=== PATIENT | male | born 1945 | race Caucasian/White ===

== ENCOUNTER 2017-01-16 00:19 | Inpatient (IN) | payer MEDICARE, MEDICAID ==
[2017-01-16] MEDS ORDERED: Sodium Chloride 0.9% 1,000 ML IV ONE (00:29)
--- NOTE | 2017-01-16 00:31 | ED Physician Chart ---
Chief Complaint/HPI - Patient Information Date Seen:: 01/16/17 Time Seen:: 00:26 Chief Complaint:: generalized weakness History of Present Illness:: 71-year-old male, brought in from [facility] facility with acute, worsening , moderate to severe, generalized weakness 3 days. With associated poor oral intake. Denies pain, nausea, vomiting, headache, acute vision changes, dysuria. History limited due to patient's uncooperative behavior History provided by EMS Allergies:: Allergies Allergy/AdvReac Type Severity Reaction Status Date / Time No Known Allergies Allergy Verified 04/26/16 20:42 Historian:: Patient Review:: Nurse's Note Reviewed, EMS run form Reviewed, Transfer documents Reviewed Review of Systems - Review of Systems Other: Complete system review otherwise unremarkable except as noted in history of present illness. Past Medical History - Past Medical History Past Medical History: HTN, Other (history of psychoactive substance abuse, hearing loss bilateral, traumatic amputation of unspecified toe, chronic pain syndrome, unspecified psychosis, impulse disorder, osteoarthritis, low back pain , polyneuropathy, atherosclerotic heart disease, chronic viral hepatitis C, vitamin B12 deficiency anemia, factitious disorder, glaucoma, dysphagia, unspecified lack of coordination) Family History: None Social History: Non Smoker, No Alcohol, No Drug Use, Care Facility Surgical History: None Psychiatricy History: None Medication: Reviewed Family Medical History - Family Member Mother History Unknown: Yes Ethnicity: Unknown Living Status: Unknown Hx Family Cancer: No Hx Family Coronary Artery Disease: No Hx Family Congestive Heart Failure: No Hx Family Hypertension: No Hx Family Stroke: No Hx Family Diabetes: No Hx Family Seizures: No Hx Family Dementia: No Hx Family AIDS: No Hx Family HIV: No Hx Family COPD: No Hx Family Hepatitis: No Hx Family Psychiatric Problems: No Hx Family Tuberculosis: No Physical Exam - Physical Examination Other:: INITIAL VITAL SIGNS: Reviewed by me GENERAL: Alert and interactive. No acute distress. Uncooperative. HEAD: Head is normocephalic and atraumatic EYES: EOMI. No scleral icterus. No conjunctival injection ENT: Dry mucous membranes. NECK: Supple. No masses. Full range of motion RESPIRATORY: No tachypnea. Clear breath sounds bilaterally. No wheezing, rales, or rhonchi CV: Regular rate and rhythm. No murmurs, rubs, or gallops ABDOMEN: Soft, non-distended, non-tender. No guarding. No rebound. No masses. EXTREMITIES: No obvious deformity. No cyanosis. No edema. SKIN: Warm and dry. No obvious rashes. NEUROLOGIC: Alert and oriented. Face is symmetric. Speech is normal. Moves all extremities equally. Motor and sensory distally intact. Labs/Radiology/EKG Results - Lab Results Results: Lab Results 01/16/17 01/16/17 01/16/17 Range/Units 00:40 00:40 00:40 WBC 14.7 H D (4.8-10.8) Th/cmm RBC 2.12 L (3.80-5.80) Mil/cmm Hgb 9.0 L (12.6-17.4) gm/dL Hct 25.7 L (39.0-49.0) % MCV 121.2 H (80-99) fl MCH 42.3 H (27.0-31.0) pg MCHC Differential 34.9 (28.0-36.0) pg RDW 17.4 (11.5-20.0) % Plt Count 163 D (150-400) Th/cmm MPV 7.7 fl PT 14.0 H (9.5-11.5) SECONDS INR 1.33 (0.5-1.4) PTT (Actin FS) 30.6 (26.0-38.0) SECONDS Sodium 140 (136-145) mEq/L Potassium 3.9 (3.5-5.1) mEq/L Chloride 105 (98-107) mEq/L Carbon Dioxide 20.7 L (21.0-31.0) mEq/L Anion Gap 18.2 H (7.0-16.0) BUN 15 (7-25) mg/dL Creatinine 1.0 (0.7-1.3) mg/dL Est GFR ( Amer) TNP Est GFR (Non-Af Amer) TNP BUN/Creatinine Ratio 15.0 Glucose 110 H (70-105) mg/dL Whole Bld Lactic Acid (0.60-1.99) mmol/L Calcium 8.6 (8.6-10.3) mg/dL Total Bilirubin 0.9 (0.3-1.0) mg/dL AST 49 H (13-39) U/L ALT 11 (7-52) U/L Alkaline Phosphatase 102 (34-104) U/L Creatine Kinase 29 L (30-223) U/L Total Protein 7.1 (6.0-8.3) gm/dL Albumin 2.3 L (4.2-5.5) gm/dL Globulin 4.8 gm/dL Albumin/Globulin Ratio 0.5 L (1.0-1.8) 01/16/17 Range/Units 00:40 WBC (4.8-10.8) Th/cmm RBC (3.80-5.80) Mil/cmm Hgb (12.6-17.4) gm/dL Hct (39.0-49.0) % MCV (80-99) fl MCH (27.0-31.0) pg MCHC Differential (28.0-36.0) pg RDW (11.5-20.0) % Plt Count (150-400) Th/cmm MPV fl PT (9.5-11.5) SECONDS INR (0.5-1.4) PTT (Actin FS) (26.0-38.0) SECONDS Sodium (136-145) mEq/L Potassium (3.5-5.1) mEq/L Chloride (98-107) mEq/L Carbon Dioxide (21.0-31.0) mEq/L Anion Gap (7.0-16.0) BUN (7-25) mg/dL Creatinine (0.7-1.3) mg/dL Est GFR ( Amer) Est GFR (Non-Af Amer) BUN/Creatinine Ratio Glucose (70-105) mg/dL Whole Bld Lactic Acid 2.62 H* (0.60-1.99) mmol/L Calcium (8.6-10.3) mg/dL Total Bilirubin (0.3-1.0) mg/dL AST (13-39) U/L ALT (7-52) U/L Alkaline Phosphatase (34-104) U/L Creatine Kinase (30-223) U/L Total Protein (6.0-8.3) gm/dL Albumin (4.2-5.5) gm/dL Globulin gm/dL Albumin/Globulin Ratio (1.0-1.8) - EKG Interpretations Comments:: 12-lead EKG Interpretation by John Newsome MD: Normal Sinus Rhythm with ventricular rate of 79 beats per minute Normal axis Right bundle-branch block otherwise normal intervals No acute ST or T wave changes. No obvious STEMI ED Septic Shock - . Is Septic Shock (SBP<90, OR Lactate>4 mmol\L) present?: No Reassessment (Disposition) - Reassessment Reassessment:: Patient difficult to obtain a good history from as he is uncooperative. Apparently has been becoming more weak over the past 3 days. Has associated decreased oral intake. Unable to get a clear picture of the patient's issues in the emergency room setting. Discussed the case with the admitting physician. Patient admitted for further workup and treatment. Patient has leukocytosis and elevated lactic acid. No apparent source at this point however it is possible that he is septic. He is dehydrated. Consequently we did give IV fluids and Rocephin. Discussed case with the admitting physician. Patient admitted for further workup and treatment. Reassessment Condition:: Unchanged - Diagnosis Diagnosis:: Possible sepsis, unknown source Dehydration - Patient Disposition Discharge/Transfer:: Acute Care w/in this hosp Admitted to:: Med/Surg Admitting Medical Physician:: Miguel Mccarthy Time:: 01:18 Condition at Disposition:: Stable ED Discharge Plan - Patient Disposition Admit/Discharge/Transfer: Acute Care w/in this hosp
[2017-01-16 01:02] LABS: RED BLOOD COUNT 2.12 Mil/cmm (3.80-5.80)
[2017-01-16 01:10] LABS: HEMATOCRIT 25.7 % (39.0-49.0); MEAN CORPUSCULAR HEMOGLOBIN 42.3 pg (27.0-31.0); MEAN CORPUSCULAR HGB CONC 34.9 pg (28.0-36.0); MEAN PLATELET VOLUME 7.7 fl; RED CELL DISTRIBUTION WIDTH 17.4 % (11.5-20.0)
[2017-01-16 01:11] LABS: MEAN CELL VOLUME 121.2 fl (80-99); PLATELET COUNT 163 Th/cmm (150-400); WHITE BLOOD COUNT 14.7 Th/cmm (4.8-10.8)
[2017-01-16] MEDS ORDERED: cefTRIAXone 1 GM in Sodium Chloride 0.9% 50 ML IV ONE (01:12)
[2017-01-16 01:13] LABS: ALB/GLOB RATIO 0.5 (1.0-1.8); ALKALINE PHOSPHATASE 102 U/L (34-104); ANION GAP 18.2 (7.0-16.0); BILIRUBIN,TOTAL 0.9 mg/dL (0.3-1.0); BUN - UREA NITROGEN 15 mg/dL (7-25); CALCIUM SERUM 8.6 mg/dL (8.6-10.3); CARBON DIOXIDE 20.7 mEq/L (21.0-31.0); CHLORIDE 105 mEq/L (98-107); GLUCOSE 110 mg/dL (70-105); INR 1.33 (0.5-1.4); POTASSIUM SERUM 3.9 mEq/L (3.5-5.1); SGOT 49 U/L (13-39); SGPT/ALT 11 U/L (7-52); SODIUM SERUM 140 mEq/L (136-145)
[2017-01-16 01:27] LABS: ANISOCYTOSIS 2+; BAND NEUTROPHILE 5 % (0-10); EOSINOPHIL 13 % (0-5); NEUTROPHILS 66 % (40-80); PLATELET ESTIMATE ADEQUATE (NORMAL); POLYCHROMASIA 1+; TOTAL CELLS COUNTED 100
[2017-01-16 01:28] LABS: TEAR DROP CELLS 1+
[2017-01-16] MEDS ORDERED: Magnesium Hydroxide (MOM) 30 mL UDC PO PRN (01:33)
[2017-01-16 01:41] LABS: URINE BILIRUBIN SMALL (NEGATIVE); URINE COLOR ORANGE; URINE GLUCOSE (UA) NEGATIVE (NEGATIVE); URINE KETONE NEGATIVE (NEGATIVE)
[2017-01-16 01:42] LABS: URINE BACTERIA NONE SEEN /hpf (NONE SEEN); URINE BLOOD NEGATIVE (NEGATIVE); URINE EPITHELIAL CELLS OCCASIONAL /lpf (FEW); URINE PH 5.5; URINE PROTEIN 30 mg/dL (NEGATIVE); URINE RBC 0-2 /hpf (0-5); URINE WBC 0-2 /hpf (0-5)
[2017-01-16] MEDS: D5-0.45NS w/20 mEq KCL 1,000 ML IV SCH ×2 (04:23→20:20)
--- NOTE | 2017-01-16 06:54 | Admit Criteria Form ---
Admit Criteria Forms - Admit Criteria Diagnosis: SEPSIS and OTHER FEBRILE ILLNESS, W/O FOCAL INFECTION Clinical Indications for Admission to Inpatient Care ( Place 'X' for any and all applicable criteria): Admission is indicated for ANY ONE of the following (1)(2)(3)(4): [ ] I. Bacteremia [X ]II. Suspected or identified specific infection requiring hospitalization (eg, meningitis, endocarditis) [ ]III. Hemodynamic instability [ ]IV. Altered mental status [ ]V. Failure or unavailability of outpatient antimicrobial treatment [ ]. Hypoxemia [ ]VII. Seizures [ ]VIII. High-risk febrile neutropenia [ ]IX. Need for parenteral antibiotic in patient who is likely to abuse vascular access device (eg, injection drug user) [A](7) [ ]X. Temperature greater than 104.9 degrees F (40.5 degrees C) (oral) [X ]XI. Inpatient admission required rather than observation care because of ANY ONE of the following: [ ]1) Specific infection identified that is too severe for outpatient treatment or observation care trial [ ]2) Metabolic disorder (eg, hypoglycemia, hyperglycemia, metabolic acidosis) that is severe or persistent [ ]3) Temperature greater than 103.1 degrees F (39.5 degrees C) ( oral) that is not responsive to observation care treatment [ ]4) IV fluid to replace significant ongoing (eg, for over 24 hours) losses (> 3 L/m2 per day) [ ]5) Supplemental oxygen or respiratory treatments for over 24 hours that is performable only in acute inpatient setting [ ]6) Parenteral nutrition regimen need that must be implemented on inpatient basis [ ]7) Strict or protective (eg, laminar flow) isolation [X ]8) Other condition, treatment or monitoring requiring inpatient admission Extended stay beyond goal length of stay may be needed for(1)(3) [ ]a) Sepsis or septic shock(22) [ ]b) Positive blood cultures [ ]c) Insufficient oral intake [ ]d) High-risk febrile neutropenia(29)(30) [ ]e) Continued fever and clinical instability [ ]f) Clinically active comorbid illness (e.g,heart failure, renal failure , diabetes) The original [employer] content created by [employer] has been revised. The portions of the content which have been revised are identified through the use of italic text or in bold, and [facility] [employer] has neither reviewed nor approved the modified material. All other unmodified content is copyright [facility]. Please see references footnoted in the original [facility] edition 2016 Admit Criteria Met?: Yes
[2017-01-16] MEDS: Ferrous Sulfate 325 MG TAB PO SCH (08:40)
[2017-01-16] MEDS: Multivitamin w/ Minerals Tab PO SCH (08:40)
--- NOTE | 2017-01-16 14:33 | Consultation ---
Consult Note - Consult Note Service Date: 01/16/17 Consult Note: [id number]
--- NOTE | 2017-01-16 15:46 | Diagnostic Imaging Report ---
CHEST X-RAY: AP view INDICATION: Pneumonia COMPARISON: None FINDINGS: Right lower lung zone infiltrates and small right effusion is noted. There may be a hiatal hernia. Cardiomegaly is noted with atherosclerosis.. Postsurgical changes of right humerus are partially visualized. IMPRESSION: Right lower lung zone infiltrates and small right effusion. Possible hiatal hernia. CT would further clarify. Cardiomegaly and atherosclerotic vascular disease.
[2017-01-16 17:06] LABS: TISSUE KOH / SCABIES NEGATIVE FOR SCABIES
[2017-01-16] MEDS ORDERED: Non-Formulary Item 1 EA (Melatonin [Melatonin] 3 MG) PO SCH (21:00)
--- NOTE | 2017-01-16 21:34 | History & Physical ---
ADMIT DATE: 01/16/2017 CHIEF COMPLAINT: Altered level of consciousness, poor appetite, and generalized weakness. HISTORY OF PRESENT ILLNESS: The patient is a 71-year-old male with long history of degenerative joint disease, dementia, and psychosis, who was transferred to the Emergency Room with generalized weakness, poor appetite, evaluated by the ER physician. Initial workup is significant for possible urinary tract infection, dehydration, admitted to the medical floor, started on IV fluid, antibiotic. The patient denies any chest pain, any nausea or vomiting. Initial blood workup was also significant for anemia and leukocytosis. The patient was started on IV fluid, antibiotic. PAST MEDICAL HISTORY: Significant for dementia, psychosis, and degenerative joint disease. PAST SURGICAL HISTORY: No recent surgery. ALLERGIES: None. MEDICATIONS: Follow admission reconciliation. SOCIAL HISTORY: No smoking, alcohol, or drugs. FAMILY HISTORY: Noncontributory. REVIEW OF SYSTEMS: RENAL SYSTEM: No history of chronic renal disorder. CARDIOVASCULAR SYSTEM: No coronary artery disease. ENDOCRINE SYSTEM: No diabetes or thyroid problem. GASTROINTESTINAL SYSTEM: No upper or lower gastrointestinal bleed. NEUROLOGICAL SYSTEM: He has history of psychosis and dementia. MUSCULOSKELETAL SYSTEM: Degenerative joint disease. PHYSICAL EXAMINATION: GENERAL: He is awake, alert, and confused. VITAL SIGNS: Temperature is 97.5, heart rate 66, and blood pressure 170/72. HEENT: Normocephalic. Pupils are reactive to light and accommodation. Sclerae clear. NECK: Supple. Negative for lymphadenopathy, JVD, or bruit. CHEST: Bilaterally normal. No rhonchi or wheezing. HEART: S1, S2 normal. . ABDOMEN: Soft. Bowel sounds positive. EXTREMITIES: No edema. NEUROLOGIC: Awake and alert, not fully oriented. No focal motor or sensory deficits. LABORATORY DATA: White blood cells 14.7, hemoglobin 9, hematocrit 25.7, platelet 163,000. PT . INR 1.33. Sodium 140, potassium 3.9, BUN 15, and creatinine 1.0. Lactic acid 3.82. ASSESSMENT: 1. Possible urinary tract infection. 2. Dehydration. 3. Anemia. 4. Psychosis. 5. Dementia. PLAN: The patient was admitted to the hospital under Dr. Mccarthy's service, on IV fluid, IV antibiotic, and regular diet. The patient will resume his medication. Psych evaluation ordered. [facility]# [id number]
[2017-01-17] MEDS ORDERED: cefTRIAXone 1 GM in Sodium Chloride 0.9% 50 ML IV SCH (01:30)
--- NOTE | 2017-01-17 04:01 | Consultation ---
DATE OF CONSULTATION: 01/16/2017 IDENTIFYING INFORMATION: The patient is a 71-year-old male. REASON FOR CONSULT AND HISTORY OF PRESENT ILLNESS: As per the patient, he was a current patient of mine at [facility], he was admitted because of dehydration and possible sepsis. The patient himself was a poor historian, he is not sure why he is here, ____his gangrenous is now, however, he was able to recognize me. He denies any current intent to harm himself or anybody, with the history of schizoaffective disorder and depression with multiple prior hospitalizations to [facility] and other psychiatric units. PAST PSYCHIATRIC HISTORY: Multiple prior admission to [facility] and other psychiatric units. MEDICAL HISTORY: Deferred to the medical doctor. MEDICATIONS: The patient has been on Remeron 22.5 mg at bedtime. FAMILY AND SOCIAL HISTORY: The patient reports that he has 2 children, have grandchildren; however, he is not a great historian. He reported that he has been at [facility] for a while. He denies any legal problems. He denies any family psychiatric disorder. MENTAL STATUS EXAMINATION: The patient is appropriately dressed, not well groomed. He looked somewhat tired, exhausted, he wanted to show me his gangrenous hand, he believe though ____ not gangrenous, he was somewhat inappropriate; however, he knew this is December, believe it is 01/18/2017, then this is Sunday. He knew he was coming from [facility] and this is [place]. He denies any current intent to harm himself or anybody. Denies any hallucinations or paranoia. He seems to have average intelligence. His long and short-term memory is intact. He denies any auditory or visual hallucinations. His insight and judgment is limited. IMPRESSION: AXIS I: Major depression, recurrent with episodes of psychosis, to rule out schizoaffective disorder. MEDICAL DIAGNOSES: Deferred to the medical doctor. I would recommend to continue his medication. The patient ____ follow up with the patient at [facility]. So far, there is no criteria for him to go to [facility], but if something happens____ or if it changes, we can go there. Thank you very much for allowing me to participate in the care of this most interesting gentleman. [facility]# [id number]
--- NOTE | 2017-01-17 06:07 | Consultation ---
DATE OF CONSULTATION: 01/16/2017 REFERRING PHYSICIAN: Dr. Mccarthy. REASON FOR CONSULTATION: Sepsis and rash. HISTORY OF PRESENT ILLNESS: The patient is a 71-year-old male with past medical history of hypertension, history of psychoactive substance abuse, hearing impaired bilaterally, traumatic amputation of the toes, chronic pain syndrome, impulsive disorder, osteoarthritis, low back pain, polyneuropathy, atherosclerotic heart disease, chronic hepatitis C without encephalopathy, vitamin B12 deficiency, factitious disorder, glaucoma, and dysphagia. She was brought from nursing facility for generalized weakness for about 3 days. It was associated with the poor oriented. The patient denies any fever or chills. The patient has complained of rash all over the body with itchy rash all over the body including palms. On initial evaluation, the patient's temperature was 98 degrees Fahrenheit and WBC count 14,700 with neutrophil of 66%. The patient's lactic acid was 2.62, it went up to 3.82. ID consult was called for further antibiotic management. Meanwhile, the patient was started on Rocephin. ALLERGIES: NKDA. MEDICATIONS: As per medication reconciliation sheet. Antibiotic carreno, the patient is on Rocephin. PAST MEDICAL HISTORY: As mentioned above. It includes chronic hepatitis C without any encephalopathy at this time, hypertension, psychoactive substance abuse, and deafness bilaterally. Amputation of toes. Chronic pain syndrome, impulsive disorder, osteoarthritis, low back pain, polyneuropathy, atherosclerotic heart disease, vitamin B12 deficiency, anemia, factitious disorder, glaucoma, and dysphagia. FAMILY HISTORY: Noncontributory. SOCIAL HISTORY: The patient lives in a nursing facility. No history of smoking, alcohol, or drug use. PAST SURGICAL HISTORY: None. PSYCHIATRIC HISTORY: None. FAMILY HISTORY: Noncontributory. REVIEW OF SYSTEMS: GENERAL: The patient denies any fever or chills. HEENT: The patient denies any diplopia, photophobia, or sore throat. RESPIRATORY: Denies any cough or shortness of breath. CVS: The patient denies any chest pain or palpitation. GASTROINTESTINAL: The patient denies any nausea, vomiting, diarrhea, or constipation. GENITOURINARY: No dysuria. No hematuria. CENTRAL NERVOUS SYSTEM: No headache, no dizziness, and no focal weakness. The patient has generalized weakness. SKIN: The patient has rash all over the body including palms and soles, itchy. PHYSICAL EXAMINATION: VITAL SIGNS: Current vital sings how temperature is 97.8, pulse 98, respirations 18, and blood pressure 99/60. GENERAL: The patient is comfortable lying in the bed, not in acute distress, cachectic. HEENT: Head is normocephalic and atraumatic. Oral cavity moist, pink tongue. Eyes: Pallor is present, no icterus. PERRLA. EOMI. HEENT: Head is normocephalic and atraumatic. Bitemporal wasting. Oral cavity moist. [place]us tongue. Eyes: Pallor is present, no icterus. PERRLA. EOMI. NECK: Supple. No JVD and no carotid bruit. Trachea in midline. No use of accessory neck muscles. CHEST: Bilateral breath sounds. No crackles or wheezing. CARDIOVASCULAR: S1, S2 within normal limits. Regular rhythm. No murmur and no gallop. ABDOMEN: Soft, nontender, and nondistended. Bowel sounds present. EXTREMITIES: No cyanosis, no clubbing, or edema. NEUROLOGIC: Alert, awake, and oriented x 3. No focal neuro deficit. SKIN: The patient has dry papillary rash all over the body including hands and palms. The patient has dry skin and rash in between finger webs also. LABORATORY DATA: Current lab shows WBC count is 14,700, hemoglobin 9, hematocrit 25.7, platelets are 163,000, neutrophil is 66%, and lymphocytes 14%. INR is 1.33. Sodium is 140, potassium 3.9, chloride 105, bicarbonate is 21, BUN is 15, creatinine 1, and glucose is 110. Lactic acid 3.82. Total bilirubin 0.9, AST 49, ALT 11, alkaline phosphatase 102. Urinalysis shows negative nitrite and negative leukocyte esterase. WBCs 0-2 and no bacteria. IMPRESSION: 1. Leukocytosis and lactic acidosis, rule out sepsis. 2. Generalized rash, rule out scabies, and may have dry skin dermatitis or autoimmune. 3. Lactic acidosis. 4. Psychosis. 5. Cachexia, calorie-protein malnutrition. 6. Anemia of chronic disease. 7. Vitamin B12 deficiency. 8. Hypertension. RECOMMENDATIONS: We will continue Rocephin. Repeat CBC and BMP in the morning. Check lactic acid again. Blood cultures are drawn. Asked for chest x-ray. Check RPR, check vitamin B12 level, and check skin scraping for scabies. Apply Elimite lotion. Thank you Dr. Mccarthy for involving me in taking care of this patient. [facility]# [id number] [facility]
[2017-01-17 06:17] LABS: HEMOGLOBIN 8.3 gm/dL (12.6-17.4); MEAN CORPUSCULAR HGB CONC 35.2 pg (28.0-36.0); MEAN PLATELET VOLUME 7.2 fl; PLATELET COUNT 155 Th/cmm (150-400); RED BLOOD COUNT 1.94 Mil/cmm (3.80-5.80); RED CELL DISTRIBUTION WIDTH 16.7 % (11.5-20.0)
[2017-01-17 07:34] LABS: HEMATOCRIT 23.5 % (39.0-49.0); WHITE BLOOD COUNT 16.4 Th/cmm (4.8-10.8)
[2017-01-17 07:35] LABS: MEAN CELL VOLUME 121.2 fl (80-99); MEAN CORPUSCULAR HEMOGLOBIN 42.6 pg (27.0-31.0)
[2017-01-17] MEDS: Ferrous Sulfate 325 MG TAB PO SCH (08:49)
[2017-01-17] MEDS: Multivitamin w/ Minerals Tab PO SCH (08:49)
[2017-01-17 09:13] LABS: ANISOCYTOSIS 1+; BAND NEUTROPHILE 6 % (0-10); BASOPHIL 1 % (0-3); EOSINOPHIL 14 % (0-5); METAMYELOCYTE 1 % (0-0); NEUTROPHILS 67 % (40-80); PLATELET ESTIMATE ADEQUATE (NORMAL); PLATELET MORPHOLOGY NORMAL (NORMAL); TOTAL CELLS COUNTED 100
[2017-01-17] MEDS: D5-0.45NS w/20 mEq KCL 1,000 ML IV SCH (15:29)
[2017-01-17] MEDS ORDERED: Albuterol Nebulizer 2.5mg/3mL HHN PRN (22:52)
--- NOTE | 2017-01-17 23:58 | Infectious Disease Prog Note ---
Infectious Disease Subjective - Review of Systems Service Date: 01/17/17 Subjective: There is no new change. there is no fever. Infectious Disease Objective - Results Result Diagrams: 01/17/17 05:32 01/16/17 00:40 Recent Labs: Laboratory Last Values WBC 16.4 Th/cmm (4.8-10.8) H 01/17/17 05:32 RBC 1.94 Mil/cmm (3.80-5.80) L 01/17/17 05:32 Hgb 8.3 gm/dL (12.6-17.4) L 01/17/17 05:32 Hct 23.5 % (39.0-49.0) L* 01/17/17 05:32 MCV 121.2 fl (80-99) H 01/17/17 05:32 MCH 42.6 pg (27.0-31.0) H 01/17/17 05:32 MCHC Differential 35.2 pg (28.0-36.0) 01/17/17 05:32 RDW 16.7 % (11.5-20.0) 01/17/17 05:32 Plt Count 155 Th/cmm (150-400) 01/17/17 05:32 MPV 7.2 fl 01/17/17 05:32 Band Neutrophils % 6 % (0-10) 01/17/17 05:32 Neutrophils (Manual) 67 % (40-80) 01/17/17 05:32 Lymphocytes 6 % (20-50) L 01/17/17 05:32 Monocytes 5 % (2-10) 01/17/17 05:32 Eosinophils 14 % (0-5) H 01/17/17 05:32 Basophils 1 % (0-3) 01/17/17 05:32 Metamyelocytes 1 % (0-0) H 01/17/17 05:32 Platelet Estimate ADEQUATE (NORMAL) 01/17/17 05:32 Platelet Morphology NORMAL (NORMAL) 01/17/17 05:32 Polychromasia 1+ 01/16/17 00:40 Anisocytosis 1+ 01/17/17 05:32 Macrocytosis 3+ 01/17/17 05:32 Tear Drop Cells 1+ 01/16/17 00:40 RBC Morph Micro Appear ABNORMAL (NORMAL) 01/17/17 05:32 PT 14.0 SECONDS (9.5-11.5) H 01/16/17 00:40 INR 1.33 (0.5-1.4) 01/16/17 00:40 PTT (Actin FS) 30.6 SECONDS (26.0-38.0) 04 00:40 Sodium 140 mEq/L (136-145) 01/16/17 00:40 Potassium 3.9 mEq/L (3.5-5.1) 01/16/17 00:40 Chloride 105 mEq/L (98-107) 01/16/17 00:40 Carbon Dioxide 20.7 mEq/L (21.0-31.0) L 01/16/17 00:40 Anion Gap 18.2 (7.0-16.0) H 01/16/17 00:40 BUN 15 mg/dL (7-25) 01/16/17 00:40 Creatinine 1.0 mg/dL (0.7-1.3) 01/16/17 00:40 Est GFR ( Amer) TNP 01/16/17 00:40 Est GFR (Non-Af Amer) TNP 01/16/17 00:40 BUN/Creatinine Ratio 15.0 01/16/17 00:40 Glucose 110 mg/dL (70-105) H 01/16/17 00:40 Whole Bld Lactic Acid 3.46 mmol/L (0.60-1.99) H* 01/17/17 06:44 Calcium 8.6 mg/dL (8.6-10.3) 01/16/17 00:40 Total Bilirubin 0.9 mg/dL (0.3-1.0) 01/16/17 00:40 AST 49 U/L (13-39) H 01/16/17 00:40 ALT 11 U/L (7-52) 01/16/17 00:40 Alkaline Phosphatase 102 U/L (34-104) 01/16/17 00:40 Creatine Kinase 29 U/L (30-223) L 01/16/17 00:40 Total Protein 7.1 gm/dL (6.0-8.3) 01/16/17 00:40 Albumin 2.3 gm/dL (4.2-5.5) L 01/16/17 00:40 Globulin 4.8 gm/dL 01/16/17 00:40 Albumin/Globulin Ratio 0.5 (1.0-1.8) L 01/16/17 00:40 Urine Source CLEAN C 01/16/17 01:30 Urine Color ORANGE 01/16/17 01:30 Urine Clarity CLEAR (CLEAR) 01/16/17 01:30 Urine pH 5.5 01/16/17 01:30 Ur Specific [place] 1.015 (1.005-1.030) 01/16/17 01:30 Urine Protein 30 mg/dL (NEGATIVE) H 01/16/17 01:30 Urine Glucose (UA) NEGATIVE mg/dL (NEGATIVE) 01/16/17 01:30 Urine Ketones NEGATIVE mg/dL (NEGATIVE) 01/16/17 01:30 Urine Blood NEGATIVE (NEGATIVE) 01/16/17 01:30 Urine Nitrate NEGATIVE (NEGATIVE) 01/16/17 01:30 Urine Bilirubin SMALL (NEGATIVE) H 01/16/17 01:30 Urine Ictotest POSITIVE (NEGATIVE) H 01/16/17 01:30 Urine Urobilinogen 1.0 E.U./dL (0.2 - 1.0) 01/16/17 01:30 Ur Leukocyte Esterase NEGATIVE (NEGATIVE) 01/16/17 01:30 Urine RBC 0-2 /hpf (0-5) H 01/16/17 01:30 Urine WBC 0-2 /hpf (0-5) 01/16/17 01:30 Ur Epithelial Cells OCCASIONAL /lpf (FEW) 01/16/17 01:30 Urine Bacteria NONE SEEN /hpf (NONE SEEN) 01/16/17 01:30 Scabies Examination NEGATIVE FOR SCABIES 01/16/17 17:03 - Physical Exam Vitals and I&O: Vital Signs Temp 98 F 01/17/17 23:54 Pulse 85 01/17/17 20:00 Resp 18 01/17/17 23:54 BP 116/71 01/17/17 23:54 Pulse Ox 93 01/17/17 20:00 Intake & Output 01/17/17 01/17/17 01/18/17 06:59 18:59 06:59 Intake Total 560 1000 Balance 560 1000 Intake: Intake, IV Amount 1000 D5-0.45NS w/20 mEq KCL 1, 1000 000 ml @ 75 mls/hr IV . [id number] [facility] Rx#:[id number] Oral 560 Other: # Voids 3 # Bowel Movements 1 Stool Characteristics Soft Soft Soft Formed Formed Formed Brown Brown Brown Active Medications: Current Medications Acetaminophen (Tylenol) 650 mg PO Q4HR PRN PRN Reason: Mild pain & fever Stop: 03/17/17 01:32 Albuterol Sulfate (Albuterol 2.5mg/3ml Neb Ud) 2.5 mg HHN Q4H PRN PRN Reason: Shortness of Breath or Wheeze Stop: 03/18/17 22:53 Albuterol Sulfate (Albuterol 2.5mg/3ml Neb Ud) 2.5 mg HHN Q8HRT [facility] Stop: 03/19/17 06:59 Ascorbic Acid (Vitamin C) 500 mg PO DAILY [facility] Stop: 03/17/17 08:59 Last Admin: 01/17/17 08:49 Dose: 500 mg Docusate Sodium (Colace) 100 mg PO BID [facility] Stop: 03/17/17 08:59 Last Admin: 01/17/17 18:06 Dose: Not Given Ferrous Sulfate (Iron) 325 mg PO DAILY [facility] Stop: 03/17/17 08:59 Last Admin: 01/17/17 08:49 Dose: 325 mg Folic Acid (Folate) 1 mg PO DAILY [facility] Stop: 03/17/17 08:59 Last Admin: 01/17/17 08:49 Dose: 1 mg Gabapentin (Neurontin) 300 mg PO TID [facility] Stop: 03/18/17 13:59 Last Admin: 01/17/17 20:03 Dose: 300 mg Potassium Chloride/Dextrose/Sod Cl (D5-0.45ns W/20 Meq Kcl) 1,000 mls @ 75 mls/ hr IV .[id number] [facility] Stop: 03/17/17 01:32 Last Admin: 01/17/17 15:29 Dose: 75 mls/hr Ceftriaxone Sodium 1 gm/ (Sodium Chloride) 50 mls @ 100 mls/hr IV Q24HR [facility] Stop: 03/18/17 01:29 Last Admin: 01/17/17 01:49 Dose: 100 mls/hr Lorazepam (Ativan) 1 mg PO Q6HR PRN; Protocol PRN Reason: Agitation Stop: 03/18/17 02:51 Last Admin: 01/17/17 20:03 Dose: 1 mg Magnesium Hydroxide (Milk Of Magnesia) 30 ml PO HS PRN PRN Reason: Constipation Stop: 03/17/17 01:32 Metoprolol Tartrate (Lopressor) 25 mg PO DAILY [facility] Stop: 03/17/17 08:59 Last Admin: 01/17/17 08:49 Dose: 25 mg Mirtazapine (Remeron) 30 mg PO HS RICHELLE PRN Reason: Protocol Stop: 03/18/17 20:59 Last Admin: 01/17/17 20:03 Dose: 30 mg Miscellaneous (Melatonin [Melatonin]) 3 mg PO HS [facility] Stop: 03/17/17 20:59 Tramadol HCl (Ultram) 50 mg PO Q6HR PRN PRN Reason: Pain (Moderate) Stop: 03/17/17 10:19 Last Admin: 01/17/17 13:29 Dose: 50 mg General: no acute distress, well developed, well nourished HEENT: atraumatic, normocephalic, PERRLA, EOMI Neck: supple, no thyromegaly Cardiovascular: S1S2, regular Lungs: clear to auscultation bilaterally, clear to percussion Abdomen: soft, no tender, no distended Extremities: no cyanosis, no clubbing, no edema Neurological: awake, alert, oriented Skin: rash - Procedures Procedures: Procedures Procedure Code Date GROUP PSYCHOTHERAPY 89019 01/14/16 GROUP PSYCHOTHERAPY GZHZZZZ 01/14/16 Infectious Disease Assmt/Plan - Problem List Patient Problems: All Active Problems Agitation (Acute) R45.1 Combative behavior (Acute) R46.89 HTN (hypertension) (Acute) I10 Psychosis (Acute) F29 - Assessment Assessment: IMPRESSION: 1. Leukocytosis and lactic acidosis, rule out sepsis. 2. Generalized rash, rule out scabies, and may have dry skin dermatitis or autoimmune. 3. Lactic acidosis. 4. Pneumonia. 5. Cachexia, calorie-protein malnutrition. 6. Anemia of chronic disease. 7. Vitamin B12 deficiency. 8. Hypertension. 9. Psychosis RECOMMENDATIONS: change antibiotics to zosyn as there is worsening of the lactic acid and leukocytosis. Repeat CBC and BMP in the morning. Check lactic acid again.
--- NOTE | 2017-01-18 03:00 | Progress Notes ---
DATE: 01/17/2017 Case was discussed with staff of the patient, reviewed records. The patient continues to be anxious, gets easily agitated, irritable, not sleeping well. He is on 1:1. He continues to be unpredictable, impulsive. He usually tends to get agitated at times. I recommend to increase Remeron to 30 mg at bedtime, increase Neurontin 300 mg 3 times a day, so far no side effects. He is still rambling speech. Unable to participate in meaningful conversation. Thank you very much for allowing me to participate in the care of this most interesting gentleman. JOB# [id number]
[2017-01-18] MEDS: Albuterol Nebulizer 2.5mg/3mL HHN PRN (03:07)
[2017-01-18] MEDS: Albuterol Nebulizer 2.5mg/3mL HHN SCH ×3 (07:17→23:46)
[2017-01-18 07:18] LABS: MEAN CORPUSCULAR HEMOGLOBIN 41.9 pg (27.0-31.0); MEAN CORPUSCULAR HGB CONC 34.9 pg (28.0-36.0); MEAN PLATELET VOLUME 7.1 fl; PLATELET COUNT 168 Th/cmm (150-400)
[2017-01-18 07:22] LABS: ALB/GLOB RATIO 0.5 (1.0-1.8); ALKALINE PHOSPHATASE 99 U/L (34-104); ANION GAP 5.5 (7.0-16.0); BILIRUBIN,TOTAL 0.9 mg/dL (0.3-1.0); BUN - UREA NITROGEN 14 mg/dL (7-25); BUN/CREATININE RATIO 12.7; CALCIUM SERUM 8.4 mg/dL (8.6-10.3); CARBON DIOXIDE 22.5 mEq/L (21.0-31.0); CHLORIDE 108 mEq/L (98-107); CREATININE - SERUM 1.1 mg/dL (0.7-1.3); GLUCOSE 104 mg/dL (70-105); SGOT 47 U/L (13-39); SGPT/ALT 12 U/L (7-52); SODIUM SERUM 131 mEq/L (136-145)
[2017-01-18 07:55] LABS: HEMOGLOBIN 7.1 gm/dL (12.6-17.4); WHITE BLOOD COUNT 16.3 Th/cmm (4.8-10.8)
[2017-01-18 07:56] LABS: HEMATOCRIT 20.5 % (39.0-49.0); MEAN CELL VOLUME 120.3 fl (80-99)
[2017-01-18 08:40] LABS: ANISOCYTOSIS 1+; BAND NEUTROPHILE 8 % (0-10); EOSINOPHIL 9 % (0-5); NEUTROPHILS 66 % (40-80); PLATELET ESTIMATE ADEQUATE (NORMAL); PLATELET MORPHOLOGY NORMAL (NORMAL); TOTAL CELLS COUNTED 100
[2017-01-18] MEDS: Multivitamin w/ Minerals Tab PO SCH (09:32)
[2017-01-18] MEDS: Ferrous Sulfate 325 MG TAB PO SCH (09:32)
--- NOTE | 2017-01-18 15:08 | Infectious Disease Prog Note ---
Infectious Disease Subjective - Review of Systems Service Date: 01/18/17 Subjective: There is no new change. there is had fever yesterday. Infectious Disease Objective - Results Result Diagrams: 01/18/17 06:22 01/18/17 06:22 Recent Labs: Laboratory Last Values WBC 16.3 Th/cmm (4.8-10.8) H 01/18/17 06:22 RBC 1.70 Mil/cmm (3.80-5.80) L 01/18/17 06:22 Hgb 7.1 gm/dL (12.6-17.4) L* D 01/18/17 06:22 Hct 20.5 % (39.0-49.0) L* D 01/18/17 06:22 MCV 120.3 fl (80-99) H 01/18/17 06:22 MCH 41.9 pg (27.0-31.0) H 01/18/17 06:22 MCHC Differential 34.9 pg (28.0-36.0) 01/18/17 06:22 RDW 17.0 % (11.5-20.0) 01/18/17 06:22 Plt Count 168 Th/cmm (150-400) 01/18/17 06:22 MPV 7.1 fl 01/18/17 06:22 Band Neutrophils % 8 % (0-10) 01/18/17 06:22 Neutrophils (Manual) 66 % (40-80) 01/18/17 06:22 Lymphocytes 8 % (20-50) L 01/18/17 06:22 Monocytes 9 % (2-10) 01/18/17 06:22 Eosinophils 9 % (0-5) H 01/18/17 06:22 Basophils 1 % (0-3) 01/17/17 05:32 Metamyelocytes 1 % (0-0) H 01/17/17 05:32 Platelet Estimate ADEQUATE (NORMAL) 01/18/17 06:22 Platelet Morphology NORMAL (NORMAL) 01/18/17 06:22 Polychromasia 1+ 01/16/17 00:40 Anisocytosis 1+ 01/18/17 06:22 Macrocytosis 3+ 01/18/17 06:22 Tear Drop Cells 1+ 01/16/17 00:40 RBC Morph Micro Appear ABNORMAL (NORMAL) 01/18/17 06:22 PT 14.0 SECONDS (9.5-11.5) H 01/16/17 00:40 INR 1.33 (0.5-1.4) 01/16/17 00:40 PTT (Actin FS) 30.6 SECONDS (26.0-38.0) 01/16/17 00:40 Sodium 131 mEq/L (136-145) L 01/18/17 06:22 Potassium 5.0 mEq/L (3.5-5.1) 01/18/17 06:22 Chloride 108 mEq/L (98-107) H 01/18/17 06:22 Carbon Dioxide 22.5 mEq/L (21.0-31.0) 01/18/17 06:22 Anion Gap 5.5 (7.0-16.0) L 01/18/17 06:22 BUN 14 mg/dL (7-25) 01/18/17 06:22 Creatinine 1.1 mg/dL (0.7-1.3) 01/18/17 06:22 Est GFR ( Amer) TNP 01/18/17 06:22 Est GFR (Non-Af Amer) TNP 01/18/17 06:22 BUN/Creatinine Ratio 12.7 01/18/17 06:22 Glucose 104 mg/dL (70-105) 01/18/17 06:22 Whole Bld Lactic Acid 1.88 mmol/L (0.60-1.99) 01/18/17 06:22 Calcium 8.4 mg/dL (8.6-10.3) L 01/18/17 06:22 Total Bilirubin 0.9 mg/dL (0.3-1.0) 01/18/17 06:22 AST 47 U/L (13-39) H 01/18/17 06:22 ALT 12 U/L (7-52) 01/18/17 06:22 Alkaline Phosphatase 99 U/L (34-104) 01/18/17 06:22 Creatine Kinase 29 U/L (30-223) L 01/16/17 00:40 Total Protein 6.4 gm/dL (6.0-8.3) 01/18/17 06:22 Albumin 2.1 gm/dL (4.2-5.5) L 01/18/17 06:22 Globulin 4.3 gm/dL 01/18/17 06:22 Albumin/Globulin Ratio 0.5 (1.0-1.8) L 01/18/17 06:22 Urine Source CLEAN C 01/16/17 01:30 Urine Color ORANGE 01/16/17 01:30 Urine Clarity CLEAR (CLEAR) 01/16/17 01:30 Urine pH 5.5 01/16/17 01:30 Ur Specific [place] 1.015 (1.005-1.030) 01/16/17 01:30 Urine Protein 30 mg/dL (NEGATIVE) H 01/16/17 01:30 Urine Glucose (UA) NEGATIVE mg/dL (NEGATIVE) 01/16/17 01:30 Urine Ketones NEGATIVE mg/dL (NEGATIVE) 01/16/17 01:30 Urine Blood NEGATIVE (NEGATIVE) 01/16/17 01:30 Urine Nitrate NEGATIVE (NEGATIVE) 01/16/17 01:30 Urine Bilirubin SMALL (NEGATIVE) H 01/16/17 01:30 Urine Ictotest POSITIVE (NEGATIVE) H 01/16/17 01:30 Urine Urobilinogen 1.0 E.U./dL (0.2 - 1.0) 01/16/17 01:30 Ur Leukocyte Esterase NEGATIVE (NEGATIVE) 01/16/17 01:30 Urine RBC 0-2 /hpf (0-5) H 01/16/17 01:30 Urine WBC 0-2 /hpf (0-5) 01/16/17 01:30 Ur Epithelial Cells OCCASIONAL /lpf (FEW) 01/16/17 01:30 Urine Bacteria NONE SEEN /hpf (NONE SEEN) 01/16/17 01:30 RPR NONREACTIVE (NONREACTIVE) 01/16/17 14:30 Scabies Examination NEGATIVE FOR SCABIES 01/16/17 17:03 Blood Type O POSITIVE 01/18/17 09:00 Antibody Screen NEGATIVE 01/18/17 09:00 Crossmatch See Detail 01/18/17 09:00 - Physical Exam Vitals and I&O: Vital Signs Temp 97.3 F 01/18/17 13:20 Pulse 98 01/18/17 13:20 Resp 18 01/18/17 13:20 BP 143/79 01/18/17 13:20 Pulse Ox 100 01/18/17 13:20 Intake & Output 01/17/17 01/18/17 01/18/17 18:59 06:59 18:59 Intake Total 1000 700 Balance 1000 700 Intake: Intake, IV Amount 1000 100 D5-0.45NS w/20 mEq KCL 1, 1000 000 ml @ 75 mls/hr IV . [id number] [facility] Rx#:[id number] Piperacillin Sodium/ 100 Tazobact 4.5 gm In Sodium Chloride 0.9% 100 ml @ 100 mls/hr IV Q8HR [facility] Rx #:[id number] Oral 600 Other: # Voids 3 Stool Characteristics Soft Soft Soft Formed Formed Formed Brown Brown Brown Active Medications: Current Medications Acetaminophen (Tylenol) 650 mg PO Q4HR PRN PRN Reason: Mild pain & fever Stop: 03/17/17 01:32 Albuterol Sulfate (Albuterol 2.5mg/3ml Neb Ud) 2.5 mg HHN Q4H PRN PRN Reason: Shortness of Breath or Wheeze Stop: 03/18/17 22:53 Last Admin: 01/18/17 03:07 Dose: 2.5 mg Albuterol Sulfate (Albuterol 2.5mg/3ml Neb Ud) 2.5 mg HHN Q8HRT [facility] Stop: 03/19/17 06:59 Last Admin: 01/18/17 07:17 Dose: 2.5 mg Ascorbic Acid (Vitamin C) 500 mg PO DAILY [facility] Stop: 03/17/17 08:59 Last Admin: 01/18/17 09:32 Dose: 500 mg Diphenhydramine HCl (Benadryl) 25 mg PO Q6HR PRN PRN Reason: Itching Stop: 03/19/17 08:42 Docusate Sodium (Colace) 100 mg PO BID [facility] Stop: 03/17/17 08:59 Last Admin: 01/18/17 09:32 Dose: 100 mg Ferrous Sulfate (Iron) 325 mg PO DAILY [facility] Stop: 03/17/17 08:59 Last Admin: 01/18/17 09:32 Dose: 325 mg Folic Acid (Folate) 1 mg PO DAILY [facility] Stop: 03/17/17 08:59 Last Admin: 01/18/17 09:33 Dose: 1 mg Gabapentin (Neurontin) 300 mg PO TID [facility] Stop: 03/18/17 13:59 Last Admin: 01/18/17 14:31 Dose: 300 mg Potassium Chloride/Dextrose/Sod Cl (D5-0.45ns W/20 Meq Kcl) 1,000 mls @ 75 mls/ hr IV .[id number] [facility] Stop: 03/17/17 01:32 Last Admin: 01/17/17 15:29 Dose: 75 mls/hr Piperacillin Sod/Tazobactam (Sod 4.5 gm/ Sodium Chloride) 100 mls @ 100 mls/hr IV Q8HR [facility] Stop: 03/19/17 04:59 Last Admin: 01/18/17 12:32 Dose: 100 mls/hr Lorazepam (Ativan) 1 mg PO Q6HR PRN; Protocol PRN Reason: Agitation Stop: 03/18/17 02:51 Last Admin: 01/17/17 20:03 Dose: 1 mg Magnesium Hydroxide (Milk Of Magnesia) 30 ml PO HS PRN PRN Reason: Constipation Stop: 03/17/17 01:32 Metoprolol Tartrate (Lopressor) 25 mg PO DAILY [facility] Stop: 03/17/17 08:59 Last Admin: 01/18/17 09:32 Dose: 25 mg Mirtazapine (Remeron) 30 mg PO HS RICHELLE PRN Reason: Protocol Stop: 03/18/17 20:59 Last Admin: 01/17/17 20:03 Dose: 30 mg Tramadol HCl (Ultram) 50 mg PO Q6HR PRN PRN Reason: Pain (Moderate) Stop: 03/17/17 10:19 Last Admin: 01/17/17 13:29 Dose: 50 mg General: no acute distress, well developed, well nourished HEENT: atraumatic, normocephalic, PERRLA, EOMI, moist mucous membrane Neck: supple, no thyromegaly, no lymphadenopathy Cardiovascular: S1S2, regular Lungs: clear to auscultation bilaterally, clear to percussion Abdomen: soft, no tender, no distended Extremities: no cyanosis, no clubbing, no edema Neurological: awake, alert, oriented, CN 2-12 intact Skin: rash - Procedures Procedures: Procedures Procedure Code Date GROUP PSYCHOTHERAPY 54340 01/14/16 GROUP PSYCHOTHERAPY GZHZZZZ 01/14/16 Infectious Disease Assmt/Plan - Problem List Patient Problems: All Active Problems Agitation (Acute) R45.1 Combative behavior (Acute) R46.89 HTN (hypertension) (Acute) I10 Psychosis (Acute) F29 - Assessment Assessment: IMPRESSION: 1. Leukocytosis and lactic acidosis, sepsis. lactic acidosis improved. 2. Generalized rash, rule out scabies, and may have dry skin dermatitis or autoimmune. 3. Lactic acidosis. Improved. 4. Pneumonia. 5. Cachexia, calorie-protein malnutrition. 6. Anemia of chronic disease. 7. Vitamin B12 deficiency. 8. Hypertension. 9. Psychosis RECOMMENDATIONS: Continue zosyn. Repeat CBC and BMP in the morning.
[2017-01-18 16:18] LABS: IRON SATURATION 91 % (15-55); TIBC (LCI) 185 ug/dL (250-450); UIBC 17 ug/dL (111-343)
[2017-01-18 17:22] LABS: HEMOGLOBIN 8.1 gm/dL (12.6-17.4)
[2017-01-18 17:48] LABS: HEMATOCRIT 23.4 % (39.0-49.0)
[2017-01-18] MEDS: D5-0.45NS w/20 mEq KCL 1,000 ML IV SCH (21:29)
--- NOTE | 2017-01-19 02:15 | Progress Notes ---
DATE: 01/18/2017 Case was discussed with staff of the patient. The patient continues to have rambling speech. Continues to be unpredictable, impulsive, and continues to have poor insight. Unable to make safe plan for self-care. He is sleeping well and eating well. He is compliant with the medication with no side effects. I did increase his Neurontin dose yesterday as well as Remeron with no problems. No side effects with the medication, no sedation, and no nausea. We will continue to work with the patient in group therapy, and milieu therapy . Thank you very much for allowing me to participate in the care of this most interesting gentleman. JOB# [id number]
[2017-01-19 06:00] LABS: HEMOGLOBIN 9.5 gm/dL (12.6-17.4); MEAN CORPUSCULAR HGB CONC 34.3 pg (28.0-36.0); MEAN PLATELET VOLUME 6.9 fl; PLATELET COUNT 168 Th/cmm (150-400); RED BLOOD COUNT 2.56 Mil/cmm (3.80-5.80); RED CELL DISTRIBUTION WIDTH 27.8 % (11.5-20.0)
[2017-01-19 06:26] LABS: WHITE BLOOD COUNT 17.9 Th/cmm (4.8-10.8)
[2017-01-19 06:27] LABS: HEMATOCRIT 27.6 % (39.0-49.0)
[2017-01-19 06:31] LABS: ALB/GLOB RATIO 0.5 (1.0-1.8); ALKALINE PHOSPHATASE 114 U/L (34-104); ANION GAP 8.1 (7.0-16.0); BILIRUBIN,TOTAL 1.6 mg/dL (0.3-1.0); BUN - UREA NITROGEN 16 mg/dL (7-25); BUN/CREATININE RATIO 13.3; CALCIUM SERUM 8.5 mg/dL (8.6-10.3); CARBON DIOXIDE 20.5 mEq/L (21.0-31.0); CHLORIDE 109 mEq/L (98-107); CREATININE - SERUM 1.2 mg/dL (0.7-1.3); GLUCOSE 107 mg/dL (70-105); POTASSIUM SERUM 4.6 mEq/L (3.5-5.1); SGOT 56 U/L (13-39); SGPT/ALT 12 U/L (7-52); SODIUM SERUM 133 mEq/L (136-145)
[2017-01-19] MEDS: Albuterol Nebulizer 2.5mg/3mL HHN SCH ×2 (07:00→15:58)
[2017-01-19 07:49] LABS: MEAN CELL VOLUME 107.8 fl (80-99)
[2017-01-19 08:11] LABS: IRON SATURATION 76 % (15-55); TIBC (LCI) 165 ug/dL (250-450); UIBC 39 ug/dL (111-343)
[2017-01-19] MEDS: Ferrous Sulfate 325 MG TAB PO SCH (09:13)
[2017-01-19] MEDS: Multivitamin w/ Minerals Tab PO SCH (09:13)
[2017-01-19 09:28] LABS: BAND NEUTROPHILE 6 % (0-10); EOSINOPHIL 7 % (0-5); NEUTROPHILS 72 % (40-80); TOTAL CELLS COUNTED 100
[2017-01-19 09:29] LABS: ANISOCYTOSIS 2+; PLATELET ESTIMATE ADEQUATE (NORMAL); PLATELET MORPHOLOGY NORMAL (NORMAL)
--- NOTE | 2017-01-19 10:07 | Infectious Disease Prog Note ---
Infectious Disease Subjective - Review of Systems Service Date: 01/19/17 Subjective: There is no new change. there is had fever yesterday. Blood transfusion given yesterday. Infectious Disease Objective - Results Result Diagrams: 01/19/17 05:40 01/19/17 05:40 Recent Labs: Laboratory Last Values WBC 17.9 Th/cmm (4.8-10.8) H 01/19/17 05:40 RBC 2.56 Mil/cmm (3.80-5.80) L 01/19/17 05:40 Hgb 9.5 gm/dL (12.6-17.4) L 01/19/17 05:40 Hct 27.6 % (39.0-49.0) L D 01/19/17 05:40 MCV 107.8 fl (80-99) H 01/19/17 05:40 MCH 37.0 pg (27.0-31.0) H 01/19/17 05:40 MCHC Differential 34.3 pg (28.0-36.0) 01/19/17 05:40 RDW 27.8 % (11.5-20.0) H 01/19/17 05:40 Plt Count 168 Th/cmm (150-400) 01/19/17 05:40 MPV 6.9 fl 01/19/17 05:40 Band Neutrophils % 6 % (0-10) 01/19/17 05:40 Neutrophils (Manual) 72 % (40-80) 01/19/17 05:40 Lymphocytes 9 % (20-50) L 01/19/17 05:40 Monocytes 6 % (2-10) 01/19/17 05:40 Eosinophils 7 % (0-5) H 01/19/17 05:40 Basophils 1 % (0-3) 01/17/17 05:32 Metamyelocytes 1 % (0-0) H 01/17/17 05:32 Nucleated RBCs 1.0 % (0-0) H 01/19/17 05:40 Platelet Estimate ADEQUATE (NORMAL) 01/19/17 05:40 Platelet Morphology NORMAL (NORMAL) 01/19/17 05:40 Polychromasia 1+ 01/16/17 00:40 Anisocytosis 2+ 01/19/17 05:40 Macrocytosis 1+ 01/19/17 05:40 Tear Drop Cells 1+ 01/16/17 00:40 RBC Morph Micro Appear ABNORMAL (NORMAL) 01/19/17 05:40 PT 14.0 SECONDS (9.5-11.5) H 01/16/17 00:40 INR 1.33 (0.5-1.4) 01/16/17 00:40 PTT (Actin FS) 30.6 SECONDS (26.0-38.0) 01/16/17 00:40 Sodium 133 mEq/L (136-145) L 01/19/17 05:40 Potassium 4.6 mEq/L (3.5-5.1) 01/19/17 05:40 Chloride 109 mEq/L (98-107) H 01/19/17 05:40 Carbon Dioxide 20.5 mEq/L (21.0-31.0) L 01/19/17 05:40 Anion Gap 8.1 (7.0-16.0) 01/19/17 05:40 BUN 16 mg/dL (7-25) 01/19/17 05:40 Creatinine 1.2 mg/dL (0.7-1.3) 01/19/17 05:40 Est GFR ( Amer) TNP 01/19/17 05:40 Est GFR (Non-Af Amer) TNP 01/19/17 05:40 BUN/Creatinine Ratio 13.3 01/19/17 05:40 Glucose 107 mg/dL (70-105) H 01/19/17 05:40 Whole Bld Lactic Acid 1.88 mmol/L (0.60-1.99) 01/18/17 06:22 Calcium 8.5 mg/dL (8.6-10.3) L 01/19/17 05:40 Iron 126 ug/dL (38-169) 01/18/17 06:22 TIBC 165 ug/dL (250-450) L 01/18/17 06:22 Iron Saturation 76 % (15-55) H 01/18/17 06:22 Unsaturated IBC 39 ug/dL (111-343) L 01/18/17 06:22 Total Bilirubin 1.6 mg/dL (0.3-1.0) H 01/19/17 05:40 AST 56 U/L (13-39) H 01/19/17 05:40 ALT 12 U/L (7-52) 01/19/17 05:40 Alkaline Phosphatase 114 U/L (34-104) H 01/19/17 05:40 Creatine Kinase 29 U/L (30-223) L 01/16/17 00:40 Total Protein 6.9 gm/dL (6.0-8.3) 01/19/17 05:40 Albumin 2.3 gm/dL (4.2-5.5) L 01/19/17 05:40 Globulin 4.6 gm/dL 01/19/17 05:40 Albumin/Globulin Ratio 0.5 (1.0-1.8) L 01/19/17 05:40 Vitamin B12 >1999 pg/mL (211-946) H 01/17/17 04:44 Urine Source CLEAN C 01/16/17 01:30 Urine Color ORANGE 01/16/17 01:30 Urine Clarity CLEAR (CLEAR) 01/16/17 01:30 Urine pH 5.5 01/16/17 01:30 Ur Specific [place] 1.015 (1.005-1.030) 01/16/17 01:30 Urine Protein 30 mg/dL (NEGATIVE) H 01/16/17 01:30 Urine Glucose (UA) NEGATIVE mg/dL (NEGATIVE) 01/16/17 01:30 Urine Ketones NEGATIVE mg/dL (NEGATIVE) 01/16/17 01:30 Urine Blood NEGATIVE (NEGATIVE) 01/16/17 01:30 Urine Nitrate NEGATIVE (NEGATIVE) 01/16/17 01:30 Urine Bilirubin SMALL (NEGATIVE) H 01/16/17 01:30 Urine Ictotest POSITIVE (NEGATIVE) H 01/16/17 01:30 Urine Urobilinogen 1.0 E.U./dL (0.2 - 1.0) 01/16/17 01:30 Ur Leukocyte Esterase NEGATIVE (NEGATIVE) 01/16/17 01:30 Urine RBC 0-2 /hpf (0-5) H 01/16/17 01:30 Urine WBC 0-2 /hpf (0-5) 01/16/17 01:30 Ur Epithelial Cells OCCASIONAL /lpf (FEW) 01/16/17 01:30 Urine Bacteria NONE SEEN /hpf (NONE SEEN) 01/16/17 01:30 RPR NONREACTIVE (NONREACTIVE) 01/16/17 14:30 Scabies Examination NEGATIVE FOR SCABIES 01/16/17 17:03 Blood Type O POSITIVE 01/18/17 09:00 Antibody Screen NEGATIVE 01/18/17 09:00 Crossmatch See Detail 01/18/17 09:00 - Physical Exam Vitals and I&O: Vital Signs Temp 98.6 F 01/19/17 04:00 Pulse 82 01/19/17 09:12 Resp 20 01/19/17 08:01 BP 122/54 01/19/17 09:12 Pulse Ox 97 01/19/17 07:40 Intake & Output 01/18/17 01/19/17 01/19/17 18:59 06:59 18:59 Intake Total 300 Balance 300 Intake: Oral 300 Other: # Voids 2 # Bowel Movements 0 Stool Characteristics Soft Soft Soft Formed Formed Formed Brown Brown Brown Active Medications: Current Medications Acetaminophen (Tylenol) 650 mg PO Q4HR PRN PRN Reason: Mild pain & fever Stop: 03/17/17 01:32 Albuterol Sulfate (Albuterol 2.5mg/3ml Neb Ud) 2.5 mg HHN Q4H PRN PRN Reason: Shortness of Breath or Wheeze Stop: 03/18/17 22:53 Last Admin: 01/18/17 03:07 Dose: 2.5 mg Albuterol Sulfate (Albuterol 2.5mg/3ml Neb Ud) 2.5 mg HHN Q8HRT [facility] Stop: 03/19/17 06:59 Last Admin: 01/19/17 07:00 Dose: 2.5 mg Ascorbic Acid (Vitamin C) 500 mg PO DAILY [facility] Stop: 03/17/17 08:59 Last Admin: 01/19/17 09:13 Dose: 500 mg Diphenhydramine HCl (Benadryl) 25 mg PO Q6HR PRN PRN Reason: Itching Stop: 03/19/17 08:42 Last Admin: 01/19/17 00:11 Dose: 25 mg Docusate Sodium (Colace) 100 mg PO BID [facility] Stop: 03/17/17 08:59 Last Admin: 01/19/17 09:13 Dose: 100 mg Ferrous Sulfate (Iron) 325 mg PO DAILY [facility] Stop: 03/17/17 08:59 Last Admin: 01/19/17 09:13 Dose: 325 mg Folic Acid (Folate) 1 mg PO DAILY [facility] Stop: 03/17/17 08:59 Last Admin: 01/19/17 09:13 Dose: 1 mg Gabapentin (Neurontin) 300 mg PO TID [facility] Stop: 03/18/17 13:59 Last Admin: 01/19/17 09:13 Dose: 300 mg Potassium Chloride/Dextrose/Sod Cl (D5-0.45ns W/20 Meq Kcl) 1,000 mls @ 75 mls/ hr IV .[id number] [facility] Stop: 03/17/17 01:32 Last Admin: 01/18/17 21:29 Dose: 75 mls/hr Piperacillin Sod/Tazobactam (Sod 4.5 gm/ Sodium Chloride) 100 mls @ 100 mls/hr IV Q8HR [facility] Stop: 03/20/17 03:59 Last Admin: 01/19/17 03:41 Dose: 100 mls/hr Lorazepam (Ativan) 1 mg PO Q6HR PRN; Protocol PRN Reason: Agitation Stop: 03/18/17 02:51 Last Admin: 01/18/17 21:07 Dose: 1 mg Magnesium Hydroxide (Milk Of Magnesia) 30 ml PO HS PRN PRN Reason: Constipation Stop: 03/17/17 01:32 Metoprolol Tartrate (Lopressor) 25 mg PO DAILY [facility] Stop: 03/17/17 08:59 Last Admin: 01/19/17 09:12 Dose: 25 mg Mirtazapine (Remeron) 30 mg PO HS RICHELLE PRN Reason: Protocol Stop: 03/18/17 20:59 Last Admin: 01/18/17 21:07 Dose: 30 mg Tramadol HCl (Ultram) 50 mg PO Q6HR PRN PRN Reason: Pain (Moderate) Stop: 03/17/17 10:19 Last Admin: 01/18/17 21:24 Dose: 50 mg General: no acute distress, well developed, well nourished HEENT: atraumatic, normocephalic, PERRLA, EOMI Neck: supple, no thyromegaly, no lymphadenopathy Cardiovascular: S1S2, regular Lungs: clear to auscultation bilaterally, clear to percussion Abdomen: soft, no tender, no distended, no guarding Extremities: no cyanosis, no clubbing, no edema Neurological: awake, alert, oriented, CN 2-12 intact Skin: rash - Procedures Procedures: Procedures Procedure Code Date GROUP PSYCHOTHERAPY 26141 01/14/16 GROUP PSYCHOTHERAPY [id number] 01/14/16 Infectious Disease Assmt/Plan - Problem List Patient Problems: All Active Problems Agitation (Acute) R45.1 Combative behavior (Acute) R46.89 HTN (hypertension) (Acute) I10 Psychosis (Acute) F29 - Assessment Assessment: IMPRESSION: 1. Leukocytosis and lactic acidosis, sepsis. lactic acidosis improved. 2. Generalized rash, rule out scabies, and may have dry skin dermatitis or autoimmune. 3. Lactic acidosis. Improved. 4. Pneumonia. 5. Cachexia, calorie-protein malnutrition. 6. Anemia of chronic disease. 7. Vitamin B12 deficiency. 8. Hypertension. 9. Psychosis RECOMMENDATIONS: Continue zosyn. Repeat CBC and BMP in the morning.
[2017-01-19 19:44] LABS: ANION GAP 11.1 (7.0-16.0); BUN - UREA NITROGEN 15 mg/dL (7-25); BUN/CREATININE RATIO 13.6; CALCIUM SERUM 8.4 mg/dL (8.6-10.3); CARBON DIOXIDE 18.9 mEq/L (21.0-31.0); CHLORIDE 109 mEq/L (98-107); CREATININE - SERUM 1.1 mg/dL (0.7-1.3); GLUCOSE 146 mg/dL (70-105); SODIUM SERUM 134 mEq/L (136-145)
[2017-01-19] MEDS: Albuterol Nebulizer 2.5mg/3mL HHN PRN (22:07)
[2017-01-19] MEDS: D5-0.45NS 1,000 ML IV SCH (23:02)
[2017-01-20] MEDS: methylPREDNISolone SS 40 mg Vial IVP SCH ×5 (00:11→23:59)
--- NOTE | 2017-01-20 00:33 | Consultation ---
DATE OF CONSULTATION: 01/19/2017 REFERRING PHYSICIAN: Miguel Mccarthy M.D. REASON FOR CONSULTATION: Severe macrocytic anemia. HISTORY OF PRESENT ILLNESS: The patient is a 71-year-old male with history of psychosis. He was admitted with the weakness, poor appetite, and found to have leukocytosis and significant anemia, was transfused and followed by the psychiatrist, the ID specialist and I was asked to evaluate because of the significant anemia. PAST MEDICAL HISTORY: Dementia, psychosis. PAST SURGICAL HISTORY: None. MEDICATIONS: Tylenol, vitamin C, Colace, iron, folic acid, Remeron, Zosyn, tramadol. PHYSICAL EXAMINATION: GENERAL: The patient is awake, confused. VITAL SIGNS: Stable. LYMPH NODES: No peripheral lymphadenopathy. CHEST: Good air entry. ABDOMEN: Somewhat distended. EXTREMITIES: A 1+ edema bilaterally with superficial scratches on the knees. LABORATORY DATA: Hemoglobin is 7.1, MCV 120.3, platelets 168, white count 16.3. B12 level elevated, transferrin saturation 76%, iron binding capacity 165, creatinine 1.1. ASSESSMENT AND PLAN: Macrocytic anemia. Differential diagnoses includes myelodysplastic syndrome, liver disease, folate deficiency. I will obtain abdominal ultrasound, ____folic acid level, thyroid stimulating hormone and ferritin level and further management will be addressed accordingly. Thank you, Dr. Mccarthy, for the opportunity to participate in the care of this interesting case for you. JOB# [id number]
--- NOTE | 2017-01-20 01:24 | Progress Notes ---
DATE: 01/19/2017 Case was discussed with the staff of the patient, the patient is in isolation, continues to have poor insight, unable to make safe plan for self-care. I did increase his dosages of Remeron and Neurontin with no side effects, no sedation, no nausea. He is easier to redirect. No side effects with the medication, no sedation, no nausea and if the patient continues to have any problem ____ at this unit, he can go to [facility]. Thank you very much for allowing me to participate in the care of this most interesting gentleman. JOB# [id number]
[2017-01-20] MEDS ORDERED: Albuterol/Ipratropium Neb 3 ML AERS HHN PRN (02:21)
[2017-01-20] MEDS: Albuterol/Ipratropium Neb 3 ML AERS HHN SCH ×3 (06:41→18:53)
[2017-01-20 07:30] LABS: ALB/GLOB RATIO 0.5 (1.0-1.8); ALKALINE PHOSPHATASE 112 U/L (34-104); ANION GAP 12.4 (7.0-16.0); BILIRUBIN,TOTAL 1.1 mg/dL (0.3-1.0); BUN - UREA NITROGEN 15 mg/dL (7-25); BUN/CREATININE RATIO 13.6; CALCIUM SERUM 8.4 mg/dL (8.6-10.3); CARBON DIOXIDE 19.6 mEq/L (21.0-31.0); CHLORIDE 109 mEq/L (98-107); CREATININE - SERUM 1.1 mg/dL (0.7-1.3); GLUCOSE 157 mg/dL (70-105); SGOT 55 U/L (13-39); SGPT/ALT 11 U/L (7-52); SODIUM SERUM 136 mEq/L (136-145)
[2017-01-20 07:34] LABS: HEMATOCRIT 25.8 % (39.0-49.0); MEAN CORPUSCULAR HGB CONC 35.1 pg (28.0-36.0); MEAN PLATELET VOLUME 7.4 fl; PLATELET COUNT 149 Th/cmm (150-400); RED BLOOD COUNT 2.39 Mil/cmm (3.80-5.80); RED CELL DISTRIBUTION WIDTH 27.3 % (11.5-20.0)
[2017-01-20 07:42] LABS: WHITE BLOOD COUNT 11.5 Th/cmm (4.8-10.8)
[2017-01-20 08:40] LABS: ANISOCYTOSIS 1+; BAND NEUTROPHILE 4 % (0-10); NEUTROPHILS 90 % (40-80); PLATELET ESTIMATE ADEQUATE (NORMAL); TOTAL CELLS COUNTED 100
[2017-01-20 08:41] LABS: OVALOCYTES 1+
[2017-01-20 10:02] LABS: MEAN CELL VOLUME 107.9 fl (80-99); MEAN CORPUSCULAR HEMOGLOBIN 37.8 pg (27.0-31.0)
--- NOTE | 2017-01-20 14:20 | Infectious Disease Prog Note ---
Infectious Disease Subjective - Review of Systems Service Date: 01/20/17 Subjective: There is no new change. there is had fever yesterday. Infectious Disease Objective - Results Result Diagrams: 01/20/17 06:26 01/20/17 06:26 Recent Labs: Laboratory Last Values WBC 11.5 Th/cmm (4.8-10.8) H D 01/20/17 06:26 RBC 2.39 Mil/cmm (3.80-5.80) L 01/20/17 06:26 Hgb 9.0 gm/dL (12.6-17.4) L 01/20/17 06:26 Hct 25.8 % (39.0-49.0) L 01/20/17 06:26 MCV 107.9 fl (80-99) H 01/20/17 06:26 MCH 37.8 pg (27.0-31.0) H 01/20/17 06:26 MCHC Differential 35.1 pg (28.0-36.0) 01/20/17 06:26 RDW 27.3 % (11.5-20.0) H 01/20/17 06:26 Plt Count 149 Th/cmm (150-400) L 01/20/17 06:26 MPV 7.4 fl 01/20/17 06:26 Band Neutrophils % 4 % (0-10) 01/20/17 06:26 Neutrophils (Manual) 90 % (40-80) H 01/20/17 06:26 Lymphocytes 4 % (20-50) L 01/20/17 06:26 Monocytes 2 % (2-10) 01/20/17 06:26 Eosinophils 7 % (0-5) H 01/19/17 05:40 Basophils 1 % (0-3) 01/17/17 05:32 Metamyelocytes 1 % (0-0) H 01/17/17 05:32 Nucleated RBCs 1.0 % (0-0) H 01/19/17 05:40 Platelet Estimate ADEQUATE (NORMAL) 01/20/17 06:26 Platelet Morphology NORMAL (NORMAL) 01/19/17 05:40 Polychromasia 1+ 01/16/17 00:40 Anisocytosis 1+ 01/20/17 06:26 Macrocytosis 1+ 01/20/17 06:26 Tear Drop Cells 1+ 01/16/17 00:40 Ovalocytes 1+ 01/20/17 06:26 RBC Morph Micro Appear ABNORMAL (NORMAL) 01/19/17 05:40 PT 14.0 SECONDS (9.5-11.5) H 01/16/17 00:40 INR 1.33 (0.5-1.4) 01/16/17 00:40 PTT (Actin FS) 30.6 SECONDS (26.0-38.0) 01/16/17 00:40 D-Dimer 2980 ng/mL (100-400) H 01/20/17 06:26 Sodium 136 mEq/L (136-145) 01/20/17 06:26 Potassium 5.0 mEq/L (3.5-5.1) 01/20/17 06:26 Chloride 109 mEq/L (98-107) H 01/20/17 06:26 Carbon Dioxide 19.6 mEq/L (21.0-31.0) L 01/20/17 06:26 Anion Gap 12.4 (7.0-16.0) 01/20/17 06:26 BUN 15 mg/dL (7-25) 01/20/17 06:26 Creatinine 1.1 mg/dL (0.7-1.3) 01/20/17 06:26 Est GFR ( Amer) TNP 01/20/17 06:26 Est GFR (Non-Af Amer) TNP 01/20/17 06:26 BUN/Creatinine Ratio 13.6 01/20/17 06:26 Glucose 157 mg/dL (70-105) H 01/20/17 06:26 Whole Bld Lactic Acid 1.88 mmol/L (0.60-1.99) 01/18/17 06:22 Calcium 8.4 mg/dL (8.6-10.3) L 01/20/17 06:26 Iron 126 ug/dL (38-169) 01/18/17 06:22 TIBC 165 ug/dL (250-450) L 01/18/17 06:22 Iron Saturation 76 % (15-55) H 01/18/17 06:22 Unsaturated IBC 39 ug/dL (111-343) L 01/18/17 06:22 Total Bilirubin 1.1 mg/dL (0.3-1.0) H 01/20/17 06:26 AST 55 U/L (13-39) H 01/20/17 06:26 ALT 11 U/L (7-52) 01/20/17 06:26 Alkaline Phosphatase 112 U/L (34-104) H 01/20/17 06:26 Creatine Kinase 29 U/L (30-223) L 01/16/17 00:40 Total Protein 6.7 gm/dL (6.0-8.3) 01/20/17 06:26 Albumin 2.2 gm/dL (4.2-5.5) L 01/20/17 06:26 Globulin 4.5 gm/dL 01/20/17 06:26 Albumin/Globulin Ratio 0.5 (1.0-1.8) L 01/20/17 06:26 Vitamin B12 >1999 pg/mL (211-946) H 01/17/17 04:44 TSH 1.54 uIU/ml (0.34-5.60) 01/20/17 06:26 Urine Source CLEAN C 01/16/17 01:30 Urine Color ORANGE 01/16/17 01:30 Urine Clarity CLEAR (CLEAR) 01/16/17 01:30 Urine pH 5.5 01/16/17 01:30 Ur Specific [place] 1.015 (1.005-1.030) 01/16/17 01:30 Urine Protein 30 mg/dL (NEGATIVE) H 01/16/17 01:30 Urine Glucose (UA) NEGATIVE mg/dL (NEGATIVE) 01/16/17 01:30 Urine Ketones NEGATIVE mg/dL (NEGATIVE) 01/16/17 01:30 Urine Blood NEGATIVE (NEGATIVE) 01/16/17 01:30 Urine Nitrate NEGATIVE (NEGATIVE) 01/16/17 01:30 Urine Bilirubin SMALL (NEGATIVE) H 01/16/17 01:30 Urine Ictotest POSITIVE (NEGATIVE) H 01/16/17 01:30 Urine Urobilinogen 1.0 E.U./dL (0.2 - 1.0) 01/16/17 01:30 Ur Leukocyte Esterase NEGATIVE (NEGATIVE) 01/16/17 01:30 Urine RBC 0-2 /hpf (0-5) H 01/16/17 01:30 Urine WBC 0-2 /hpf (0-5) 01/16/17 01:30 Ur Epithelial Cells OCCASIONAL /lpf (FEW) 01/16/17 01:30 Urine Bacteria NONE SEEN /hpf (NONE SEEN) 01/16/17 01:30 RPR NONREACTIVE (NONREACTIVE) 01/16/17 14:30 Scabies Examination NEGATIVE FOR SCABIES 01/16/17 17:03 Blood Type O POSITIVE 01/18/17 09:00 Antibody Screen NEGATIVE 01/18/17 09:00 Crossmatch See Detail 01/18/17 09:00 - Physical Exam Vitals and I&O: Vital Signs Temp 97 F 01/20/17 04:00 Pulse 85 01/20/17 12:14 Resp 16 01/20/17 12:14 BP 138/85 01/20/17 04:00 Pulse Ox 100 01/20/17 12:14 Intake & Output 01/19/17 01/20/17 01/20/17 18:59 06:59 18:59 Intake Total 100 350 0 Balance 100 350 0 Intake: Intake, IV Amount 100 200 Piperacillin Sodium/ 100 200 Tazobact 4.5 gm In Sodium Chloride 0.9% 100 ml @ 100 mls/hr IV Q8HR [facility] Rx #:[id number] Oral 150 0 Other: # Voids 3 0 # Bowel Movements 0 Stool Characteristics Soft Formed Brown Active Medications: Current Medications Acetaminophen (Tylenol) 650 mg PO Q4HR PRN PRN Reason: Mild pain & fever Stop: 03/17/17 01:32 Albuterol/Ipratropium (Duoneb Neb) 3 ml HHN Q6HRT [facility] Stop: 03/21/17 02:17 Last Admin: 01/20/17 12:12 Dose: 3 ml Albuterol/Ipratropium (Duoneb Neb) 3 ml HHN Q4HRT PRN PRN Reason: Wheezing/SOB Stop: 03/21/17 02:59 Last Admin: 01/20/17 04:26 Dose: 3 ml Ascorbic Acid (Vitamin C) 500 mg PO DAILY [facility] Stop: 03/17/17 08:59 Last Admin: 01/19/17 09:13 Dose: 500 mg Diphenhydramine HCl (Benadryl) 25 mg PO Q6HR PRN PRN Reason: Itching Stop: 03/19/17 08:42 Last Admin: 01/20/17 04:19 Dose: 25 mg Docusate Sodium (Colace) 100 mg PO BID [facility] Stop: 03/17/17 08:59 Last Admin: 01/19/17 16:51 Dose: Not Given Ferrous Sulfate (Iron) 325 mg PO DAILY [facility] Stop: 03/17/17 08:59 Last Admin: 01/19/17 09:13 Dose: 325 mg Folic Acid (Folate) 1 mg PO DAILY [facility] Stop: 03/17/17 08:59 Last Admin: 01/19/17 09:13 Dose: 1 mg Gabapentin (Neurontin) 300 mg PO TID [facility] Stop: 03/18/17 13:59 Last Admin: 01/19/17 21:45 Dose: 300 mg Piperacillin Sod/Tazobactam (Sod 4.5 gm/ Sodium Chloride) 100 mls @ 100 mls/hr IV Q8HR [facility] Stop: 03/20/17 03:59 Last Admin: 01/20/17 12:24 Dose: 100 mls/hr Dextrose/Sodium Chloride (D5-0.45ns) 1,000 mls @ 75 mls/hr IV .[id number] [facility] Stop: 03/20/17 21:59 Last Admin: 01/19/17 23:02 Dose: 75 mls/hr Lorazepam (Ativan) 1 mg PO Q6HR PRN; Protocol PRN Reason: Agitation Stop: 03/18/17 02:51 Last Admin: 01/20/17 00:11 Dose: 1 mg Magnesium Hydroxide (Milk Of Magnesia) 30 ml PO HS PRN PRN Reason: Constipation Stop: 03/17/17 01:32 Methylprednisolone Sodium Succinate (Solu-Medrol) 40 mg IVP Q6HR [facility] Stop: 03/21/17 00:00 Last Admin: 01/20/17 12:25 Dose: 40 mg Metoprolol Tartrate (Lopressor) 25 mg PO DAILY [facility] Stop: 03/17/17 08:59 Last Admin: 01/19/17 09:12 Dose: 25 mg Mirtazapine (Remeron) 30 mg PO HS RICHELLE PRN Reason: Protocol Stop: 03/18/17 20:59 Last Admin: 01/19/17 21:45 Dose: 30 mg Tramadol HCl (Ultram) 50 mg PO Q6HR PRN PRN Reason: Pain (Moderate) Stop: 03/17/17 10:19 Last Admin: 01/20/17 02:04 Dose: 50 mg General: no acute distress, cachectic HEENT: atraumatic, normocephalic, PERRLA, EOMI, moist mucous membrane Neck: supple, no thyromegaly, no lymphadenopathy Cardiovascular: S1S2, regular Lungs: clear to auscultation bilaterally, clear to percussion Abdomen: soft, no tender, no distended Extremities: no cyanosis, no clubbing, no edema Neurological: awake, alert, oriented Skin: rash - Procedures Procedures: Procedures Procedure Code Date GROUP PSYCHOTHERAPY 33278 01/14/16 GROUP PSYCHOTHERAPY [id number] 01/14/16 Infectious Disease Assmt/Plan - Problem List Patient Problems: All Active Problems Agitation (Acute) R45.1 Combative behavior (Acute) R46.89 HTN (hypertension) (Acute) I10 Psychosis (Acute) F29 - Assessment Assessment: IMPRESSION: 1. Leukocytosis and lactic acidosis, sepsis. lactic acidosis improved. 2. Generalized rash, rule out scabies, and may have dry skin dermatitis or autoimmune. 3. Lactic acidosis. Improved. 4. Pneumonia. 5. Cachexia, calorie-protein malnutrition. 6. Anemia of chronic disease. 7. Vitamin B12 deficiency. 8. Hypertension. 9. Psychosis. MRSA colonization. RECOMMENDATIONS: Start clinda IV. Continue zosyn. Repeat CBC and BMP in the morning. Nutritional Asmnt/Malnutr-PDOC - Dietary Evaluation Malnutrition Findings (Please click <Entered> for more info): Nutritional Asmnt/Malnutrition Start: 01/20/17 11: 07 Text: Status: Complete Freq: Document 01/20/17 11:07 EMEKA (Rec: 01/20/17 11:15 EMEKA HARRIS- FNS1) Nutritional Asmnt/Malnutrition Patient General Information Nutritional Screening High Risk Screening Diagnosis Sepsis, unsp organism PNA, unsp organism, cachexia Pertinent Medical Hx/Surgical Hx DJD, Dementia, psychosis Subjective Information Pt sitting up in bed visually tracked RD in room however only mumbled at RD when greeted or asked quesitons, RD unable to obtain any information from Pt. Noted visually Pt with temporal and clavicle wasting. Current Diet Order/ Nutrition Support NPO Patient / S.O Can't verbalize diet edu Pertinent Medications vit, C, colace, Fe, folic acid , gabapentin, MOM ,solumedrolq Pertinent Labs 01/20/17: glucsoe 157, Na 136, K 5, Cl 109, CO2 19.6, BUN 15, Cr 1.1, Ca 8.4 Nutritional Hx/Data Height 1.78 m Height (Calculated Centimeters) 177.8 Current Weight (lbs) 72.575 kg Weight (Calculated Kilograms) 72.6 Weight (Calculated Grams) 26390.8 Recent Weight Change No Weight Status Approriate GI Symptoms GI Symptoms None Food Allergies No Cultural/Ethnic/Hinduism Belief Unknown Usual diet at home Unknown Skin Integrity/Comment: eloisa score 16 Current %PO Good (75-100%) Estimated Nutritional Goals Calories/Kcals/Kg (25-30kcals/kg) 75kg IBW-[place] Kcals Calculated 1875-2250kcals/day Protein g/kg/kg Protein Calculated 75g/day Fluid: ml 1875-2250ml/day (1ml/kcal) Nutritional Problem 1. Problem Problem Inadequate oral intake Etiology related to increased needs as evidenced by Signs/Symptoms: NPO status. Intervention/Recommendation Comments Recommend initiating general diet with diet texture according to [employer] recommendation when medically appropriate. If inappropriate to initiate oral diet initiate eneteral nutrition with NG or PEG placement. Expected Outcomes/Goals Expected Outcomes/Goals Pt to eat 75% or more of meals or 100% of needs met with enteral nutrition.
[2017-01-20] MEDS: Ferrous Sulfate 325 MG TAB PO SCH (15:00)
[2017-01-20] MEDS: Multivitamin w/ Minerals Tab PO SCH (15:02)
[2017-01-20] MEDS: Clindamycin 600mg/50mL 600 MG/50 ML BAG IV SCH (20:59)
[2017-01-20] MEDS: D5-0.45NS 1,000 ML IV SCH (21:45)
[2017-01-21] MEDS: Albuterol/Ipratropium Neb 3 ML AERS HHN SCH ×4 (00:34→19:20)
[2017-01-21] MEDS: Clindamycin 600mg/50mL 600 MG/50 ML BAG IV SCH ×3 (04:35→21:09)
--- NOTE | 2017-01-21 04:38 | Consultation ---
DATE OF CONSULTATION: 01/20/2017 REFERRING PHYSICIAN: Dr. Mccarthy. Thank you very much for this consultation. HISTORY OF PRESENT ILLNESS: The patient is a 71-year-old male who was admitted for possible pneumonia, anemia, weakness, poor oral intake, was found to have UTI, dehydration, started on IV fluids and antibiotics. The patient has history of dementia, psychosis, apparently was having some shortness of breath last night, has improved. He is unable to give any meaningful history. PAST MEDICAL HISTORY: As above. SOCIAL HISTORY: As above. REVIEW OF SYSTEMS: Unable to obtain because of the patient's condition. PHYSICAL EXAMINATION: GENERAL: The patient is awake and alert, not in acute distress. VITAL SIGNS: Temperature 97.0, pulse 86, respiration 18, blood pressure is 132/85, and saturation is 98%. HEENT: Atraumatic and normocephalic. Pupils react to light and accommodation. Ears, nose, and throat normal. NECK: Supple. No JVD. CHEST: There are decreased breath sounds in bases, no rhonchi, no wheezing. HEART: Regular rate and rhythm. ABDOMEN: Soft. EXTREMITIES: No edema. LABORATORY DATA: WBC is 11.5, hemoglobin is 9.7, hematocrit 25.8, and platelets 149,000. Sodium is 136, potassium 5.0, BUN 15, and creatinine 1.1. Chest x-ray on 01/16/2017 shows pulmonary infiltrate. IMPRESSION: 1. Respiratory failure. 2. Pneumonia. 3. Weakness. 4. Anemia. 5. Dementia. PLAN: 1. IV antibiotics. 2. Nebulizer. 3. Pulmonary toilet and followup chest x-ray. Thank you very much for this consultation. I will follow the patient with you. JOB# [id number] MTDD
[2017-01-21 06:21] LABS: HEMATOCRIT 24.2 % (39.0-49.0); HEMOGLOBIN 8.4 gm/dL (12.6-17.4); MEAN PLATELET VOLUME 7.1 fl; PLATELET COUNT 142 Th/cmm (150-400); RED BLOOD COUNT 2.22 Mil/cmm (3.80-5.80); RED CELL DISTRIBUTION WIDTH 27.2 % (11.5-20.0)
[2017-01-21] MEDS: methylPREDNISolone SS 40 mg Vial IVP SCH ×3 (06:27→18:20)
[2017-01-21 06:32] LABS: WHITE BLOOD COUNT 15.4 Th/cmm (4.8-10.8)
[2017-01-21 06:35] LABS: ANION GAP 9.2 (7.0-16.0); BUN - UREA NITROGEN 18 mg/dL (7-25); CALCIUM SERUM 8.7 mg/dL (8.6-10.3); CARBON DIOXIDE 21.7 mEq/L (21.0-31.0); CHLORIDE 108 mEq/L (98-107); GLUCOSE 135 mg/dL (70-105); POTASSIUM SERUM 4.9 mEq/L (3.5-5.1); SODIUM SERUM 134 mEq/L (136-145)
[2017-01-21 07:16] LABS: TOTAL CELLS COUNTED 100
[2017-01-21 07:17] LABS: BAND NEUTROPHILE 4 % (0-10); BASOPHIL 0 % (0-3); EOSINOPHIL 0 % (0-5); NEUTROPHILS 87 % (40-80); PLATELET ESTIMATE ADEQUATE (NORMAL); PLATELET MORPHOLOGY NORMAL (NORMAL)
[2017-01-21 07:23] LABS: MEAN CORPUSCULAR HEMOGLOBIN 37.6 pg (27.0-31.0); MEAN CORPUSCULAR HGB CONC 34.5 pg (28.0-36.0)
--- NOTE | 2017-01-21 09:24 | Diagnostic Imaging Report ---
CHEST X-RAY: AP view INDICATION: Shortness of breath COMPARISON: 01/16/2017 FINDINGS: Congestive changes are seen with right effusion and hazy right lung infiltrates. Cardiomegaly is noted. Gaseous distention of the stomach. IMPRESSION: Congestive changes with right effusion and right lung infiltrates, increased since prior exam. Cardiomegaly.
--- NOTE | 2017-01-21 09:39 | Diagnostic Imaging Report ---
Ultrasound abdomen HISTORY: Splenomegaly COMPARISON: None Technique: Sonography of the abdomen was performed in multiple planes. FINDINGS: The liver demonstrates a heterogeneous echotexture with multiple hypoechoic lesions the largest measuring 5 cm. There is a sonolucent lesion of the left lobe of liver measuring 2.3 cm most suggestive of a cyst. The liver measures 16.8 cm. Cirrhotic appearing liver is noted. No evidence of gallstones. The gallbladder wall measures 5 mm. The common bile duct measures measures 4 mm. Assessment of pancreas is limited due to bowel gas. The right kidney measures 9.5 cm. Left kidney measures 11.5 cm. No evidence of focal lesions or hydronephrosis. Moderate ascites is noted. The spleen measures 13.8 x 6.3 cm. Bilateral pleural effusions are noted. IMPRESSION: Mild splenomegaly with spleen measuring 13.8 x 6.3 cm. Numerous hypoechoic lesions of the liver suggestive of neoplastic process and possible metastatic disease. Please correlate with clinical findings. Moderate ascites. Mild gallbladder wall thickening nonspecific and may related to patient's ascites. Bilateral pleural effusions. Considered to further assessment with CT abdomen and pelvis, preferably, with IV contrast.
[2017-01-21] MEDS: Multivitamin w/ Minerals Tab PO SCH (10:03)
[2017-01-21] MEDS: Ferrous Sulfate 325 MG TAB PO SCH (10:03)
[2017-01-21] MEDS: D5-0.45NS 1,000 ML IV SCH (16:57)
[2017-01-22] MEDS: methylPREDNISolone SS 40 mg Vial IVP SCH ×4 (00:29→17:53)
[2017-01-22] MEDS: Albuterol/Ipratropium Neb 3 ML AERS HHN SCH ×4 (01:49→18:58)
[2017-01-22] MEDS: Clindamycin 600mg/50mL 600 MG/50 ML BAG IV SCH ×3 (05:13→22:11)
[2017-01-22 07:24] LABS: HEMATOCRIT 26.2 % (39.0-49.0); HEMOGLOBIN 9.3 gm/dL (12.6-17.4); MEAN CORPUSCULAR HEMOGLOBIN 38.1 pg (27.0-31.0); MEAN CORPUSCULAR HGB CONC 35.5 pg (28.0-36.0); MEAN PLATELET VOLUME 6.7 fl; PLATELET COUNT 162 Th/cmm (150-400); RED BLOOD COUNT 2.44 Mil/cmm (3.80-5.80); RED CELL DISTRIBUTION WIDTH 27.1 % (11.5-20.0)
[2017-01-22 07:58] LABS: ALB/GLOB RATIO 0.5 (1.0-1.8); ALKALINE PHOSPHATASE 95 U/L (34-104); ANION GAP 12.8 (7.0-16.0); BILIRUBIN,TOTAL 0.8 mg/dL (0.3-1.0); BUN - UREA NITROGEN 23 mg/dL (7-25); CALCIUM SERUM 9.1 mg/dL (8.6-10.3); CARBON DIOXIDE 22.7 mEq/L (21.0-31.0); CHLORIDE 107 mEq/L (98-107); GLUCOSE 141 mg/dL (70-105); POTASSIUM SERUM 4.5 mEq/L (3.5-5.1); SGOT 53 U/L (13-39); SGPT/ALT 14 U/L (7-52); SODIUM SERUM 138 mEq/L (136-145)
[2017-01-22 08:31] LABS: MEAN CELL VOLUME 107.4 fl (80-99); WHITE BLOOD COUNT 16.3 Th/cmm (4.8-10.8)
[2017-01-22 08:55] LABS: ANISOCYTOSIS 3+; BAND NEUTROPHILE 8 % (0-10); NEUTROPHILS 87 % (40-80); TOTAL CELLS COUNTED 100
[2017-01-22 08:56] LABS: PLATELET ESTIMATE ADEQUATE (NORMAL); PLATELET MORPHOLOGY NORMAL (NORMAL)
[2017-01-22] MEDS: Ferrous Sulfate 325 MG TAB PO SCH (10:30)
[2017-01-22] MEDS: Multivitamin w/ Minerals Tab PO SCH (10:30)
--- NOTE | 2017-01-22 11:06 | Diagnostic Imaging Report ---
Portable chest x-ray HISTORY: Shortness of breath Compared with prior exam of January 21, 2017, the heart remains enlarged. Density remains in the right left lower hemithoracic regions suggesting bilateral pleural effusions. Underlying pneumonia and/or atelectasis cannot be excluded. IMPRESSION: 1. Persistent cardiomegaly with findings suggesting bilateral pleural effusions. Underlying pneumonia cannot be excluded. Clinical correlation is needed.
--- NOTE | 2017-01-22 13:09 | Infectious Disease Prog Note ---
Infectious Disease Subjective - Review of Systems Service Date: 01/22/17 Subjective: There is no new change. there is no fever. Infectious Disease Objective - Results Result Diagrams: 01/22/17 06:50 01/22/17 06:50 Recent Labs: Laboratory Last Values WBC 16.3 Th/cmm (4.8-10.8) H 01/22/17 06:50 RBC 2.44 Mil/cmm (3.80-5.80) L 01/22/17 06:50 Hgb 9.3 gm/dL (12.6-17.4) L 01/22/17 06:50 Hct 26.2 % (39.0-49.0) L 01/22/17 06:50 MCV 107.4 fl (80-99) H 01/22/17 06:50 MCH 38.1 pg (27.0-31.0) H 01/22/17 06:50 MCHC Differential 35.5 pg (28.0-36.0) 01/22/17 06:50 RDW 27.1 % (11.5-20.0) H 01/22/17 06:50 Plt Count 162 Th/cmm (150-400) 01/22/17 06:50 MPV 6.7 fl 01/22/17 06:50 Band Neutrophils % 8 % (0-10) 01/22/17 06:50 Neutrophils (Manual) 87 % (40-80) H 01/22/17 06:50 Lymphocytes 3 % (20-50) L 01/22/17 06:50 Monocytes 2 % (2-10) 01/22/17 06:50 Eosinophils 0 % (0-5) 01/21/17 06:12 Basophils 0 % (0-3) 01/21/17 06:12 Metamyelocytes 1 % (0-0) H 01/17/17 05:32 Nucleated RBCs 1.0 % (0-0) H 01/19/17 05:40 Platelet Estimate ADEQUATE (NORMAL) 01/22/17 06:50 Platelet Morphology NORMAL (NORMAL) 01/22/17 06:50 Polychromasia 1+ 01/16/17 00:40 Anisocytosis 3+ 01/22/17 06:50 Macrocytosis 1+ 01/22/17 06:50 Tear Drop Cells 1+ 01/16/17 00:40 Ovalocytes 1+ 01/20/17 06:26 RBC Morph Micro Appear ABNORMAL (NORMAL) 01/22/17 06:50 PT 14.0 SECONDS (9.5-11.5) H 01/16/17 00:40 INR 1.33 (0.5-1.4) 01/16/17 00:40 PTT (Actin FS) 30.6 SECONDS (26.0-38.0) 01/16/17 00:40 D-Dimer 2980 ng/mL (100-400) H 01/20/17 06:26 Sodium 138 mEq/L (136-145) 01/22/17 06:50 Potassium 4.5 mEq/L (3.5-5.1) 01/22/17 06:50 Chloride 107 mEq/L (98-107) 01/22/17 06:50 Carbon Dioxide 22.7 mEq/L (21.0-31.0) 01/22/17 06:50 Anion Gap 12.8 (7.0-16.0) 01/22/17 06:50 BUN 23 mg/dL (7-25) 01/22/17 06:50 Creatinine 1.0 mg/dL (0.7-1.3) 01/22/17 06:50 Est GFR ( Amer) TNP 01/22/17 06:50 Est GFR (Non-Af Amer) TNP 01/22/17 06:50 BUN/Creatinine Ratio 23.0 01/22/17 06:50 Glucose 141 mg/dL (70-105) H 01/22/17 06:50 Whole Bld Lactic Acid 1.88 mmol/L (0.60-1.99) 01/18/17 06:22 Calcium 9.1 mg/dL (8.6-10.3) 01/22/17 06:50 Iron 126 ug/dL (38-169) 01/18/17 06:22 TIBC 165 ug/dL (250-450) L 01/18/17 06:22 Iron Saturation 76 % (15-55) H 01/18/17 06:22 Unsaturated IBC 39 ug/dL (111-343) L 01/18/17 06:22 Total Bilirubin 0.8 mg/dL (0.3-1.0) 01/22/17 06:50 AST 53 U/L (13-39) H 01/22/17 06:50 ALT 14 U/L (7-52) 01/22/17 06:50 Alkaline Phosphatase 95 U/L (34-104) 01/22/17 06:50 Creatine Kinase 29 U/L (30-223) L 01/16/17 00:40 Total Protein 6.8 gm/dL (6.0-8.3) 01/22/17 06:50 Albumin 2.3 gm/dL (4.2-5.5) L 01/22/17 06:50 Globulin 4.5 gm/dL 01/22/17 06:50 Albumin/Globulin Ratio 0.5 (1.0-1.8) L 01/22/17 06:50 Vitamin B12 >1999 pg/mL (211-946) H 01/17/17 04:44 TSH 1.54 uIU/ml (0.34-5.60) 01/20/17 06:26 Urine Source CLEAN C 01/16/17 01:30 Urine Color ORANGE 01/16/17 01:30 Urine Clarity CLEAR (CLEAR) 01/16/17 01:30 Urine pH 5.5 01/16/17 01:30 Ur Specific [place] 1.015 (1.005-1.030) 01/16/17 01:30 Urine Protein 30 mg/dL (NEGATIVE) H 01/16/17 01:30 Urine Glucose (UA) NEGATIVE mg/dL (NEGATIVE) 01/16/17 01:30 Urine Ketones NEGATIVE mg/dL (NEGATIVE) 01/16/17 01:30 Urine Blood NEGATIVE (NEGATIVE) 01/16/17 01:30 Urine Nitrate NEGATIVE (NEGATIVE) 01/16/17 01:30 Urine Bilirubin SMALL (NEGATIVE) H 01/16/17 01:30 Urine Ictotest POSITIVE (NEGATIVE) H 01/16/17 01:30 Urine Urobilinogen 1.0 E.U./dL (0.2 - 1.0) 01/16/17 01:30 Ur Leukocyte Esterase NEGATIVE (NEGATIVE) 01/16/17 01:30 Urine RBC 0-2 /hpf (0-5) H 01/16/17 01:30 Urine WBC 0-2 /hpf (0-5) 01/16/17 01:30 Ur Epithelial Cells OCCASIONAL /lpf (FEW) 01/16/17 01:30 Urine Bacteria NONE SEEN /hpf (NONE SEEN) 01/16/17 01:30 RPR NONREACTIVE (NONREACTIVE) 01/16/17 14:30 Scabies Examination NEGATIVE FOR SCABIES 01/16/17 17:03 Blood Type O POSITIVE 01/18/17 09:00 Antibody Screen NEGATIVE 01/18/17 09:00 Crossmatch See Detail 01/18/17 09:00 - Physical Exam Vitals and I&O: Vital Signs Temp 98 F 01/22/17 08:00 Pulse 84 01/22/17 12:13 Resp 16 01/22/17 12:13 BP 131/76 01/22/17 08:00 Pulse Ox 96 01/22/17 12:13 Intake & Output 01/21/17 01/22/17 01/22/17 18:59 06:59 18:59 Intake Total 193 200 100 Balance 193 200 100 Intake: Intake, IV Amount 193 200 100 Clindamycin 600mg/50mL 50 100 600 mg In 50 ml @ 100 mls /hr IV Q8HR [facility] Rx#: [id number] D5-0.45NS 1,000 ml @ 30 43 mls/hr IV .Q24H [facility] Rx#: [id number] Piperacillin Sodium/ 100 100 100 Tazobact 4.5 gm In Sodium Chloride 0.9% 100 ml @ 100 mls/hr IV Q8HR [facility] Rx #:[id number] Oral 0 Active Medications: Current Medications Acetaminophen (Tylenol) 650 mg PO Q4HR PRN PRN Reason: Mild pain & fever Stop: 03/17/17 01:32 Albuterol/Ipratropium (Duoneb Neb) 3 ml HHN Q6HRT [facility] Stop: 03/21/17 02:17 Last Admin: 01/22/17 12:11 Dose: 3 ml Albuterol/Ipratropium (Duoneb Neb) 3 ml HHN Q4HRT PRN PRN Reason: Wheezing/SOB Stop: 03/21/17 02:59 Last Admin: 01/20/17 04:26 Dose: 3 ml Ascorbic Acid (Vitamin C) 500 mg PO DAILY [facility] Stop: 03/17/17 08:59 Last Admin: 01/22/17 10:30 Dose: Not Given Diphenhydramine HCl (Benadryl) 25 mg PO Q6HR PRN PRN Reason: Itching Stop: 03/19/17 08:42 Last Admin: 01/20/17 04:19 Dose: 25 mg Docusate Sodium (Colace) 100 mg PO BID [facility] Stop: 03/17/17 08:59 Last Admin: 01/22/17 10:30 Dose: Not Given Ferrous Sulfate (Iron) 325 mg PO DAILY [facility] Stop: 03/17/17 08:59 Last Admin: 01/22/17 10:30 Dose: Not Given Folic Acid (Folate) 1 mg PO DAILY [facility] Stop: 03/17/17 08:59 Last Admin: 01/22/17 10:30 Dose: Not Given Gabapentin (Neurontin) 300 mg PO TID [facility] Stop: 03/18/17 13:59 Last Admin: 01/22/17 10:30 Dose: Not Given Piperacillin Sod/Tazobactam (Sod 4.5 gm/ Sodium Chloride) 100 mls @ 100 mls/hr IV Q8HR [facility] Stop: 03/20/17 03:59 Last Admin: 01/22/17 13:02 Dose: 100 mls/hr Clindamycin Phosphate (Cleocin Pb) 600 mg in 50 mls @ 100 mls/hr IV Q8HR [facility] Stop: 03/21/17 20:59 Last Admin: 01/22/17 13:00 Dose: 100 mls/hr Dextrose/Sodium Chloride (D5-0.45ns) 1,000 mls @ 30 mls/hr IV .Q24H [facility] Stop: 03/22/17 16:03 Last Infusion: 01/21/17 18:23 Dose: 30 mls/hr Lorazepam (Ativan) 1 mg PO Q6HR PRN; Protocol PRN Reason: Agitation Stop: 03/18/17 02:51 Last Admin: 01/21/17 03:56 Dose: 1 mg Magnesium Hydroxide (Milk Of Magnesia) 30 ml PO HS PRN PRN Reason: Constipation Stop: 03/17/17 01:32 Methylprednisolone Sodium Succinate (Solu-Medrol) 40 mg IVP Q6HR [facility] Stop: 03/21/17 00:00 Last Admin: 01/22/17 13:03 Dose: 40 mg Metoprolol Tartrate (Lopressor) 25 mg PO DAILY [facility] Stop: 03/17/17 08:59 Last Admin: 01/22/17 10:30 Dose: Not Given Mirtazapine (Remeron) 30 mg PO HS [facility] PRN Reason: Protocol Stop: 03/18/17 20:59 Last Admin: 01/21/17 21:09 Dose: 30 mg Tramadol HCl (Ultram) 50 mg PO Q6HR PRN PRN Reason: Pain (Moderate) Stop: 03/17/17 10:19 Last Admin: 01/21/17 21:15 Dose: 50 mg - Procedures Procedures: Procedures Procedure Code Date GROUP PSYCHOTHERAPY 41513 01/14/16 GROUP PSYCHOTHERAPY GZHZZZZ 01/14/16 Infectious Disease Assmt/Plan - Problem List Patient Problems: All Active Problems Agitation (Acute) R45.1 Combative behavior (Acute) R46.89 HTN (hypertension) (Acute) I10 Psychosis (Acute) F29 - Assessment Assessment: IMPRESSION: 1. Leukocytosis and lactic acidosis, sepsis. lactic acidosis improved. ? solumedrol induced. 2. Generalized rash, rule out scabies, and may have dry skin dermatitis or autoimmune. 3. Lactic acidosis. Improved. 4. Pneumonia. 5. Cachexia, calorie-protein malnutrition. 6. Anemia of chronic disease. 7. Vitamin B12 deficiency. 8. Hypertension. 9. Psychosis. MRSA colonization. RECOMMENDATIONS: Continue zosyn and clinda. Repeat CBC and BMP in the morning. May taper solumedrol. Nutritional Asmnt/Malnutr-PDOC - Dietary Evaluation Malnutrition Findings (Please click <Entered> for more info): Nutritional Asmnt/Malnutrition Start: 01/20/17 11: 07 Text: Status: Complete Freq: Document 01/20/17 11:07 EMEKA (Rec: 01/20/17 11:15 EMEKA HARRIS- FNS1) Nutritional Asmnt/Malnutrition Patient General Information Nutritional Screening High Risk Screening Diagnosis Sepsis, unsp organism PNA, unsp organism, cachexia Pertinent Medical Hx/Surgical Hx DJD, Dementia, psychosis Subjective Information Pt sitting up in bed visually tracked RD in room however only mumbled at RD when greeted or asked quesitons, RD unable to obtain any information from Pt. Noted visually Pt with temporal and clavicle wasting. Current Diet Order/ Nutrition Support NPO Patient / S.O Can't verbalize diet edu Pertinent Medications vit, C, colace, Fe, folic acid , gabapentin, MOM ,solumedrolq Pertinent Labs 01/20/17: glucsoe 157, Na 136, K 5, Cl 109, CO2 19.6, BUN 15, Cr 1.1, Ca 8.4 Nutritional Hx/Data Height 1.78 m Height (Calculated Centimeters) 177.8 Current Weight (lbs) 72.575 kg Weight (Calculated Kilograms) 72.6 Weight (Calculated Grams) 58596.8 Recent Weight Change No Weight Status Approriate GI Symptoms GI Symptoms None Food Allergies No Cultural/Ethnic/[place] Belief Unknown Usual diet at home Unknown Skin Integrity/Comment: eloisa score 16 Current %PO Good (75-100%) Estimated Nutritional Goals Calories/Kcals/Kg (25-30kcals/kg) 75kg IBW-[place]wi Kcals Calculated 1875-2250kcals/day Protein g/kg/kg Protein Calculated 75g/day Fluid: ml 1875-2250ml/day (1ml/kcal) Nutritional Problem 1. Problem Problem Inadequate oral intake Etiology related to increased needs as evidenced by Signs/Symptoms: NPO status. Intervention/Recommendation Comments Recommend initiating general diet with diet texture according to MECHANICAL METER TESTER recommendation when medically appropriate. If inappropriate to initiate oral diet initiate eneteral nutrition with NG or PEG placement. Expected Outcomes/Goals Expected Outcomes/Goals Pt to eat 75% or more of meals or 100% of needs met with enteral nutrition.
[2017-01-23] MEDS: methylPREDNISolone SS 40 mg Vial IVP SCH ×4 (00:41→18:30)
[2017-01-23] MEDS: Albuterol/Ipratropium Neb 3 ML AERS HHN SCH ×4 (01:02→19:13)
[2017-01-23] MEDS: D5-0.45NS 1,000 ML IV SCH ×2 (01:33→12:37)
[2017-01-23] MEDS: Clindamycin 600mg/50mL 600 MG/50 ML BAG IV SCH ×3 (04:21→21:30)
[2017-01-23 05:40] LABS: HEMATOCRIT 25.2 % (39.0-49.0); HEMOGLOBIN 8.6 gm/dL (12.6-17.4); MEAN CORPUSCULAR HEMOGLOBIN 37.4 pg (27.0-31.0); MEAN CORPUSCULAR HGB CONC 34.2 pg (28.0-36.0); MEAN PLATELET VOLUME 6.6 fl; PLATELET COUNT 135 Th/cmm (150-400); RED BLOOD COUNT 2.31 Mil/cmm (3.80-5.80); RED CELL DISTRIBUTION WIDTH 26.6 % (11.5-20.0)
[2017-01-23 05:54] LABS: ANION GAP 11.3 (7.0-16.0); BUN - UREA NITROGEN 25 mg/dL (7-25); CALCIUM SERUM 8.8 mg/dL (8.6-10.3); CARBON DIOXIDE 21.9 mEq/L (21.0-31.0); CHLORIDE 109 mEq/L (98-107); GLUCOSE 153 mg/dL (70-105); POTASSIUM SERUM 4.2 mEq/L (3.5-5.1); SODIUM SERUM 138 mEq/L (136-145)
[2017-01-23 05:56] LABS: MEAN CELL VOLUME 109.4 fl (80-99); WHITE BLOOD COUNT 13.9 Th/cmm (4.8-10.8)
[2017-01-23 07:59] LABS: ANISOCYTOSIS 3+; BAND NEUTROPHILE 6 % (0-10); METAMYELOCYTE 1 % (0-0); NEUTROPHILS 84 % (40-80); PLATELET ESTIMATE DECREASED PLATELETS (NORMAL); PLATELET MORPHOLOGY NORMAL (NORMAL); POIKILOCYTOSIS 1+; TOTAL CELLS COUNTED 100
[2017-01-23] MEDS: Multivitamin w/ Minerals Tab PO SCH (09:15)
[2017-01-23] MEDS: Ferrous Sulfate 325 MG TAB PO SCH (09:15)
--- NOTE | 2017-01-23 09:53 | Progress Notes ---
DATE: 01/22/2017 Case was discussed with staff of the patient, reviewed records. The patient continues to be rambling, continues to have poor insight, and unable to make safe plan for self-care. He is in general impulsive and unpredictable. He is compliant with the medication with no side effects, no sedation, no nausea. He denies any current intent to harm himself or anybody. He denies having any auditory or visual hallucination or paranoia. Tolerated the increase in his mirtazapine and gabapentin. No side effects with the medication. We will continue to work with the patient in group therapy, milieu therapy, and adjust the medication as needed. JOB# [id number]
--- NOTE | 2017-01-23 12:06 | Infectious Disease Prog Note ---
Infectious Disease Subjective - Review of Systems Service Date: 01/23/17 Subjective: There is no new change. there is no fever. Infectious Disease Objective - Results Result Diagrams: 01/23/17 05:10 01/23/17 05:10 Recent Labs: Laboratory Last Values WBC 13.9 Th/cmm (4.8-10.8) H 01/23/17 05:10 RBC 2.31 Mil/cmm (3.80-5.80) L 01/23/17 05:10 Hgb 8.6 gm/dL (12.6-17.4) L 01/23/17 05:10 Hct 25.2 % (39.0-49.0) L 01/23/17 05:10 MCV 109.4 fl (80-99) H 01/23/17 05:10 MCH 37.4 pg (27.0-31.0) H 01/23/17 05:10 MCHC Differential 34.2 pg (28.0-36.0) 01/23/17 05:10 RDW 26.6 % (11.5-20.0) H 01/23/17 05:10 Plt Count 135 Th/cmm (150-400) L 01/23/17 05:10 MPV 6.6 fl 01/23/17 05:10 Band Neutrophils % 6 % (0-10) 01/23/17 05:10 Neutrophils (Manual) 84 % (40-80) H 01/23/17 05:10 Lymphocytes 4 % (20-50) L 01/23/17 05:10 Monocytes 5 % (2-10) 01/23/17 05:10 Eosinophils 0 % (0-5) 01/21/17 06:12 Basophils 0 % (0-3) 01/21/17 06:12 Metamyelocytes 1 % (0-0) H 01/23/17 05:10 Nucleated RBCs 1.0 % (0-0) H 01/19/17 05:40 Platelet Estimate DECREASED PLATELETS (NORMAL) 01/23/17 05:10 Platelet Morphology NORMAL (NORMAL) 01/23/17 05:10 Polychromasia 1+ 01/16/17 00:40 Poikilocytosis 1+ 01/23/17 05:10 Anisocytosis 3+ 01/23/17 05:10 Macrocytosis 2+ 01/23/17 05:10 Tear Drop Cells 1+ 01/16/17 00:40 Ovalocytes 1+ 01/20/17 06:26 RBC Morph Micro Appear ABNORMAL (NORMAL) 01/23/17 05:10 PT 14.0 SECONDS (9.5-11.5) H 01/16/17 00:40 INR 1.33 (0.5-1.4) 01/16/17 00:40 PTT (Actin FS) 30.6 SECONDS (26.0-38.0) 01/16/17 00:40 D-Dimer 2980 ng/mL (100-400) H 01/20/17 06:26 Sodium 138 mEq/L (136-145) 01/23/17 05:10 Potassium 4.2 mEq/L (3.5-5.1) 01/23/17 05:10 Chloride 109 mEq/L (98-107) H 01/23/17 05:10 Carbon Dioxide 21.9 mEq/L (21.0-31.0) 01/23/17 05:10 Anion Gap 11.3 (7.0-16.0) 01/23/17 05:10 BUN 25 mg/dL (7-25) 01/23/17 05:10 Creatinine 1.0 mg/dL (0.7-1.3) 01/23/17 05:10 Est GFR ( Amer) TNP 01/23/17 05:10 Est GFR (Non-Af Amer) TNP 01/23/17 05:10 BUN/Creatinine Ratio 25.0 01/23/17 05:10 Glucose 153 mg/dL (70-105) H 01/23/17 05:10 Whole Bld Lactic Acid 1.88 mmol/L (0.60-1.99) 01/18/17 06:22 Calcium 8.8 mg/dL (8.6-10.3) 01/23/17 05:10 Iron 126 ug/dL (38-169) 01/18/17 06:22 TIBC 165 ug/dL (250-450) L 01/18/17 06:22 Iron Saturation 76 % (15-55) H 01/18/17 06:22 Unsaturated IBC 39 ug/dL (111-343) L 01/18/17 06:22 Ferritin 922 ng/mL (30-400) H 01/20/17 06:26 Total Bilirubin 0.8 mg/dL (0.3-1.0) 01/22/17 06:50 AST 53 U/L (13-39) H 01/22/17 06:50 ALT 14 U/L (7-52) 01/22/17 06:50 Alkaline Phosphatase 95 U/L (34-104) 01/22/17 06:50 Creatine Kinase 29 U/L (30-223) L 01/16/17 00:40 Total Protein 6.8 gm/dL (6.0-8.3) 01/22/17 06:50 Albumin 2.3 gm/dL (4.2-5.5) L 01/22/17 06:50 Globulin 4.5 gm/dL 01/22/17 06:50 Albumin/Globulin Ratio 0.5 (1.0-1.8) L 01/22/17 06:50 Vitamin B12 >1999 pg/mL (211-946) H 01/17/17 04:44 Folic Acid 19.1 ng/mL (>3.0) 01/20/17 06:26 TSH 1.54 uIU/ml (0.34-5.60) 01/20/17 06:26 Urine Source CLEAN C 01/16/17 01:30 Urine Color ORANGE 01/16/17 01:30 Urine Clarity CLEAR (CLEAR) 01/16/17 01:30 Urine pH 5.5 01/16/17 01:30 Ur Specific [place] 1.015 (1.005-1.030) 01/16/17 01:30 Urine Protein 30 mg/dL (NEGATIVE) H 01/16/17 01:30 Urine Glucose (UA) NEGATIVE mg/dL (NEGATIVE) 01/16/17 01:30 Urine Ketones NEGATIVE mg/dL (NEGATIVE) 01/16/17 01:30 Urine Blood NEGATIVE (NEGATIVE) 01/16/17 01:30 Urine Nitrate NEGATIVE (NEGATIVE) 01/16/17 01:30 Urine Bilirubin SMALL (NEGATIVE) H 01/16/17 01:30 Urine Ictotest POSITIVE (NEGATIVE) H 01/16/17 01:30 Urine Urobilinogen 1.0 E.U./dL (0.2 - 1.0) 01/16/17 01:30 Ur Leukocyte Esterase NEGATIVE (NEGATIVE) 01/16/17 01:30 Urine RBC 0-2 /hpf (0-5) H 01/16/17 01:30 Urine WBC 0-2 /hpf (0-5) 01/16/17 01:30 Ur Epithelial Cells OCCASIONAL /lpf (FEW) 01/16/17 01:30 Urine Bacteria NONE SEEN /hpf (NONE SEEN) 01/16/17 01:30 RPR NONREACTIVE (NONREACTIVE) 01/16/17 14:30 Scabies Examination NEGATIVE FOR SCABIES 01/16/17 17:03 Blood Type O POSITIVE 01/18/17 09:00 Antibody Screen NEGATIVE 01/18/17 09:00 Crossmatch See Detail 01/18/17 09:00 - Physical Exam Vitals and I&O: Vital Signs Temp 99 F 01/23/17 00:00 Pulse 93 01/23/17 09:16 Resp 18 01/23/17 08:00 BP 149/96 01/23/17 09:16 Pulse Ox 95 01/23/17 08:00 Intake & Output 01/22/17 01/23/17 01/23/17 18:59 06:59 18:59 Intake Total 250 1116.833 Balance 250 1116.833 Intake: Intake, IV Amount 250 1116.833 Clindamycin 600mg/50mL 50 100 600 mg In 50 ml @ 100 mls /hr IV Q8HR [facility] Rx#: [id number] D5-0.45NS 1,000 ml @ 30 858.5 mls/hr IV .Q24H [facility] Rx#: [id number] Piperacillin Sodium/ 200 158.333 Tazobact 4.5 gm In Sodium Chloride 0.9% 100 ml @ 100 mls/hr IV Q8HR [facility] Rx #:[id number] Oral 0 Active Medications: Current Medications Acetaminophen (Tylenol) 650 mg PO Q4HR PRN PRN Reason: Mild pain & fever Stop: 03/17/17 01:32 Albuterol/Ipratropium (Duoneb Neb) 3 ml HHN Q6HRT [facility] Stop: 03/21/17 02:17 Last Admin: 01/23/17 07:50 Dose: 3 ml Albuterol/Ipratropium (Duoneb Neb) 3 ml HHN Q4HRT PRN PRN Reason: Wheezing/SOB Stop: 03/21/17 02:59 Last Admin: 01/20/17 04:26 Dose: 3 ml Ascorbic Acid (Vitamin C) 500 mg PO DAILY [facility] Stop: 03/17/17 08:59 Last Admin: 01/23/17 09:15 Dose: 500 mg Diphenhydramine HCl (Benadryl) 25 mg PO Q6HR PRN PRN Reason: Itching Stop: 03/19/17 08:42 Last Admin: 01/20/17 04:19 Dose: 25 mg Docusate Sodium (Colace) 100 mg PO BID [facility] Stop: 03/17/17 08:59 Last Admin: 01/23/17 09:15 Dose: 100 mg Ferrous Sulfate (Iron) 325 mg PO DAILY [facility] Stop: 03/17/17 08:59 Last Admin: 01/23/17 09:15 Dose: 325 mg Folic Acid (Folate) 1 mg PO DAILY [facility] Stop: 03/17/17 08:59 Last Admin: 01/23/17 09:15 Dose: 1 mg Gabapentin (Neurontin) 300 mg PO TID [facility] Stop: 03/18/17 13:59 Last Admin: 01/23/17 09:15 Dose: 300 mg Piperacillin Sod/Tazobactam (Sod 4.5 gm/ Sodium Chloride) 100 mls @ 100 mls/hr IV Q8HR [facility] Stop: 03/20/17 03:59 Last Infusion: 01/23/17 06:00 Dose: Infused Clindamycin Phosphate (Cleocin Pb) 600 mg in 50 mls @ 100 mls/hr IV Q8HR [facility] Stop: 03/21/17 20:59 Last Infusion: 01/23/17 05:01 Dose: Infused Dextrose/Sodium Chloride (D5-0.45ns) 1,000 mls @ 30 mls/hr IV .Q24H [facility] Stop: 03/22/17 16:03 Last Admin: 01/23/17 01:33 Dose: 30 mls/hr Lorazepam (Ativan) 1 mg PO Q6HR PRN; Protocol PRN Reason: Agitation Stop: 03/18/17 02:51 Last Admin: 01/21/17 03:56 Dose: 1 mg Magnesium Hydroxide (Milk Of Magnesia) 30 ml PO HS PRN PRN Reason: Constipation Stop: 03/17/17 01:32 Methylprednisolone Sodium Succinate (Solu-Medrol) 40 mg IVP Q6HR [facility] Stop: 03/21/17 00:00 Last Admin: 01/23/17 06:16 Dose: 40 mg Metoprolol Tartrate (Lopressor) 25 mg PO DAILY [facility] Stop: 03/17/17 08:59 Last Admin: 01/23/17 09:16 Dose: 25 mg Mirtazapine (Remeron) 30 mg PO HS [facility] PRN Reason: Protocol Stop: 03/18/17 20:59 Last Admin: 01/22/17 20:41 Dose: 30 mg Tramadol HCl (Ultram) 50 mg PO Q6HR PRN PRN Reason: Pain (Moderate) Stop: 03/17/17 10:19 Last Admin: 01/23/17 06:22 Dose: 50 mg General: no acute distress, well developed, well nourished HEENT: atraumatic, normocephalic, PERRLA Neck: supple, no thyromegaly Cardiovascular: S1S2, regular Lungs: clear to auscultation bilaterally, clear to percussion Abdomen: soft, no tender, no distended Extremities: no cyanosis, no clubbing, no edema Neurological: awake, alert, oriented Skin: intact, rash - Procedures Procedures: Procedures Procedure Code Date GROUP PSYCHOTHERAPY 82738 01/14/16 GROUP PSYCHOTHERAPY GZHZZZZ 01/14/16 Infectious Disease Assmt/Plan - Problem List Patient Problems: All Active Problems Agitation (Acute) R45.1 Combative behavior (Acute) R46.89 HTN (hypertension) (Acute) I10 Psychosis (Acute) F29 - Assessment Assessment: IMPRESSION: 1. Leukocytosis and lactic acidosis, sepsis. lactic acidosis improved. ? solumedrol induced. Improving. 2. Generalized rash, rule out scabies, and may have dry skin dermatitis or autoimmune. 3. Lactic acidosis. Improved. 4. Pneumonia. 5. Cachexia, calorie-protein malnutrition. 6. Anemia of chronic disease. 7. Vitamin B12 deficiency. 8. Hypertension. 9. Psychosis. MRSA colonization. RECOMMENDATIONS: Continue zosyn and clinda for few days.. Repeat CBC and BMP in the morning. May taper solumedrol. Nutritional Asmnt/Malnutr-PDOC - Dietary Evaluation Malnutrition Findings (Please click <Entered> for more info): Nutritional Asmnt/Malnutrition Start: 01/20/17 11: 07 Text: Status: Complete Freq: Document 01/20/17 11:07 EMEKA (Rec: 01/20/17 11:15 EMEKA HARRIS- FNS1) Nutritional Asmnt/Malnutrition Patient General Information Nutritional Screening High Risk Screening Diagnosis Sepsis, unsp organism PNA, unsp organism, cachexia Pertinent Medical Hx/Surgical Hx DJD, Dementia, psychosis Subjective Information Pt sitting up in bed visually tracked RD in room however only mumbled at RD when greeted or asked quesitons, RD unable to obtain any information from Pt. Noted visually Pt with temporal and clavicle wasting. Current Diet Order/ Nutrition Support NPO Patient / S.O Can't verbalize diet edu Pertinent Medications vit, C, colace, Fe, folic acid , gabapentin, MOM ,solumedrolq Pertinent Labs 01/20/17: glucsoe 157, Na 136, K 5, Cl 109, CO2 19.6, BUN 15, Cr 1.1, Ca 8.4 Nutritional Hx/Data Height 1.78 m Height (Calculated Centimeters) 177.8 Current Weight (lbs) 72.575 kg Weight (Calculated Kilograms) 72.6 Weight (Calculated Grams) 91356.8 Recent Weight Change No Weight Status Approriate GI Symptoms GI Symptoms None Food Allergies No Cultural/Ethnic/Episcopal Belief Unknown Usual diet at home Unknown Skin Integrity/Comment: eloisa score 16 Current %PO Good (75-100%) Estimated Nutritional Goals Calories/Kcals/Kg (25-30kcals/kg) 75kg IBW-Hanwi Kcals Calculated 1875-2250kcals/day Protein g/kg/kg Protein Calculated 75g/day Fluid: ml 1875-2250ml/day (1ml/kcal) Nutritional Problem 1. Problem Problem Inadequate oral intake Etiology related to increased needs as evidenced by Signs/Symptoms: NPO status. Intervention/Recommendation Comments Recommend initiating general diet with diet texture according to INFORMATION ASSURANCE ANALYST recommendation when medically appropriate. If inappropriate to initiate oral diet initiate eneteral nutrition with NG or PEG placement. Expected Outcomes/Goals Expected Outcomes/Goals Pt to eat 75% or more of meals or 100% of needs met with enteral nutrition.
[2017-01-24] MEDS: Albuterol/Ipratropium Neb 3 ML AERS HHN SCH ×4 (00:51→19:04)
[2017-01-24] MEDS: methylPREDNISolone SS 40 mg Vial IVP SCH ×4 (00:53→20:26)
[2017-01-24] MEDS: Clindamycin 600mg/50mL 600 MG/50 ML BAG IV SCH ×3 (05:35→20:24)
[2017-01-24 07:17] LABS: MEAN CORPUSCULAR HEMOGLOBIN 37.4 pg (27.0-31.0); MEAN PLATELET VOLUME 6.7 fl; RED BLOOD COUNT 2.85 Mil/cmm (3.80-5.80); RED CELL DISTRIBUTION WIDTH 26.4 % (11.5-20.0)
[2017-01-24 07:28] LABS: ANION GAP 9.5 (7.0-16.0); BUN - UREA NITROGEN 22 mg/dL (7-25); BUN/CREATININE RATIO 24.4; CALCIUM SERUM 9.4 mg/dL (8.6-10.3); CARBON DIOXIDE 23.5 mEq/L (21.0-31.0); CHLORIDE 108 mEq/L (98-107); CREATININE - SERUM 0.9 mg/dL (0.7-1.3); GLUCOSE 131 mg/dL (70-105); SODIUM SERUM 137 mEq/L (136-145)
[2017-01-24 07:46] LABS: HEMATOCRIT 31.4 % (39.0-49.0); HEMOGLOBIN 10.7 gm/dL (12.6-17.4); PLATELET COUNT 168 Th/cmm (150-400); WHITE BLOOD COUNT 21.6 Th/cmm (4.8-10.8)
--- NOTE | 2017-01-24 08:01 | Progress Notes ---
DATE: 01/23/2017 Case was discussed with staff of the patient, reviewed records. The patient continues to be confused, continues to be unable to make safe plan for self-care. He was rambling. He is unable to make decisions. , he is supposed to have a procedure. He is compliant with the medication with no side effects, no sedation, no nausea. The patient is unable to make decisions on his own because of his chronic mental illness. Thank you very much for allowing me to participate in the care of this most interesting gentleman. JOB# [id number]
[2017-01-24 08:33] LABS: ANISOCYTOSIS 2+; BAND NEUTROPHILE 5 % (0-10); NEUTROPHILS 86 % (40-80); PLATELET ESTIMATE ADEQUATE (NORMAL); PLATELET MORPHOLOGY NORMAL (NORMAL); TOTAL CELLS COUNTED 100
[2017-01-24] MEDS: Multivitamin w/ Minerals Tab PO SCH (08:54)
[2017-01-24] MEDS: Ferrous Sulfate 325 MG TAB PO SCH (08:55)
[2017-01-24 11:49] LABS: MEAN CELL VOLUME 110.1 fl (80-99)
[2017-01-24 12:38] LABS: HEMATOCRIT 32.2 % (39.0-49.0); HEMOGLOBIN 11.2 gm/dL (12.6-17.4); MEAN CORPUSCULAR HEMOGLOBIN 38.3 pg (27.0-31.0); MEAN CORPUSCULAR HGB CONC 34.8 pg (28.0-36.0); MEAN PLATELET VOLUME 6.5 fl; PLATELET COUNT 184 Th/cmm (150-400); RED BLOOD COUNT 2.93 Mil/cmm (3.80-5.80); RED CELL DISTRIBUTION WIDTH 25.9 % (11.5-20.0)
[2017-01-24 12:40] LABS: WHITE BLOOD COUNT 24.4 Th/cmm (4.8-10.8)
[2017-01-24 13:14] LABS: BAND NEUTROPHILE 2 % (0-10); NEUTROPHILS 82 % (40-80); TOTAL CELLS COUNTED 100
[2017-01-24 13:15] LABS: ANISOCYTOSIS 2+; PLATELET ESTIMATE ADEQUATE (NORMAL); PLATELET MORPHOLOGY NORMAL (NORMAL)
[2017-01-24] MEDS: D5-0.45NS 1,000 ML IV SCH (22:49)
[2017-01-25] MEDS: Albuterol/Ipratropium Neb 3 ML AERS HHN SCH ×4 (00:51→19:00)
--- NOTE | 2017-01-25 02:24 | Progress Notes ---
DATE: 01/24/2017 Case was discussed with staff of the patient. The patient continues to be confused and rambling, unable to make safe plan for self-care. He is impulsive, unpredictable, needing redirection; however, in general, he is not acting out. He is compliant with the medication with no side effects, no sedation, no nausea. Unable to make safe plan for self-care and gravely disabled and we will continue to work with the patient in group therapy, milieu therapy, adjust the medication as needed. JOB# [id number]
[2017-01-25 08:05] LABS: HEMATOCRIT 30.4 % (39.0-49.0); HEMOGLOBIN 10.5 gm/dL (12.6-17.4); MEAN CORPUSCULAR HEMOGLOBIN 37.6 pg (27.0-31.0); MEAN CORPUSCULAR HGB CONC 34.5 pg (28.0-36.0); MEAN PLATELET VOLUME 7.1 fl; RED BLOOD COUNT 2.79 Mil/cmm (3.80-5.80); RED CELL DISTRIBUTION WIDTH 24.7 % (11.5-20.0)
[2017-01-25 08:21] LABS: PLATELET COUNT 144 Th/cmm (150-400); WHITE BLOOD COUNT 19.9 Th/cmm (4.8-10.8)
[2017-01-25 08:22] LABS: MEAN CELL VOLUME 109.1 fl (80-99)
--- NOTE | 2017-01-25 09:01 | Diagnostic Imaging Report ---
Portable chest x-ray HISTORY: Shortness of breath Compared with prior exam of January 22, 2017, persistent infiltrate noted in the right lower lobe lung with evidence for small right pleural effusion. Pneumonia cannot be excluded. Density also seen in the left lower hemithorax with obscuration of the left hemidiaphragm. Question pleural effusion. Underlying infiltrate and/or atelectasis cannot be excluded. IMPRESSION: 1. Somewhat more conspicuous infiltrate in the right lower lobe along with evidence of a small right pleural effusion. Pneumonia cannot be excluded. 2. Persistent density within the left lower hemithorax that may be associated with a pleural effusion. Underlying infiltrate and/or atelectasis cannot be excluded.
[2017-01-25 09:14] LABS: ANISOCYTOSIS 2+; BAND NEUTROPHILE 7 % (0-10); NEUTROPHILS 82 % (40-80); TOTAL CELLS COUNTED 100
[2017-01-25 09:15] LABS: PLATELET ESTIMATE ADEQUATE (NORMAL); PLATELET MORPHOLOGY GIANT PLATELETS SEEN (NORMAL)
[2017-01-25] MEDS: methylPREDNISolone SS 40 mg Vial IVP SCH ×2 (09:15→20:27)
[2017-01-25] MEDS: Multivitamin w/ Minerals Tab PO SCH (09:16)
[2017-01-25] MEDS: Ferrous Sulfate 325 MG TAB PO SCH (09:16)
--- NOTE | 2017-01-25 11:21 | Infectious Disease Prog Note ---
Infectious Disease Subjective - Review of Systems Service Date: 01/25/17 Subjective: There is no new change. there is no fever. Infectious Disease Objective - Results Result Diagrams: 01/25/17 05:45 01/24/17 06:15 Recent Labs: Laboratory Last Values WBC 19.9 Th/cmm (4.8-10.8) H 01/25/17 05:45 RBC 2.79 Mil/cmm (3.80-5.80) L 01/25/17 05:45 Hgb 10.5 gm/dL (12.6-17.4) L 01/25/17 05:45 Hct 30.4 % (39.0-49.0) L 01/25/17 05:45 MCV 109.1 fl (80-99) H 01/25/17 05:45 MCH 37.6 pg (27.0-31.0) H 01/25/17 05:45 MCHC Differential 34.5 pg (28.0-36.0) 01/25/17 05:45 RDW 24.7 % (11.5-20.0) H 01/25/17 05:45 Plt Count 144 Th/cmm (150-400) L D 01/25/17 05:45 MPV 7.1 fl 01/25/17 05:45 Band Neutrophils % 7 % (0-10) 01/25/17 05:45 Neutrophils (Manual) 82 % (40-80) H 01/25/17 05:45 Lymphocytes 3 % (20-50) L 01/25/17 05:45 Monocytes 8 % (2-10) 01/25/17 05:45 Eosinophils 0 % (0-5) 01/21/17 06:12 Basophils 0 % (0-3) 01/21/17 06:12 Metamyelocytes 1 % (0-0) H 01/23/17 05:10 Nucleated RBCs 1.0 % (0-0) H 01/19/17 05:40 Platelet Estimate ADEQUATE (NORMAL) 01/25/17 05:45 Platelet Morphology GIANT PLATELETS SEEN (NORMAL) 01/25/17 05:45 Polychromasia 1+ 01/16/17 00:40 Poikilocytosis 1+ 01/23/17 05:10 Anisocytosis 2+ 01/25/17 05:45 Macrocytosis 2+ 01/25/17 05:45 Tear Drop Cells 1+ 01/16/17 00:40 Ovalocytes 1+ 01/20/17 06:26 RBC Morph Micro Appear ABNORMAL (NORMAL) 01/25/17 05:45 PT 14.0 SECONDS (9.5-11.5) H 01/16/17 00:40 INR 1.33 (0.5-1.4) 01/16/17 00:40 PTT (Actin FS) 30.6 SECONDS (26.0-38.0) 01/16/17 00:40 D-Dimer 2980 ng/mL (100-400) H 01/20/17 06:26 Sodium 137 mEq/L (136-145) 01/24/17 06:15 Potassium 4.0 mEq/L (3.5-5.1) 01/24/17 06:15 Chloride 108 mEq/L (98-107) H 01/24/17 06:15 Carbon Dioxide 23.5 mEq/L (21.0-31.0) 01/24/17 06:15 Anion Gap 9.5 (7.0-16.0) 01/24/17 06:15 BUN 22 mg/dL (7-25) 01/24/17 06:15 Creatinine 0.9 mg/dL (0.7-1.3) 01/24/17 06:15 Est GFR ( Amer) TNP 01/24/17 06:15 Est GFR (Non-Af Amer) TNP 01/24/17 06:15 BUN/Creatinine Ratio 24.4 01/24/17 06:15 Glucose 131 mg/dL (70-105) H 01/24/17 06:15 Whole Bld Lactic Acid 1.88 mmol/L (0.60-1.99) 01/18/17 06:22 Calcium 9.4 mg/dL (8.6-10.3) 01/24/17 06:15 Iron 126 ug/dL (38-169) 01/18/17 06:22 TIBC 165 ug/dL (250-450) L 01/18/17 06:22 Iron Saturation 76 % (15-55) H 01/18/17 06:22 Unsaturated IBC 39 ug/dL (111-343) L 01/18/17 06:22 Ferritin 922 ng/mL (30-400) H 01/20/17 06:26 Total Bilirubin 0.8 mg/dL (0.3-1.0) 01/22/17 06:50 AST 53 U/L (13-39) H 01/22/17 06:50 ALT 14 U/L (7-52) 01/22/17 06:50 Alkaline Phosphatase 95 U/L (34-104) 01/22/17 06:50 Creatine Kinase 29 U/L (30-223) L 01/16/17 00:40 Total Protein 6.8 gm/dL (6.0-8.3) 01/22/17 06:50 Albumin 2.3 gm/dL (4.2-5.5) L 01/22/17 06:50 Globulin 4.5 gm/dL 01/22/17 06:50 Albumin/Globulin Ratio 0.5 (1.0-1.8) L 01/22/17 06:50 Tumor Marker AFP 1062.0 ng/mL (0.0-8.3) H 01/23/17 05:10 Vitamin B12 >1999 pg/mL (211-946) H 01/17/17 04:44 Folic Acid 19.1 ng/mL (>3.0) 01/20/17 06:26 TSH 1.54 uIU/ml (0.34-5.60) 01/20/17 06:26 Urine Source CLEAN C 01/16/17 01:30 Urine Color ORANGE 01/16/17 01:30 Urine Clarity CLEAR (CLEAR) 01/16/17 01:30 Urine pH 5.5 01/16/17 01:30 Ur Specific [place]et 1.015 (1.005-1.030) 01/16/17 01:30 Urine Protein 30 mg/dL (NEGATIVE) H 01/16/17 01:30 Urine Glucose (UA) NEGATIVE mg/dL (NEGATIVE) 01/16/17 01:30 Urine Ketones NEGATIVE mg/dL (NEGATIVE) 01/16/17 01:30 Urine Blood NEGATIVE (NEGATIVE) 01/16/17 01:30 Urine Nitrate NEGATIVE (NEGATIVE) 01/16/17 01:30 Urine Bilirubin SMALL (NEGATIVE) H 01/16/17 01:30 Urine Ictotest POSITIVE (NEGATIVE) H 01/16/17 01:30 Urine Urobilinogen 1.0 E.U./dL (0.2 - 1.0) 01/16/17 01:30 Ur Leukocyte Esterase NEGATIVE (NEGATIVE) 01/16/17 01:30 Urine RBC 0-2 /hpf (0-5) H 01/16/17 01:30 Urine WBC 0-2 /hpf (0-5) 01/16/17 01:30 Ur Epithelial Cells OCCASIONAL /lpf (FEW) 01/16/17 01:30 Urine Bacteria NONE SEEN /hpf (NONE SEEN) 01/16/17 01:30 RPR NONREACTIVE (NONREACTIVE) 01/16/17 14:30 Scabies Examination NEGATIVE FOR SCABIES 01/16/17 17:03 Blood Type O POSITIVE 01/18/17 09:00 Antibody Screen NEGATIVE 01/18/17 09:00 Crossmatch See Detail 01/18/17 09:00 - Physical Exam Vitals and I&O: Vital Signs Temp 97.7 F 01/25/17 08:00 Pulse 75 01/25/17 09:15 Resp 20 01/25/17 08:00 BP 121/84 01/25/17 09:15 Pulse Ox 96 01/25/17 08:00 Intake & Output 01/24/17 01/25/17 01/25/17 18:59 06:59 18:59 Intake Total 100 1250 Balance 100 1250 Intake: Intake, IV Amount 100 1250 Clindamycin 600mg/50mL 50 600 mg In 50 ml @ 100 mls /hr IV Q8HR [facility]IC[facility] Rx#: [id number] D5-0.45NS 1,000 ml @ 30 1000 mls/hr IV .Q24H RICHELLE Rx#: [id number] Piperacillin Sodium/ 100 200 Tazobact 4.5 gm In Sodium Chloride 0.9% 100 ml @ 100 mls/hr IV Q8HR RICHELLE Rx #:[id number] Active Medications: Current Medications Acetaminophen (Tylenol) 650 mg PO Q4HR PRN PRN Reason: Mild pain & fever Stop: 03/17/17 01:32 Albuterol/Ipratropium (Duoneb Neb) 3 ml HHN Q6HRT RICHELLE Stop: 03/21/17 02:17 Last Admin: 01/25/17 07:02 Dose: Not Given Albuterol/Ipratropium (Duoneb Neb) 3 ml HHN Q4HRT PRN PRN Reason: Wheezing/SOB Stop: 03/21/17 02:59 Last Admin: 01/20/17 04:26 Dose: 3 ml Ascorbic Acid (Vitamin C) 500 mg PO DAILY [facility] Stop: 03/17/17 08:59 Last Admin: 01/25/17 09:15 Dose: 500 mg Diphenhydramine HCl (Benadryl) 25 mg PO Q6HR PRN PRN Reason: Itching Stop: 03/19/17 08:42 Last Admin: 01/20/17 04:19 Dose: 25 mg Docusate Sodium (Colace) 100 mg PO BID [facility] [place] Stop: 03/17/17 08:59 Last Admin: 01/25/17 09:20 Dose: Not Given Ferrous Sulfate (Iron) 325 mg PO DAILY [facility] [place] Stop: 03/17/17 08:59 Last Admin: 01/25/17 09:16 Dose: 325 mg Folic Acid (Folate) 1 mg PO DAILY [facility] [place] Stop: 03/17/17 08:59 Last Admin: 01/25/17 09:15 Dose: 1 mg Gabapentin (Neurontin) 300 mg PO TID [facility] [place] Stop: 03/18/17 13:59 Last Admin: 01/25/17 09:15 Dose: 300 mg Piperacillin Sod/Tazobactam (Sod 4.5 gm/ Sodium Chloride) 100 mls @ 100 mls/hr IV Q8HR [facility] [place] Stop: 03/20/17 03:59 Last Admin: 01/25/17 05:07 Dose: 100 mls/hr Dextrose/Sodium Chloride (D5-0.45ns) 1,000 mls @ 30 mls/hr IV .Q24H [facility] [place] Stop: 03/22/17 16:03 Last Admin: 01/24/17 22:49 Dose: 30 mls/hr Lorazepam (Ativan) 1 mg PO Q6HR PRN; Protocol PRN Reason: Agitation Stop: 03/18/17 02:51 Last Admin: 01/21/17 03:56 Dose: 1 mg Magnesium Hydroxide (Milk Of Magnesia) 30 ml PO HS PRN PRN Reason: Constipation Stop: 03/17/17 01:32 Methylprednisolone Sodium Succinate (Solu-Medrol) 40 mg IVP Q12HR [facility] [place] Stop: 03/25/17 20:59 Last Admin: 01/25/17 09:15 Dose: 40 mg Metoprolol Tartrate (Lopressor) 25 mg PO DAILY [facility] Stop: 03/17/17 08:59 Last Admin: 01/25/17 09:15 Dose: 25 mg Mirtazapine (Remeron) 30 mg PO HS RICHELLE PRN Reason: Protocol Stop: 03/18/17 20:59 Last Admin: 01/24/17 21:24 Dose: 30 mg Tramadol HCl (Ultram) 100 mg PO Q6HR PRN PRN Reason: Moderate-Severe Pain Stop: 03/24/17 15:37 Last Admin: 01/25/17 09:16 Dose: 100 mg General: no acute distress, cachectic HEENT: atraumatic, normocephalic, PERRLA, EOMI Neck: supple, no thyromegaly, no lymphadenopathy Cardiovascular: S1S2, regular Lungs: clear to auscultation bilaterally, clear to percussion Abdomen: soft, no tender, no distended Extremities: no cyanosis, no clubbing, no edema Neurological: awake, alert, other (COnfused.) Skin: intact - Procedures Procedures: Procedures Procedure Code Date GROUP PSYCHOTHERAPY 77716 01/14/16 GROUP PSYCHOTHERAPY [id number] 01/14/16 Infectious Disease Assmt/Plan - Problem List Patient Problems: All Active Problems Agitation (Acute) R45.1 Combative behavior (Acute) R46.89 HTN (hypertension) (Acute) I10 Psychosis (Acute) F29 - Assessment Assessment: IMPRESSION: 1. Leukocytosis and lactic acidosis, sepsis. lactic acidosis improved. ? solumedrol induced. Improving. 2. Generalized rash, rule out scabies, and may have dry skin dermatitis or autoimmune. 3. Lactic acidosis. Improved. 4. Pneumonia. 5. Cachexia, calorie-protein malnutrition. 6. Anemia of chronic disease. 7. Vitamin B12 deficiency. 8. Hypertension. 9. Psychosis. 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 11. metastatic lesions. RECOMMENDATIONS: Continue zosyn. start vanco. Repeat CBC and BMP in the morning. May taper solumedrol. CT scan of a/p and chest. Nutritional Asmnt/Malnutr-PDOC - Dietary Evaluation Malnutrition Findings (Please click <Entered> for more info): Nutritional Asmnt/Malnutrition Start: 01/20/17 11: 07 Text: Status: Complete Freq: Document 01/20/17 11:07 EMEKA (Rec: 01/20/17 11:15 EMEKA HARRIS- FNS1) Nutritional Asmnt/Malnutrition Patient General Information Nutritional Screening High Risk Screening Diagnosis Sepsis, unsp organism PNA, unsp organism, cachexia Pertinent Medical Hx/Surgical Hx DJD, Dementia, psychosis Subjective Information Pt sitting up in bed visually tracked RD in room however only mumbled at RD when greeted or asked quesitons, RD unable to obtain any information from Pt. Noted visually Pt with temporal and clavicle wasting. Current Diet Order/ Nutrition Support NPO Patient / S.O Can't verbalize diet edu Pertinent Medications vit, C, colace, Fe, folic acid , gabapentin, MOM ,solumedrolq Pertinent Labs 01/20/17: glucsoe 157, Na 136, K 5, Cl 109, CO2 19.6, BUN 15, Cr 1.1, Ca 8.4 Nutritional Hx/Data Height 1.78 m Height (Calculated Centimeters) 177.8 Current Weight (lbs) 72.575 kg Weight (Calculated Kilograms) 72.6 Weight (Calculated Grams) 50385.8 Recent Weight Change No Weight Status Approriate GI Symptoms GI Symptoms None Food Allergies No Cultural/Ethnic/Mandaeism Belief Unknown Usual diet at home Unknown Skin Integrity/Comment: eloisa score 16 Current %PO Good (75-100%) Estimated Nutritional Goals Calories/Kcals/Kg (25-30kcals/kg) 75kg IBW-Hanwi Kcals Calculated 1875-2250kcals/day Protein g/kg/kg Protein Calculated 75g/day Fluid: ml 1875-2250ml/day (1ml/kcal) Nutritional Problem 1. Problem Problem Inadequate oral intake Etiology related to increased needs as evidenced by Signs/Symptoms: NPO status. Intervention/Recommendation Comments Recommend initiating general diet with diet texture according to THREAD [employer]ER recommendation when medically appropriate. If inappropriate to initiate oral diet initiate eneteral nutrition with NG or PEG placement. Expected Outcomes/Goals Expected Outcomes/Goals Pt to eat 75% or more of meals or 100% of needs met with enteral nutrition.
--- NOTE | 2017-01-26 03:43 | Progress Notes ---
DATE: 01/25/2017 Case was discussed with staff of the patient. The patient apparently has ascites. He needs to do some CT scan of the abdomen and pelvis; however, they needed a conservator to agree towards; however, they plan to do it as an outpatient. The patient is compliant in general, he continues to have poor insight, unable to make safe plan for self-care, so apparently the conservator did not want to sign for the procedure and it was decided this is not an emergency, could be done as an outpatient basis and so far, the patient will be followed as an outpatient. Thank you very much for allowing me to participate in the care of this most interesting gentleman. JOB# [id number]
--- NOTE | 2017-01-26 05:08 | Discharge Summary ---
DATE OF DISCHARGE: 01/25/2017 FINAL DIAGNOSES: 1. Pneumonia. 2. Dehydration. 3. Chronic anemia. 4. Psychosis. 5. Dementia. 6. Possible metastatic disease to the liver. 7. Severe malnutrition. REVIEW OF HISTORY: The patient is a 71-year-old male with long history of dementia, psychosis, hypertension, is a [facility], transferred to the Emergency Room at [facility] with altered level of consciousness, poor appetite, cough, congestion, evaluated by the ER physician. Initial workup significant for pneumonia, dehydration, anemia, malnutrition. Started on antibiotic. White blood cell 14.7, hemoglobin 9, hematocrit 25.7. Sodium 140, potassium 3.9. COURSE OF HOSPITALIZATION: During this hospitalization, the patient was seen by Dr. Juarez, motivational speaker; Dr. De La Cruz, centrifugal operator; and Dr. Bronson Mcconnell, Infectious Disease specialist. The patient started on antibiotic on 01/19/2017. The patient is still confused. Temperature 98.2, heart rate 89. Chest, mildly diminished breathing sounds. Heart, S1 and S2 normal ____. The patient was started on Solu-Medrol. Dr. De La Cruz consulted ____ right lower lobe pneumonia. Dr. Juarez evaluated the patient. There is a metastatic lesion in the liver and cancer marker is elevated. They suggested to have a CT scan with contrast of the abdomen. The case was discussed with ____ his level of consciousness by the psychiatrist. Case was discussed with Dr. Newsome, psychiatrist on the case and she does not want to do it as inpatient and she will do it as outpatient. On 01/25/2017, the patient is still not eating well. Otherwise, no chest pain, no shortness of breath. The patient is cleared by Dr. Juarez and Dr. Mcconnell to be discharged back to facility and do the CAT scan as outpatient. DISPOSITION: The patient was transferred back to [facility] to continue on his medication, diet, and antibiotic for 10 days. We will order a CT scan as outpatient after Dr. Newsome signs the paper. JOB# [id number]
== END 2017-01-25 22:00 | DRG 871 ==
LOC: ER 00:19 → MSI 01:18
PROVIDERS: ADMIT Family Medicine; ATTEND Family Medicine
PROC: 30233N1 Transfusion of Nonautologous Red Blood Cells into Peripheral Vein, Percutaneous Approach (ICD-10-PCS; principal; 2017-01-18)
DX: A41.9 Sepsis, unspecified organism (principal); J18.9 Pneumonia, unspecified organism; J96.90 Respiratory failure, unspecified, unspecified whether with hypoxia or hypercapnia; E43 Unspecified severe protein-calorie malnutrition; C78.7 Secondary malignant neoplasm of liver and intrahepatic bile duct; F33.3 Major depressive disorder, recurrent, severe with psychotic symptoms; D51.9 Vitamin B12 deficiency anemia, unspecified; R64 Cachexia; N39.0 Urinary tract infection, site not specified; F03.90 Unspecified dementia, unspecified severity, without behavioral disturbance, psychotic disturbance, mood disturbance, and anxiety; G62.9 Polyneuropathy, unspecified; R13.10 Dysphagia, unspecified; E86.0 Dehydration; F29 Unspecified psychosis not due to a substance or known physiological condition; M19.90 Unspecified osteoarthritis, unspecified site; I10 Essential (primary) hypertension; I25.10 Atherosclerotic heart disease of native coronary artery without angina pectoris; B18.2 Chronic viral hepatitis C; H40.9 Unspecified glaucoma; G89.4 Chronic pain syndrome; D63.8 Anemia in other chronic diseases classified elsewhere; R21 Rash and other nonspecific skin eruption; D53.9 Nutritional anemia, unspecified; Z22.322 Carrier or suspected carrier of Methicillin resistant Staphylococcus aureus; Z68.23 Body mass index [BMI] 23.0-23.9, adult; Z89.429 Acquired absence of other toe(s), unspecified side
CPT/HCPCS: 36415-UA; 71010-TC; 76700-TC; 80048-TC; 80053-TC; 81001-TC; 82105-90; 82550-TC; 82607-90; 82728-90; 82746-90; 83540-90; 83550-90; 83605; 84443-TC; 85007-TC; 85014-TC; 85018-TC; 85027-TC; 85379-TC; 85610-TC; 85730-TC; 86592-TC; 86850-TC; 86900-TC; 86901-TC; 86922-TC; 87220-90; 90784; 93005; 94640; 94760; J0696; J1200; J1940; J2060; J2543; J2920; J3370; J7030; J7613; P9016; Z7610

== ENCOUNTER 2017-01-30 10:06 | Inpatient (IN) | payer MEDICARE, MEDICAID ==
[2017-01-30 10:32] LABS: HEMOGLOBIN 8.7 gm/dL (12.6-17.4); MEAN CORPUSCULAR HEMOGLOBIN 37.7 pg (27.0-31.0); MEAN CORPUSCULAR HGB CONC 34.5 pg (28.0-36.0); MEAN PLATELET VOLUME 6.9 fl; PLATELET COUNT 117 Th/cmm (150-400); RED CELL DISTRIBUTION WIDTH 25.6 % (11.5-20.0)
[2017-01-30 10:38] LABS: HEMATOCRIT 25.2 % (39.0-49.0); MEAN CELL VOLUME 109.4 fl (80-99); WHITE BLOOD COUNT 26.5 Th/cmm (4.8-10.8)
[2017-01-30] MEDS ORDERED: cefTRIAXone 1 GM in Sodium Chloride 0.9% 50 ML IV ONE (10:43)
[2017-01-30] MEDS ORDERED: Sodium Chloride 0.9% 1,000 ML IV ONE (10:44)
[2017-01-30 10:46] LABS: ANION GAP 9.6 (7.0-16.0); BUN - UREA NITROGEN 40 mg/dL (7-25); BUN/CREATININE RATIO 23.5; CALCIUM SERUM 9.3 mg/dL (8.6-10.3); CARBON DIOXIDE 23.8 mEq/L (21.0-31.0); CHLORIDE 104 mEq/L (98-107); CHOLESTEROL 94 mg/dL (<200); CREATININE - SERUM 1.7 mg/dL (0.7-1.3); GLUCOSE 102 mg/dL (70-105); POTASSIUM SERUM 4.4 mEq/L (3.5-5.1); SODIUM SERUM 133 mEq/L (136-145); TRIGLYCERIDES 79 mg/dL (<150)
[2017-01-30] MEDS ORDERED: Piperacillin Sodium/Tazobact 3.375 gm Vial IV ONE (10:53)
--- NOTE | 2017-01-30 10:58 | ED Physician Chart ---
Chief Complaint/HPI - Patient Information Date Seen:: 01/30/17 Time Seen:: 11:08 Chief Complaint:: decreased oral intake History of Present Illness:: 71-year-old male, history of recent pneumonia, brought in by EMS from nursing facility with report of acute, moderate to severe, decreased oral intake for the past 2 days. Has associated elevated white blood cell count. History limited due to patient's underlying dementia History provided by EMS and EMS run sheet Allergies:: Allergies Allergy/AdvReac Type Severity Reaction Status Date / Time No Known Allergies Allergy Verified 01/30/17 10:24 Vitals:: Vital Signs - 8 hr 01/30/17 10:06 Temp 97.8 F HR 60 RR 16 BP 98/56 O2 Sat % 95 Historian:: EMS Review:: Nurse's Note Reviewed, EMS run form Reviewed, Transfer documents Reviewed Review of Systems - Review of Systems Other: Complete system review otherwise unremarkable except as noted in history of present illness. Past Medical History - Past Medical History Past Medical History: HTN, Dementia, Other (C arthritis, polyneuropathy, hypertension, hep C, anemia, glaucoma, depression) Family History: None Social History: Smoker, No Alcohol, No Drug Use, Care Facility Surgical History: None Psychiatricy History: Depression, Dementia Medication: Reviewed Family Medical History - Family Member Mother History Unknown: Yes Ethnicity: Living Status: Unknown Hx Family Cancer: No Hx Family Coronary Artery Disease: No Hx Family Congestive Heart Failure: No Hx Family Hypertension: No Hx Family Stroke: No Hx Family Diabetes: No Hx Family Seizures: No Hx Family Dementia: No Hx Family AIDS: No Hx Family HIV: No Hx Family COPD: No Hx Family Hepatitis: No Hx Family Psychiatric Problems: No Hx Family Tuberculosis: No Physical Exam - Physical Examination Other:: INITIAL VITAL SIGNS: Reviewed by me GENERAL: Alert and interactive. No acute distress. Pleasantly demented. HEAD: Head is normocephalic and atraumatic EYES: EOMI. PERRL. No scleral icterus. No conjunctival injection ENT: Moist mucous membranes. NECK: Supple. No masses. Full range of motion RESPIRATORY: No tachypnea. Right lower lobe rhonchi. CV: Regular rate and rhythm. No murmurs, rubs, or gallops ABDOMEN: Soft, non-distended, non-tender. No guarding. No rebound. No masses. EXTREMITIES: No deformity. No cyanosis. No edema. SKIN: Warm and dry. No obvious rashes. NEUROLOGIC: Alert and oriented. Face is symmetric. Speech is normal. Moves all extremities equally. Motor and sensory distally intact. Labs/Radiology/EKG Results - Lab Results Results: Laboratory Tests 01/30/17 01/30/17 10:20 10:20 WBC 26.5 H* D RBC 2.30 L Hgb 8.7 L Hct 25.2 L D MCV 109.4 H MCH 37.7 H MCHC Differential 34.5 RDW 25.6 H Plt Count 117 L MPV 6.9 Sodium 133 L Potassium 4.4 Chloride 104 Carbon Dioxide 23.8 Anion Gap 9.6 BUN 40 H Creatinine 1.7 H Est GFR ( Amer) TNP Est GFR (Non-Af Amer) TNP BUN/Creatinine Ratio 23.5 Glucose 102 Calcium 9.3 Triglycerides 79 Cholesterol 94 LDL Cholesterol Direct 46 L HDL Cholesterol 19 L - Radiology Results Results: Single AP VIEW Portable Chest X-ray was interpreted independently and contemporaneously by John Newsome MD: No cardiomegaly Normal mediastinum Right lower lobe infiltrates No pneumothorax No soft tissue or bony abnormalities - EKG Interpretations Comments:: 12-lead EKG Interpretation by John Newsome MD: Normal Sinus Rhythm with ventricular rate of 61 beats per minute Normal axis Normal intervals No acute ST or T wave changes. No obvious STEMI Assessment - Assessment General Assessment: Critical Care Time: 35 minutes Treatments/Evaluations: Close monitoring and treatment of unstable vital signs, cardiorespiratory, and neurologic status, while maintaining tight balance of fluid, respiratory, and cardiac interventions. This time includes discussing the case with the patient and the patient's family. This time does not include all procedures stated elsewhere in this record. This time also includes reviewing old records, labs and radiological studies. This time includes examining and re-examining the patient. Additionally, this time also includes arranging care with admitting and consulting physicians. Excludes all billable procedures: Yes This condition life threatening/high prob of deterioration: Yes ED Septic Shock - . Is Septic Shock (SBP<90, OR Lactate>4 mmol\L) present?: No - <6hrs of presentation: Vital Signs: Vital Signs - 8 hr 01/30/17 10:06 Temp 97.8 F HR 60 RR 16 BP 98/56 O2 Sat % 95 Reassessment (Disposition) - Reassessment Reassessment:: SMOKING CESSATION COUNSELING: I spent greater than 3 minutes at the bedside with the patient discussing the benefits of smoking cessation, including decreased risk of heart disease, lung cancer, and emphysema. We also discussed strategies for smoking cessation, including pharmaceutical options. The patient was also encouraged to follow up with the primary care physician for outpatient follow-up. This is a 71-year-old male, has what appears to be underlying dementia. He is cooperative, alert however very poor historian. Patient has right lower lobe rales. White blood cell count elevated at greater than 25,000. Lactic acid is 2.6 and patient is septic with right lower lobe pneumonia. Unknown if this is aspiration pneumonia. At this time we will give IV Zosyn. Patient also dehydrated with acute kidney injury as well. Likely due to dehydration. Reviewed old labs which show essentially normal creatinine. He was also given 1 L of IV fluids. Patient is also a smoker which complicates matters. Discussed case with the admitting physician. Patient admitted for sepsis with right lower lobe pneumonia. Reassessment Condition:: Unchanged - Diagnosis Diagnosis:: Sepsis, right lower lobe pneumonia Dehydration Acute kidney injury Tobacco abuse - Patient Disposition Discharge/Transfer:: Acute Care w/in this hosp Admitted to:: Telemetry Admitting Medical Physician:: Miguel Mccarthy Time:: 11:24 Condition at Disposition:: Improved
[2017-01-30 10:59] LABS: ANISOCYTOSIS 2+; BAND NEUTROPHILE 8 % (0-10); NEUTROPHILS 80 % (40-80); PLATELET ESTIMATE DECREASED PLATELETS (NORMAL); PLATELET MORPHOLOGY NORMAL (NORMAL); TOTAL CELLS COUNTED 100
--- NOTE | 2017-01-30 11:04 | Diagnostic Imaging Report ---
Portable chest x-ray HISTORY: Cough Compared with prior exam of January 25, 2017, the heart remains enlarged. Persistent density noted in the right left lower hemithoracic regions that may be associated with the bilateral pleural effusions and infiltrates. Changes related to congestive heart failure cannot be excluded. Pneumonia cannot be ruled out. Clinical correlation is needed. IMPRESSION: 1. Cardiomegaly with bilateral lower lobe infiltrates and possible small effusions. The changes may be related to congestive heart failure. Pneumonia cannot be ruled out. Clinical correlation is needed.
[2017-01-30 11:29] LABS: URINE COLOR AMBER; URINE GLUCOSE (UA) NEGATIVE (NEGATIVE)
[2017-01-30 11:30] LABS: URINE BILIRUBIN SMALL (NEGATIVE); URINE BLOOD NEGATIVE (NEGATIVE); URINE KETONE 15 mg/dL (NEGATIVE); URINE PROTEIN 30 mg/dL (NEGATIVE); URINE UROBILINOGEN 0.2 E.U./dL (0.2 - 1.0)
[2017-01-30] MEDS ORDERED: Dexamethasone Sodium Phos 10 mg/mL PF Vial ONE (11:30)
[2017-01-30 11:38] LABS: URINE BACTERIA MODERATE /hpf (NONE SEEN); URINE EPITHELIAL CELLS OCCASIONAL /lpf (FEW); URINE RBC 0-2 /hpf (0-5)
--- NOTE | 2017-01-30 12:09 | Admit Criteria Form ---
Admit Criteria Forms - Admit Criteria Diagnosis: SEPSIS and OTHER FEBRILE ILLNESS, W/O FOCAL INFECTION Clinical Indications for Admission to Inpatient Care ( Place 'X' for any and all applicable criteria): Admission is indicated for ANY ONE of the following (1)(2)(3)(4): [ ] I. Bacteremia [ X]II. Suspected or identified specific infection requiring hospitalization (eg, meningitis, endocarditis) [ ]III. Hemodynamic instability [ ]IV. Altered mental status [ ]V. Failure or unavailability of outpatient antimicrobial treatment [ ]. Hypoxemia [ ]VII. Seizures [ ]VIII. High-risk febrile neutropenia [ ]IX. Need for parenteral antibiotic in patient who is likely to abuse vascular access device (eg, injection drug user) [A](7) [ ]X. Temperature greater than 104.9 degrees F (40.5 degrees C) (oral) [X ]XI. Inpatient admission required rather than observation care because of ANY ONE of the following: [ ]1) Specific infection identified that is too severe for outpatient treatment or observation care trial [ ]2) Metabolic disorder (eg, hypoglycemia, hyperglycemia, metabolic acidosis) that is severe or persistent [ ]3) Temperature greater than 103.1 degrees F (39.5 degrees C) ( oral) that is not responsive to observation care treatment [ ]4) IV fluid to replace significant ongoing (eg, for over 24 hours) losses (> 3 L/m2 per day) [ ]5) Supplemental oxygen or respiratory treatments for over 24 hours that is performable only in acute inpatient setting [ ]6) Parenteral nutrition regimen need that must be implemented on inpatient basis [ ]7) Strict or protective (eg, laminar flow) isolation [ X]8) Other condition, treatment or monitoring requiring inpatient admission Extended stay beyond goal length of stay may be needed for(1)(3) [ ]a) Sepsis or septic shock(22) [ ]b) Positive blood cultures [ ]c) Insufficient oral intake [ ]d) High-risk febrile neutropenia(29)(30) [ ]e) Continued fever and clinical instability [ ]f) Clinically active comorbid illness (e.g,heart failure, renal failure , diabetes) The original [employer] content created by [employer] has been revised. The portions of the content which have been revised are identified through the use of italic text or in bold, and [employer] has neither reviewed nor approved the modified material. All other unmodified content is copyright [facility]. Please see references footnoted in the original [facility] edition 2016 Admit Criteria Met?: Yes
[2017-01-30] MEDS ORDERED: D5-0.45NS w/20 mEq KCL 1,000 ML IV SCH ×2 (12:49→13:00)
[2017-01-30] MEDS ORDERED: Levofloxacin 750mg/150mL 750 MG/150 ML BAG IV SCH ×3 (12:49→17:00)
[2017-01-30] MEDS ORDERED: Albuterol/Ipratropium Neb 3 ML AERS HHN SCH (13:00)
[2017-01-30] MEDS: D5-0.45NS w/20 mEq KCL 1,000 ML IV SCH (17:10)
[2017-01-30 18:40] VITALS: BP 114/62
--- NOTE | 2017-01-30 23:35 | History & Physical ---
ADMIT DATE: 01/30/2017 CHIEF COMPLAINT: Cough and shortness of breath. HISTORY OF PRESENT ILLNESS: The patient is a 71-year-old male with long history of dementia, psychosis, admitted to [facility] 2 weeks ago with cough and shortness of breath. During hospitalization, the patient was diagnosed with pneumonia, possible metastatic cancer to the liver. We tried to get a CAT scan of the liver, but the conservator ____. So, the patient was started on antibiotics, sent back to [facility]. Yesterday, the patient pulled IV line and they could not put it back. So, they transferred back the patient to the hospital for more advanced treatment. Initial workup significant for leukocytosis and pneumonia. The patient admitted to the hospital for more workup. The patient denies any chest pain or any vomiting. No fever and no chills. He still has cough. PAST MEDICAL HISTORY: Significant for dementia and psychosis. PAST SURGICAL HISTORY: No recent surgery. ALLERGIES: None. MEDICATIONS: Follow admission reconciliation. SOCIAL HISTORY: No smoking, alcohol, or drug use. FAMILY HISTORY: Noncontributory. REVIEW OF SYSTEMS: RENAL SYSTEM: No history of chronic renal disorder. CARDIOVASCULAR SYSTEM: No coronary artery disease. ENDOCRINE SYSTEM: No diabetes or thyroid problem. GASTROINTESTINAL: Upper and lower gastrointestinal bleed, possible metastatic cancer to the liver. HEMATOLOGIC SYSTEM: He has history of anemia. RESPIRATORY SYSTEM: He has history of pneumonia. PHYSICAL EXAMINATION: GENERAL: He is awake, alert, not oriented. VITAL SIGNS: Temperature 98.1, heart rate 72, blood pressure 114/62. HEENT: Normocephalic. Pupils are reactive to light and accommodation. Sclerae clear. NECK: Supple. Negative for lymphadenopathy, JVD or bruit. CHEST: Clear bilateral. Mild diminished. HEART: S1 and S2 normal. ABDOMEN: Soft. Bowel sounds positive. EXTREMITIES: No edema. NEUROLOGIC: He is awake, alert, and not fully oriented. LABORATORY DATA: White blood cells 26,500, hemoglobin 8.7, hematocrit 25.2, and platelets 117,000. Sodium 130, potassium 4.4, BUN 14, and creatinine ____. ASSESSMENT: 1. Pneumonia. 2. Sepsis. 3. Anemia. 4. Hyponatremia. 5. Thrombocytopenia. 6. Dementia. 7. Possible metastatic cancer to the liver. PLAN: The patient in the hospital under Dr. Mccarthy's service, started on IV fluid, IV antibiotic, breathing treatment, Dr. Bronson Mcconnell, Infectious Disease consult on the case. The patient is a Full Code. The patient will resume his home medications. CBC and CMP for tomorrow. JOB# [id number]
[2017-01-31] MEDS: Albuterol/Ipratropium Neb 3 ML AERS HHN SCH ×4 (00:33→23:18)
[2017-01-31 05:15] LABS: MEAN CORPUSCULAR HEMOGLOBIN 38.1 pg (27.0-31.0); MEAN CORPUSCULAR HGB CONC 34.7 pg (28.0-36.0); MEAN PLATELET VOLUME 7.1 fl; PLATELET COUNT 96 Th/cmm (150-400); RED BLOOD COUNT 2.09 Mil/cmm (3.80-5.80); RED CELL DISTRIBUTION WIDTH 25.3 % (11.5-20.0)
[2017-01-31 05:27] LABS: HEMATOCRIT 22.9 % (39.0-49.0); MEAN CELL VOLUME 109.7 fl (80-99)
[2017-01-31 05:46] LABS: ALB/GLOB RATIO 0.6 (1.0-1.8); ALKALINE PHOSPHATASE 135 U/L (34-104); ANION GAP 7.9 (7.0-16.0); BILIRUBIN,TOTAL 0.8 mg/dL (0.3-1.0); BUN - UREA NITROGEN 41 mg/dL (7-25); BUN/CREATININE RATIO 21.6; CALCIUM SERUM 8.8 mg/dL (8.6-10.3); CARBON DIOXIDE 21.9 mEq/L (21.0-31.0); CHLORIDE 106 mEq/L (98-107); CREATININE - SERUM 1.9 mg/dL (0.7-1.3); GLUCOSE 145 mg/dL (70-105); POTASSIUM SERUM 4.8 mEq/L (3.5-5.1); SGOT 67 U/L (13-39); SGPT/ALT 17 U/L (7-52); SODIUM SERUM 131 mEq/L (136-145)
[2017-01-31 10:13] LABS: BAND NEUTROPHILE 11 % (0-10); NEUTROPHILS 75 % (40-80); TOTAL CELLS COUNTED 100
[2017-01-31 10:14] LABS: ANISOCYTOSIS 2+; PLATELET ESTIMATE ADEQUATE (NORMAL); PLATELET MORPHOLOGY NORMAL (NORMAL); POIKILOCYTOSIS 1+; POLYCHROMASIA 1+
[2017-01-31] MEDS: D5-0.45NS w/20 mEq KCL 1,000 ML IV SCH (11:51)
--- NOTE | 2017-01-31 12:51 | Infectious Disease Prog Note ---
Infectious Disease Subjective - Review of Systems Service Date: 01/31/17 Infectious Disease Objective - Results Result Diagrams: 01/31/17 05:05 01/31/17 05:05 Recent Labs: Laboratory Last Values WBC 24.0 Th/cmm (4.8-10.8) H* 01/31/17 05:05 RBC 2.09 Mil/cmm (3.80-5.80) L 01/31/17 05:05 Hgb 8.0 gm/dL (12.6-17.4) L 01/31/17 05:05 Hct 22.9 % (39.0-49.0) L* 01/31/17 05:05 MCV 109.7 fl (80-99) H 01/31/17 05:05 MCH 38.1 pg (27.0-31.0) H 01/31/17 05:05 MCHC Differential 34.7 pg (28.0-36.0) 01/31/17 05:05 RDW 25.3 % (11.5-20.0) H 01/31/17 05:05 Plt Count 96 Th/cmm (150-400) L 01/31/17 05:05 MPV 7.1 fl 01/31/17 05:05 Band Neutrophils % 11 % (0-10) H 01/31/17 05:05 Neutrophils (Manual) 75 % (40-80) 01/31/17 05:05 Lymphocytes 9 % (20-50) L 01/31/17 05:05 Monocytes 5 % (2-10) 01/31/17 05:05 Platelet Estimate ADEQUATE (NORMAL) 01/31/17 05:05 Platelet Morphology NORMAL (NORMAL) 01/31/17 05:05 Polychromasia 1+ 01/31/17 05:05 Poikilocytosis 1+ 01/31/17 05:05 Anisocytosis 2+ 01/31/17 05:05 Macrocytosis 2+ 01/31/17 05:05 RBC Morph Micro Appear ABNORMAL (NORMAL) 01/31/17 05:05 Sodium 131 mEq/L (136-145) L 01/31/17 05:05 Potassium 4.8 mEq/L (3.5-5.1) 01/31/17 05:05 Chloride 106 mEq/L (98-107) 01/31/17 05:05 Carbon Dioxide 21.9 mEq/L (21.0-31.0) 01/31/17 05:05 Anion Gap 7.9 (7.0-16.0) 01/31/17 05:05 BUN 41 mg/dL (7-25) H 01/31/17 05:05 Creatinine 1.9 mg/dL (0.7-1.3) H 01/31/17 05:05 Est GFR ( Amer) TNP 01/31/17 05:05 Est GFR (Non-Af Amer) TNP 01/31/17 05:05 BUN/Creatinine Ratio 21.6 01/31/17 05:05 Glucose 145 mg/dL (70-105) H 01/31/17 05:05 POC Glucose 162 MG/DL (70 - 105) H 01/31/17 05:16 Whole Bld Lactic Acid 2.02 mmol/L (0.60-1.99) H* 01/30/17 12:20 Calcium 8.8 mg/dL (8.6-10.3) 01/31/17 05:05 Total Bilirubin 0.8 mg/dL (0.3-1.0) 01/31/17 05:05 AST 67 U/L (13-39) H 01/31/17 05:05 ALT 17 U/L (7-52) 01/31/17 05:05 Alkaline Phosphatase 135 U/L (34-104) H 01/31/17 05:05 Total Protein 5.4 gm/dL (6.0-8.3) L 01/31/17 05:05 Albumin 2.0 gm/dL (4.2-5.5) L 01/31/17 05:05 Globulin 3.4 gm/dL 01/31/17 05:05 Albumin/Globulin Ratio 0.6 (1.0-1.8) L 01/31/17 05:05 Triglycerides 79 mg/dL (<150) 01/30/17 10:20 Cholesterol 94 mg/dL (<200) 01/30/17 10:20 LDL Cholesterol Direct 46 mg/dL (75-193) L 01/30/17 10:20 HDL Cholesterol 19 mg/dL (23-92) L 01/30/17 10:20 TSH 2.90 uIU/ml (0.34-5.60) 01/30/17 10:20 Urine Source CLEAN C 01/30/17 11:05 Urine Color LOS 01/30/17 11:05 Urine Clarity CLEAR (CLEAR) 01/30/17 11:05 Urine pH 5.0 01/30/17 11:05 Ur Specific [place] 1.020 (1.005-1.030) 01/30/17 11:05 Urine Protein 30 mg/dL (NEGATIVE) H 01/30/17 11:05 Urine Glucose (UA) NEGATIVE mg/dL (NEGATIVE) 01/30/17 11:05 Urine Ketones 15 mg/dL (NEGATIVE) H 01/30/17 11:05 Urine Blood NEGATIVE (NEGATIVE) 01/30/17 11:05 Urine Nitrate POSITIVE (NEGATIVE) H 01/30/17 11:05 Urine Bilirubin SMALL (NEGATIVE) H 01/30/17 11:05 Urine Urobilinogen 0.2 E.U./dL (0.2 - 1.0) 01/30/17 11:05 Ur Leukocyte Esterase NEGATIVE (NEGATIVE) 01/30/17 11:05 Urine RBC 0-2 /hpf (0-5) H 01/30/17 11:05 Urine WBC 2-5 /hpf (0-5) H 01/30/17 11:05 Ur Epithelial Cells OCCASIONAL /lpf (FEW) 01/30/17 11:05 Urine Bacteria MODERATE /hpf (NONE SEEN) 01/30/17 11:05 Urine Mucus FEW /lpf (FEW) 01/30/17 11:05 - Physical Exam Vitals and I&O: Vital Signs Temp 98.2 F 01/31/17 04:00 Pulse 94 01/31/17 10:00 Resp 18 01/31/17 10:00 BP 104/62 01/31/17 06:53 Pulse Ox 95 01/31/17 10:00 Intake & Output 01/30/17 01/31/17 01/31/17 18:59 06:59 18:59 Intake Total 200 1200 Balance 200 1200 Intake: Intake, IV Amount 1000 D5-0.45NS w/20 mEq KCL 1, 1000 000 ml @ 75 mls/hr IV . [id number] [facility] Rx#:[id number] Oral 200 200 Other: # Voids 2 3 # Bowel Movements 2 Stool Characteristics Soft Soft Soft Formed Formed Formed Active Medications: Current Medications Acetaminophen (Tylenol) 650 mg PO Q4H PRN PRN Reason: Fever > 100 Stop: 03/31/17 16:47 Last Admin: 01/31/17 09:04 Dose: 650 mg Albuterol/Ipratropium (Duoneb Neb) 3 ml HHN Q8HRT [facility] Stop: 03/31/17 14:59 Last Admin: 01/31/17 07:41 Dose: 3 ml Levofloxacin (Levaquin Pb) 750 mg in 150 mls @ 100 mls/hr IV Q24HR [facility] Stop: 03/31/17 16:59 Last Admin: 01/30/17 17:09 Dose: 100 mls/hr Vancomycin HCl 1 gm/ Sodium (Chloride) 250 mls @ 165 mls/hr IV Q12H [facility] Stop: 03/31/17 16:59 Last Admin: 01/30/17 21:24 Dose: 165 mls/hr Potassium Chloride/Dextrose/Sod Cl (D5-0.45ns W/20 Meq Kcl) 1,000 mls @ 75 mls/ hr IV .[id number] [facility] Stop: 03/31/17 16:46 Last Admin: 01/31/17 11:51 Dose: 75 mls/hr Metronidazole (Flagyl) 500 mg PO Q8HR [facility] Stop: 02/06/17 20:59 Last Admin: 01/31/17 06:09 Dose: Not Given Miscellaneous (Vancomycin Iv Per Pharmacy) 1 ea [facility] PRN PRN PRN Reason: PROTOCOL Stop: 03/31/17 16:29 Temazepam (Restoril) 15 mg PO HS PRN; Protocol PRN Reason: Insomnia Stop: 03/31/17 20:55 Last Admin: 01/30/17 21:43 Dose: 15 mg Tramadol HCl (Ultram) 50 mg PO Q6HR PRN PRN Reason: Pain (Moderate) Stop: 03/31/17 22:01 - Procedures Procedures: Procedures Procedure Code Date GROUP PSYCHOTHERAPY 23861 01/14/16 GROUP PSYCHOTHERAPY GZHZZZZ 01/14/16 TRANSFUSE NONAUT RED BLOOD CELLS IN PERIPH VEIN, PERC 95479D9 01/16/17 Infectious Disease Assmt/Plan - Problem List Patient Problems: All Active Problems Agitation (Acute) R45.1 Combative behavior (Acute) R46.89 HTN (hypertension) (Acute) I10 Psychosis (Acute) F29
--- NOTE | 2017-01-31 13:08 | Consultation ---
Consult Note - Consult Note Service Date: 01/31/17 Referring Physician: Miguel Mccarthy Consult Note: PHYSICIAN Consultation Note: Date of Admission: 01/30/17 Purpose of Consultation: Chief Complaint: Patient DESIREE MCNULTY was admitted to [facility] with PNEUMONIA. History of Present Illness: Patient was brought back from SNF, within 2 days of discharge, for poor oral intake and found to have worsening of the WBC Count. So far there is no fever, and he is not a good historian. He was suspected to have liver mets, which were under investigation. Otherwise, there is no fever. On initial evaluation, his temperature was 97.8 degree F and WBC Count was 26,500. Patient was started on vanco, flagyl and Levaquin. ID consult was called for further antibiotic management. Past Medical History: HTN, impulsive disorder, hepC, factitious disorder, osteoarthritis, pneumonia, atherosclerotic heart disease, Vitamin B12 deficiency. Diagnoses SEPSIS, UNSPECIFIED ORGANISM (01/30/17) ANEMIA, UNSPECIFIED (01/30/17) THROMBOCYTOPENIA, UNSPECIFIED (01/30/17) DEHYDRATION (01/30/17) HYPO-OSMOLALITY AND HYPONATREMIA (01/30/17) UNSPECIFIED DEMENTIA WITHOUT BEHAVIORAL DISTURBANCE (01/30/17) NICOTINE DEPENDENCE, CIGARETTES, UNCOMPLICATED (01/30/17) PNEUMONIA, UNSPECIFIED ORGANISM (01/30/17) ACUTE KIDNEY FAILURE, UNSPECIFIED (01/30/17) SHORTNESS OF BREATH (01/30/17) Allergies Allergy/AdvReac Type Severity Reaction Status Date / Time No Known Allergies Allergy Verified 01/30/17 10:24 Vital Signs Temp 98.2 F 01/31/17 04:00 Pulse 94 01/31/17 10:00 Resp 18 01/31/17 10:00 BP 104/62 01/31/17 06:53 Pulse Ox 95 01/31/17 10:00 Intake & Output 01/30/17 01/31/17 01/31/17 18:59 06:59 18:59 Intake Total 200 1200 Balance 200 1200 Intake: Intake, IV Amount 1000 D5-0.45NS w/20 mEq KCL 1, 1000 000 ml @ 75 mls/hr IV . [id number] [facility] Rx#:[id number] Oral 200 200 Other: # Voids 2 3 # Bowel Movements 2 Stool Characteristics Soft Soft Soft Formed Formed Formed Laboratory Results - last 24 hr 05/10/17 05/10/17 05/10/17 05:05 05:05 05:16 WBC 24.0 H* RBC 2.09 L Hgb 8.0 L Hct 22.9 L* MCV 109.7 H MCH 38.1 H MCHC Differential 34.7 RDW 25.3 H Plt Count 96 L MPV 7.1 Band Neutrophils % 11 H Neutrophils (Manual) 75 Lymphocytes 9 L Monocytes 5 Platelet Estimate ADEQUATE Platelet Morphology NORMAL Polychromasia 1+ Poikilocytosis 1+ Anisocytosis 2+ Macrocytosis 2+ RBC Morph Micro Appear ABNORMAL Sodium 131 L Potassium 4.8 Chloride 106 Carbon Dioxide 21.9 Anion Gap 7.9 BUN 41 H Creatinine 1.9 H Est GFR ( Amer) TNP Est GFR (Non-Af Amer) TNP BUN/Creatinine Ratio 21.6 Glucose 145 H POC Glucose 162 H Calcium 8.8 Total Bilirubin 0.8 AST 67 H ALT 17 Alkaline Phosphatase 135 H Total Protein 5.4 L Albumin 2.0 L Globulin 3.4 Albumin/Globulin Ratio 0.6 L Home Medication Medication Instructions Recorded Type RX: Ascorbic Acid [Vitamin C] 500 mg PO DAILY #0 tab 08/07/16 Rx RX: Docusate Sodium [Colace] 100 mg PO BID #0 cap 08/07/16 Rx RX: Ferrous Sulfate [Iron] 325 mg PO DAILY #0 tab 08/07/16 Rx RX: Folic Acid [Folate*] 1 mg PO DAILY #0 tab 08/07/16 Rx RX: Gabapentin [Neurontin*] 300 mg PO BID #0 cap 08/07/16 Rx RX: Mirtazapine [Remeron] 22.5 mg PO HS #0 tab 08/07/16 Rx RX: Multivitamin w/ Minerals 1 tab PO DAILY #0 tab 08/07/16 Rx [Theragran M] Metoprolol Tartrate [Lopressor] 25 mg PO DAILY 01/16/17 History RX: Magnesium Hydroxide [Milk of 30 ml PO DAILY PRN 01/16/17 History Magnesia] RX: Melatonin 3 mg PO HS 01/16/17 History Amino Acids/Protein Hydrolys 30 ml PO BID 01/30/17 History [Pro-Stat Sugar Free Awc 887 ml] Ivermectin [Stromectol] 12 mg PO QSAT 01/30/17 History Levofloxacin [Levaquin] 500 mg PO DAILY 01/30/17 History Vancomycin HCl [Vancomycin] 1 gm IV Q12H 01/30/17 History metroNIDAZOLE [Flagyl] 500 mg PO TID 01/30/17 History Current Medications Generic Name Dose Route Start Last Admin Trade Name Freq PRN Reason Stop Dose Admin Acetaminophen 650 mg 01/30/17 16:48 01/31/17 09:04 Tylenol PO 03/31/17 16:47 650 mg Q4H PRN Administration Fever > 100 Albuterol/Ipratropium 3 ml 01/30/17 15:00 01/31/17 07:41 Duoneb Neb HHN 03/31/17 14:59 3 ml Q8HRT [facility] Administration Levofloxacin 750 mg in 150 mls @ 100 mls/hr 01/30/17 17:00 01/30/17 17:09 Levaquin Pb IV 03/31/17 16:59 100 mls/hr Q24HR [facility] Administration Vancomycin HCl 1 gm/ Sodium 250 mls @ 165 mls/hr 01/30/17 17:00 01/30/17 21: 24 Chloride IV 03/31/17 16:59 165 mls/hr Q12H [facility] Administration Potassium Chloride/Dextrose/Sod Cl 1,000 mls @ 75 mls/hr 01/30/17 16:47 01/31 11:51 D5-0.45ns W/20 Meq Kcl IV 03/31/17 16:46 75 mls/hr .[id number] [facility] Administration Metronidazole 500 mg 01/30/17 21:00 01/31/17 06:09 Flagyl PO 02/06/17 20:59 Not Given Q8HR [facility] Miscellaneous 1 ea 01/30/17 16:30 Vancomycin Iv Per Pharmacy 03/31/17 16:29 PRN PRN PROTOCOL Temazepam 15 mg 01/30/17 20:56 01/30/17 21:43 Restoril PO 03/31/17 20:55 15 mg HS PRN Administration Insomnia Protocol Tramadol HCl 50 mg 01/31/17 06:42 Ultram PO 03/31/17 22:01 Q6HR PRN Pain (Moderate) Review of Systems: A 12 point ROS was reviewed with the pertinent positive and negatives noted in the HPI. Family history: Unknown. Social History Smoking Status Smoker, status unknown Drug Use No Alcohol Use No Physical Exam: General: Comfortable, cachectic. HEENT:Head is normocephalic, atraumatic on inspection. Eyes: EOMI Bilaterally, PERRLA Bilaterally. Oral cavity moist: pink tongue, no thrush. NECK: Supple, no JVD, no Carotid bruit. Cardio: +S1/S2 Auscultated, RRR, no murmurs/rubs/gallops noted Respiratory: vesicular breath sounds. decreased bilaterally. Abdominal: Soft, distended, Nontender to palpation x 4 quadrants. BS normoactive. Extremities: No Edema noted in the lower extremities Neurological: Alert and Oriented. dysarthria. Assessment/Plan: 1. Leukocytosis, multifactorial. ? malignanacy, sepsis, pneumonia. 2. pneumonia. 3. metastatic lesions of liver, not confirmed yet. 4. Dementia, 5. Psychosis Recommendations: Change levaquin to zosyn. Continue vanco IV. Signed, Bronson Mcconnell M.D. [id number]
[2017-01-31 14:20] LABS: HEP B CORE IGM Negative (Negative); HEP C ANTIBODY >11.0 s/co ratio (0.0-0.9)
[2017-01-31] MEDS ORDERED: Magnesium Hydroxide (MOM) 30 mL UDC PO PRN (19:19)
[2017-02-01] MEDS: D5-0.45NS w/20 mEq KCL 1,000 ML IV SCH (04:51)
[2017-02-01] MEDS: Albuterol/Ipratropium Neb 3 ML AERS HHN SCH ×3 (08:06→23:00)
--- NOTE | 2017-02-01 08:17 | Infectious Disease Prog Note ---
Infectious Disease Subjective - Review of Systems Service Date: 02/01/17 Subjective: No new change. Infectious Disease Objective - Results Result Diagrams: 01/31/17 05:05 01/31/17 05:05 Recent Labs: Laboratory Last Values WBC 24.0 Th/cmm (4.8-10.8) H* 01/31/17 05:05 RBC 2.09 Mil/cmm (3.80-5.80) L 01/31/17 05:05 Hgb 8.0 gm/dL (12.6-17.4) L 01/31/17 05:05 Hct 22.9 % (39.0-49.0) L* 01/31/17 05:05 MCV 109.7 fl (80-99) H 01/31/17 05:05 MCH 38.1 pg (27.0-31.0) H 01/31/17 05:05 MCHC Differential 34.7 pg (28.0-36.0) 01/31/17 05:05 RDW 25.3 % (11.5-20.0) H 01/31/17 05:05 Plt Count 96 Th/cmm (150-400) L 01/31/17 05:05 MPV 7.1 fl 01/31/17 05:05 Band Neutrophils % 11 % (0-10) H 01/31/17 05:05 Neutrophils (Manual) 75 % (40-80) 01/31/17 05:05 Lymphocytes 9 % (20-50) L 01/31/17 05:05 Monocytes 5 % (2-10) 01/31/17 05:05 Platelet Estimate ADEQUATE (NORMAL) 01/31/17 05:05 Platelet Morphology NORMAL (NORMAL) 01/31/17 05:05 Polychromasia 1+ 01/31/17 05:05 Poikilocytosis 1+ 01/31/17 05:05 Anisocytosis 2+ 01/31/17 05:05 Macrocytosis 2+ 01/31/17 05:05 RBC Morph Micro Appear ABNORMAL (NORMAL) 01/31/17 05:05 Sodium 131 mEq/L (136-145) L 01/31/17 05:05 Potassium 4.8 mEq/L (3.5-5.1) 01/31/17 05:05 Chloride 106 mEq/L (98-107) 01/31/17 05:05 Carbon Dioxide 21.9 mEq/L (21.0-31.0) 01/31/17 05:05 Anion Gap 7.9 (7.0-16.0) 01/31/17 05:05 BUN 41 mg/dL (7-25) H 01/31/17 05:05 Creatinine 1.9 mg/dL (0.7-1.3) H 01/31/17 05:05 Est GFR ( Amer) TNP 01/31/17 05:05 Est GFR (Non-Af Amer) TNP 01/31/17 05:05 BUN/Creatinine Ratio 21.6 01/31/17 05:05 Glucose 145 mg/dL (70-105) H 01/31/17 05:05 POC Glucose 162 MG/DL (70 - 105) H 01/31/17 05:16 Whole Bld Lactic Acid 2.02 mmol/L (0.60-1.99) H* 01/30/17 12:20 Calcium 8.8 mg/dL (8.6-10.3) 01/31/17 05:05 Total Bilirubin 0.8 mg/dL (0.3-1.0) 01/31/17 05:05 AST 67 U/L (13-39) H 01/31/17 05:05 ALT 17 U/L (7-52) 01/31/17 05:05 Alkaline Phosphatase 135 U/L (34-104) H 01/31/17 05:05 Total Protein 5.4 gm/dL (6.0-8.3) L 01/31/17 05:05 Albumin 2.0 gm/dL (4.2-5.5) L 01/31/17 05:05 Globulin 3.4 gm/dL 01/31/17 05:05 Albumin/Globulin Ratio 0.6 (1.0-1.8) L 01/31/17 05:05 Triglycerides 79 mg/dL (<150) 01/30/17 10:20 Cholesterol 94 mg/dL (<200) 01/30/17 10:20 LDL Cholesterol Direct 46 mg/dL (75-193) L 01/30/17 10:20 HDL Cholesterol 19 mg/dL (23-92) L 01/30/17 10:20 TSH 2.90 uIU/ml (0.34-5.60) 01/30/17 10:20 Urine Source CLEAN C 01/30/17 11:05 Urine Color LOS 01/30/17 11:05 Urine Clarity CLEAR (CLEAR) 01/30/17 11:05 Urine pH 5.0 01/30/17 11:05 Ur Specific [place] 1.020 (1.005-1.030) 01/30/17 11:05 Urine Protein 30 mg/dL (NEGATIVE) H 01/30/17 11:05 Urine Glucose (UA) NEGATIVE mg/dL (NEGATIVE) 01/30/17 11:05 Urine Ketones 15 mg/dL (NEGATIVE) H 01/30/17 11:05 Urine Blood NEGATIVE (NEGATIVE) 01/30/17 11:05 Urine Nitrate POSITIVE (NEGATIVE) H 01/30/17 11:05 Urine Bilirubin SMALL (NEGATIVE) H 01/30/17 11:05 Urine Urobilinogen 0.2 E.U./dL (0.2 - 1.0) 01/30/17 11:05 Ur Leukocyte Esterase NEGATIVE (NEGATIVE) 01/30/17 11:05 Urine RBC 0-2 /hpf (0-5) H 01/30/17 11:05 Urine WBC 2-5 /hpf (0-5) H 01/30/17 11:05 Ur Epithelial Cells OCCASIONAL /lpf (FEW) 01/30/17 11:05 Urine Bacteria MODERATE /hpf (NONE SEEN) 01/30/17 11:05 Urine Mucus FEW /lpf (FEW) 01/30/17 11:05 Vancomycin Trough 19.0 ug/mL (10-20) 01/31/17 16:03 Hepatitis A IgM Ab Negative (Negative) 01/30/17 10:20 Hep Bs Antigen Negative (Negative) 01/30/17 10:20 Hep B Core IgM Ab Negative (Negative) 01/30/17 10:20 Hepatitis C Antibody >11.0 s/co ratio (0.0-0.9) H 01/30/17 10:20 - Physical Exam Vitals and I&O: Vital Signs Temp 98.2 F 02/01/17 06:00 Pulse 92 02/01/17 08:07 Resp 18 02/01/17 08:07 BP 122/71 02/01/17 06:00 Pulse Ox 95 02/01/17 08:07 Intake & Output 01/31/17 02/01/17 02/01/17 18:59 06:59 18:59 Intake Total 1850 1460 Balance 1850 1460 Intake: Intake, IV Amount 350 1100 D5-0.45NS w/20 mEq KCL 1, 1000 000 ml @ 75 mls/hr IV . [id number] [facility] Rx#:[id number] Piperacillin Sodium/ 100 100 Tazobact 4.5 gm In Sodium Chloride 0.9% 100 ml @ 100 mls/hr IV Q8HR [facility] Rx #:[id number] Vancomycin HCl 1 gm In 250 Sodium Chloride 0.9% 250 ml @ 165 mls/hr IV Q12H [facility] Rx#:[id number] Oral 1500 360 Other: # Voids 3 3 # Bowel Movements 0 1 Stool Characteristics Soft Soft Formed Active Medications: Current Medications Acetaminophen (Tylenol) 650 mg PO Q4H PRN PRN Reason: Fever > 100 Stop: 03/31/17 16:47 Last Admin: 01/31/17 09:04 Dose: 650 mg Albuterol/Ipratropium (Duoneb Neb) 3 ml HHN Q8HRT [facility] Stop: 03/31/17 14:59 Last Admin: 02/01/17 08:06 Dose: Not Given Ascorbic Acid (Vitamin C) 500 mg PO DAILY [facility] Stop: 04/01/17 19:29 Last Admin: 01/31/17 21:49 Dose: Not Given Docusate Sodium (Colace) 100 mg PO BID [facility] Stop: 04/01/17 19:29 Last Admin: 01/31/17 21:49 Dose: Not Given Ferrous Sulfate (Iron) 325 mg PO DAILY [facility] Stop: 04/02/17 08:59 Folic Acid (Folate) 1 mg PO DAILY [facility] Stop: 04/01/17 19:29 Last Admin: 01/31/17 21:49 Dose: Not Given Gabapentin (Neurontin) 300 mg PO BID [facility] Stop: 04/02/17 08:59 Vancomycin HCl 1 gm/ Sodium (Chloride) 250 mls @ 165 mls/hr IV Q12H [facility] Stop: 03/31/17 16:59 Last Admin: 02/01/17 06:16 Dose: 165 mls/hr Potassium Chloride/Dextrose/Sod Cl (D5-0.45ns W/20 Meq Kcl) 1,000 mls @ 75 mls/ hr IV .[id number] [facility] Stop: 03/31/17 16:46 Last Admin: 02/01/17 04:51 Dose: 75 mls/hr Piperacillin Sod/Tazobactam (Sod 4.5 gm/ Sodium Chloride) 100 mls @ 100 mls/hr IV Q8HR [facility] Stop: 04/01/17 13:59 Last Admin: 02/01/17 04:52 Dose: 100 mls/hr Ivermectin (Stromectol) 12 mg PO QSAT [facility] Stop: 04/01/17 19:29 Last Admin: 01/31/17 21:49 Dose: Not Given Magnesium Hydroxide (Milk Of Magnesia) 30 ml PO DAILY PRN PRN Reason: Constipation Stop: 04/01/17 19:18 Mirtazapine (Remeron) 22.5 mg PO HS [facility] PRN Reason: Protocol Stop: 04/01/17 20:59 Last Admin: 02/01/17 05:05 Dose: Not Given Miscellaneous (Vancomycin Iv Per Pharmacy) 1 ea [facility] PRN PRN PRN Reason: PROTOCOL Stop: 03/31/17 16:29 Temazepam (Restoril) 15 mg PO HS PRN; Protocol PRN Reason: Insomnia Stop: 03/31/17 20:55 Last Admin: 01/30/17 21:43 Dose: 15 mg Tramadol HCl (Ultram) 50 mg PO Q6HR PRN PRN Reason: Pain (Moderate) Stop: 03/31/17 22:01 Last Admin: 02/01/17 07:05 Dose: 50 mg General: no acute distress, well developed, well nourished HEENT: atraumatic, normocephalic, PERRLA, EOMI Neck: supple, thyromegaly, lymphadenopathy Cardiovascular: S1S2, regular Lungs: clear to auscultation bilaterally, clear to percussion Abdomen: soft, distended, no tender Extremities: no cyanosis, no clubbing, no edema Neurological: awake, alert, oriented Skin: intact - Procedures Procedures: Procedures Procedure Code Date GROUP PSYCHOTHERAPY 53953 01/14/16 GROUP PSYCHOTHERAPY [id number] 01/14/16 TRANSFUSE NONAUT RED BLOOD CELLS IN PERIPH VEIN, PERC 34352U1 01/16/17 Infectious Disease Assmt/Plan - Problem List Patient Problems: All Active Problems Agitation (Acute) R45.1 Combative behavior (Acute) R46.89 HTN (hypertension) (Acute) I10 Psychosis (Acute) F29 - Assessment Assessment: Impression: 1. Leukocytosis, multifactorial. ? malignanacy, sepsis, pneumonia. 2. pneumonia. 3. metastatic lesions of liver, not confirmed yet. 4. Dementia, 5. Psychosis Recommendations: Contionue zosyn. Continue vanco IV.
[2017-02-01] MEDS: Ferrous Sulfate 325 MG TAB PO SCH (08:41)
--- NOTE | 2017-02-02 00:23 | Consultation ---
DATE OF CONSULTATION: 02/01/2017 INPATIENT GASTROINTESTINAL CONSULTATION REFERRING PHYSICIAN: Dr. Mccarthy. REASON FOR CONSULTATION: Liver lesion. HISTORY OF PRESENT ILLNESS: This is a 71-year-old male from a skilled facility, was brought to the hospital for further management of pneumonia. We were asked to see this patient because there is a suspicion of liver lesions and they wanted us to work this up. The patient is somewhat of a poor historian. Denies having any abdominal pain. Denies nausea or vomiting. Denies GI bleeding. PAST MEDICAL HISTORY: Hypertension, impulsive disorder, hepatitis C, osteoarthritis, pneumonia, coronary artery disease, vitamin B12 deficiency. PAST SURGICAL HISTORY: None to abdomen. FAMILY HISTORY: Noncontributory. SOCIAL HISTORY: Resident of a [place] [facility] facility. No tobacco, alcohol, or IV drug usage. ALLERGIES: None. CURRENT MEDICATIONS: Tylenol, Colace, iron, folate, Neurontin, , milk of magnesia, Remeron, Zosyn, Restoril, vancomycin, Ultram. REVIEW OF SYSTEMS: Unobtainable. PHYSICAL EXAMINATION: VITAL SIGNS: Temperature 98.2, breathing 18, pulse of 92, blood pressure is 122/71, satting . GENERAL: In no apparent distress. EYES: Anicteric, normal conjunctivae. HEENT: Normocephalic, atraumatic. Moist mucous membranes. NECK: Soft, supple. CHEST: Clear. No effort. CARDIOVASCULAR: Regular rate and rhythm. ABDOMEN: Soft, nondistended, nontender. SKIN: Warm and dry. EXTREMITIES: Revealed no cyanosis. LABORATORY DATA: Show white count 24, hemoglobin 8, platelets of 96. Total bilirubin 0.8, AST 67, ALT 17, alkaline phosphatase 135, hepatitis C antibody is positive. IMPRESSION: A 71-year-old male with history of liver lesions. No imaging studies have been done, we could do imaging studies to start the process. The patient does have hepatitis C. His LFTs are elevated, likely from hepatitis C. His platelet count is a little low, which may be an indication of underlying cirrhosis. PLAN: 1. Perform liver imaging which could constitute CT scan and ultrasound. 2. Check an alpha fetoprotein. 3. The patient should be considered for outpatient hepatitis C treatment. He should follow up with his primary care provider to make arrangements to see Hepatology as an outpatient. 4. Continue supportive care. Thank you for allowing me to participate. Please call me if you have any questions. JOB# [id number]
[2017-02-02] MEDS: D5-0.45NS w/20 mEq KCL 1,000 ML IV SCH (04:36)
[2017-02-02 06:54] LABS: HEMATOCRIT 24.3 % (39.0-49.0); HEMOGLOBIN 8.6 gm/dL (12.6-17.4); MEAN CORPUSCULAR HEMOGLOBIN 39.1 pg (27.0-31.0); MEAN CORPUSCULAR HGB CONC 35.5 pg (28.0-36.0); MEAN PLATELET VOLUME 7.1 fl; PLATELET COUNT 109 Th/cmm (150-400); RED BLOOD COUNT 2.21 Mil/cmm (3.80-5.80); RED CELL DISTRIBUTION WIDTH 25.3 % (11.5-20.0)
[2017-02-02 07:06] LABS: ANION GAP 13.4 (7.0-16.0); BUN - UREA NITROGEN 39 mg/dL (7-25); BUN/CREATININE RATIO 17.7; CARBON DIOXIDE 21.1 mEq/L (21.0-31.0); CHLORIDE 104 mEq/L (98-107); CREATININE - SERUM 2.2 mg/dL (0.7-1.3); GLUCOSE 96 mg/dL (70-105); POTASSIUM SERUM 5.5 mEq/L (3.5-5.1); SODIUM SERUM 133 mEq/L (136-145)
[2017-02-02 07:09] LABS: MEAN CELL VOLUME 110.2 fl (80-99); WHITE BLOOD COUNT 26.5 Th/cmm (4.8-10.8)
[2017-02-02] MEDS: Albuterol/Ipratropium Neb 3 ML AERS HHN SCH ×3 (07:31→22:56)
[2017-02-02] MEDS: Ferrous Sulfate 325 MG TAB PO SCH (08:42)
--- NOTE | 2017-02-02 09:40 | Consultation ---
DATE OF CONSULTATION: 02/02/2017 AGE: 71. SEX: Male. PHYSICIAN: Dr. Mccarthy. CONTINUOUS PROCESS ROTARY DRUM TANNER: Dr. Dennis. REASON FOR THE CONSULT: Confusion and agitation and adjusting psychotropic medications. HISTORY OF PRESENT ILLNESS: The patient has history of psychiatric problems. Chart reviewed and the patient interviewed and discussed the patient's condition with the staff and reviewed records and labs. The patient is rambling and he is unable to provide any accurate information about his condition. The patient also still have anxiety and have mood swings. He also is restless and he is not able to give me exact information and was mumbling. The patient also is having difficulty following my instructions during the interview. PAST PSYCHIATRIC HISTORY: Unknown. PAST MEDICAL HISTORY: As per Dr. Mccarthy. SOCIAL HISTORY: The patient said that he lives alone, but according to the chart, the patient lives in [facility]. No known alcohol or drug use. MEDICATIONS: The patient is taking ____. MENTAL STATUS EXAM: The patient appears slightly older than his stated age. Rambling. Irritable mood, disorganized thoughts. Thought processes are with flight of ideas. The patient did not answer questions regarding hallucinations or delusions or regarding suicide or homicide. The patient is alert, but seems to be disoriented to time, place, person, and situation. Unable to assess his memory at this time because the patient is rambling and unable to give any accurate information. ASSESSMENT: PRIMARY DIAGNOSIS: Depressive disorder, with psychosis. TREATMENT PLAN: We will continue Remeron same dose. We will add trazodone. We will monitor behavior and reevaluate. Thanks to Dr. Mccarthy and we will follow up with you. JOB# [id number]
[2017-02-02 09:46] LABS: BAND NEUTROPHILE 10 % (0-10); EOSINOPHIL 2 % (0-5); NEUTROPHILS 74 % (40-80); TOTAL CELLS COUNTED 100
[2017-02-02 09:47] LABS: ANISOCYTOSIS 2+; PLATELET ESTIMATE DECREASED PLATELETS (NORMAL); PLATELET MORPHOLOGY NORMAL (NORMAL)
--- NOTE | 2017-02-02 11:20 | Diagnostic Imaging Report ---
Abdominal ultrasound HISTORY: Cirrhosis, pain Exam is limited due to patient size, body habitus, and lack of patient cooperation. The exam of the liver demonstrates a heterogeneous parenchymal appearance. 2 hypoechoic lesions are noted in the left lobe of the liver. The largest measures approximately 3.0 cm. 2 hypoechoic lesions noted in the right lobe of the liver with the largest measuring approximately 4.0 cm. These are sonographically indeterminate. A CT scan with intravenous contrast recommended for further assessment. Exam the gallbladder demonstrates mild wall thickening. This may be related to hypoproteinemia and ascites no definite calculi are seen. The common bile duct could not be clearly visualized. The pancreas cannot be seen due to bowel gas. The right kidney appears normal. Incomplete visualization of the lower pole of the left kidney. There appears to be an approximate 3.4 x 2.2 x 3.0 cm hypoechoic density along the cortex with a small echogenic central focus. Etiology uncertain. Again, a CT scan is recommended for further assessment and evaluation. Spleen is slightly generous in size. No other definite retroperitoneal or intra-abdominal abnormalities. IMPRESSION: 1. Small amount of ascites 2. Hepatic masses associated with an irregular hepatic contour and overall heterogeneous parenchyma. A CT scan with intravenous contrast would provide for further assessment and characterization. 3. Left renal lesion. Exact etiology uncertain. Again, a CT scan would provide for further assessment.
--- NOTE | 2017-02-02 14:20 | Infectious Disease Prog Note ---
Infectious Disease Subjective - Review of Systems Service Date: 02/02/17 Subjective: No new change. Infectious Disease Objective - Results Result Diagrams: 02/02/17 06:36 02/02/17 06:36 Recent Labs: Laboratory Last Values WBC 26.5 Th/cmm (4.8-10.8) H* 02/02/17 06:36 RBC 2.21 Mil/cmm (3.80-5.80) L 02/02/17 06:36 Hgb 8.6 gm/dL (12.6-17.4) L 02/02/17 06:36 Hct 24.3 % (39.0-49.0) L 02/02/17 06:36 MCV 110.2 fl (80-99) H 02/02/17 06:36 MCH 39.1 pg (27.0-31.0) H 02/02/17 06:36 MCHC Differential 35.5 pg (28.0-36.0) 02/02/17 06:36 RDW 25.3 % (11.5-20.0) H 02/02/17 06:36 Plt Count 109 Th/cmm (150-400) L 02/02/17 06:36 MPV 7.1 fl 02/02/17 06:36 Band Neutrophils % 10 % (0-10) 02/02/17 06:36 Neutrophils (Manual) 74 % (40-80) 02/02/17 06:36 Lymphocytes 7 % (20-50) L 02/02/17 06:36 Monocytes 7 % (2-10) 02/02/17 06:36 Eosinophils 2 % (0-5) 02/02/17 06:36 Platelet Estimate DECREASED PLATELETS (NORMAL) 02/02/17 06:36 Platelet Morphology NORMAL (NORMAL) 02/02/17 06:36 Polychromasia 1+ 01/31/17 05:05 Poikilocytosis 1+ 01/31/17 05:05 Anisocytosis 2+ 02/02/17 06:36 Macrocytosis 2+ 02/02/17 06:36 RBC Morph Micro Appear ABNORMAL (NORMAL) 02/02/17 06:36 Sodium 133 mEq/L (136-145) L 02/02/17 06:36 Potassium 5.5 mEq/L (3.5-5.1) H 02/02/17 06:36 Chloride 104 mEq/L (98-107) 02/02/17 06:36 Carbon Dioxide 21.1 mEq/L (21.0-31.0) 02/02/17 06:36 Anion Gap 13.4 (7.0-16.0) 02/02/17 06:36 BUN 39 mg/dL (7-25) H 02/02/17 06:36 Creatinine 2.2 mg/dL (0.7-1.3) H 02/02/17 06:36 Est GFR ( Amer) TNP 02/02/17 06:36 Est GFR (Non-Af Amer) TNP 02/02/17 06:36 BUN/Creatinine Ratio 17.7 02/02/17 06:36 Glucose 96 mg/dL (70-105) 02/02/17 06:36 POC Glucose 162 MG/DL (70 - 105) H 01/31/17 05:16 Whole Bld Lactic Acid 2.02 mmol/L (0.60-1.99) H* 01/30/17 12:20 Calcium 9.0 mg/dL (8.6-10.3) 02/02/17 06:36 Total Bilirubin 0.8 mg/dL (0.3-1.0) 01/31/17 05:05 AST 67 U/L (13-39) H 01/31/17 05:05 ALT 17 U/L (7-52) 01/31/17 05:05 Alkaline Phosphatase 135 U/L (34-104) H 01/31/17 05:05 Total Protein 5.4 gm/dL (6.0-8.3) L 01/31/17 05:05 Albumin 2.0 gm/dL (4.2-5.5) L 01/31/17 05:05 Globulin 3.4 gm/dL 01/31/17 05:05 Albumin/Globulin Ratio 0.6 (1.0-1.8) L 01/31/17 05:05 Triglycerides 79 mg/dL (<150) 01/30/17 10:20 Cholesterol 94 mg/dL (<200) 01/30/17 10:20 LDL Cholesterol Direct 46 mg/dL (75-193) L 01/30/17 10:20 HDL Cholesterol 19 mg/dL (23-92) L 01/30/17 10:20 TSH 2.90 uIU/ml (0.34-5.60) 01/30/17 10:20 Urine Source CLEAN C 01/30/17 11:05 Urine Color LOS 01/30/17 11:05 Urine Clarity CLEAR (CLEAR) 01/30/17 11:05 Urine pH 5.0 01/30/17 11:05 Ur Specific [place] 1.020 (1.005-1.030) 01/30/17 11:05 Urine Protein 30 mg/dL (NEGATIVE) H 01/30/17 11:05 Urine Glucose (UA) NEGATIVE mg/dL (NEGATIVE) 01/30/17 11:05 Urine Ketones 15 mg/dL (NEGATIVE) H 01/30/17 11:05 Urine Blood NEGATIVE (NEGATIVE) 01/30/17 11:05 Urine Nitrate POSITIVE (NEGATIVE) H 01/30/17 11:05 Urine Bilirubin SMALL (NEGATIVE) H 01/30/17 11:05 Urine Urobilinogen 0.2 E.U./dL (0.2 - 1.0) 01/30/17 11:05 Ur Leukocyte Esterase NEGATIVE (NEGATIVE) 01/30/17 11:05 Urine RBC 0-2 /hpf (0-5) H 01/30/17 11:05 Urine WBC 2-5 /hpf (0-5) H 01/30/17 11:05 Ur Epithelial Cells OCCASIONAL /lpf (FEW) 01/30/17 11:05 Urine Bacteria MODERATE /hpf (NONE SEEN) 01/30/17 11:05 Urine Mucus FEW /lpf (FEW) 01/30/17 11:05 Vancomycin Trough 19.0 ug/mL (10-20) 01/31/17 16:03 RPR NONREACTIVE (NONREACTIVE) 01/30/17 10:20 Hepatitis A IgM Ab Negative (Negative) 01/30/17 10:20 Hep Bs Antigen Negative (Negative) 01/30/17 10:20 Hep B Core IgM Ab Negative (Negative) 01/30/17 10:20 Hepatitis C Antibody >11.0 s/co ratio (0.0-0.9) H 01/30/17 10:20 - Physical Exam Vitals and I&O: Vital Signs Temp 97.6 F 02/02/17 08:00 Pulse 97 02/02/17 08:00 Resp 19 02/02/17 08:00 BP 105/65 05/12/17 08:00 Pulse Ox 96 02/02/17 08:00 Intake & Output 02/01/17 02/02/17 02/02/17 18:59 06:59 18:59 Intake Total 1550 680 Balance 1550 680 Intake: Intake, IV Amount 1350 200 D5-0.45NS w/20 mEq KCL 1, 1000 000 ml @ 75 mls/hr IV . [id number] [facility] Rx#:[id number] Piperacillin Sodium/ 100 200 Tazobact 4.5 gm In Sodium Chloride 0.9% 100 ml @ 100 mls/hr IV Q8HR [facility] Rx #:[id number] Vancomycin HCl 1 gm In 250 Sodium Chloride 0.9% 250 ml @ 165 mls/hr IV Q12H [facility] Rx#:[id number] Oral 200 480 Other: # Voids 3 3 Stool Characteristics Soft Active Medications: Current Medications Acetaminophen (Tylenol) 650 mg PO Q4H PRN PRN Reason: Fever > 100 Stop: 03/31/17 16:47 Last Admin: 01/31/17 09:04 Dose: 650 mg Albuterol/Ipratropium (Duoneb Neb) 3 ml HHN Q8HRT [facility] Stop: 03/31/17 14:59 Last Admin: 02/02/17 07:31 Dose: Not Given Ascorbic Acid (Vitamin C) 500 mg PO DAILY [facility] Stop: 04/01/17 19:29 Last Admin: 02/02/17 08:42 Dose: 500 mg Docusate Sodium (Colace) 100 mg PO BID [facility] Stop: 04/01/17 19:29 Last Admin: 02/02/17 08:42 Dose: Not Given Ferrous Sulfate (Iron) 325 mg PO DAILY [facility] Stop: 04/02/17 08:59 Last Admin: 02/02/17 08:42 Dose: 325 mg Folic Acid (Folate) 1 mg PO DAILY [facility] Stop: 04/01/17 19:29 Last Admin: 02/02/17 08:42 Dose: 1 mg Gabapentin (Neurontin) 300 mg PO BID [facility] Stop: 04/02/17 08:59 Last Admin: 02/02/17 08:42 Dose: 300 mg Vancomycin HCl 1 gm/ Sodium (Chloride) 250 mls @ 165 mls/hr IV Q12H [facility] Stop: 03/31/17 16:59 Last Admin: 02/02/17 05:46 Dose: 165 mls/hr Potassium Chloride/Dextrose/Sod Cl (D5-0.45ns W/20 Meq Kcl) 1,000 mls @ 75 mls/ hr IV .[id number] [facility] Stop: 03/31/17 16:46 Last Admin: 02/02/17 04:36 Dose: 75 mls/hr Piperacillin Sod/Tazobactam (Sod 4.5 gm/ Sodium Chloride) 100 mls @ 100 mls/hr IV Q8HR [facility] Stop: 04/01/17 13:59 Last Admin: 02/02/17 12:13 Dose: 100 mls/hr Ivermectin (Stromectol) 12 mg PO QSAT [facility] Stop: 04/01/17 19:29 Last Admin: 01/31/17 21:49 Dose: Not Given Magnesium Hydroxide (Milk Of Magnesia) 30 ml PO DAILY PRN PRN Reason: Constipation Stop: 04/01/17 19:18 Mirtazapine (Remeron) 22.5 mg PO [facility] PRN Reason: Protocol Stop: 04/01/17 20:59 Last Admin: 02/01/17 20:46 Dose: 22.5 mg Miscellaneous (Vancomycin Iv Per Pharmacy) 1 ea [facility] PRN PRN PRN Reason: PROTOCOL Stop: 03/31/17 16:29 Temazepam (Restoril) 15 mg PO HS PRN; Protocol PRN Reason: Insomnia Stop: 03/31/17 20:55 Last Admin: 01/30/17 21:43 Dose: 15 mg Tramadol HCl (Ultram) 50 mg PO Q6HR PRN PRN Reason: Pain (Moderate) Stop: 03/31/17 22:01 Last Admin: 02/02/17 12:25 Dose: 50 mg Trazodone HCl (Desyrel) 50 mg PO HS [facility] PRN Reason: Protocol Stop: 04/03/17 20:59 General: no acute distress, cachectic HEENT: atraumatic, normocephalic, PERRLA, EOMI, moist mucous membrane Neck: supple, no thyromegaly, no lymphadenopathy Cardiovascular: S1S2, regular Lungs: clear to auscultation bilaterally, clear to percussion Abdomen: soft, distended, no tender Extremities: no cyanosis, no clubbing, no edema Neurological: awake, alert, oriented Skin: intact - Procedures Procedures: Procedures Procedure Code Date GROUP PSYCHOTHERAPY 76261 01/14/16 GROUP PSYCHOTHERAPY GZHZZZZ 01/14/16 TRANSFUSE NONAUT RED BLOOD CELLS IN PERIPH VEIN, [facility] [id number] 01/16/17 Infectious Disease Assmt/Plan - Problem List Patient Problems: All Active Problems Agitation (Acute) R45.1 Combative behavior (Acute) R46.89 HTN (hypertension) (Acute) I10 Psychosis (Acute) F29 - Assessment Assessment: Impression: 1. Leukocytosis, multifactorial. ? malignanacy, sepsis, pneumonia. 2. pneumonia. 3. metastatic lesions of liver, not confirmed yet. 4. Dementia, 5. Psychosis Recommendations: Continue zosyn. Continue vanco IV. Nutritional Asmnt/Malnutr-PDOC - Dietary Evaluation Malnutrition Findings (Please click <Entered> for more info): Nutritional Asmnt/Malnutrition Start: 02/02/17 13: 54 Text: Status: Active Freq: Document 02/02/17 13:54 GSUN (Rec: 02/02/17 14:04 [email or web address] [email or web address]) Nutritional Asmnt/Malnutrition Patient General Information Diagnosis Pneumonia, sepsis, acute kidney failure Pertinent Medical Hx/Surgical Hx Dementia, possible metastatic cancer to the liver Subjective Information 71 year old male. Pt was just admitted to [facility]
[2017-02-02] MEDS: Sodium Chloride 0.45% 1,000 ML IV SCH (16:25)
[2017-02-02] MEDS ORDERED: Albumin 25% 25gm/100mL 25 GM/100 ML BTL IV ONE (21:24)
[2017-02-03] MEDS: Albuterol/Ipratropium Neb 3 ML AERS HHN SCH ×2 (06:58→15:11)
[2017-02-03] MEDS: Ferrous Sulfate 325 MG TAB PO SCH (09:02)
[2017-02-03 09:18] LABS: ALB/GLOB RATIO 0.8 (1.0-1.8); ALKALINE PHOSPHATASE 119 U/L (34-104); ANION GAP 8.3 (7.0-16.0); BILIRUBIN,TOTAL 1.5 mg/dL (0.3-1.0); BUN - UREA NITROGEN 40 mg/dL (7-25); BUN/CREATININE RATIO 18.2; CARBON DIOXIDE 19.4 mEq/L (21.0-31.0); CHLORIDE 107 mEq/L (98-107); CREATININE - SERUM 2.2 mg/dL (0.7-1.3); GLUCOSE 158 mg/dL (70-105); POTASSIUM SERUM 4.7 mEq/L (3.5-5.1); SGOT 43 U/L (13-39); SGPT/ALT 13 U/L (7-52); SODIUM SERUM 130 mEq/L (136-145)
[2017-02-03 09:19] LABS: MEAN PLATELET VOLUME 7.5 fl
[2017-02-03 09:29] LABS: PLATELET COUNT 79 Th/cmm (150-400)
[2017-02-03 09:52] LABS: MEAN CELL VOLUME 111.9 fl (80-99)
[2017-02-03 09:53] LABS: MEAN CORPUSCULAR HEMOGLOBIN 38.5 pg (27.0-31.0); RED BLOOD COUNT 1.96 Mil/cmm (3.80-5.80); RED CELL DISTRIBUTION WIDTH 25.9 % (11.5-20.0)
[2017-02-03 09:54] LABS: MEAN CORPUSCULAR HGB CONC 34.4 pg (28.0-36.0)
[2017-02-03 09:55] LABS: HEMOGLOBIN 7.6 gm/dL (12.6-17.4); WHITE BLOOD COUNT 21.3 Th/cmm (4.8-10.8)
[2017-02-03 10:20] LABS: MEAN CORPUSCULAR HGB CONC 33.9 pg (28.0-36.0); MEAN PLATELET VOLUME 7.1 fl; PLATELET COUNT 89 Th/cmm (150-400)
--- NOTE | 2017-02-03 10:20 | Diagnostic Imaging Report ---
CT scan abdomen and pelvis without intravenous contrast HISTORY: Mass. Total DLP equals 638 CTDI equals 12.1 Axial sections were obtained from the xiphoid process down to the pubic symphysis. Limited sections through the lower chest demonstrate bilateral pleural effusions (right greater than left). In addition, there is an approximate 7 mm nodular density noted in the visualized region of the right lower lobe of the lung. The exam of the abdomen demonstrates a moderate amount of diffuse ascites. The liver exhibits an irregular contour. Multiple hypodense lesions seen within the right and left lobes. Metastatic disease cannot be excluded. The spleen is normal in size. Extensive abnormal density is noted within the. Aortic and mesenteric regions consistent with extensive lymphadenopathy. No focal renal lesions are seen. No hydronephrosis. As noted above, the pelvis demonstrates moderate to large amount of ascites. Atherosclerotic calcification noted through the abdominal aorta. Generalized haziness seen throughout the subcutaneous tissues of the abdomen and pelvis consistent with anasarca. IMPRESSION: 1. Ascites 2. Probable hepatic metastases 3. Findings consistent with extensive periaortic and mesenteric lymphadenopathy. 4. Bilateral pleural effusions 5. Anasarca
[2017-02-03 10:23] LABS: HEMATOCRIT 23.3 % (39.0-49.0); HEMOGLOBIN 7.9 gm/dL (12.6-17.4); WHITE BLOOD COUNT 22.1 Th/cmm (4.8-10.8)
[2017-02-03 10:24] LABS: MEAN CELL VOLUME 111.3 fl (80-99); MEAN CORPUSCULAR HEMOGLOBIN 37.8 pg (27.0-31.0); RED CELL DISTRIBUTION WIDTH 25.7 % (11.5-20.0)
[2017-02-03 10:25] LABS: INR 1.27 (0.5-1.4); PROTHROMBIN TIME (TEST) 13.4 SECONDS (9.5-11.5)
[2017-02-03 10:36] LABS: BAND NEUTROPHILE 6 % (0-10); NEUTROPHILS 83 % (40-80); TOTAL CELLS COUNTED 100
[2017-02-03 10:37] LABS: ANISOCYTOSIS 2+; PLATELET ESTIMATE DECREASED PLATELETS (NORMAL); PLATELET MORPHOLOGY NORMAL (NORMAL)
[2017-02-03 10:39] LABS: POLYCHROMASIA 1+
[2017-02-03 10:42] LABS: ANISOCYTOSIS 2+; BAND NEUTROPHILE 6 % (0-10); NEUTROPHILS 83 % (40-80); PLATELET ESTIMATE DECREASED PLATELETS (NORMAL); PLATELET MORPHOLOGY NORMAL (NORMAL); POLYCHROMASIA 1+
[2017-02-03] MEDS ORDERED: Amino Acids 3% / Electrolytes 1,000 ML IV SCH (16:00)
[2017-02-04] MEDS: Albuterol/Ipratropium Neb 3 ML AERS HHN SCH ×3 (06:44→23:00)
[2017-02-04 06:49] LABS: HEMOGLOBIN 8.7 gm/dL (12.6-17.4); MEAN CORPUSCULAR HEMOGLOBIN 38.1 pg (27.0-31.0); MEAN CORPUSCULAR HGB CONC 33.1 pg (28.0-36.0); MEAN PLATELET VOLUME 7.3 fl; PLATELET COUNT 102 Th/cmm (150-400); RED BLOOD COUNT 2.28 Mil/cmm (3.80-5.80); RED CELL DISTRIBUTION WIDTH 27.4 % (11.5-20.0)
[2017-02-04 06:55] LABS: HEMATOCRIT 26.2 % (39.0-49.0); MEAN CELL VOLUME 115.1 fl (80-99); WHITE BLOOD COUNT 28.4 Th/cmm (4.8-10.8)
[2017-02-04 07:11] LABS: ALB/GLOB RATIO 0.6 (1.0-1.8); ALKALINE PHOSPHATASE 132 U/L (34-104); ANION GAP 23.6 (7.0-16.0); BILIRUBIN,TOTAL 1.4 mg/dL (0.3-1.0); BUN - UREA NITROGEN 41 mg/dL (7-25); BUN/CREATININE RATIO 18.6; CALCIUM SERUM 9.5 mg/dL (8.6-10.3); CHLORIDE 104 mEq/L (98-107); CREATININE - SERUM 2.2 mg/dL (0.7-1.3); GLUCOSE 107 mg/dL (70-105); MAGNESIUM 2.3 mg/dL (1.9-2.7); PHOSPHOROUS 3.5 mg/dL (2.5-5.0); SGOT 56 U/L (13-39); SGPT/ALT 9 U/L (7-52); SODIUM SERUM 138 mEq/L (136-145)
[2017-02-04 07:14] LABS: POTASSIUM SERUM 5.6 mEq/L (3.5-5.1)
[2017-02-04 07:45] LABS: BAND NEUTROPHILE 5 % (0-10); NEUTROPHILS 80 % (40-80); PLATELET ESTIMATE SLIGHT DECREASED (NORMAL); TOTAL CELLS COUNTED 100
[2017-02-04 07:46] LABS: ANISOCYTOSIS 1+; OVALOCYTES 1+; POLYCHROMASIA 1+
--- NOTE | 2017-02-04 10:11 | Infectious Disease Prog Note ---
Infectious Disease Subjective - Review of Systems Service Date: 02/04/17 Subjective: No new change. Infectious Disease Objective - Results Result Diagrams: 02/04/17 06:37 02/04/17 06:37 Recent Labs: Laboratory Last Values WBC 28.4 Th/cmm (4.8-10.8) H* D 02/04/17 06:37 RBC 2.28 Mil/cmm (3.80-5.80) L 02/04/17 06:37 Hgb 8.7 gm/dL (12.6-17.4) L 02/04/17 06:37 Hct 26.2 % (39.0-49.0) L D 02/04/17 06:37 MCV 115.1 fl (80-99) H 02/04/17 06:37 MCH 38.1 pg (27.0-31.0) H 02/04/17 06:37 MCHC Differential 33.1 pg (28.0-36.0) 02/04/17 06:37 RDW 27.4 % (11.5-20.0) H 02/04/17 06:37 Plt Count 102 Th/cmm (150-400) L 02/04/17 06:37 MPV 7.3 fl 02/04/17 06:37 Band Neutrophils % 5 % (0-10) 02/04/17 06:37 Neutrophils (Manual) 80 % (40-80) 02/04/17 06:37 Lymphocytes 7 % (20-50) L 02/04/17 06:37 Monocytes 7 % (2-10) 02/04/17 06:37 Eosinophils 2 % (0-5) 02/02/17 06:36 Platelet Estimate SLIGHT DECREASED (NORMAL) 02/04/17 06:37 Platelet Morphology NORMAL (NORMAL) 02/03/17 10:06 Polychromasia 1+ 02/04/17 06:37 Poikilocytosis 1+ 01/31/17 05:05 Anisocytosis 1+ 02/04/17 06:37 Macrocytosis 2+ 02/04/17 06:37 Ovalocytes 1+ 02/04/17 06:37 RBC Morph Micro Appear ABNORMAL (NORMAL) 02/03/17 10:06 PT 13.4 SECONDS (9.5-11.5) H 02/03/17 10:06 INR 1.27 (0.5-1.4) 02/03/17 10:06 PTT (Actin FS) 36.8 SECONDS (26.0-38.0) 02/03/17 10:06 Sodium 138 mEq/L (136-145) 02/04/17 06:37 Potassium 5.6 mEq/L (3.5-5.1) H 02/04/17 06:37 Chloride 104 mEq/L (98-107) 02/04/17 06:37 Carbon Dioxide 16.0 mEq/L (21.0-31.0) L 02/04/17 06:37 Anion Gap 23.6 (7.0-16.0) H 02/04/17 06:37 BUN 41 mg/dL (7-25) H 02/04/17 06:37 Creatinine 2.2 mg/dL (0.7-1.3) H 02/04/17 06:37 Est GFR ( Amer) TNP 02/04/17 06:37 Est GFR (Non-Af Amer) TNP 02/04/17 06:37 BUN/Creatinine Ratio 18.6 02/04/17 06:37 Glucose 107 mg/dL (70-105) H 02/04/17 06:37 POC Glucose 162 MG/DL (70 - 105) H 01/31/17 05:16 Whole Bld Lactic Acid 2.02 mmol/L (0.60-1.99) H* 01/30/17 12:20 Calcium 9.5 mg/dL (8.6-10.3) 02/04/17 06:37 Phosphorus 3.5 mg/dL (2.5-5.0) 02/04/17 06:37 Magnesium 2.3 mg/dL (1.9-2.7) 02/04/17 06:37 Total Bilirubin 1.4 mg/dL (0.3-1.0) H 02/04/17 06:37 AST 56 U/L (13-39) H 02/04/17 06:37 ALT 9 U/L (7-52) 02/04/17 06:37 Alkaline Phosphatase 132 U/L (34-104) H 02/04/17 06:37 Total Protein 5.8 gm/dL (6.0-8.3) L 02/04/17 06:37 Albumin 2.1 gm/dL (4.2-5.5) L 02/04/17 06:37 Globulin 3.7 gm/dL 02/04/17 06:37 Albumin/Globulin Ratio 0.6 (1.0-1.8) L 02/04/17 06:37 Triglycerides 79 mg/dL (<150) 01/30/17 10:20 Cholesterol 94 mg/dL (<200) 01/30/17 10:20 LDL Cholesterol Direct 46 mg/dL (75-193) L 01/30/17 10:20 HDL Cholesterol 19 mg/dL (23-92) L 01/30/17 10:20 TSH 2.90 uIU/ml (0.34-5.60) 01/30/17 10:20 Urine Source CLEAN C 01/30/17 11:05 Urine Color LOS 01/30/17 11:05 Urine Clarity CLEAR (CLEAR) 01/30/17 11:05 Urine pH 5.0 01/30/17 11:05 Ur Specific [place] 1.020 (1.005-1.030) 01/30/17 11:05 Urine Protein 30 mg/dL (NEGATIVE) H 01/30/17 11:05 Urine Glucose (UA) NEGATIVE mg/dL (NEGATIVE) 01/30/17 11:05 Urine Ketones 15 mg/dL (NEGATIVE) H 01/30/17 11:05 Urine Blood NEGATIVE (NEGATIVE) 01/30/17 11:05 Urine Nitrate POSITIVE (NEGATIVE) H 01/30/17 11:05 Urine Bilirubin SMALL (NEGATIVE) H 01/30/17 11:05 Urine Urobilinogen 0.2 E.U./dL (0.2 - 1.0) 01/30/17 11:05 Ur Leukocyte Esterase NEGATIVE (NEGATIVE) 01/30/17 11:05 Urine RBC 0-2 /hpf (0-5) H 01/30/17 11:05 Urine WBC 2-5 /hpf (0-5) H 01/30/17 11:05 Ur Epithelial Cells OCCASIONAL /lpf (FEW) 01/30/17 11:05 Urine Bacteria MODERATE /hpf (NONE SEEN) 01/30/17 11:05 Urine Mucus FEW /lpf (FEW) 01/30/17 11:05 Vancomycin Trough 39.3 ug/mL (10-20) H 02/02/17 16:35 Random Vancomycin 23.8 ug/mL (5.0-40.0) 02/04/17 06:37 RPR NONREACTIVE (NONREACTIVE) 01/30/17 10:20 Hepatitis A IgM Ab Negative (Negative) 01/30/17 10:20 Hep Bs Antigen Negative (Negative) 01/30/17 10:20 Hep B Core IgM Ab Negative (Negative) 01/30/17 10:20 Hepatitis C Antibody >11.0 s/co ratio (0.0-0.9) H 01/30/17 10:20 - Physical Exam Vitals and I&O: Vital Signs Temp 99.5 F 02/04/17 03:53 Pulse 108 02/04/17 07:28 Resp 14 02/04/17 07:28 BP 110/65 02/04/17 03:53 Pulse Ox 92 02/04/17 07:28 Intake & Output 02/03/17 02/04/17 02/04/17 18:59 06:59 18:59 Intake Total 269.167 800 Balance 269.167 800 Intake: Intake, IV Amount 269.167 100 Amino Acids 3% / 69.167 Electrolytes 1,000 ml @ 50 mls/hr IV .Q20H [facility] Rx #:[id number] Piperacillin Sodium/ 200 100 Tazobact 4.5 gm In Sodium Chloride 0.9% 100 ml @ 100 mls/hr IV Q8HR [facility] Rx #:[id number] TPN/PPN 700 Other: # Voids 2 # Bowel Movements 2 Active Medications: Current Medications Acetaminophen (Tylenol) 650 mg PO Q4H PRN PRN Reason: Fever > 100 Stop: 03/31/17 16:47 Last Admin: 02/03/17 14:54 Dose: 650 mg Albuterol/Ipratropium (Duoneb Neb) 3 ml HHN Q8HRT [facility] Stop: 03/31/17 14:59 Last Admin: 02/04/17 06:44 Dose: Not Given Ascorbic Acid (Vitamin C) 500 mg PO DAILY [facility] Stop: 04/01/17 19:29 Last Admin: 02/03/17 09:02 Dose: 500 mg Docusate Sodium (Colace) 100 mg PO BID [facility] Stop: 04/01/17 19:29 Last Admin: 02/03/17 16:40 Dose: 100 mg Ferrous Sulfate (Iron) 325 mg PO DAILY [facility] Stop: 04/02/17 08:59 Last Admin: 02/03/17 09:02 Dose: 325 mg Folic Acid (Folate) 1 mg PO DAILY [facility] Stop: 04/01/17 19:29 Last Admin: 02/03/17 09:02 Dose: 1 mg Gabapentin (Neurontin) 300 mg PO BID [facility] Stop: 04/02/17 08:59 Last Admin: 02/03/17 16:40 Dose: 300 mg Piperacillin Sod/Tazobactam (Sod 4.5 gm/ Sodium Chloride) 100 mls @ 100 mls/hr IV Q8HR [facility] Stop: 04/01/17 13:59 Last Admin: 02/04/17 05:18 Dose: 100 mls/hr Sodium Chloride (Nacl 0.45%) 1,000 mls @ 50 mls/hr IV .Q20H [facility] Stop: 04/03/17 15:14 Last Admin: 02/02/17 16:25 Dose: 50 mls/hr Amino Acids/Electrolytes (Procalamine) 1,000 mls @ 50 mls/hr IV .Q20H [facility] Stop: 02/04/17 15:59 Last Infusion: 02/03/17 17:51 Dose: 50 mls/hr Amino Acids/Electrolytes (Procalamine) 1,000 mls @ 50 mls/hr IV .Q20H [facility] Stop: 02/05/17 15:59 Ivermectin (Stromectol) 12 mg PO QSAT [facility] Stop: 04/01/17 19:29 Last Admin: 01/31/17 21:49 Dose: Not Given Magnesium Hydroxide (Milk Of Magnesia) 30 ml PO DAILY PRN PRN Reason: Constipation Stop: 04/01/17 19:18 Mirtazapine (Remeron) 22.5 mg PO HS [facility] PRN Reason: Protocol Stop: 04/01/17 20:59 Last Admin: 02/03/17 23:59 Dose: Not Given Miscellaneous (Vancomycin Iv Per Pharmacy) 1 ea PRN PRN PRN Reason: PROTOCOL Stop: 03/31/17 16:29 Miscellaneous (Tpn Per Pharmacy) 1 ea PRN PRN PRN Reason: PROTOCOL Stop: 04/03/17 21:19 Miscellaneous (Ppn Per Pharmacy) 1 ea PRN PRN PRN Reason: PROTOCOL Stop: 04/04/17 15:42 Temazepam (Restoril) 15 mg PO HS PRN; Protocol PRN Reason: Insomnia Stop: 03/31/17 20:55 Last Admin: 01/30/17 21:43 Dose: 15 mg Tramadol HCl (Ultram) 50 mg PO Q6HR PRN PRN Reason: Pain (Moderate) Stop: 03/31/17 22:01 Last Admin: 02/03/17 00:29 Dose: 50 mg Trazodone HCl (Desyrel) 50 mg PO HS [facility] PRN Reason: Protocol Stop: 04/03/17 20:59 Last Admin: 02/04/17 00:00 Dose: Not Given General: no acute distress, well developed, well nourished HEENT: atraumatic, normocephalic, PERRLA, EOMI Neck: supple, no thyromegaly Cardiovascular: S1S2, regular Lungs: clear to auscultation bilaterally, clear to percussion Abdomen: soft, distended, no tender Extremities: no cyanosis, no clubbing, no edema Neurological: awake, alert, oriented - Procedures Procedures: Procedures Procedure Code Date GROUP PSYCHOTHERAPY 49134 01/14/16 GROUP PSYCHOTHERAPY GZHZZZZ 01/14/16 TRANSFUSE NONAUT RED BLOOD CELLS IN PERIPH VEIN, [facility] [id number] 01/16/17 Infectious Disease Assmt/Plan - Problem List Patient Problems: All Active Problems Agitation (Acute) R45.1 Combative behavior (Acute) R46.89 HTN (hypertension) (Acute) I10 Psychosis (Acute) F29 - Assessment Assessment: Impression: 1. Leukocytosis, multifactorial. ? malignanacy, sepsis, pneumonia. 2. pneumonia. 3. metastatic lesions of liver, not confirmed yet. 4. Dementia, 5. Psychosis Recommendations: Continue zosyn. Continue vanco IV. Nutritional Asmnt/Malnutr-PDOC - Dietary Evaluation Malnutrition Findings (Please click <Entered> for more info): Nutritional Asmnt/Malnutrition Start: 02/02/17 13: 54 Text: Status: Complete Freq: Document 02/02/17 13:54 GSUN (Rec: 02/02/17 14:04 [email or web address] [email or web address]) Nutritional Asmnt/Malnutrition Patient General Information Nutritional Screening Moderate Risk Screening Diagnosis Pneumonia, sepsis, acute kidney failure Pertinent Medical Hx/Surgical Hx Dementia, possible metastatic cancer to the liver Subjective Information 71 year old male. Pt was just admitted to [facility] on 01/16/17, bedscale 177.9lb on 01/23/17, bedscale 204lb today, likely inaccurate, edema noted. Pt appears overall thin, severe muscle/fat wasting to chest and clavicles. Pt is edentulous on ground diet, no difficulties. Pt was only able to answer simple questions, able to list to RD what he had for breakfast. RD encouraged PO intake due to hypermetabolic state, pt understood. SAW FILER at bedside stated pt tolerates Boost Plus . Avg PO itnake 75% of meals, meeting 75% of estimated kcal needs. Current Diet Order/ Nutrition Support [facility] soft ground, Bosot Plus TID Pertinent Medications Vitamin C, Colace, Iron, Folate, MOM, Remeron, Vancomycin, D5-0.45ns Pertinent Labs 02/02: Potassium 5.5H, BUN 39H, creatinine 2.2H (declining), glucose 96 Nutritional Hx/Data Height 1.7 m Height (Calculated Centimeters) 170.2 Current Weight (lbs) 79.832 kg Weight (Calculated Kilograms) 79.8 Weight (Calculated Grams) 47274.3 Basalt Body Weight 148lb GI Symptoms Skin Integrity/Comment: Kong 14. Bilateral leg and feet 4+ edema, some bruises. Estimated Nutritional Goals Calories/Kcals/Kg IBW 148lb/67.3kg Kcals Calculated 2356kcal (35kcal/kg) Protein g/kg: IBW Protein Calculated 67-101g (1-1.5g/kg, renal insuffieicny vs sepsis/ pneumonia/depletion) Nutritional Problem 2. Problem Problem Impaired nutrient utilization realted to Etiology acute renal failure Signs/Symptoms: progress note, elevated/ declining renal labs: BUN39H Herb Grower 2.2H potassium 5.5H 1. Problem Problem Increased kcal and prot needs related to Etiology hypermetabolic state aeb Signs/Symptoms: sepsis, pneumonia, severe muscle/fat depletion to clavicles and chest, possible metastatic cancer to the liver Malnutrition Alert Body Fat Depletion (Severe) Mod to Severe Depletion Muscle Mass (Severe) Mod to Severe Depletion Fluid Accumulation (Non-Severe) Moderate Mild Fluid Retention Intervention/Recommendation Comments 1. Recommend ground renal diet , dx. acute renal failure, elevated labs: BUN 39H Herb Grower 2. 2H Potassium 5.5H. 2. Recommend oral supplement change from Bosot Plus TID to Suplena TID, dx. acute renal failure, elevated labs: BUN 39H Herb Grower 2.2H Potassium 5.5H. Expected Outcomes/Goals Expected Outcomes/Goals 1. PO intake to meet 100% of estimated nutritional needs.
[2017-02-04] MEDS: Ferrous Sulfate 325 MG TAB PO SCH (10:31)
[2017-02-04] MEDS: Amino Acids 3% / Electrolytes 1,000 ML IV SCH (16:15)
[2017-02-04] MEDS: Sodium Chloride 0.45% 1,000 ML IV SCH (16:34)
[2017-02-05] MEDS: Albuterol/Ipratropium Neb 3 ML AERS HHN SCH ×2 (06:42→14:58)
[2017-02-05] MEDS: Ferrous Sulfate 325 MG TAB PO SCH (10:14)
--- NOTE | 2017-02-05 11:27 | Infectious Disease Prog Note ---
Infectious Disease Subjective - Review of Systems Service Date: 02/05/17 Subjective: No new change. stool consistency is improving. Infectious Disease Objective - Results Result Diagrams: 02/04/17 06:37 02/04/17 06:37 Recent Labs: Laboratory Last Values WBC 28.4 Th/cmm (4.8-10.8) H* D 02/04/17 06:37 RBC 2.28 Mil/cmm (3.80-5.80) L 02/04/17 06:37 Hgb 8.7 gm/dL (12.6-17.4) L 02/04/17 06:37 Hct 26.2 % (39.0-49.0) L D 02/04/17 06:37 MCV 115.1 fl (80-99) H 02/04/17 06:37 MCH 38.1 pg (27.0-31.0) H 02/04/17 06:37 MCHC Differential 33.1 pg (28.0-36.0) 02/04/17 06:37 RDW 27.4 % (11.5-20.0) H 02/04/17 06:37 Plt Count 102 Th/cmm (150-400) L 02/04/17 06:37 MPV 7.3 fl 02/04/17 06:37 Band Neutrophils % 5 % (0-10) 02/04/17 06:37 Neutrophils (Manual) 80 % (40-80) 02/04/17 06:37 Lymphocytes 7 % (20-50) L 02/04/17 06:37 Monocytes 7 % (2-10) 02/04/17 06:37 Eosinophils 2 % (0-5) 02/02/17 06:36 Platelet Estimate SLIGHT DECREASED (NORMAL) 02/04/17 06:37 Platelet Morphology NORMAL (NORMAL) 02/03/17 10:06 Polychromasia 1+ 02/04/17 06:37 Poikilocytosis 1+ 01/31/17 05:05 Anisocytosis 1+ 02/04/17 06:37 Macrocytosis 2+ 02/04/17 06:37 Ovalocytes 1+ 02/04/17 06:37 RBC Morph Micro Appear ABNORMAL (NORMAL) 02/03/17 10:06 PT 13.4 SECONDS (9.5-11.5) H 02/03/17 10:06 INR 1.27 (0.5-1.4) 02/03/17 10:06 PTT (Actin FS) 36.8 SECONDS (26.0-38.0) 02/03/17 10:06 Sodium 138 mEq/L (136-145) 02/04/17 06:37 Potassium 5.6 mEq/L (3.5-5.1) H 02/04/17 06:37 Chloride 104 mEq/L (98-107) 02/04/17 06:37 Carbon Dioxide 16.0 mEq/L (21.0-31.0) L 02/04/17 06:37 Anion Gap 23.6 (7.0-16.0) H 02/04/17 06:37 BUN 41 mg/dL (7-25) H 02/04/17 06:37 Creatinine 2.2 mg/dL (0.7-1.3) H 02/04/17 06:37 Est GFR ( Amer) TNP 02/04/17 06:37 Est GFR (Non-Af Amer) TNP 02/04/17 06:37 BUN/Creatinine Ratio 18.6 02/04/17 06:37 Glucose 107 mg/dL (70-105) H 02/04/17 06:37 POC Glucose 162 MG/DL (70 - 105) H 01/31/17 05:16 Whole Bld Lactic Acid 2.02 mmol/L (0.60-1.99) H* 01/30/17 12:20 Calcium 9.5 mg/dL (8.6-10.3) 02/04/17 06:37 Phosphorus 3.5 mg/dL (2.5-5.0) 02/04/17 06:37 Magnesium 2.3 mg/dL (1.9-2.7) 02/04/17 06:37 Total Bilirubin 1.4 mg/dL (0.3-1.0) H 02/04/17 06:37 AST 56 U/L (13-39) H 02/04/17 06:37 ALT 9 U/L (7-52) 02/04/17 06:37 Alkaline Phosphatase 132 U/L (34-104) H 02/04/17 06:37 Total Protein 5.8 gm/dL (6.0-8.3) L 02/04/17 06:37 Albumin 2.1 gm/dL (4.2-5.5) L 02/04/17 06:37 Globulin 3.7 gm/dL 02/04/17 06:37 Albumin/Globulin Ratio 0.6 (1.0-1.8) L 02/04/17 06:37 Triglycerides 79 mg/dL (<150) 01/30/17 10:20 Cholesterol 94 mg/dL (<200) 01/30/17 10:20 LDL Cholesterol Direct 46 mg/dL (75-193) L 01/30/17 10:20 HDL Cholesterol 19 mg/dL (23-92) L 01/30/17 10:20 TSH 2.90 uIU/ml (0.34-5.60) 01/30/17 10:20 Urine Source CLEAN C 01/30/17 11:05 Urine Color LOS 01/30/17 11:05 Urine Clarity CLEAR (CLEAR) 01/30/17 11:05 Urine pH 5.0 01/30/17 11:05 Ur Specific [place] 1.020 (1.005-1.030) 01/30/17 11:05 Urine Protein 30 mg/dL (NEGATIVE) H 01/30/17 11:05 Urine Glucose (UA) NEGATIVE mg/dL (NEGATIVE) 01/30/17 11:05 Urine Ketones 15 mg/dL (NEGATIVE) H 01/30/17 11:05 Urine Blood NEGATIVE (NEGATIVE) 01/30/17 11:05 Urine Nitrate POSITIVE (NEGATIVE) H 01/30/17 11:05 Urine Bilirubin SMALL (NEGATIVE) H 01/30/17 11:05 Urine Urobilinogen 0.2 E.U./dL (0.2 - 1.0) 01/30/17 11:05 Ur Leukocyte Esterase NEGATIVE (NEGATIVE) 01/30/17 11:05 Urine RBC 0-2 /hpf (0-5) H 01/30/17 11:05 Urine WBC 2-5 /hpf (0-5) H 01/30/17 11:05 Ur Epithelial Cells OCCASIONAL /lpf (FEW) 01/30/17 11:05 Urine Bacteria MODERATE /hpf (NONE SEEN) 01/30/17 11:05 Urine Mucus FEW /lpf (FEW) 01/30/17 11:05 Vancomycin Trough 39.3 ug/mL (10-20) H 02/02/17 16:35 Random Vancomycin 23.8 ug/mL (5.0-40.0) 02/04/17 06:37 RPR NONREACTIVE (NONREACTIVE) 01/30/17 10:20 Hepatitis A IgM Ab Negative (Negative) 01/30/17 10:20 Hep Bs Antigen Negative (Negative) 01/30/17 10:20 Hep B Core IgM Ab Negative (Negative) 01/30/17 10:20 Hepatitis C Antibody >11.0 s/co ratio (0.0-0.9) H 01/30/17 10:20 - Physical Exam Vitals and I&O: Vital Signs Temp 97.8 F 02/05/17 10:00 Pulse 91 02/05/17 10:00 Resp 20 02/05/17 10:00 BP 102/61 02/05/17 10:00 Pulse Ox 95 02/05/17 10:00 Intake & Output 02/04/17 02/05/17 02/05/17 18:59 06:59 18:59 Intake Total 100 700 Balance 100 700 Intake: Intake, IV Amount 100 100 Piperacillin Sodium/ 100 100 Tazobact 4.5 gm In Sodium Chloride 0.9% 100 ml @ 100 mls/hr IV Q8HR [facility] Rx #:[id number] TPN/PPN 600 Other: # Voids 3 # Bowel Movements 2 Active Medications: Current Medications Acetaminophen (Tylenol) 650 mg PO Q4H PRN PRN Reason: Fever > 100 Stop: 03/31/17 16:47 Last Admin: 02/03/17 14:54 Dose: 650 mg Albuterol/Ipratropium (Duoneb Neb) 3 ml HHN Q8HRT [facility] Stop: 03/31/17 14:59 Last Admin: 02/05/17 06:42 Dose: Not Given Ascorbic Acid (Vitamin C) 500 mg PO DAILY [facility] Stop: 04/01/17 19:29 Last Admin: 02/05/17 10:14 Dose: Not Given Docusate Sodium (Colace) 100 mg PO BID [facility] Stop: 04/01/17 19:29 Last Admin: 02/05/17 10:14 Dose: Not Given Ferrous Sulfate (Iron) 325 mg PO DAILY [facility] Stop: 04/02/17 08:59 Last Admin: 02/05/17 10:14 Dose: Not Given Folic Acid (Folate) 1 mg PO DAILY [facility] Stop: 04/01/17 19:29 Last Admin: 02/05/17 10:14 Dose: Not Given Gabapentin (Neurontin) 300 mg PO BID [facility] Stop: 04/02/17 08:59 Last Admin: 02/05/17 10:14 Dose: Not Given Piperacillin Sod/Tazobactam (Sod 4.5 gm/ Sodium Chloride) 100 mls @ 100 mls/hr IV Q8HR [facility] Stop: 04/01/17 13:59 Last Admin: 02/05/17 05:39 Dose: 100 mls/hr Sodium Chloride (Nacl 0.45%) 1,000 mls @ 50 mls/hr IV .Q20H [facility] Stop: 04/03/17 15:14 Last Admin: 02/04/17 16:34 Dose: 50 mls/hr Amino Acids/Electrolytes (Procalamine) 1,000 mls @ 50 mls/hr IV .Q20H [facility] Stop: 02/05/17 15:59 Last Admin: 02/04/17 16:15 Dose: 50 mls/hr Ivermectin (Stromectol) 12 mg PO QSAT [facility] Stop: 04/01/17 19:29 Last Admin: 01/31/17 21:49 Dose: Not Given Magnesium Hydroxide (Milk Of Magnesia) 30 ml PO DAILY PRN PRN Reason: Constipation Stop: 04/01/17 19:18 Mirtazapine (Remeron) 22.5 mg PO HS [facility]LE PRN Reason: Protocol Stop: 04/01/17 20:59 Last Admin: 02/04/17 21:23 Dose: Not Given Miscellaneous (Vancomycin Iv Per Pharmacy) 1 ea MC PRN PRN PRN Reason: PROTOCOL Stop: 03/31/17 16:29 Miscellaneous (Tpn Per Pharmacy) 1 ea MC PRN PRN PRN Reason: PROTOCOL Stop: 04/03/17 21:19 Miscellaneous (Ppn Per Pharmacy) 1 ea MC PRN PRN PRN Reason: PROTOCOL Stop: 04/04/17 15:42 Temazepam (Restoril) 15 mg PO HS PRN; Protocol PRN Reason: Insomnia Stop: 03/31/17 20:55 Last Admin: 01/30/17 21:43 Dose: 15 mg Tramadol HCl (Ultram) 50 mg PO Q6HR PRN PRN Reason: Pain (Moderate) Stop: 03/31/17 22:01 Last Admin: 02/03/17 00:29 Dose: 50 mg Trazodone HCl (Desyrel) 50 mg PO HS RICHELLE PRN Reason: Protocol Stop: 04/03/17 20:59 Last Admin: 02/04/17 21:23 Dose: Not Given General: no acute distress, well developed, well nourished HEENT: atraumatic, normocephalic, PERRLA, EOMI Neck: supple, no thyromegaly Cardiovascular: S1S2, regular Lungs: clear to auscultation bilaterally, clear to percussion Abdomen: soft, no tender, no distended Extremities: no cyanosis, no clubbing, no edema Neurological: awake, alert, oriented, CN 2-12 intact Skin: intact - Procedures Procedures: Procedures Procedure Code Date GROUP PSYCHOTHERAPY 85007 01/14/16 GROUP PSYCHOTHERAPY GZHZZZZ 01/14/16 TRANSFUSE NONAUT RED BLOOD CELLS IN PERIPH VEIN, PERC 61492J5 01/16/17 Infectious Disease Assmt/Plan - Problem List Patient Problems: All Active Problems Agitation (Acute) R45.1 Combative behavior (Acute) R46.89 HTN (hypertension) (Acute) I10 Psychosis (Acute) F29 - Assessment Assessment: Impression: 1. Leukocytosis, multifactorial. ? malignanacy, sepsis, pneumonia. 2. pneumonia. 3. metastatic lesions of liver, not confirmed yet. 4. Dementia, 5. Psychosis Recommendations: Continue zosyn. Continue vanco IV. Nutritional Asmnt/Malnutr-PDOC - Dietary Evaluation Malnutrition Findings (Please click <Entered> for more info): Nutritional Asmnt/Malnutrition Start: 02/02/17 13: 54 Text: Status: Complete Freq: Document 02/02/17 13:54 GSUN (Rec: 02/02/17 14:04 GSUN [email or web address]) Nutritional Asmnt/Malnutrition Patient General Information Nutritional Screening Moderate Risk Screening Diagnosis Pneumonia, sepsis, acute kidney failure Pertinent Medical Hx/Surgical Hx Dementia, possible metastatic cancer to the liver Subjective Information 71 year old male. Pt was just admitted to [facility] on 01/16/17, bedscale 177.9lb on 01/23/17, bedscale 204lb today, likely inaccurate, edema noted. Pt appears overall thin, severe muscle/fat wasting to chest and clavicles. Pt is edentulous on ground diet, no difficulties. Pt was only able to answer simple questions, able to list to RD what he had for breakfast. RD encouraged PO intake due to hypermetabolic state, pt understood. [employer]AC[employer] at bedside stated pt tolerates Boost Plus . Avg PO itnake 75% of meals, meeting 75% of estimated kcal needs. Current Diet Order/ Nutrition Support [facility] soft ground, Bosot Plus TID Pertinent Medications Vitamin C, Colace, Iron, Folate, MOM, Remeron, Vancomycin, D5-0.45ns Pertinent Labs 02/02: Potassium 5.5H, BUN 39H, creatinine 2.2H (declining), glucose 96 Nutritional Hx/Data Height 1.7 m Height (Calculated Centimeters) 170.2 Current Weight (lbs) 79.832 kg Weight (Calculated Kilograms) 79.8 Weight (Calculated Grams) 17501.3 [place] Body Weight 148lb GI Symptoms Skin Integrity/Comment: [place] 14. Bilateral leg and feet 4+ edema, some bruises. Estimated Nutritional Goals Calories/Kcals/Kg IBW 148lb/67.3kg Kcals Calculated 2356kcal (35kcal/kg) Protein g/kg: IBW Protein Calculated 67-101g (1-1.5g/kg, renal insuffieicny vs sepsis/ pneumonia/depletion) Nutritional Problem 2. Problem Problem Impaired nutrient utilization realted to Etiology acute renal failure Signs/Symptoms: progress note, elevated/ declining renal labs: [id number] Highway Construction Inspector 2.2H potassium 5.5H 1. Problem Problem Increased kcal and prot needs related to Etiology hypermetabolic state aeb Signs/Symptoms: sepsis, pneumonia, severe muscle/fat depletion to clavicles and chest, possible metastatic cancer to the liver Malnutrition Alert Body Fat Depletion (Severe) Mod to Severe Depletion Muscle Mass (Severe) Mod to Severe Depletion Fluid Accumulation (Non-Severe) Moderate Mild Fluid Retention Intervention/Recommendation Comments 1. Recommend ground renal diet , dx. acute renal failure, elevated labs: BUN 39H [address] Construction Inspector 2. 2H Potassium 5.5H. 2. Recommend oral supplement change from Bosot Plus TID to Suplena TID, dx. acute renal failure, elevated labs: BUN 39H [address] Construction Inspector 2.2H Potassium 5.5H. Expected Outcomes/Goals Expected Outcomes/Goals 1. PO intake to meet 100% of estimated nutritional needs.
--- NOTE | 2017-02-05 11:39 | Infectious Disease Prog Note ---
Infectious Disease Subjective - Review of Systems Service Date: 02/05/17 Subjective: No new change. Infectious Disease Objective - Results Result Diagrams: 02/04/17 06:37 02/04/17 06:37 Recent Labs: Laboratory Last Values WBC 28.4 Th/cmm (4.8-10.8) H* D 02/04/17 06:37 RBC 2.28 Mil/cmm (3.80-5.80) L 02/04/17 06:37 Hgb 8.7 gm/dL (12.6-17.4) L 02/04/17 06:37 Hct 26.2 % (39.0-49.0) L D 02/04/17 06:37 MCV 115.1 fl (80-99) H 02/04/17 06:37 MCH 38.1 pg (27.0-31.0) H 02/04/17 06:37 MCHC Differential 33.1 pg (28.0-36.0) 02/04/17 06:37 RDW 27.4 % (11.5-20.0) H 02/04/17 06:37 Plt Count 102 Th/cmm (150-400) L 02/04/17 06:37 MPV 7.3 fl 02/04/17 06:37 Band Neutrophils % 5 % (0-10) 02/04/17 06:37 Neutrophils (Manual) 80 % (40-80) 02/04/17 06:37 Lymphocytes 7 % (20-50) L 02/04/17 06:37 Monocytes 7 % (2-10) 02/04/17 06:37 Eosinophils 2 % (0-5) 02/02/17 06:36 Platelet Estimate SLIGHT DECREASED (NORMAL) 02/04/17 06:37 Platelet Morphology NORMAL (NORMAL) 02/03/17 10:06 Polychromasia 1+ 02/04/17 06:37 Poikilocytosis 1+ 01/31/17 05:05 Anisocytosis 1+ 02/04/17 06:37 Macrocytosis 2+ 02/04/17 06:37 Ovalocytes 1+ 02/04/17 06:37 RBC Morph Micro Appear ABNORMAL (NORMAL) 02/03/17 10:06 PT 13.4 SECONDS (9.5-11.5) H 02/03/17 10:06 INR 1.27 (0.5-1.4) 02/03/17 10:06 PTT (Actin FS) 36.8 SECONDS (26.0-38.0) 02/03/17 10:06 Sodium 138 mEq/L (136-145) 02/04/17 06:37 Potassium 5.6 mEq/L (3.5-5.1) H 02/04/17 06:37 Chloride 104 mEq/L (98-107) 02/04/17 06:37 Carbon Dioxide 16.0 mEq/L (21.0-31.0) L 02/04/17 06:37 Anion Gap 23.6 (7.0-16.0) H 02/04/17 06:37 BUN 41 mg/dL (7-25) H 02/04/17 06:37 Creatinine 2.2 mg/dL (0.7-1.3) H 02/04/17 06:37 Est GFR ( Amer) TNP 02/04/17 06:37 Est GFR (Non-Af Amer) TNP 02/04/17 06:37 BUN/Creatinine Ratio 18.6 02/04/17 06:37 Glucose 107 mg/dL (70-105) H 02/04/17 06:37 POC Glucose 162 MG/DL (70 - 105) H 01/31/17 05:16 Whole Bld Lactic Acid 2.02 mmol/L (0.60-1.99) H* 01/30/17 12:20 Calcium 9.5 mg/dL (8.6-10.3) 02/04/17 06:37 Phosphorus 3.5 mg/dL (2.5-5.0) 02/04/17 06:37 Magnesium 2.3 mg/dL (1.9-2.7) 02/04/17 06:37 Total Bilirubin 1.4 mg/dL (0.3-1.0) H 02/04/17 06:37 AST 56 U/L (13-39) H 02/04/17 06:37 ALT 9 U/L (7-52) 02/04/17 06:37 Alkaline Phosphatase 132 U/L (34-104) H 02/04/17 06:37 Total Protein 5.8 gm/dL (6.0-8.3) L 02/04/17 06:37 Albumin 2.1 gm/dL (4.2-5.5) L 02/04/17 06:37 Globulin 3.7 gm/dL 02/04/17 06:37 Albumin/Globulin Ratio 0.6 (1.0-1.8) L 02/04/17 06:37 Triglycerides 79 mg/dL (<150) 01/30/17 10:20 Cholesterol 94 mg/dL (<200) 01/30/17 10:20 LDL Cholesterol Direct 46 mg/dL (75-193) L 01/30/17 10:20 HDL Cholesterol 19 mg/dL (23-92) L 01/30/17 10:20 TSH 2.90 uIU/ml (0.34-5.60) 01/30/17 10:20 Urine Source CLEAN C 01/30/17 11:05 Urine Color LOS 01/30/17 11:05 Urine Clarity CLEAR (CLEAR) 01/30/17 11:05 Urine pH 5.0 01/30/17 11:05 Ur Specific [place] 1.020 (1.005-1.030) 01/30/17 11:05 Urine Protein 30 mg/dL (NEGATIVE) H 01/30/17 11:05 Urine Glucose (UA) NEGATIVE mg/dL (NEGATIVE) 01/30/17 11:05 Urine Ketones 15 mg/dL (NEGATIVE) H 01/30/17 11:05 Urine Blood NEGATIVE (NEGATIVE) 01/30/17 11:05 Urine Nitrate POSITIVE (NEGATIVE) H 01/30/17 11:05 Urine Bilirubin SMALL (NEGATIVE) H 01/30/17 11:05 Urine Urobilinogen 0.2 E.U./dL (0.2 - 1.0) 01/30/17 11:05 Ur Leukocyte Esterase NEGATIVE (NEGATIVE) 01/30/17 11:05 Urine RBC 0-2 /hpf (0-5) H 01/30/17 11:05 Urine WBC 2-5 /hpf (0-5) H 01/30/17 11:05 Ur Epithelial Cells OCCASIONAL /lpf (FEW) 01/30/17 11:05 Urine Bacteria MODERATE /hpf (NONE SEEN) 01/30/17 11:05 Urine Mucus FEW /lpf (FEW) 01/30/17 11:05 Vancomycin Trough 39.3 ug/mL (10-20) H 02/02/17 16:35 Random Vancomycin 23.8 ug/mL (5.0-40.0) 02/04/17 06:37 RPR NONREACTIVE (NONREACTIVE) 01/30/17 10:20 Hepatitis A IgM Ab Negative (Negative) 01/30/17 10:20 Hep Bs Antigen Negative (Negative) 01/30/17 10:20 Hep B Core IgM Ab Negative (Negative) 01/30/17 10:20 Hepatitis C Antibody >11.0 s/co ratio (0.0-0.9) H 01/30/17 10:20 - Physical Exam Vitals and I&O: Vital Signs Temp 97.8 F 02/05/17 10:00 Pulse 91 02/05/17 10:00 Resp 20 02/05/17 10:00 BP 102/61 02/05/17 10:00 Pulse Ox 95 02/05/17 10:00 Intake & Output 02/04/17 02/05/17 02/05/17 18:59 06:59 18:59 Intake Total 100 700 Balance 100 700 Intake: Intake, IV Amount 100 100 Piperacillin Sodium/ 100 100 Tazobact 4.5 gm In Sodium Chloride 0.9% 100 ml @ 100 mls/hr IV Q8HR [facility] Rx #:[id number] TPN/PPN 600 Other: # Voids 3 # Bowel Movements 2 Active Medications: Current Medications Acetaminophen (Tylenol) 650 mg PO Q4H PRN PRN Reason: Fever > 100 Stop: 03/31/17 16:47 Last Admin: 02/03/17 14:54 Dose: 650 mg Albuterol/Ipratropium (Duoneb Neb) 3 ml HHN Q8HRT [facility] Stop: 03/31/17 14:59 Last Admin: 02/05/17 06:42 Dose: Not Given Ascorbic Acid (Vitamin C) 500 mg PO DAILY [facility] Stop: 04/01/17 19:29 Last Admin: 02/05/17 10:14 Dose: Not Given Docusate Sodium (Colace) 100 mg PO BID [facility] Stop: 04/01/17 19:29 Last Admin: 02/05/17 10:14 Dose: Not Given Ferrous Sulfate (Iron) 325 mg PO DAILY [facility] Stop: 04/02/17 08:59 Last Admin: 02/05/17 10:14 Dose: Not Given Folic Acid (Folate) 1 mg PO DAILY [facility] Stop: 04/01/17 19:29 Last Admin: 02/05/17 10:14 Dose: Not Given Gabapentin (Neurontin) 300 mg PO BID [facility] Stop: 04/02/17 08:59 Last Admin: 02/05/17 10:14 Dose: Not Given Piperacillin Sod/Tazobactam (Sod 4.5 gm/ Sodium Chloride) 100 mls @ 100 mls/hr IV Q8HR [facility] Stop: 04/01/17 13:59 Last Admin: 02/05/17 05:39 Dose: 100 mls/hr Sodium Chloride (Nacl 0.45%) 1,000 mls @ 50 mls/hr IV .Q20H [facility] Stop: 04/03/17 15:14 Last Admin: 02/04/17 16:34 Dose: 50 mls/hr Amino Acids/Electrolytes (Procalamine) 1,000 mls @ 50 mls/hr IV .Q20H [facility] Stop: 02/05/17 15:59 Last Admin: 02/04/17 16:15 Dose: 50 mls/hr Ivermectin (Stromectol) 12 mg PO QSAT [facility] Stop: 04/01/17 19:29 Last Admin: 01/31/17 21:49 Dose: Not Given Magnesium Hydroxide (Milk Of Magnesia) 30 ml PO DAILY PRN PRN Reason: Constipation Stop: 04/01/17 19:18 Mirtazapine (Remeron) 22.5 mg PO HS RICHELLE PRN Reason: Protocol Stop: 04/01/17 20:59 Last Admin: 02/04/17 21:23 Dose: Not Given Miscellaneous (Vancomycin Iv Per Pharmacy) 1 ea MC PRN PRN PRN Reason: PROTOCOL Stop: 03/31/17 16:29 Miscellaneous (Tpn Per Pharmacy) 1 ea MC PRN PRN PRN Reason: PROTOCOL Stop: 04/03/17 21:19 Miscellaneous (Ppn Per Pharmacy) 1 ea MC PRN PRN PRN Reason: PROTOCOL Stop: 04/04/17 15:42 Temazepam (Restoril) 15 mg PO HS PRN; Protocol PRN Reason: Insomnia Stop: 03/31/17 20:55 Last Admin: 01/30/17 21:43 Dose: 15 mg Tramadol HCl (Ultram) 50 mg PO Q6HR PRN PRN Reason: Pain (Moderate) Stop: 03/31/17 22:01 Last Admin: 02/03/17 00:29 Dose: 50 mg Trazodone HCl (Desyrel) 50 mg PO HS RICHELLE PRN Reason: Protocol Stop: 04/03/17 20:59 Last Admin: 02/04/17 21:23 Dose: Not Given General: no acute distress, well developed, well nourished HEENT: atraumatic, normocephalic, PERRLA Neck: supple, no thyromegaly, no lymphadenopathy Cardiovascular: S1S2, regular Lungs: clear to auscultation bilaterally, clear to percussion Abdomen: soft, tender, distended Extremities: no cyanosis, no clubbing, no edema Neurological: awake, alert, oriented Skin: intact - Procedures Procedures: Procedures Procedure Code Date GROUP PSYCHOTHERAPY 58145 01/14/16 GROUP PSYCHOTHERAPY GZHZZZZ 01/14/16 TRANSFUSE NONAUT RED BLOOD CELLS IN PERIPH VEIN, PERC 34463Y9 01/16/17 Infectious Disease Assmt/Plan - Problem List Patient Problems: All Active Problems Agitation (Acute) R45.1 Combative behavior (Acute) R46.89 HTN (hypertension) (Acute) I10 Psychosis (Acute) F29 - Assessment Assessment: Impression: 1. Leukocytosis, multifactorial. ? malignanacy, sepsis, pneumonia. 2. pneumonia. 3. metastatic lesions of liver, not confirmed yet. 4. Dementia, 5. Psychosis Recommendations: Continue zosyn. Continue vanco IV. Nutritional Asmnt/Malnutr-PDOC - Dietary Evaluation Malnutrition Findings (Please click <Entered> for more info): Nutritional Asmnt/Malnutrition Start: 02/02/17 13: 54 Text: Status: Complete Freq: Document 02/02/17 13:54 GSUN (Rec: 02/02/17 14:04 GSUN [email or web address]) Nutritional Asmnt/Malnutrition Patient General Information Nutritional Screening Moderate Risk Screening Diagnosis Pneumonia, sepsis, acute kidney failure Pertinent Medical Hx/Surgical Hx Dementia, possible metastatic cancer to the liver Subjective Information 71 year old male. Pt was just admitted to [facility] on 01/16/17, bedscale 177.9lb on 01/23/17, bedscale 204lb today, likely inaccurate, edema noted. Pt appears overall thin, severe muscle/fat wasting to chest and clavicles. Pt is edentulous on ground diet, no difficulties. Pt was only able to answer simple questions, able to list to RD what he had for breakfast. RD encouraged PO intake due to hypermetabolic state, pt understood. [employer] OPERATOR at bedside stated pt tolerates Boost Plus . Avg PO itnake 75% of meals, meeting 75% of estimated kcal needs. Current Diet Order/ Nutrition Support [facility] soft ground, Bosot Plus TID Pertinent Medications Vitamin C, Colace, Iron, Folate, MOM, Remeron, Vancomycin, D5-0.45ns Pertinent Labs 02/02: Potassium 5.5H, BUN 39H, creatinine 2.2H (declining), glucose 96 Nutritional Hx/Data Height 1.7 m Height (Calculated Centimeters) 170.2 Current Weight (lbs) 79.832 kg Weight (Calculated Kilograms) 79.8 Weight (Calculated Grams) 40720.3 [place] Body Weight 148lb GI Symptoms Skin Integrity/Comment: [place] 14. Bilateral leg and feet 4+ edema, some bruises. Estimated Nutritional Goals Calories/Kcals/Kg IBW 148lb/67.3kg Kcals Calculated 2356kcal (35kcal/kg) Protein g/kg: IBW Protein Calculated 67-101g (1-1.5g/kg, renal insuffieicny vs sepsis/ pneumonia/depletion) Nutritional Problem 2. 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 Problem Problem Increased kcal and prot needs related to Etiology hypermetabolic state aeb Signs/Symptoms: sepsis, pneumonia, severe muscle/fat depletion to clavicles and chest, possible metastatic cancer to the liver Malnutrition Alert Body Fat Depletion (Severe) Mod to Severe Depletion Muscle Mass (Severe) Mod to Severe Depletion Fluid Accumulation (Non-Severe) Moderate Mild Fluid Retention Intervention/Recommendation Comments 1. Recommend ground renal diet , dx. acute renal failure, elevated labs: BUN 39H Clothes Presser 2. 2H Potassium 5.5H. 2. Recommend oral supplement change from Bosot Plus TID to Suplena TID, dx. acute renal failure, elevated labs: BUN 39H Clothes Presser 2.2H Potassium 5.5H. Expected Outcomes/Goals Expected Outcomes/Goals 1. PO intake to meet 100% of estimated nutritional needs.
[2017-02-05] MEDS: Amino Acids 3% / Electrolytes 1,000 ML IV SCH (14:54)
[2017-02-06 06:06] LABS: HEMATOCRIT 24.3 % (39.0-49.0); HEMOGLOBIN 8.5 gm/dL (12.6-17.4); MEAN CORPUSCULAR HEMOGLOBIN 38.7 pg (27.0-31.0); MEAN CORPUSCULAR HGB CONC 34.9 pg (28.0-36.0); PLATELET COUNT 110 Th/cmm (150-400); RED BLOOD COUNT 2.19 Mil/cmm (3.80-5.80); RED CELL DISTRIBUTION WIDTH 25.6 % (11.5-20.0)
[2017-02-06 06:16] LABS: MEAN CELL VOLUME 111.1 fl (80-99); WHITE BLOOD COUNT 28.1 Th/cmm (4.8-10.8)
[2017-02-06 06:21] LABS: BUN - UREA NITROGEN 53 mg/dL (7-25); BUN/CREATININE RATIO 25.2; CALCIUM SERUM 9.6 mg/dL (8.6-10.3); CARBON DIOXIDE 20.2 mEq/L (21.0-31.0); CHLORIDE 108 mEq/L (98-107); CREATININE - SERUM 2.1 mg/dL (0.7-1.3); GLUCOSE 113 mg/dL (70-105); MAGNESIUM 2.1 mg/dL (1.9-2.7); PHOSPHOROUS 3.8 mg/dL (2.5-5.0); POTASSIUM SERUM 4.2 mEq/L (3.5-5.1); SODIUM SERUM 137 mEq/L (136-145)
[2017-02-06 06:48] LABS: ANISOCYTOSIS 2+; BAND NEUTROPHILE 12 % (0-10); METAMYELOCYTE 2 % (0-0); NEUTROPHILS 76 % (40-80); PLATELET ESTIMATE DECREASED PLATELETS (NORMAL); POIKILOCYTOSIS 1+; TOTAL CELLS COUNTED 100
[2017-02-06 06:49] LABS: PLATELET MORPHOLOGY NORMAL (NORMAL)
--- NOTE | 2017-02-06 07:10 | Progress Notes ---
DATE: 02/05/2017 Case was discussed with staff of the patient, reviewed records. This is a well known case to me as I have seen him at [place]. He has multiple prior admissions to this facility. The patient was seen by Dr. Dennis for initial consult. The patient was admitted with pneumonia. Dr. Dennis trazodone. The patient so far has been internally preoccupied, but no suicidal ideation, no homicidal ideation, no paranoia, no side effects. The patient also has multiple medical issues that need to be addressed, and we will continue to work with the patient in group therapy, milieu therapy, and adjust the medication as needed. JOB# [id number]
[2017-02-06] MEDS: Albuterol/Ipratropium Neb 3 ML AERS HHN SCH ×5 (07:47→23:18)
[2017-02-06] MEDS: Ferrous Sulfate 325 MG TAB PO SCH (08:35)
[2017-02-06 11:14] LABS: CARCINOEMBRYONIC ANTIGEN 13.4 ng/mL (0.0-4.7)
[2017-02-06] MEDS: Amino Acids 3% / Electrolytes 1,000 ML IV SCH (11:28)
--- NOTE | 2017-02-06 13:05 | Infectious Disease Prog Note ---
Infectious Disease Subjective - Review of Systems Service Date: 02/06/17 Subjective: No new change. Infectious Disease Objective - Results Result Diagrams: 02/06/17 05:48 02/06/17 05:48 Recent Labs: Laboratory Last Values WBC 28.1 Th/cmm (4.8-10.8) H* 02/06/17 05:48 RBC 2.19 Mil/cmm (3.80-5.80) L 02/06/17 05:48 Hgb 8.5 gm/dL (12.6-17.4) L 02/06/17 05:48 Hct 24.3 % (39.0-49.0) L 02/06/17 05:48 MCV 111.1 fl (80-99) H 02/06/17 05:48 MCH 38.7 pg (27.0-31.0) H 02/06/17 05:48 MCHC Differential 34.9 pg (28.0-36.0) 02/06/17 05:48 RDW 25.6 % (11.5-20.0) H 02/06/17 05:48 Plt Count 110 Th/cmm (150-400) L 02/06/17 05:48 MPV 7.0 fl 02/06/17 05:48 Band Neutrophils % 12 % (0-10) H 02/06/17 05:48 Neutrophils (Manual) 76 % (40-80) 02/06/17 05:48 Lymphocytes 5 % (20-50) L 02/06/17 05:48 Monocytes 5 % (2-10) 02/06/17 05:48 Eosinophils 2 % (0-5) 02/02/17 06:36 Metamyelocytes 2 % (0-0) H 02/06/17 05:48 Platelet Estimate DECREASED PLATELETS (NORMAL) 02/06/17 05:48 Platelet Morphology NORMAL (NORMAL) 02/06/17 05:48 Polychromasia 1+ 02/04/17 06:37 Poikilocytosis 1+ 02/06/17 05:48 Anisocytosis 2+ 02/06/17 05:48 Macrocytosis 3+ 02/06/17 05:48 Ovalocytes 1+ 02/04/17 06:37 RBC Morph Micro Appear ABNORMAL (NORMAL) 02/06/17 05:48 PT 13.4 SECONDS (9.5-11.5) H 02/03/17 10:06 INR 1.27 (0.5-1.4) 02/03/17 10:06 PTT (Actin FS) 36.8 SECONDS (26.0-38.0) 02/03/17 10:06 Sodium 137 mEq/L (136-145) 02/06/17 05:48 Potassium 4.2 mEq/L (3.5-5.1) 02/06/17 05:48 Chloride 108 mEq/L (98-107) H 02/06/17 05:48 Carbon Dioxide 20.2 mEq/L (21.0-31.0) L 02/06/17 05:48 Anion Gap 13.0 (7.0-16.0) 02/06/17 05:48 BUN 53 mg/dL (7-25) H 02/06/17 05:48 Creatinine 2.1 mg/dL (0.7-1.3) H 02/06/17 05:48 Est GFR ( Amer) TNP 02/06/17 05:48 Est GFR (Non-Af Amer) TNP 02/06/17 05:48 BUN/Creatinine Ratio 25.2 02/06/17 05:48 Glucose 113 mg/dL (70-105) H 02/06/17 05:48 POC Glucose 162 MG/DL (70 - 105) H 01/31/17 05:16 Whole Bld Lactic Acid 2.02 mmol/L (0.60-1.99) H* 01/30/17 12:20 Calcium 9.6 mg/dL (8.6-10.3) 02/06/17 05:48 Phosphorus 3.8 mg/dL (2.5-5.0) 02/06/17 05:48 Magnesium 2.1 mg/dL (1.9-2.7) 02/06/17 05:48 Total Bilirubin 1.4 mg/dL (0.3-1.0) H 02/04/17 06:37 AST 56 U/L (13-39) H 02/04/17 06:37 ALT 9 U/L (7-52) 02/04/17 06:37 Alkaline Phosphatase 132 U/L (34-104) H 02/04/17 06:37 Total Protein 5.8 gm/dL (6.0-8.3) L 02/04/17 06:37 Albumin 2.1 gm/dL (4.2-5.5) L 02/04/17 06:37 Globulin 3.7 gm/dL 02/04/17 06:37 Albumin/Globulin Ratio 0.6 (1.0-1.8) L 02/04/17 06:37 Triglycerides 154 mg/dL (<150) H 02/06/17 05:48 Cholesterol 82 mg/dL (<200) 02/06/17 05:48 LDL Cholesterol Direct 46 mg/dL (75-193) L 01/30/17 10:20 HDL Cholesterol 19 mg/dL (23-92) L 01/30/17 10:20 Tumor Marker AFP 832.4 ng/mL (0.0-8.3) H 02/05/17 06:37 Carcinoembryonic Ag 13.4 ng/mL (0.0-4.7) H 02/04/17 06:37 CA 19-9 Antigen 2818 U/mL (0-35) H 02/04/17 06:37 TSH 2.90 uIU/ml (0.34-5.60) 01/30/17 10:20 Urine Source CLEAN C 01/30/17 11:05 Urine Color LOS 01/30/17 11:05 Urine Clarity CLEAR (CLEAR) 01/30/17 11:05 Urine pH 5.0 01/30/17 11:05 Ur Specific [place] 1.020 (1.005-1.030) 01/30/17 11:05 Urine Protein 30 mg/dL (NEGATIVE) H 01/30/17 11:05 Urine Glucose (UA) NEGATIVE mg/dL (NEGATIVE) 01/30/17 11:05 Urine Ketones 15 mg/dL (NEGATIVE) H 01/30/17 11:05 Urine Blood NEGATIVE (NEGATIVE) 01/30/17 11:05 Urine Nitrate POSITIVE (NEGATIVE) H 01/30/17 11:05 Urine Bilirubin SMALL (NEGATIVE) H 01/30/17 11:05 Urine Urobilinogen 0.2 E.U./dL (0.2 - 1.0) 01/30/17 11:05 Ur Leukocyte Esterase NEGATIVE (NEGATIVE) 01/30/17 11:05 Urine RBC 0-2 /hpf (0-5) H 01/30/17 11:05 Urine WBC 2-5 /hpf (0-5) H 01/30/17 11:05 Ur Epithelial Cells OCCASIONAL /lpf (FEW) 01/30/17 11:05 Urine Bacteria MODERATE /hpf (NONE SEEN) 01/30/17 11:05 Urine Mucus FEW /lpf (FEW) 01/30/17 11:05 Vancomycin Trough 39.3 ug/mL (10-20) H 02/02/17 16:35 Random Vancomycin 22.2 ug/mL (5.0-40.0) 02/06/17 05:48 RPR NONREACTIVE (NONREACTIVE) 01/30/17 10:20 Hepatitis A IgM Ab Negative (Negative) 01/30/17 10:20 Hep Bs Antigen Negative (Negative) 01/30/17 10:20 Hep B Core IgM Ab Negative (Negative) 01/30/17 10:20 Hepatitis C Antibody >11.0 s/co ratio (0.0-0.9) H 01/30/17 10:20 - Physical Exam Vitals and I&O: Vital Signs Temp 97.9 F 02/06/17 09:17 Pulse 96 02/06/17 10:58 Resp 18 02/06/17 10:58 BP 126/75 02/06/17 09:17 Pulse Ox 94 02/06/17 10:58 Intake & Output 02/05/17 02/06/17 02/06/17 18:59 06:59 18:59 Intake Total 4063 521 4462 Balance 6242 100 1359 Intake: Intake, IV Amount 9765 199 8166 Amino Acids 3% / 1000 1000 Electrolytes 1,000 ml @ 50 mls/hr IV .Q20H [facility] Rx #:[id number] Piperacillin Sodium/ 100 100 100 Tazobact 4.5 gm In Sodium Chloride 0.9% 100 ml @ 100 mls/hr IV Q8HR [facility] Rx #:[id number] Active Medications: Current Medications Acetaminophen (Tylenol) 650 mg PO Q4H PRN PRN Reason: Fever > 100 Stop: 03/31/17 16:47 Last Admin: 02/03/17 14:54 Dose: 650 mg Albuterol/Ipratropium (Duoneb Neb) 3 ml HHN Q8HRT [facility] Stop: 03/31/17 14:59 Last Admin: 02/06/17 07:47 Dose: Not Given Ascorbic Acid (Vitamin C) 500 mg PO DAILY [facility] Stop: 04/01/17 19:29 Last Admin: 02/06/17 08:35 Dose: Not Given Docusate Sodium (Colace) 100 mg PO BID RICHELLE Stop: 04/01/17 19:29 Last Admin: 02/06/17 08:35 Dose: Not Given Ferrous Sulfate (Iron) 325 mg PO DAILY RICHELLE Stop: 04/02/17 08:59 Last Admin: 02/06/17 08:35 Dose: Not Given Folic Acid (Folate) 1 mg PO DAILY RICHELLE Stop: 04/01/17 19:29 Last Admin: 02/06/17 08:35 Dose: Not Given Gabapentin (Neurontin) 300 mg PO BID RICHELLE Stop: 04/02/17 08:59 Last Admin: 02/06/17 08:35 Dose: Not Given Piperacillin Sod/Tazobactam (Sod 4.5 gm/ Sodium Chloride) 100 mls @ 100 mls/hr IV Q8HR [facility] Stop: 04/01/17 13:59 Last Admin: 02/06/17 13:00 Dose: 100 mls/hr Sodium Chloride (Nacl 0.45%) 1,000 mls @ 50 mls/hr IV .Q20H [facility] Stop: 04/03/17 15:14 Last Admin: 02/04/17 16:34 Dose: 50 mls/hr Amino Acids/Electrolytes (Procalamine) 1,000 mls @ 50 mls/hr IV .Q20H [facility] Stop: 02/06/17 16:59 Last Admin: 02/06/17 11:28 Dose: 50 mls/hr Vancomycin HCl 1.25 gm/ Sodium (Chloride) 250 mls @ 165 mls/hr IV ONCE ONE Stop: 02/06/17 16:30 Multivitamins/Minerals 10 ml/Amino Acids/Electrolytes/Dextrose/ Fat Emulsion Intravenous/ Sterile Water 1,200 mls @ 50 mls/hr IV .Q24H [facility] Stop: 04/07/17 16:59 Ivermectin (Stromectol) 12 mg PO QSAT [facility] Stop: 04/01/17 19:29 Last Admin: 01/31/17 21:49 Dose: Not Given Magnesium Hydroxide (Milk Of Magnesia) 30 ml PO DAILY PRN PRN Reason: Constipation Stop: 04/01/17 19:18 Mirtazapine (Remeron) 22.5 mg PO HS RICHELLE PRN Reason: Protocol Stop: 04/01/17 20:59 Last Admin: 02/05/17 21:37 Dose: Not Given Miscellaneous (Vancomycin Iv Per Pharmacy) 1 ea MC PRN PRN PRN Reason: PROTOCOL Stop: 03/31/17 16:29 Miscellaneous (Ppn Per Pharmacy) 1 ea MC PRN PRN PRN Reason: PROTOCOL Stop: 04/04/17 15:42 Temazepam (Restoril) 15 mg PO HS PRN; Protocol PRN Reason: Insomnia Stop: 03/31/17 20:55 Last Admin: 01/30/17 21:43 Dose: 15 mg Tramadol HCl (Ultram) 50 mg PO Q6HR PRN PRN Reason: Pain (Moderate) Stop: 03/31/17 22:01 Last Admin: 02/03/17 00:29 Dose: 50 mg Trazodone HCl (Desyrel) 50 mg PO HS RICHELLE PRN Reason: Protocol Stop: 04/03/17 20:59 Last Admin: 02/05/17 21:37 Dose: Not Given General: no acute distress, well developed, well nourished HEENT: atraumatic, normocephalic, PERRLA, EOMI, moist mucous membrane Neck: supple Cardiovascular: S1S2, regular Lungs: clear to auscultation bilaterally, clear to percussion Abdomen: soft, tender, distended Extremities: no cyanosis, no clubbing, no edema Neurological: awake, alert, oriented Skin: intact - Procedures Procedures: Procedures Procedure Code Date GROUP PSYCHOTHERAPY 55303 01/14/16 GROUP PSYCHOTHERAPY [id number] 01/14/16 TRANSFUSE NONAUT RED BLOOD CELLS IN PERIPH VEIN, [facility] [id number] 01/16/17 Infectious Disease Assmt/Plan - Problem List Patient Problems: All Active Problems Agitation (Acute) R45.1 Combative behavior (Acute) R46.89 HTN (hypertension) (Acute) I10 Psychosis (Acute) F29 - Assessment Assessment: Impression: 1. Leukocytosis, multifactorial. ? malignanacy, sepsis, pneumonia. stable at 28, 000 2. pneumonia. 3. metastatic lesions of liver, not confirmed yet. 4. Dementia, 5. Psychosis Recommendations: Continue zosyn. Continue vanco IV. Nutritional Asmnt/Malnutr-PDOC - Dietary Evaluation Malnutrition Findings (Please click <Entered> for more info): Nutritional Asmnt/Malnutrition Start: 02/02/17 13: 54 Text: Status: Complete Freq: Document 02/02/17 13:54 GSUN (Rec: 02/02/17 14:04 [email or web address] [email or web address]) Nutritional Asmnt/Malnutrition Patient General Information Nutritional Screening Moderate Risk Screening Diagnosis Pneumonia, sepsis, acute kidney failure Pertinent Medical Hx/Surgical Hx Dementia, possible metastatic cancer to the liver Subjective Information 71 year old male. Pt was just admitted to [facility] on 01/16/17, bedscale 177.9lb on 01/23/17, bedscale 204lb today, likely inaccurate, edema noted. Pt appears overall thin, severe muscle/fat wasting to chest and clavicles. Pt is edentulous on ground diet, no difficulties. Pt was only able to answer simple questions, able to list to RD what he had for breakfast. RD encouraged PO intake due to hypermetabolic state, pt understood. RN EMERGENCY at bedside stated pt tolerates Boost Plus . Avg PO itnake 75% of meals, meeting 75% of estimated kcal needs. Current Diet Order/ Nutrition Support [facility] soft ground, Bosot Plus TID Pertinent Medications Vitamin C, Colace, Iron, Folate, MOM, Remeron, Vancomycin, D5-0.45ns Pertinent Labs 02/02: Potassium 5.5H, BUN 39H, creatinine 2.2H (declining), glucose 96 Nutritional Hx/Data Height 1.7 m Height (Calculated Centimeters) 170.2 Current Weight (lbs) 79.832 kg Weight (Calculated Kilograms) 79.8 Weight (Calculated Grams) 75220.3 [place] Body Weight 148lb GI Symptoms Skin Integrity/Comment: [place] 14. Bilateral leg and feet 4+ edema, some bruises. Estimated Nutritional Goals Calories/Kcals/Kg IBW 148lb/67.3kg Kcals Calculated 2356kcal (35kcal/kg) Protein g/kg: IBW Protein Calculated 67-101g (1-1.5g/kg, renal insuffieicny vs sepsis/ pneumonia/depletion) Nutritional Problem 2. Problem Problem Impaired nutrient utilization realted to Etiology acute renal failure Signs/Symptoms: MD progress note, elevated/ declining renal labs: BUN39H [employer] 2.2H potassium 5.5H 1. Problem Problem Increased kcal and prot needs related to Etiology hypermetabolic state aeb Signs/Symptoms: sepsis, pneumonia, severe muscle/fat depletion to clavicles and chest, possible metastatic cancer to the liver Malnutrition Alert Body Fat Depletion (Severe) Mod to Severe Depletion Muscle Mass (Severe) Mod to Severe Depletion Fluid Accumulation (Non-Severe) Moderate Mild Fluid Retention Intervention/Recommendation Comments 1. Recommend ground renal diet , dx. acute renal failure, elevated labs: BUN 39H [employer] 2. 2H Potassium 5.5H. 2. Recommend oral supplement change from Bosot Plus TID to Suplena TID, dx. acute renal failure, elevated labs: BUN 39H [employer] 2.2H Potassium 5.5H. Expected Outcomes/Goals Expected Outcomes/Goals 1. PO intake to meet 100% of estimated nutritional needs.
[2017-02-06] MEDS ORDERED: AMINO ACIDS IV SCH (17:00)
[2017-02-06] MEDS ORDERED: [UNRECOGNIZED DRUG - OTHER] IV SCH (17:00)
[2017-02-06] MEDS ORDERED: MULTIVITAMIN IV SCH (17:00)
[2017-02-06] MEDS ORDERED: DEXTROSE IV SCH (17:00)
--- NOTE | 2017-02-07 06:15 | Progress Notes ---
DATE: 02/06/2017 Case was discussed with staff of the patient, reviewed records. The patient continues to be physically ill. He is supposed to have a paracentesis to remove the ascites from his abdomen and liver biopsy and a PICC line, however, he will need a consent of his conservator. The patient himself is unable to understand the process and cannot sign for himself. I did sign the declaration that he cannot be signed for himself, does not understand the process, and the importance of doing this, and that the medical doctor was signed the rest of the paper, and I would recommend to continue his medication. Thank you very much for allowing me to participate in the care of this interesting gentleman. JOB# [id number]
[2017-02-07 06:49] LABS: HEMATOCRIT 24.7 % (39.0-49.0); HEMOGLOBIN 8.4 gm/dL (12.6-17.4); MEAN CORPUSCULAR HEMOGLOBIN 38.2 pg (27.0-31.0); MEAN PLATELET VOLUME 7.2 fl; PLATELET COUNT 120 Th/cmm (150-400)
[2017-02-07 06:57] LABS: BUN - UREA NITROGEN 62 mg/dL (7-25); BUN/CREATININE RATIO 28.2; CALCIUM SERUM 9.9 mg/dL (8.6-10.3); CARBON DIOXIDE 18.7 mEq/L (21.0-31.0); CHLORIDE 107 mEq/L (98-107); CREATININE - SERUM 2.2 mg/dL (0.7-1.3); GLUCOSE 166 mg/dL (70-105); MAGNESIUM 2.1 mg/dL (1.9-2.7); POTASSIUM SERUM 3.7 mEq/L (3.5-5.1); SODIUM SERUM 134 mEq/L (136-145)
[2017-02-07 07:08] LABS: MEAN CELL VOLUME 112.2 fl (80-99); WHITE BLOOD COUNT 30.4 Th/cmm (4.8-10.8)
[2017-02-07] MEDS: Albuterol/Ipratropium Neb 3 ML AERS HHN SCH ×3 (07:11→22:02)
[2017-02-07 07:52] LABS: BAND NEUTROPHILE 6 % (0-10); NEUTROPHILS 78 % (40-80); TOTAL CELLS COUNTED 100
[2017-02-07 07:53] LABS: ANISOCYTOSIS 3+; PLATELET ESTIMATE DECREASED PLATELETS (NORMAL); PLATELET MORPHOLOGY NORMAL (NORMAL); POLYCHROMASIA 1+
[2017-02-07] MEDS ORDERED: Midazolam 1mg/ml 2 ml vial IV ONE ×2 (11:12→11:21)
[2017-02-07] MEDS: Ferrous Sulfate 325 MG TAB PO SCH (12:43)
[2017-02-07 13:27] LABS: ABG SOURCE Arterial; ALLEN TEST YES; BE(B) -5.2 mEq/L (-3.0-3.0); FIO2 100; HCO3 20.9 mEq/L (20.0-26.0); MECH RATE 12; MECH VT 500; pH 7.34 (7.35-7.45)
[2017-02-07] MEDS ORDERED: Sodium Chloride 0.9% 500 ML IV ONE (13:39)
--- NOTE | 2017-02-07 16:24 | Diagnostic Imaging Report ---
Portable chest x-ray HISTORY: Increased shortness of breath Compared to prior exam of January 30, 2017, an endotracheal tube has been inserted. The tip is approximately 3.0 cm above the wolf. A nasogastric tube has also been inserted and extends into the region of the stomach. Persistent infiltrate noted in the right perihilar and right lower lobe regions. Findings may be associated with pneumonia. IMPRESSION: 1. Endotracheal and nasogastric tube placements as noted above 2. Persistent infiltrate within the right lower lobe. Pneumonia cannot be excluded.
[2017-02-07] MEDS ORDERED: Albuterol/Ipratropium Neb 3 ML AERS HHN PRN (19:26)
[2017-02-07] MEDS: Chlorhexidine Gluconate 0.12% 15mL Mouthwash MM SCH (20:56)
[2017-02-07] MEDS: TPN 10%-70% CUSTOM IV SCH (21:55)
--- NOTE | 2017-02-08 05:07 | Progress Notes ---
DATE: 02/07/2017 Case was discussed with staff of the patient. The patient continues to have been refusing treatment, continues to be unpredictable, impulsive, very poor insight. He does have a conservator. I did sign all his papers that I am supposed to signs that necessary for his treatment as he cannot really make a decision , he will need to undergo paracentesis, liver biopsy, and PICC line, and so far he has no side effects with the medication, no sedation, no nausea. Thank you very much for allowing me to participate in the care of this most interesting gentleman. JOB# [id number]
[2017-02-08 06:02] LABS: HEMATOCRIT 24.5 % (39.0-49.0); HEMOGLOBIN 8.6 gm/dL (12.6-17.4); MEAN CORPUSCULAR HEMOGLOBIN 39.5 pg (27.0-31.0); MEAN CORPUSCULAR HGB CONC 35.2 pg (28.0-36.0); MEAN PLATELET VOLUME 7.3 fl; PLATELET COUNT 126 Th/cmm (150-400); RED BLOOD COUNT 2.18 Mil/cmm (3.80-5.80); RED CELL DISTRIBUTION WIDTH 26.8 % (11.5-20.0)
[2017-02-08 06:44] LABS: ANION GAP 15.7 (7.0-16.0); BUN - UREA NITROGEN 71 mg/dL (7-25); BUN/CREATININE RATIO 26.3; CALCIUM SERUM 9.7 mg/dL (8.6-10.3); CARBON DIOXIDE 16.9 mEq/L (21.0-31.0); CHLORIDE 106 mEq/L (98-107); CREATININE - SERUM 2.7 mg/dL (0.7-1.3); GLUCOSE 139 mg/dL (70-105); MAGNESIUM 2.2 mg/dL (1.9-2.7); POTASSIUM SERUM 3.6 mEq/L (3.5-5.1); SODIUM SERUM 135 mEq/L (136-145)
[2017-02-08 06:46] LABS: MEAN CELL VOLUME 112.1 fl (80-99)
[2017-02-08] MEDS: Budesonide 0.5 Mg/2 mL Ud HHN SCH ×2 (06:53→19:05)
[2017-02-08] MEDS: Albuterol/Ipratropium Neb 3 ML AERS HHN SCH ×3 (06:53→23:06)
[2017-02-08 07:21] LABS: ALB/GLOB RATIO 0.6 (1.0-1.8); ALKALINE PHOSPHATASE 103 U/L (34-104); ANION GAP 16.5 (7.0-16.0); BILIRUBIN,DIRECT 0.64 mg/dL (0.0-0.2); BUN - UREA NITROGEN 71 mg/dL (7-25); BUN/CREATININE RATIO 26.3; CALCIUM SERUM 9.5 mg/dL (8.6-10.3); CHLORIDE 104 mEq/L (98-107); CREATININE - SERUM 2.7 mg/dL (0.7-1.3); GLUCOSE 146 mg/dL (70-105); POTASSIUM SERUM 3.5 mEq/L (3.5-5.1); SGOT 59 U/L (13-39); SGPT/ALT 14 U/L (7-52); SODIUM SERUM 136 mEq/L (136-145)
[2017-02-08 07:35] LABS: INR 1.41 (0.5-1.4)
[2017-02-08] MEDS ORDERED: SODIUM CHLORIDE 0.9% IV ONE (07:53)
[2017-02-08] MEDS ORDERED: OCTREOTIDE ACETATE IV ONE (07:53)
[2017-02-08] MEDS ORDERED: Pantoprazole 80 MG in Sodium Chloride 0.9% 100 ML IV ONE (07:53)
[2017-02-08] MEDS: Pantoprazole 80 MG in Sodium Chloride 0.9% 100 ML IV SCH (08:00)
[2017-02-08 08:11] LABS: TSH 1.77 uIU/ml (0.34-5.60)
[2017-02-08] MEDS: Ferrous Sulfate 325 MG TAB PO SCH (08:35)
--- NOTE | 2017-02-08 08:36 | Consultation ---
DATE OF CONSULTATION: 02/07/2017 REASON FOR CONSULTATION: Help the patient with shortness of breath and respiratory failure. CONSULT NOTE: This is a 71-year-old gentleman who basically has a history of some form of liver disease and apparently he basically got SCISSORS SHARPENER today and subsequently necessitated to intubate the patient and subsequently, I was asked to see this patient for further care and necessary treatment. The patient is awake and meaningful detailed history from the patient is not available to me at this particular time and patient has been here for almost a week. Initially, the patient was admitted with history of coughing, shortness of breath, etc. The patient was admitted, was seen and was treated with IV antibiotic, inhalation treatment, etc. The patient subsequently had SCISSORS SHARPENER and subsequently I was asked to see this patient as the patient was intubated. The patient basically has a history of psychosis, dementia, some liver disease and also recurrent leukocytosis and also dementia. Other history is very minimal to nil available to me at this particular time. Other history of anemia, history of previous pneumonia and other history is very sketchy at this particular time. PHYSICAL EXAMINATION: GENERAL: This is an elderly looking gentleman. VITAL SIGNS: Currently on ventilator assist control on 30% of FIO2, temperature is 98, respiration rate is 18, blood pressure 104/60 and saturation 99%. HEENT: Examination of the head is essentially unremarkable. Pupils appear to be equal and reacting to light. Conjunctivae are slightly pallor. Oral cavity shows edentulous, otherwise unremarkable. NECK: No nodes in the neck could be palpated. CHEST: Finding shows severely cachectic chest wall. On auscultation, diminished air entry. No other adventitious breath sounds. ABDOMEN: Quite distended with possibly ascites. EXTREMITIES: Shows some edematous changes. LABORATORY DATA: The patient's ABG on a ventilator initially done today 100% with pO2 of 319. Electrolytes, sodium is 134, creatinine is 2.2, which has not significantly changed in last few days. Chest x-ray shows endotracheal in good position. There is mild haziness in the right side with some lung volume loss in the left side. ET is in good position. IMPRESSION: 1.The patient has acute respiratory failure, SCISSORS SHARPENER, exact etiology is not clearcut, possibility of sepsis, a consideration. 2.Aspiration, even though he is n.p.o. 3.Severe advanced hepatic disease of ____ nature with significant cachexia with transient hypotension. PLANS AND SUGGESTIONS: We will go and get a smith culture. We will give inhaled steroid as well inhaled bronchodilator. We will repeat a CT of the chest for better evaluation and also check other laboratory studies, etc. and see how it is and go from there. JOB# [id number]
[2017-02-08] MEDS: Chlorhexidine Gluconate 0.12% 15mL Mouthwash MM SCH ×2 (08:39→23:45)
[2017-02-08 08:45] LABS: ANISOCYTOSIS 2+; BAND NEUTROPHILE 18 % (0-10); EOSINOPHIL 1 % (0-5); NEUTROPHILS 69 % (40-80); PLATELET ESTIMATE DECREASED PLATELETS (NORMAL); PLATELET MORPHOLOGY GIANT PLATELETS SEEN (NORMAL); POLYCHROMASIA 2+; TOTAL CELLS COUNTED 100
[2017-02-08] MEDS: cefTRIAXone 1 GM in Sodium Chloride 0.9% 50 ML IV SCH (09:00)
[2017-02-08 10:20] LABS: pH 7.37 (7.35-7.45)
[2017-02-08 10:21] LABS: ABG SOURCE Arterial; ALLEN TEST YES; BE(B) -4.4 mEq/L (-3.0-3.0); FIO2 30; HCO3 21.4 mEq/L (20.0-26.0); MECH RATE 12; MECH VT 500
--- NOTE | 2017-02-08 10:35 | Diagnostic Imaging Report ---
CHEST X-RAY: AP view INDICATION: Respiratory failure COMPARISON: Chest x-ray 02/07/2017 FINDINGS: ET tube is seen with tip 2.5 cm above the Janice. Findings of CHF are seen with bilateral effusions right greater than left and multifocal infiltrates. Heart size is borderline prominent. NG tube is visualized to the stomach. The distal tip is not well-seen. IMPRESSION: CHF with bilateral effusions right larger than left. Extensive multifocal infiltrates are also noted. Clinical correlation is recommended.
--- NOTE | 2017-02-08 12:36 | Infectious Disease Prog Note ---
Infectious Disease Subjective - Review of Systems Service Date: 02/08/17 Subjective: Yesterday, he was intubated orally, on the ventilator. No fever. Infectious Disease Objective - Results Result Diagrams: 02/08/17 04:51 02/08/17 06:50 Recent Labs: Laboratory Last Values WBC 39.0 Th/cmm (4.8-10.8) H* D 02/08/17 04:51 RBC 2.18 Mil/cmm (3.80-5.80) L 02/08/17 04:51 Hgb 8.6 gm/dL (12.6-17.4) L 02/08/17 04:51 Hct 24.5 % (39.0-49.0) L 02/08/17 04:51 MCV 112.1 fl (80-99) H 02/08/17 04:51 MCH 39.5 pg (27.0-31.0) H 02/08/17 04:51 MCHC Differential 35.2 pg (28.0-36.0) 02/08/17 04:51 RDW 26.8 % (11.5-20.0) H 02/08/17 04:51 Plt Count 126 Th/cmm (150-400) L 02/08/17 04:51 MPV 7.3 fl 02/08/17 04:51 Band Neutrophils % 18 % (0-10) H 02/08/17 04:51 Neutrophils (Manual) 69 % (40-80) 02/08/17 04:51 Lymphocytes 6 % (20-50) L 02/08/17 04:51 Monocytes 6 % (2-10) 02/08/17 04:51 Eosinophils 1 % (0-5) 02/08/17 04:51 Metamyelocytes 2 % (0-0) H 02/06/17 05:48 Platelet Estimate DECREASED PLATELETS (NORMAL) 02/08/17 04:51 Platelet Morphology GIANT PLATELETS SEEN (NORMAL) 02/08/17 04:51 Polychromasia 2+ 02/08/17 04:51 Poikilocytosis 1+ 02/06/17 05:48 Anisocytosis 2+ 02/08/17 04:51 Macrocytosis 2+ 02/08/17 04:51 Ovalocytes 1+ 02/04/17 06:37 RBC Morph Micro Appear ABNORMAL (NORMAL) 02/08/17 04:51 PT 15.0 SECONDS (9.5-11.5) H 02/08/17 06:50 INR 1.41 (0.5-1.4) H 02/08/17 06:50 PTT (Actin FS) 36.8 SECONDS (26.0-38.0) 02/03/17 10:06 Specimen Source Arterial 02/08/17 10:00 Sample Site Right Radial 02/08/17 10:00 pH 7.37 (7.35-7.45) 02/08/17 10:00 pCO2 35.0 mmHg (35.0-45.0) 02/08/17 10:00 pO2 73.0 mmHg (80.0-100.0) L 02/08/17 10:00 HCO3 21.4 mEq/L (20.0-26.0) 02/08/17 10:00 Base Excess -4.4 mEq/L (-3.0-3.0) L 02/08/17 10:00 O2 Saturation 94.0 % (92.0-100.0) 02/08/17 10:00 Dwayne Test YES 02/08/17 10:00 Vent Rate 12 02/08/17 10:00 Inspired O2 30 02/08/17 10:00 Tidal Volume 500 02/08/17 10:00 PEEP NA 02/08/17 10:00 Pressure (ins/psv/peep) NA 02/08/17 10:00 Critical Value E.DIAMOND 02/08/17 10:00 Sodium 136 mEq/L (136-145) 02/08/17 06:50 Potassium 3.5 mEq/L (3.5-5.1) 02/08/17 06:50 Chloride 104 mEq/L (98-107) 02/08/17 06:50 Carbon Dioxide 19.0 mEq/L (21.0-31.0) L 02/08/17 06:50 Anion Gap 16.5 (7.0-16.0) H 02/08/17 06:50 BUN 71 mg/dL (7-25) H 02/08/17 06:50 Creatinine 2.7 mg/dL (0.7-1.3) H 02/08/17 06:50 Est GFR ( Amer) TNP 02/08/17 06:50 Est GFR (Non-Af Amer) TNP 02/08/17 06:50 BUN/Creatinine Ratio 26.3 02/08/17 06:50 Glucose 146 mg/dL (70-105) H 02/08/17 06:50 POC Glucose 162 MG/DL (70 - 105) H 01/31/17 05:16 Whole Bld Lactic Acid 2.02 mmol/L (0.60-1.99) H* 01/30/17 12:20 Calcium 9.5 mg/dL (8.6-10.3) 02/08/17 06:50 Phosphorus 4.6 mg/dL (2.5-5.0) 02/08/17 04:51 Magnesium 2.2 mg/dL (1.9-2.7) 02/08/17 04:51 Total Bilirubin 1.0 mg/dL (0.3-1.0) 02/08/17 06:50 Direct Bilirubin 0.64 mg/dL (0.0-0.2) H 02/08/17 06:50 AST 59 U/L (13-39) H 02/08/17 06:50 ALT 14 U/L (7-52) 02/08/17 06:50 Alkaline Phosphatase 103 U/L (34-104) 02/08/17 06:50 Ammonia 50 umol/L (16-53) 02/08/17 06:50 Total Protein 5.4 gm/dL (6.0-8.3) L 02/08/17 06:50 Albumin 2.0 gm/dL (4.2-5.5) L 02/08/17 06:50 Globulin 3.4 gm/dL 02/08/17 06:50 Albumin/Globulin Ratio 0.6 (1.0-1.8) L 02/08/17 06:50 Prealbumin 5 mg/dL (9-32) L 02/06/17 05:48 Triglycerides 154 mg/dL (<150) H 02/06/17 05:48 Cholesterol 82 mg/dL (<200) 02/06/17 05:48 LDL Cholesterol Direct 46 mg/dL (75-193) L 01/30/17 10:20 HDL Cholesterol 19 mg/dL (23-92) L 01/30/17 10:20 Tumor Marker AFP 832.4 ng/mL (0.0-8.3) H 02/05/17 06:37 Carcinoembryonic Ag 13.4 ng/mL (0.0-4.7) H 02/04/17 06:37 CA 19-9 Antigen 2818 U/mL (0-35) H 02/04/17 06:37 TSH 1.77 uIU/ml (0.34-5.60) 02/08/17 06:50 Urine Source CLEAN C 01/30/17 11:05 Urine Color LOS 01/30/17 11:05 Urine Clarity CLEAR (CLEAR) 01/30/17 11:05 Urine pH 5.0 01/30/17 11:05 Ur Specific Mccarley 1.020 (1.005-1.030) 01/30/17 11:05 Urine Protein 30 mg/dL (NEGATIVE) H 01/30/17 11:05 Urine Glucose (UA) NEGATIVE mg/dL (NEGATIVE) 01/30/17 11:05 Urine Ketones 15 mg/dL (NEGATIVE) H 01/30/17 11:05 Urine Blood NEGATIVE (NEGATIVE) 01/30/17 11:05 Urine Nitrate POSITIVE (NEGATIVE) H 01/30/17 11:05 Urine Bilirubin SMALL (NEGATIVE) H 01/30/17 11:05 Urine Urobilinogen 0.2 E.U./dL (0.2 - 1.0) 01/30/17 11:05 Ur Leukocyte Esterase NEGATIVE (NEGATIVE) 01/30/17 11:05 Urine RBC 0-2 /hpf (0-5) H 01/30/17 11:05 Urine WBC 2-5 /hpf (0-5) H 01/30/17 11:05 Ur Epithelial Cells OCCASIONAL /lpf (FEW) 01/30/17 11:05 Urine Bacteria MODERATE /hpf (NONE SEEN) 01/30/17 11:05 Urine Mucus FEW /lpf (FEW) 01/30/17 11:05 Vancomycin Trough 39.3 ug/mL (10-20) H 02/02/17 16:35 Random Vancomycin 24.6 ug/mL (5.0-40.0) 02/08/17 04:51 RPR NONREACTIVE (NONREACTIVE) 01/30/17 10:20 Hepatitis A IgM Ab Negative (Negative) 01/30/17 10:20 Hep Bs Antigen Negative (Negative) 01/30/17 10:20 Hep B Core IgM Ab Negative (Negative) 01/30/17 10:20 Hepatitis C Antibody >11.0 s/co ratio (0.0-0.9) H 01/30/17 10:20 - Physical Exam Vitals and I&O: Vital Signs Temp 98.3 F 02/08/17 06:00 Pulse 101 02/08/17 10:45 Resp 20 02/08/17 06:00 BP 87/50 02/08/17 06:30 Pulse Ox 94 02/08/17 10:45 Intake & Output 02/07/17 02/08/17 02/08/17 18:59 06:59 18:59 Intake Total 500 840.03 Output Total 320 400 Balance 180 440.03 Intake: Intake, IV Amount 200 240.03 Norepinephrine 4 mg In 240.03 Dextrose 5% 250 ml @ Per Protocol IV TITR PRN Rx#: [id number] Piperacillin Sodium/ 200 Tazobact 4.5 gm In Sodium Chloride 0.9% 100 ml @ 100 mls/hr IV Q8HR [facility] Rx #:[id number] Oral 0 0 TPN/PPN 300 600 Output: Gastric Drainage 200 100 Urine 120 300 Other: # Bowel Movements 0 0 Active Medications: Current Medications Acetaminophen (Tylenol) 650 mg PO Q4H PRN PRN Reason: Fever > 100 Stop: 03/31/17 16:47 Last Admin: 02/03/17 14:54 Dose: 650 mg Albuterol/Ipratropium (Duoneb Neb) 3 ml HHN Q8HRT [facility] Stop: 03/31/17 14:59 Last Admin: 02/08/17 06:53 Dose: 3 ml Albuterol/Ipratropium (Duoneb Neb) 3 ml HHN Q4H PRN PRN Reason: Wheezing Stop: 04/08/17 19:25 Ascorbic Acid (Vitamin C) 500 mg PO DAILY [facility] Stop: 04/01/17 19:29 Last Admin: 02/08/17 08:33 Dose: Not Given Budesonide (Pulmicort) 0.5 mg HHN BIDRT [facility] Stop: 04/09/17 06:59 Last Admin: 02/08/17 06:53 Dose: 0.5 mg Chlorhexidine Gluconate (Peridex) 15 ml MM 0800,2000 [facility] Stop: 04/08/17 19:59 Last Admin: 02/08/17 08:39 Dose: 15 ml Docusate Sodium (Colace) 100 mg PO BID [facility] Stop: 04/01/17 19:29 Last Admin: 02/08/17 08:37 Dose: Not Given Ferrous Sulfate (Iron) 325 mg PO DAILY [facility] Stop: 04/02/17 08:59 Last Admin: 02/08/17 08:35 Dose: Not Given Folic Acid (Folate) 1 mg PO DAILY [facility] Stop: 04/01/17 19:29 Last Admin: 02/08/17 08:36 Dose: Not Given Gabapentin (Neurontin) 300 mg PO BID [facility] Stop: 04/02/17 08:59 Last Admin: 02/08/17 08:34 Dose: Not Given Sodium Chloride (Nacl 0.45%) 1,000 mls @ 50 mls/hr IV .Q20H [facility] Stop: 04/03/17 15:14 Last Admin: 02/04/17 16:34 Dose: 50 mls/hr Norepinephrine Bitartrate 4 mg (/ Dextrose) 254 mls @ 0 mls/hr IV TITR PRN; Protocol; Per Protocol PRN Reason: BP MAINTENANCE (PER PROTOCOL) Stop: 04/08/17 13:29 Last Admin: 02/08/17 02:50 Dose: 5 mcg/min, 19.05 mls/hr Multivitamins/Minerals 10 ml/Dextrose/ Amino Acids/Electrolytes/ Fat Emulsion Intravenous/ Sterile Water 1,200 mls @ 50 mls/hr IV .Q24H [facility] Stop: 04/08/17 15:59 Last Admin: 02/07/17 21:55 Dose: 50 mls/hr Ceftriaxone Sodium 1 gm/ (Sodium Chloride) 50 mls @ 100 mls/hr IV Q24HR [facility] Stop: 04/09/17 07:59 Pantoprazole Sodium 80 mg/ (Sodium Chloride) 100 mls @ 10 mls/hr IV Q10H [facility] Stop: 04/09/17 07:59 Octreotide Acetate 1,250 mcg/ (Sodium Chloride) 252.5 mls @ 10 mls/hr IV .Q24H [facility] Stop: 04/09/17 07:59 Magnesium Hydroxide (Milk Of Magnesia) 30 ml PO DAILY PRN PRN Reason: Constipation Stop: 04/01/17 19:18 Mirtazapine (Remeron) 22.5 mg PO HS RICHELLE PRN Reason: Protocol Stop: 04/01/17 20:59 Last Admin: 02/08/17 00:12 Dose: Not Given Miscellaneous (Vancomycin Iv Per Pharmacy) 1 ea MC PRN PRN PRN Reason: PROTOCOL Stop: 03/31/17 16:29 Miscellaneous (Ppn Per Pharmacy) 1 ea MC PRN PRN PRN Reason: PROTOCOL Stop: 04/04/17 15:42 Temazepam (Restoril) 15 mg PO HS PRN; Protocol PRN Reason: Insomnia Stop: 03/31/17 20:55 Last Admin: 01/30/17 21:43 Dose: 15 mg Tramadol HCl (Ultram) 50 mg PO Q6HR PRN PRN Reason: Pain (Moderate) Stop: 03/31/17 22:01 Last Admin: 02/07/17 07:04 Dose: 50 mg Trazodone HCl (Desyrel) 50 mg PO HS RICHELLE PRN Reason: Protocol Stop: 04/03/17 20:59 Last Admin: 02/08/17 00:12 Dose: Not Given General: no acute distress, cachectic HEENT: atraumatic, normocephalic, PERRLA, EOMI, moist mucous membrane Neck: supple Cardiovascular: S1S2, regular Lungs: clear to auscultation bilaterally, clear to percussion Abdomen: soft, distended, no tender Extremities: edema, no cyanosis, no clubbing Neurological: awake, alert - Procedures Procedures: Procedures Procedure Code Date GROUP PSYCHOTHERAPY 66496 01/14/16 GROUP PSYCHOTHERAPY [id number] 01/14/16 INSERT EMERGENCY AIRWAY 14707 01/30/17 INSERTION OF ENDOTRACHEAL AIRWAY INTO TRACHEA, VIA OPENING [id number] 01/30/17 RESPIRATORY VENTILATION, LESS THAN 24 CONSECUTIVE HOURS [id number] 01/30/17 TRANSFUSE NONAUT RED BLOOD CELLS IN PERIPH VEIN, PERC [id number] 01/16/17 VENT MGMT INPAT IN DAY 61599 01/30/17 Infectious Disease Assmt/Plan - Problem List Patient Problems: All Active Problems Agitation (Acute) R45.1 Combative behavior (Acute) R46.89 HTN (hypertension) (Acute) I10 Psychosis (Acute) F29 - Assessment Assessment: Impression: 1. Leukocytosis, multifactorial. ? malignanacy, sepsis, pneumonia. stable at 28, 000 2. pneumonia. 3. metastatic lesions of liver, not confirmed yet. 4. Dementia, 5. Psychosis 6. VDRF. 9. Suspect SBP. Recommendations: Change zosyn to meropenem. Blood cultures. Start flagyl empirically suspecting CDAC. Continue vanco IV. Nutritional Asmnt/Malnutr-PDOC - Dietary Evaluation Malnutrition Findings (Please click <Entered> for more info): Nutritional Asmnt/Malnutrition Start: 02/02/17 13: 54 Text: Status: Complete Freq: Document 02/02/17 13:54 GSUN (Rec: 02/02/17 14:04 [email or web address] [email or web address]) Nutritional Asmnt/Malnutrition Patient General Information Nutritional Screening Moderate Risk Screening Diagnosis Pneumonia, sepsis, acute kidney failure Pertinent Medical Hx/Surgical Hx Dementia, possible metastatic cancer to the liver Subjective Information 71 year old male. Pt was just admitted to [facility] on 01/16/17, bedscale 177.9lb on 01/23/17, bedscale 204lb today, likely inaccurate, edema noted. Pt appears overall thin, severe muscle/fat wasting to chest and clavicles. Pt is edentulous on ground diet, no difficulties. Pt was only able to answer simple questions, able to list to RD what he had for breakfast. RD encouraged PO intake due to hypermetabolic state, pt understood. CONSTRUCTION SALES REPRESENTATIVE at bedside stated pt tolerates Boost Plus . Avg PO itnake 75% of meals, meeting 75% of estimated kcal needs. Current Diet Order/ Nutrition Support [facility] soft ground, Bosot Plus TID Pertinent Medications Vitamin C, Colace, Iron, Folate, MOM, Remeron, Vancomycin, D5-0.45ns Pertinent Labs 02/02: Potassium 5.5H, BUN 39H, creatinine 2.2H (declining), glucose 96 Nutritional Hx/Data Height 1.7 m Height (Calculated Centimeters) 170.2 Current Weight (lbs) 79.832 kg Weight (Calculated Kilograms) 79.8 Weight (Calculated Grams) 85343.3 [place] Body Weight 148lb GI Symptoms Skin Integrity/Comment: Kong 14. Bilateral leg and feet 4+ edema, some bruises. Estimated Nutritional Goals Calories/Kcals/Kg IBW 148lb/67.3kg Kcals Calculated 2356kcal (35kcal/kg) Protein g/kg: IBW Protein Calculated 67-101g (1-1.5g/kg, renal insuffieicny vs sepsis/ pneumonia/depletion) Nutritional Problem 2. Problem Problem Impaired nutrient utilization realted to Etiology acute renal failure Signs/Symptoms: progress note, elevated/ declining renal labs: [id number] Hardware Engineer 2.2H potassium 5.5H 1. Problem Problem Increased kcal and prot needs related to Etiology hypermetabolic state aeb Signs/Symptoms: sepsis, pneumonia, severe muscle/fat depletion to clavicles and chest, possible metastatic cancer to the liver Malnutrition Alert Body Fat Depletion (Severe) Mod to Severe Depletion Muscle Mass (Severe) Mod to Severe Depletion Fluid Accumulation (Non-Severe) Moderate Mild Fluid Retention Intervention/Recommendation Comments 1. Recommend ground renal diet , dx. acute renal failure, elevated labs: BUN 39H Hardware Engineer 2. 2H Potassium 5.5H. 2. Recommend oral supplement change from Bosot Plus TID to Suplena TID, dx. acute renal failure, elevated labs: BUN 39H Hardware Engineer 2.2H Potassium 5.5H. Expected Outcomes/Goals Expected Outcomes/Goals 1. PO intake to meet 100% of estimated nutritional needs.
[2017-02-08] MEDS: Meropenem 500 MG in Sodium Chloride 0.9% 100 ML IV SCH ×2 (13:00→20:47)
[2017-02-08] MEDS ORDERED: Albumin 25% 12.5gm/50mL 12.5 GM/50 ML BTL IV PRN ×3 (18:44→23:16)
[2017-02-08] MEDS ORDERED: DOPamine 400 MG/250 ML BAG IV PRN (18:46)
--- NOTE | 2017-02-08 19:00 | History & Physical ---
ADMIT DATE: 02/08/2017 REFERRING PHYSICIAN: Miguel Mccarthy M.D. REASON FOR CONSULTATION: Liver cancer. HISTORY OF PRESENT ILLNESS: The patient is a 71-year-old male who resides in a facility with history of psychosis. He was recently hospitalized and discharged and then rehospitalized again because of failure to thrive. The patient was intubated yesterday because of respiratory failure and he was seen by the psychiatrist and the bilingual teacher. He had rapid response yesterday and required intubation. PAST MEDICAL HISTORY: Dementia, psychosis, cirrhosis. PAST SURGICAL HISTORY: None. MEDICATIONS: Reviewed. PHYSICAL EXAMINATION: GENERAL: The patient is awake, does not follow commands, on a ventilator. Afebrile. He looks cachectic and chronically ill, nasogastric tube. ABDOMEN: Distended with ascites. EXTREMITIES: No edema. No bleeding. LABORATORY DATA: Creatinine 2.7. INR 1.4. White count 39, hemoglobin 8.6, platelets 126. IMAGING STUDY: He had CT scan without contrast showing multiple hyperdense liver lesions and mesenteric and retroperitoneal lymphadenopathy and ascites. ASSESSMENT: 1. Respiratory failure, on ventilator. 2. Cirrhosis. 3. Liver masses and mesenteric lymphadenopathy, likely malignant. The patient has elevated alpha fetoprotein and CEA, acute kidney injury and liver biopsy to establish pathology and ____ management accordingly discussed with the ____ at bedside. The patient's overall prognosis is very poor and comfort care is also valid option. Thank you for the opportunity to participate in the care of this interesting case. JOB# [id number]
[2017-02-08] MEDS: Furosemide 100 MG in Sodium Chloride 0.9% 90 ML IV SCH (21:26)
[2017-02-08] MEDS: metroNIDAZOLE 500mg/NS 100mL 500 MG/100 ML BAG IV SCH (21:27)
[2017-02-08] MEDS ORDERED: DOPamine 400 MG/250 ML BAG IV ONE (22:45)
[2017-02-08] MEDS ORDERED: Albumin 25% 12.5gm/50mL 12.5 GM/50 ML BTL IV ONE (22:46)
[2017-02-08] MEDS: DOPamine 400 MG/250 ML BAG IV PRN (23:34)
[2017-02-09] MEDS: TPN 10%-70% CUSTOM IV SCH (01:31)
[2017-02-09] MEDS: Meropenem 500 MG in Sodium Chloride 0.9% 100 ML IV SCH ×3 (04:31→21:26)
[2017-02-09 05:04] LABS: INR 1.4 (0.5-1.4); PROTHROMBIN TIME (TEST) 14.8 SECONDS (9.5-11.5)
[2017-02-09 05:21] LABS: HEMOGLOBIN 8.5 gm/dL (12.6-17.4); MEAN CORPUSCULAR HEMOGLOBIN 39.6 pg (27.0-31.0); MEAN CORPUSCULAR HGB CONC 35.5 pg (28.0-36.0); MEAN PLATELET VOLUME 7.7 fl; RED BLOOD COUNT 2.15 Mil/cmm (3.80-5.80); RED CELL DISTRIBUTION WIDTH 25.6 % (11.5-20.0)
[2017-02-09 05:40] LABS: MEAN CELL VOLUME 111.6 fl (80-99); PLATELET COUNT 171 Th/cmm (150-400); WHITE BLOOD COUNT 49.8 Th/cmm (4.8-10.8)
[2017-02-09] MEDS: metroNIDAZOLE 500mg/NS 100mL 500 MG/100 ML BAG IV SCH ×3 (05:41→21:27)
[2017-02-09 05:58] LABS: ALB/GLOB RATIO 0.6 (1.0-1.8); ALKALINE PHOSPHATASE 113 U/L (34-104); ANION GAP 16.1 (7.0-16.0); BILIRUBIN,TOTAL 1.2 mg/dL (0.3-1.0); BUN - UREA NITROGEN 78 mg/dL (7-25); BUN/CREATININE RATIO 23.6; CALCIUM SERUM 9.7 mg/dL (8.6-10.3); CARBON DIOXIDE 18.3 mEq/L (21.0-31.0); CHLORIDE 102 mEq/L (98-107); CREATININE - SERUM 3.3 mg/dL (0.7-1.3); GLUCOSE 167 mg/dL (70-105); POTASSIUM SERUM 3.4 mEq/L (3.5-5.1); SGOT 65 U/L (13-39); SGPT/ALT 17 U/L (7-52); SODIUM SERUM 133 mEq/L (136-145)
[2017-02-09 06:44] LABS: MAGNESIUM 2.1 mg/dL (1.9-2.7); PHOSPHOROUS 5.3 mg/dL (2.5-5.0)
[2017-02-09 06:55] LABS: ANISOCYTOSIS 2+; BAND NEUTROPHILE 10 % (0-10); EOSINOPHIL 2 % (0-5); NEUTROPHILS 77 % (40-80); PLATELET ESTIMATE ADEQUATE (NORMAL); PLATELET MORPHOLOGY NORMAL (NORMAL); POLYCHROMASIA 2+; TOTAL CELLS COUNTED 100
[2017-02-09] MEDS: Budesonide 0.5 Mg/2 mL Ud HHN SCH ×2 (06:57→19:00)
[2017-02-09] MEDS: Albuterol/Ipratropium Neb 3 ML AERS HHN SCH ×3 (06:57→22:44)
[2017-02-09 09:05] LABS: HCO3 20.1 mEq/L (20.0-26.0); pH 7.32 (7.35-7.45)
[2017-02-09 09:06] LABS: ABG SOURCE Arterial; ALLEN TEST YES; FIO2 40; MECH RATE 12; MECH VT 500
[2017-02-09] MEDS: DOPamine 400 MG/250 ML BAG IV PRN (10:02)
--- NOTE | 2017-02-09 10:10 | Diagnostic Imaging Report ---
CHEST X-RAY: AP view INDICATION: PICC line placement COMPARISON: Chest x-ray earlier the same day FINDINGS: Left PICC line is seen with tip in SVC. ET tube is seen with tip 2.5 cm above the Janice. An NG tube is visualized to the mid esophagus. Diffuse pulmonary infiltrates are seen with right effusion. Right apical pleural capping is noted. Cardiomegaly is noted. IMPRESSION: Interval left upper echogenic PICC line placement with tip in SVC NG tube with tip in the region of the mid esophagus. Recommend repositioning. ET tube with tip 2.5 cm above the Janice Diffuse pulmonary infiltrates with right effusion.
[2017-02-09] MEDS: Albumin 25% 12.5gm/50mL 12.5 GM/50 ML BTL IV SCH ×2 (10:23→18:27)
[2017-02-09] MEDS: Ferrous Sulfate 325 MG TAB PO SCH (10:29)
[2017-02-09] MEDS: Chlorhexidine Gluconate 0.12% 15mL Mouthwash MM SCH ×2 (10:31→21:00)
[2017-02-09] MEDS ORDERED: KCL 20mEq/100mL Premix 20 MEQ/100 ML PIGGYBACK IV ONE (10:45)
[2017-02-09] MEDS ORDERED: Probiotic Screen MC PRN (11:09)
--- NOTE | 2017-02-09 14:21 | Diagnostic Imaging Report ---
CT Chest without IV contrast HISTORY: Respiratory failure, effusions, pneumonia COMPARISON: Chest x-ray on 02/08/[address] chest on 02/02/2017. Technique: Axial images were obtained from the base of the neck to the upper abdomen without administration of IV contrast. Coronal reconstructions were made. Total DLP 476, CTD I 10.4 Findings: NG tube is visualized to the mid esophagus. Recommend advancement. ET tube is seen with tip 2.3 cm above the Janice. Left PICC line is seen terminating along the cavoatrial junction. Exam is limited due to lack of IV contrast. Heart size is normal. Trace pericardial fluid is noted. Mild atherosclerosis is noted. There are large bilateral pleural effusions with bibasal consolidative changes and bibasal infiltrates. The upper abdomen demonstrates ascites. Low-density hepatic lesions are noted. There is probable cirrhosis of the liver. There is extensive retroperitoneal lymphadenopathy. Diffuse atherosclerosis is noted. A fifth left rib fracture is noted possibly a pathologic fracture, age indeterminate. There may be an additional old fracture of the upper sternum. Anasarca is noted. IMPRESSION: Bilateral large pleural effusions and bibasal consolidative changes infiltrates. Findings may be due to CHF. Underlying pneumonia cannot be excluded. NG tube with tip along the mid esophageal region. Recommend repositioning. Anasarca. Ascites. Hepatic lesions possibly due to metastatic disease, correlate clinically Extensive retroperitoneal lymphadenopathy also likely secondary to metastatic disease. Please correlate with clinical findings. Atherosclerotic vascular disease. Left fifth rib fracture age-indeterminate, but probably chronic. Etiology of the rib fracture is uncertain but may be due to trauma or possibly a pathologic fracture.
[2017-02-09] MEDS ORDERED: [UNRECOGNIZED DRUG - OTHER] IV SCH (16:00)
[2017-02-09] MEDS ORDERED: MULTIVITAMIN IV SCH (16:00)
[2017-02-09] MEDS ORDERED: DEXTROSE IV SCH (16:00)
[2017-02-09] MEDS ORDERED: AMINO ACIDS IV SCH (16:00)
[2017-02-09] MEDS: Pantoprazole 80 MG in Sodium Chloride 0.9% 100 ML IV SCH (16:22)
[2017-02-09] MEDS: cefTRIAXone 1 GM in Sodium Chloride 0.9% 50 ML IV SCH (16:26)
--- NOTE | 2017-02-09 17:39 | Progress Notes ---
DATE: 02/08/2017 PROBLEM LIST: 1. Acute respiratory failure. 2. Bilateral infiltrate and/or effusion. 3. Hypotension. 4. Suspect liver cancer with ascites. 5. Underlying psychiatric illness. SYMPTOMS: Nil, quite obtunded, no respiratory distress, etc. still is on the minimal dose of Levophed. PHYSICAL EXAMINATION: VITAL SIGNS: BP is ____, afebrile. Saturation is mid 90s on 30% of ____ control. NECK: Veins not visualized. Good bilateral carotid upstroke. CHEST: Shows diminished air entry with occasional rhonchi. HEART: Regular. ABDOMEN: Slightly distended with ascites. LABORATORY DATA: White count is 39,000 and patient's ABG, pO2 is 33, 73 on 30% of oxygen and the patient's platelet count is 126 and also giant platelet seen as well and chest x-ray shows some increase effusion and infiltrate and a CT of the chest is not done. ASSESSMENT: The patient is clinically stable, not much changed, slight increased effusion, probably with third spacing with liver disease ____ and significant cachexia. PLANS AND SUGGESTIONS: We will discuss with RN, need to have a CT done. ____ concern for the same as it is without contrast etc. and go from there. Care and plan discussed with patient's daughter at the bedside. JOB# [id number]
[2017-02-09] MEDS: INSULIN ASPART SLIDING SCALE 100 UNITS/ML UNIT SUBQ SCH ×3 (19:25→19:32)
--- NOTE | 2017-02-09 20:16 | Progress Notes ---
DATE: 02/08/2017 Case was discussed with staff of the patient, reviewed records. Also, I met with his son, his [id number], his , and his brother who happened to be visiting him in ICU. The patient was transferred to ICU yesterday because of respiratory failure. The patient apparently has liver cirrhosis and liver masses in the mesenteric area and lymph nodes, likely malignant according to the records. The patient is currently intubated, may need a liver biopsy after extubation. Prognosis according to the medical toolmaker is poor. He is currently sedated, no acting out behavior, and we will continue to follow with you. Thank you very much for allowing me to participate in the care of this most interesting gentleman. JOB# [id number]
[2017-02-09] MEDS: Sodium Chloride 0.45% 1,000 ML IV SCH (21:30)
[2017-02-10] MEDS: Pantoprazole 80 MG in Sodium Chloride 0.9% 100 ML IV SCH ×3 (00:16→21:14)
[2017-02-10] MEDS: Sodium Chloride 0.45% 1,000 ML IV SCH ×2 (00:17→01:36)
[2017-02-10] MEDS: Albumin 25% 12.5gm/50mL 12.5 GM/50 ML BTL IV SCH ×4 (00:25→19:45)
[2017-02-10] MEDS: INSULIN ASPART SLIDING SCALE 100 UNITS/ML UNIT SUBQ SCH ×4 (00:27→18:41)
--- NOTE | 2017-02-10 00:59 | Consultation ---
DATE OF CONSULTATION: 02/08/2017 RENAL CONSULTATION HISTORY OF PRESENT ILLNESS: This is a patient, who is referred for evaluation because of reducing urine output. This patient is 71 years old with history of liver disease, ____ basically had got respiratory difficulty today and subsequently intubated. Subsequently, the patient was noted to have remarkable reduction of urine output. This patient had a previous history of psychosis, dementia, liver disease, recurrent leukocytosis, and anemia. From his initial hospital admission, he has a history of pneumonia, this is initial admission history; now he has respiratory difficulty, intubated, aspiration suspected, and advanced liver disease with evidence of cachexia and evidence of transient hypotension, which is requiring currently administration of vasopressors in the form of Levophed. PHYSICAL EXAMINATION: VITAL SIGNS: Blood pressure 91/54, pulse rate of 97, respiratory rate of 66, intake and output of this patient ____ he has only 150 mL in a period for 24 hours with an intake of 1024. He opens his eyes on the vent ____ had significant degree of ascites and anasarca with significant degree of abdominal distention. CHEST: Crepitant rales are noted in both lung bases, may be likely suspected atelectasis from significant degree of abdominal distention and ascites. ____ not palpate the liver at the present time due to the presence of significant ascites. ____ lateral aspect of the abdomen has significant degree of edema and ____. Lab studies are reviewed ____ he has 39,000 count, 8.6 hemoglobin, hematocrit of 24. He has decreased platelets ____ platelets are also same. PT and INR within range. Arterial blood gases 7.37, 35 CO2, and 73 ____ O2. Sodium 136, potassium 3.5, chloride 104, CO2 of 19. BUN of 71, creatinine 2.7, from yesterday 62 and 2.2. Calcium is 9.5, phosphorus is 2.2, magnesium 1.0, total bilirubin is 0.64, AST is 59, ALT is ____, alkaline phosphatase is 103, ammonia 50, total protein 5.4, albumin 2.0, globulin of 3.4. TSH of 1.7, vancomycin level is 28.6. Microbiology of this patient, no growth in the blood culture in a period of 48 hours. DIAGNOSTIC IMPRESSION: 1. Hepatorenal syndrome suspected in this patient with significant degree of ascites, on an underlying liver disease. 2. Suspected third-spacing of fluid with the patient having significant degree of edema in the presence of decreasing urinary output of this patient. 3. Underlying chronic liver disease, being worked up for the possibility of chronic hepatitis C and also being worked up for the possibility of liver malignancy. PLAN: 1. We will utilize dopamine for renal perfusion. 2. Give albumin intermittently 25%, 50 mL, q.6 hours x48 hours. 3. Because of decreasing urinary output in this patient and increasing azotemia, we will try to give Lasix dose at 2.5 mg ____ per hour and observe urinary output for the next 12 hours. May have to discontinue the diuretic once we are able to generate some degree of urine in this patient. Condition had been discussed with the family who is at the bedside. Prognosis of this patient is very poor. JOB# [id number]
[2017-02-10 05:12] LABS: MEAN CORPUSCULAR HEMOGLOBIN 39.9 pg (27.0-31.0); MEAN CORPUSCULAR HGB CONC 35.6 pg (28.0-36.0); MEAN PLATELET VOLUME 7.5 fl; PLATELET COUNT 140 Th/cmm (150-400); RED BLOOD COUNT 1.84 Mil/cmm (3.80-5.80)
[2017-02-10 05:43] LABS: HEMATOCRIT 20.7 % (39.0-49.0); HEMOGLOBIN 7.4 gm/dL (12.6-17.4); WHITE BLOOD COUNT 46.4 Th/cmm (4.8-10.8)
[2017-02-10 05:44] LABS: ALB/GLOB RATIO 0.8 (1.0-1.8); ALKALINE PHOSPHATASE 113 U/L (34-104); ANION GAP 14.7 (7.0-16.0); BILIRUBIN,TOTAL 1.1 mg/dL (0.3-1.0); BUN/CREATININE RATIO 23.1; CHLORIDE 101 mEq/L (98-107); CREATININE - SERUM 3.6 mg/dL (0.7-1.3); GLUCOSE 170 mg/dL (70-105); MAGNESIUM 1.8 mg/dL (1.9-2.7); MEAN CELL VOLUME 112.2 fl (80-99); PHOSPHOROUS 5.1 mg/dL (2.5-5.0); POTASSIUM SERUM 4.7 mEq/L (3.5-5.1); SGOT 58 U/L (13-39); SGPT/ALT 16 U/L (7-52); SODIUM SERUM 131 mEq/L (136-145)
[2017-02-10] MEDS: metroNIDAZOLE 500mg/NS 100mL 500 MG/100 ML BAG IV SCH ×3 (05:58→21:19)
[2017-02-10] MEDS: Meropenem 500 MG in Sodium Chloride 0.9% 100 ML IV SCH ×3 (06:20→16:30)
--- NOTE | 2017-02-10 06:32 | Progress Notes ---
DATE: 02/09/2017 Case was discussed with staff of the patient, reviewed records. The patient continues to be in ICU. Continues to be Riese. The hand knitter reports that his prognosis is bad. He did have a blood transfusion and after that did not go very well. I did sign all the papers necessary to do the lab work for him for conservatorship and so far no side effects with the medication, and the patient so far seems to be deteriorating and I will follow up with you regarding this patient. Thank you very much for allowing me to participate in the care of this most interesting gentleman. JOB# [id number]
[2017-02-10 06:34] LABS: BUN - UREA NITROGEN 83 mg/dL (7-25); VANCOMYCIN RANDOM 19.2 ug/mL (5.0-40.0)
[2017-02-10] MEDS: Albuterol/Ipratropium Neb 3 ML AERS HHN SCH ×3 (06:46→22:32)
[2017-02-10] MEDS: Budesonide 0.5 Mg/2 mL Ud HHN SCH ×2 (06:46→18:50)
[2017-02-10] MEDS: DOPamine 400 MG/250 ML BAG IV PRN (08:32)
[2017-02-10] MEDS: Chlorhexidine Gluconate 0.12% 15mL Mouthwash MM SCH ×2 (08:33→21:17)
[2017-02-10 08:55] LABS: ANISOCYTOSIS 3+; BAND NEUTROPHILE 10 % (0-10); EOSINOPHIL 4 % (0-5); NEUTROPHILS 70 % (40-80); TOTAL CELLS COUNTED 100
[2017-02-10 08:56] LABS: PLATELET ESTIMATE DECREASED PLATELETS (NORMAL); PLATELET MORPHOLOGY NORMAL (NORMAL); POLYCHROMASIA 1+
[2017-02-10] MEDS: cefTRIAXone 1 GM in Sodium Chloride 0.9% 50 ML IV SCH (09:30)
[2017-02-10] MEDS: Furosemide 100 MG in Sodium Chloride 0.9% 90 ML IV SCH (09:33)
--- NOTE | 2017-02-10 10:03 | Diagnostic Imaging Report ---
Portable chest x-ray HISTORY: Shortness of breath Compared with prior exam of February 08, 2017, the heart remains enlarged. There are bilateral pleural effusions along with pulmonary vascular redistribution and hazy infiltrates. Findings are consistent with congestive heart failure. Underlying pneumonia cannot be excluded. Clinical correlation is needed. No change in line and tube placements. IMPRESSION: 1. No change in the cardiopulmonary status. Findings consistent with congestive heart failure. Underlying pneumonia cannot be excluded. Clinical correlation needed.
--- NOTE | 2017-02-10 10:04 | Consultation ---
DATE OF CONSULTATION: 02/09/2017 ATTENDING: Miguel Mccarthy M.D. [employer] ASSISTANT: Melvin Reddy M.D. REASON FOR CONSULTATION: Worsening kidney function, electrolyte imbalance, and fluid management. HISTORY OF PRESENT ILLNESS: This is a 71-year-old male with past medical history of chronic kidney disease, who came in because of shortness of breath. The patient was followed by ID because of leukocytosis and community-acquired pneumonia. He was also seen by GI for recurrent upper GI bleed. He developed acute respiratory failure and required intubation. This was associated with shock. He was maintained on Levophed. He was also evaluated by Oncology for possible liver meds and also retroperitoneal lymph nodes. His urine output started to decline and became anuric. BUN/creatinine deteriorated to 78/3.3. Baseline creatinine is around 1.9. He was initiated on renal dose dopamine and Lasix drip along with albumin infusion. He is also currently on gentle hydration. PAST MEDICAL HISTORY: 1. Chronic kidney disease. 2. Current pneumonia. 3. Liver metastasis. 4. Alzheimer dementia. 5. Psychosis. CURRENT MEDICATIONS: He is currently on acetaminophen, albuterol, ascorbic acid, budesonide, Rocephin, renal-dose dopamine at 3 mcg per minute, ferrous sulfate, folic acid, Neurontin, lactobacillus, Lasix drip at 2.5 mg per hour, magnesium hydroxide, meropenem, metronidazole, Remeron, pantoprazole, octreotide, temazepam, tramadol, trazodone, and vancomycin. ALLERGIES: No known drug allergies. SOCIAL AND FAMILY HISTORY: I was not able to obtain directly from the patient because he remains intubated. REVIEW OF SYSTEMS: CONSTITUTIONAL: Again, I was not able to decipher from the patient. However, based on progresses notes, the patient currently is intubated. Had on and off fever. HEENT: No mention of headaches, nor dizziness. CARDIORESPIRATORY: Developed respiratory failure, now on a ventilator. No mention of chest pain, palpitations, diaphoresis, or cough. GASTROINTESTINAL: He has a history of upper GI bleed. He also has liver lesions which are possibly due to metastasis. No melena, hematochezia, and no diarrhea. ENDOCRINE: No history of diabetes or thyroid abnormalities, no dyslipidemia. MUSCULOSKELETAL: Multiple joint arthralgias. GENITOURINARY: He has a history of underlying chronic kidney disease. However, kidney function gradually deteriorated to the point that he is anuric. No hematuria reported. HEMATOLOGIC: He has acute anemia on chronic disease. The possibility of liver metastasis is being considered. NEUROPSYCHIATRIC: History of Alzheimer dementia and psychosis. He also has possible underlying anoxic/metabolic encephalopathy. PHYSICAL EXAMINATION: GENERAL: The patient is obtunded, on a ventilator. VITAL SIGNS: His blood pressure is 102/49 and pulse is 114. He is afebrile. HEENT: Head is normocephalic and atraumatic. Eyes: Unable to assess his extraocular muscles. Pupils are equal, round, and reactive to light and accommodates. Anicteric sclerae. Pale conjunctivae. Nose, midline nasal septum. Mouth: Dry mucosa with endotracheal tube. NECK: Supple. No adenopathy, no thyromegaly, and no bruits. Trachea palpated in the midline. CHEST AND CVS: S1 and S2. No rub, murmur, nor gallop appreciated. Point of maximal impulse at fifth intercostal space, left midclavicular line. No abdominal or femoral bruits appreciated. LUNGS: Equal expansion. No use of accessory muscles. No supraclavicular retractions. Scattered rhonchi with some rales, but no wheeze appreciated. ABDOMEN: Globular, soft, and diminished bowel sounds. No tenderness, no rebound, nor guarding, no bruits either diastolic or systolic. RECTAL: This was deferred. GENITOURINARY: Normal appearing male genitalia with indwelling Bernstein catheter. MUSCULOSKELETAL: No effusions present in his joints, unable to assess his range of motion. EXTREMITIES: No evidence of edema, cyanosis, nor clubbing with palpable femoral, but unable to fully appreciate popliteal and dorsalis pedis pulses. NEUROLOGIC: As mentioned, the patient is obtunded so unable to pursue further on my neuro exam. LABORATORY DATA: Did reveal white count of 49.8, hemoglobin 8.5, hematocrit 24, platelets 171,000, polys is 77%, sodium 133, potassium 3.4, chloride 102, bicarb is 18, BUN 78, creatinine 3.3, glucose 167, calcium 9.7, phosphorus 5.3, magnesium 2.1, AST is 65. ALT is 17. Alk phos is 113. Albumin is 2.4. IMPRESSION: 1. Acute kidney injury on chronic kidney disease. MDRD GFR 19.8 mL per minute, stage 4. The patient's chronic kidney disease is likely secondary to chronic interstitial nephritis with exposure to several nephrotoxic medications in the past. Acute kidney injury is initially due to prerenal azotemia. The patient's oral intake has diminished. He is now in shock and hypotensive. His physical exam revealed poor skin turgor with dry oral mucosa. He also has severe hypoalbuminemia. These factors can lead and also suggest a decrease in effective circulating volume. His prerenal azotemia progressed to acute tubular injury and possibly also acute cortical injury. However, he has ongoing septicemia, ____ to acute interstitial nephritis. 2. Acute respiratory failure, on ventilator. 3. Decompensated congestive heart failure. 4. Liver metastasis. 5. Anoxic/metabolic encephalopathy. 6. Upper gastrointestinal bleed. 7. Anemia acute on chronic disease. 8. Severe malnutrition. 9. Severe leukocytosis secondary to infection or myeloproliferative disease. 10. Persistent bilateral healthcare-acquired pneumonia. PLAN: 1. Continue on with pressors and renal-dose dopamine. 2. Continue with Lasix drip for now. 3. Gentle hydration. 4. Follow up electrolytes, CBC. 5. Urinalysis. 6. Urine sodium, eosinophils, creatinine. 7. 24-hour urine for protein and creatinine clearance. 8. Renal ultrasound. 9. Continue on with antibiotics. Thank you, Dr. Mccarthy for this consult. I will follow the patient closely with you. The patient has a very poor prognosis, and this was discussed with the family at bedside. [facility]# [id number]
--- NOTE | 2017-02-10 10:14 | Diagnostic Imaging Report ---
Renal ultrasound HISTORY: Abnormal renal function test The right kidney is normal in size (10.3 x 5.3 x 5.2 cm). No focal lesions. No hydronephrosis. The left kidney is normal in size (11.4 x 5.4 x 4.9 cm). Normal cortical contour and echogenicity. No focal lesions. No hydronephrosis. Relatively large amount of ascites seen in the pelvis. The urinary bladder cannot be well delineated. IMPRESSION: 1. Normal exam of the kidneys 2. Ascites. 3. The urinary bladder cannot be well delineated in the presence of the surrounding ascites.
--- NOTE | 2017-02-10 10:15 | Progress Notes ---
DATE: 02/09/2017 PULMONARY PROGRESS NOTE PROBLEM LIST: 1. Acute respiratory failure with pneumonia and bilateral effusion. 2. Hypotension secondary to multifactorial including ascites and/or possibly metastasis to the liver, so source is not clear. 3. History of psychiatric illness. SYMPTOMS: Awake, periodically restless. No respiratory distress, still on vasopressors. PHYSICAL EXAMINATION: VITAL SIGNS: The patient is afebrile, pulse is 110-120, and saturation on 40% at mid 90s. NECK: Veins not visualized. CHEST: Shows diminished air entry with occasional rhonchi. HEART: Regular. ABDOMEN: Quite distended. LABORATORY DATA: White count is 49,000, hemoglobin 8.5. ABG this morning shows pO2 is 65 with mild metabolic acidemia. The patient's CT shows moderate-sized effusion with compress atelectasis, both the size with questionable pneumonia. Also, there is fluid subpulmonic region, probably from the ascites. ASSESSMENT: The patient is overall clinically very poor with persistent respiratory failure, persistent hypotension as well as a history of suspected metastatic liver disease with ascites. PLANS AND SUGGESTIONS: We will go ahead and continue conservative treatment. I do not know how far aggressive treatment needed to be , whether it requires permission or not, which includes thoracentesis biopsy as well as paracentesis of abdomen. We will discuss with the social work case manager, etc., and go from there. JOB# [id number]
[2017-02-10] MEDS: Ferrous Sulfate 325 MG TAB PO SCH (11:03)
[2017-02-10] MEDS: Lactobacillus Rhamnosus 10 Billion CFU Capsule PO SCH (11:05)
[2017-02-10] MEDS ORDERED: Sodium Chloride 0.45% 1,000 ML IV SCH ×2 (14:29→16:00)
--- NOTE | 2017-02-10 15:45 | Infectious Disease Prog Note ---
Infectious Disease Subjective - Review of Systems Service Date: 02/10/17 Subjective: Yesterday, remains intubated orally, on the ventilator. No fever. Infectious Disease Objective - Results Result Diagrams: 02/10/17 04:45 02/10/17 04:45 Recent Labs: Laboratory Last Values WBC 46.4 Th/cmm (4.8-10.8) H* 02/10/17 04:45 RBC 1.84 Mil/cmm (3.80-5.80) L 02/10/17 04:45 Hgb 7.4 gm/dL (12.6-17.4) L* D 02/10/17 04:45 Hct 20.7 % (39.0-49.0) L* D 02/10/17 04:45 MCV 112.2 fl (80-99) H 02/10/17 04:45 MCH 39.9 pg (27.0-31.0) H 02/10/17 04:45 MCHC Differential 35.6 pg (28.0-36.0) 02/10/17 04:45 RDW 26.0 % (11.5-20.0) H 02/10/17 04:45 Plt Count 140 Th/cmm (150-400) L 02/10/17 04:45 MPV 7.5 fl 02/10/17 04:45 Band Neutrophils % 10 % (0-10) 02/10/17 04:45 Neutrophils (Manual) 70 % (40-80) 02/10/17 04:45 Lymphocytes 8 % (20-50) L 02/10/17 04:45 Monocytes 8 % (2-10) 02/10/17 04:45 Eosinophils 4 % (0-5) 02/10/17 04:45 Metamyelocytes 2 % (0-0) H 02/06/17 05:48 Platelet Estimate DECREASED PLATELETS (NORMAL) 02/10/17 04:45 Platelet Morphology NORMAL (NORMAL) 02/10/17 04:45 Polychromasia 1+ 02/10/17 04:45 Poikilocytosis 1+ 02/06/17 05:48 Anisocytosis 3+ 02/10/17 04:45 Macrocytosis 3+ 02/10/17 04:45 Ovalocytes 1+ 02/04/17 06:37 RBC Morph Micro Appear ABNORMAL (NORMAL) 02/10/17 04:45 Smear Path Review SEE BELOW 02/09/17 04:45 PT 14.8 SECONDS (9.5-11.5) H 02/09/17 04:45 INR 1.40 (0.5-1.4) 02/09/17 04:45 PTT (Actin FS) 36.8 SECONDS (26.0-38.0) 02/03/17 10:06 Specimen Source Arterial 02/09/17 08:45 Sample Site Right Radial 02/09/17 08:45 pH 7.32 (7.35-7.45) L 02/09/17 08:45 pCO2 38.0 mmHg (35.0-45.0) 02/09/17 08:45 pO2 65.0 mmHg (80.0-100.0) L 02/09/17 08:45 HCO3 20.1 mEq/L (20.0-26.0) 02/09/17 08:45 Base Excess -6.0 mEq/L (-3.0-3.0) L 02/09/17 08:45 O2 Saturation 91.0 % (92.0-100.0) L 02/09/17 08:45 Dwayne Test YES 02/09/17 08:45 Vent Rate 12 02/09/17 08:45 Inspired O2 40 02/09/17 08:45 Tidal Volume 500 02/09/17 08:45 PEEP NA 02/09/17 08:45 Pressure (ins/psv/peep) NA 02/09/17 08:45 Critical Value E.DIAMOND 02/09/17 08:45 Sodium 131 mEq/L (136-145) L 02/10/17 04:45 Potassium 4.7 mEq/L (3.5-5.1) 02/10/17 04:45 Chloride 101 mEq/L (98-107) 02/10/17 04:45 Carbon Dioxide 20.0 mEq/L (21.0-31.0) L 02/10/17 04:45 Anion Gap 14.7 (7.0-16.0) 02/10/17 04:45 BUN 83 mg/dL (7-25) H* 02/10/17 04:45 Creatinine 3.6 mg/dL (0.7-1.3) H 02/10/17 04:45 Est GFR ( Amer) TNP 02/10/17 04:45 Est GFR (Non-Af Amer) TNP 02/10/17 04:45 BUN/Creatinine Ratio 23.1 02/10/17 04:45 Glucose 170 mg/dL (70-105) H 02/10/17 04:45 POC Glucose 175 MG/DL (70 - 105) H 02/10/17 12:27 Whole Bld Lactic Acid 2.02 mmol/L (0.60-1.99) H* 01/30/17 12:20 Calcium 8.0 mg/dL (8.6-10.3) L 02/10/17 04:45 Phosphorus 5.1 mg/dL (2.5-5.0) H 02/10/17 04:45 Magnesium 1.8 mg/dL (1.9-2.7) L 02/10/17 04:45 Iron 151 ug/dL (38-169) 02/04/17 06:37 TIBC 178 ug/dL (250-450) L 02/04/17 06:37 Iron Saturation 85 % (15-55) H 02/04/17 06:37 Unsaturated IBC 27 ug/dL (111-343) L 02/04/17 06:37 Ferritin 1222 ng/mL (30-400) H 02/04/17 06:37 Total Bilirubin 1.1 mg/dL (0.3-1.0) H 02/10/17 04:45 Direct Bilirubin 0.64 mg/dL (0.0-0.2) H 02/08/17 06:50 AST 58 U/L (13-39) H 02/10/17 04:45 ALT 16 U/L (7-52) 02/10/17 04:45 Alkaline Phosphatase 113 U/L (34-104) H 02/10/17 04:45 Ammonia 45 umol/L (16-53) 02/10/17 04:45 Total Protein 5.8 gm/dL (6.0-8.3) L 02/10/17 04:45 Albumin 2.6 gm/dL (4.2-5.5) L 02/10/17 04:45 Globulin 3.2 gm/dL 02/10/17 04:45 Albumin/Globulin Ratio 0.8 (1.0-1.8) L 02/10/17 04:45 Prealbumin 5 mg/dL (9-32) L 02/06/17 05:48 [id number] 236 mg/dL (90-200) H 02/04/17 06:37 Ceruloplasmin 34.0 mg/dL (16.0-31.0) H 02/04/17 06:37 Triglycerides 154 mg/dL (<150) H 02/06/17 05:48 Cholesterol 82 mg/dL (<200) 02/06/17 05:48 LDL Cholesterol Direct 46 mg/dL (75-193) L 01/30/17 10:20 HDL Cholesterol 19 mg/dL (23-92) L 01/30/17 10:20 Tumor Marker AFP 832.4 ng/mL (0.0-8.3) H 02/05/17 06:37 Carcinoembryonic Ag 13.4 ng/mL (0.0-4.7) H 02/04/17 06:37 CA 19-9 Antigen 2818 U/mL (0-35) H 02/04/17 06:37 TSH 0.32 uIU/ml (0.34-5.60) L 02/10/17 04:45 Urine Source CLEAN C 01/30/17 11:05 Urine Color LOS 01/30/17 11:05 Urine Clarity CLEAR (CLEAR) 01/30/17 11:05 Urine pH 5.0 01/30/17 11:05 Ur Specific [place] 1.020 (1.005-1.030) 01/30/17 11:05 Urine Protein 30 mg/dL (NEGATIVE) H 01/30/17 11:05 Urine Glucose (UA) NEGATIVE mg/dL (NEGATIVE) 01/30/17 11:05 Urine Ketones 15 mg/dL (NEGATIVE) H 01/30/17 11:05 Urine Blood NEGATIVE (NEGATIVE) 01/30/17 11:05 Urine Nitrate POSITIVE (NEGATIVE) H 01/30/17 11:05 Urine Bilirubin SMALL (NEGATIVE) H 01/30/17 11:05 Urine Urobilinogen 0.2 E.U./dL (0.2 - 1.0) 01/30/17 11:05 Ur Leukocyte Esterase NEGATIVE (NEGATIVE) 01/30/17 11:05 Urine RBC 0-2 /hpf (0-5) H 01/30/17 11:05 Urine WBC 2-5 /hpf (0-5) H 01/30/17 11:05 Ur Epithelial Cells OCCASIONAL /lpf (FEW) 01/30/17 11:05 Urine Bacteria MODERATE /hpf (NONE SEEN) 01/30/17 11:05 Urine Mucus FEW /lpf (FEW) 01/30/17 11:05 Vancomycin Trough 39.3 ug/mL (10-20) H 02/02/17 16:35 Random Vancomycin 19.2 ug/mL (5.0-40.0) 02/10/17 04:45 Anti-Mitochondrial Ab 25.7 Units (0.0-20.0) H 02/04/17 06:37 Smooth Muscle IgG Ab 38 Units (0-19) H 02/04/17 06:37 RPR NONREACTIVE (NONREACTIVE) 01/30/17 10:20 Hepatitis A IgM Ab Negative (Negative) 01/30/17 10:20 Hep Bs Antigen Negative (Negative) 01/30/17 10:20 Hep B Core IgM Ab Negative (Negative) 01/30/17 10:20 Hepatitis C Antibody >11.0 s/co ratio (0.0-0.9) H 01/30/17 10:20 Blood Type O POSITIVE 02/10/17 07:16 Antibody Screen NEGATIVE 02/10/17 07:16 Crossmatch See Detail 02/10/17 07:16 - Physical Exam Vitals and I&O: Vital Signs Temp 97 F 02/10/17 08:00 Pulse 119 02/10/17 14:35 Resp 18 02/10/17 09:14 BP 119/65 02/10/17 09:45 Pulse Ox 95 02/10/17 14:35 Intake & Output 02/09/17 02/10/17 02/10/17 18:59 06:59 18:59 Intake Total 587.458 9981.200 693.975 Output Total 400 Balance 734.001 608.200 693.975 Intake: Intake, IV Amount 734.001 908.200 693.975 Albumin 25% 12.5gm/50mL 50 100 35 12.5 gm In 50 ml @ 50 mls /hr IV Q6HR [facility] Rx#: [id number] DOPamine 400 mg In 250 ml 94.001 202.073 @ 3 MCG/KG/MIN 8.981 mls /hr IV TITR PRN Rx#: [id number] Furosemide 100 mg In 90.292 Sodium Chloride 0.9% 90 ml @ 2.5 mls/hr IV TITR [facility] Rx#:[id number] Meropenem 500 mg In 100 100 100 Sodium Chloride 0.9% 100 ml @ 100 mls/hr IV Q8H [facility] Rx#:[id number] Norepinephrine 4 mg In 203.20 181.61 Dextrose 5% 250 ml @ Per Protocol IV TITR PRN Rx#: [id number] Octreotide Acetate 1,250 240 85 mcg In Sodium Chloride 0. 9% 250 ml @ 10 mls/hr IV .Q24H [facility] Rx#:[id number] Pantoprazole 80 mg In 100 100 Sodium Chloride 0.9% 100 ml @ 10 mls/hr IV Q10H [facility] Rx#:[id number] Sodium Chloride 0.45% 1, 205.000 000 ml @ 50 mls/hr IV . Q20H [facility] Rx#:[id number] cefTRIAXone 1 gm In 50 Sodium Chloride 0.9% 50 ml @ 100 mls/hr IV Q24HR [facility] Rx#:[id number] metroNIDAZOLE 500mg/NS 100 200 100mL 500 mg In 100 ml @ 100 mls/hr IV Q8HR [facility] Rx #:[id number] Albumin 100 Output: Urine 400 Other: # Bowel Movements 2 Active Medications: Current Medications Acetaminophen (Tylenol) 650 mg PO Q4H PRN PRN Reason: Fever > 100 Stop: 03/31/17 16:47 Last Admin: 02/03/17 14:54 Dose: 650 mg Albuterol/Ipratropium (Duoneb Neb) 3 ml HHN Q8HRT [facility] Stop: 03/31/17 14:59 Last Admin: 02/10/17 14:35 Dose: 3 ml Albuterol/Ipratropium (Duoneb Neb) 3 ml HHN Q4H PRN PRN Reason: Wheezing Stop: 04/08/17 19:25 Ascorbic Acid (Vitamin C) 500 mg PO DAILY [facility] Stop: 04/01/17 19:29 Last Admin: 02/10/17 11:03 Dose: Not Given Budesonide (Pulmicort) 0.5 mg HHN BIDRT [facility] Stop: 04/09/17 06:59 Last Admin: 02/10/17 06:46 Dose: 0.5 mg Chlorhexidine Gluconate (Peridex) 15 ml MM 799,1999 [facility] Stop: 04/08/17 19:59 Last Admin: 02/10/17 08:33 Dose: 15 ml Docusate Sodium (Colace) 100 mg PO BID [facility] Stop: 04/01/17 19:29 Last Admin: 02/10/17 12:12 Dose: Not Given Ferrous Sulfate (Iron) 325 mg PO DAILY [facility] Stop: 04/02/17 08:59 Last Admin: 02/10/17 11:03 Dose: Not Given Folic Acid (Folate) 1 mg PO DAILY [facility] Stop: 04/01/17 19:29 Last Admin: 02/10/17 11:03 Dose: Not Given Gabapentin (Neurontin) 300 mg PO BID [facility] Stop: 04/02/17 08:59 Last Admin: 02/10/17 12:12 Dose: Not Given Ceftriaxone Sodium 1 gm/ (Sodium Chloride) 50 mls @ 100 mls/hr IV Q24HR [facility] Stop: 04/09/17 07:59 Last Admin: 02/10/17 09:30 Dose: 100 mls/hr Pantoprazole Sodium 80 mg/ (Sodium Chloride) 100 mls @ 10 mls/hr IV Q10H [facility] Stop: 04/09/17 07:59 Last Admin: 02/10/17 09:30 Dose: 100 mls/hr Octreotide Acetate 1,250 mcg/ (Sodium Chloride) 252.5 mls @ 10 mls/hr IV .Q24H [facility] Stop: 04/09/17 07:59 Last Admin: 02/10/17 08:48 Dose: 10 mls/hr Meropenem 500 mg/ Sodium (Chloride) 100 mls @ 100 mls/hr IV Q8H [facility] Stop: 04/09/17 12:35 Last Admin: 02/10/17 12:40 Dose: 100 mls/hr Metronidazole (Flagyl) 500 mg in 100 mls @ 100 mls/hr IV Q8HR [facility] Stop: 04/09/17 20:59 Last Admin: 02/10/17 13:46 Dose: 100 mls/hr Dopamine HCl/Dextrose (Dopamine) 400 mg in 250 mls @ 8.981 mls/hr IV TITR PRN; Protocol; 3 MCG/KG/MIN PRN Reason: RENAL PERFUSION FOR 48 HRS. Stop: 04/09/17 18:45 Last Admin: 02/10/17 08:32 Dose: 3 mcg/kg/min, 8.981 mls/hr Albumin Human (Albutein 25%) 12.5 gm in 50 mls @ 50 mls/hr IV Q6HR [facility] Stop: 02/10/17 18:59 Last Admin: 02/10/17 12:38 Dose: 50 mls/hr Multivitamins/Minerals 10 ml/Amino Acids/Electrolytes/Dextrose/ Fat Emulsion Intravenous/ Sterile Water 1,507 mls @ 60 mls/hr IV .Q24H [facility] Stop: 02/10/17 15:59 Last Admin: 02/09/17 21:27 Dose: 60 mls/hr Multivitamins/Minerals 10 ml/Amino Acids/ Fat Emulsion Intravenous/ Dextrose 1, 680 mls @ 70 mls/hr IV .Q24H [facility] Stop: 04/11/17 15:59 Vancomycin HCl 1.25 gm/ Sodium (Chloride) 250 mls @ 165 mls/hr IV 1500 RICHELLE Stop: 02/10/17 22:00 Last Admin: 02/10/17 15:08 Dose: 165 mls/hr Norepinephrine Bitartrate 8 mg (/ Dextrose) 258 mls @ 0 mls/hr IV TITR PRN; Protocol; 0 MCG/MIN PRN Reason: BP MAINTENANCE (PER PROTOCOL) Stop: 04/11/17 13:44 Last Admin: 02/10/17 14:03 Dose: 12 mcg/min, 23.22 mls/hr Furosemide 100 mg/ Sodium (Chloride) 100 mls @ 5 mls/hr IV TITR [facility] Stop: 04/11/17 14:27 Sodium Chloride (Nacl 0.45%) 1,000 mls @ 10 mls/hr IV .Q24H [facility] Stop: 02/10/17 15:59 Insulin Aspart (Novolog Insulin Sliding Scale) 0 units SUBQ Q6H [facility] PRN Reason: Protocol Stop: 04/10/17 11:59 Last Admin: 02/10/17 12:41 Dose: 2 units Lactobacillus Rhamnosus (Culturelle) 1 each PO DAILY [facility] Stop: 04/11/17 08:59 Last Admin: 02/10/17 11:05 Dose: Not Given Magnesium Hydroxide (Milk Of Magnesia) 30 ml PO DAILY PRN PRN Reason: Constipation Stop: 04/01/17 19:18 Mirtazapine (Remeron) 22.5 mg PO HS RICHELLE PRN Reason: Protocol Stop: 04/01/17 20:59 Last Admin: 02/10/17 00:20 Dose: Not Given Miscellaneous (Vancomycin Iv Per Pharmacy) 1 ea PRN PRN PRN Reason: PROTOCOL Stop: 03/31/17 16:29 Miscellaneous (Probiotic Screen) 1 ea PRN PRN PRN Reason: PROTOCOL Stop: 04/10/17 11:08 Miscellaneous (Tpn Per Pharmacy) 1 ea PRN PRN PRN Reason: PROTOCOL Stop: 04/11/17 07:48 Temazepam (Restoril) 15 mg PO HS PRN; Protocol PRN Reason: Insomnia Stop: 03/31/17 20:55 Last Admin: 01/30/17 21:43 Dose: 15 mg Tramadol HCl (Ultram) 50 mg PO Q6HR PRN PRN Reason: Pain (Moderate) Stop: 03/31/17 22:01 Last Admin: 02/07/17 07:04 Dose: 50 mg Trazodone HCl (Desyrel) 50 mg PO HS RICHELLE PRN Reason: Protocol Stop: 04/03/17 20:59 Last Admin: 02/10/17 00:20 Dose: Not Given General: no acute distress, cachectic HEENT: atraumatic, normocephalic, PERRLA, EOMI Neck: supple, no thyromegaly Cardiovascular: S1S2, regular Lungs: clear to auscultation bilaterally, clear to percussion Abdomen: soft, distended, no tender Extremities: no cyanosis, no clubbing, no edema Neurological: awake, alert Skin: intact - Procedures Procedures: Procedures Procedure Code Date GROUP PSYCHOTHERAPY 08862 01/14/16 GROUP PSYCHOTHERAPY [id number] 01/14/16 INSERT EMERGENCY AIRWAY 85049 01/30/17 INSERTION OF ENDOTRACHEAL AIRWAY INTO TRACHEA, VIA OPENING [id number] 01/30/17 RESPIRATORY VENTILATION, 24-96 CONSECUTIVE HOURS [id number] 01/30/17 TRANSFUSE NONAUT RED BLOOD CELLS IN PERIPH VEIN, PERC [id number] 01/16/17 VENT MGMT INPAT IN DAY 37464 01/30/17 Infectious Disease Assmt/Plan - Problem List Patient Problems: All Active Problems Agitation (Acute) R45.1 Combative behavior (Acute) R46.89 HTN (hypertension) (Acute) I10 Psychosis (Acute) F29 - Assessment Assessment: Impression: 1. Leukocytosis, multifactorial. ? malignanacy, sepsis, pneumonia. stable at 28, 000 2. pneumonia. 3. metastatic lesions of liver, not confirmed yet. 4. Dementia, 5. Psychosis 6. VDRF. 9. Suspect SBP. 10. Renal failure, acute on chronic. Recommendations: Continue meropenem. Blood cultures. Continue flagyl empirically suspecting CDAC with this high WBC Count.. Continue vanco IV. Nutritional Asmnt/Malnutr-PDOC - Dietary Evaluation Malnutrition Findings (Please click <Entered> for more info): Nutritional Asmnt/Malnutrition Start: 02/02/17 13: 54 Text: Status: Complete Freq: Document 02/02/17 13:54 GSUN (Rec: 02/02/17 14:04 GSUN [email or web address]) Nutritional Asmnt/Malnutrition Patient General Information Nutritional Screening Moderate Risk Screening Diagnosis Pneumonia, sepsis, acute kidney failure Pertinent Medical Hx/Surgical Hx Dementia, possible metastatic cancer to the liver Subjective Information 71 year old male. Pt was just admitted to [facility] on 01/16/17, bedscale 177.9lb on 01/23/17, bedscale 204lb today, likely inaccurate, edema noted. Pt appears overall thin, severe muscle/fat wasting to chest and clavicles. Pt is edentulous on ground diet, no difficulties. Pt was only able to answer simple questions, able to list to RD what he had for breakfast. RD encouraged PO intake due to hypermetabolic state, pt understood. CAM MAKER at bedside stated pt tolerates Boost Plus . Avg PO itnake 75% of meals, meeting 75% of estimated kcal needs. Current Diet Order/ Nutrition Support [facility] soft ground, Bosot Plus TID Pertinent Medications Vitamin C, Colace, Iron, Folate, MOM, Remeron, Vancomycin, D5-0.45ns Pertinent Labs 02/02: Potassium 5.5H, BUN 39H, creatinine 2.2H (declining), glucose 96 Nutritional Hx/Data Height 1.7 m Height (Calculated Centimeters) 170.2 Current Weight (lbs) 79.832 kg Weight (Calculated Kilograms) 79.8 Weight (Calculated Grams) 15842.3 [place] Body Weight 148lb GI Symptoms Skin Integrity/Comment: [place] 14. Bilateral leg and feet 4+ edema, some bruises. Estimated Nutritional Goals Calories/Kcals/Kg IBW 148lb/67.3kg Kcals Calculated 2356kcal (35kcal/kg) Protein g/kg: IBW Protein Calculated 67-101g (1-1.5g/kg, renal insuffieicny vs sepsis/ pneumonia/depletion) Nutritional Problem 2. Problem Problem Impaired nutrient utilization realted to Etiology acute renal failure Signs/Symptoms: progress note, elevated/ declining renal labs: [id number] Carpenter Assembler 2.2H potassium 5.5H 1. Problem Problem Increased kcal and prot needs related to Etiology hypermetabolic state aeb Signs/Symptoms: sepsis, pneumonia, severe muscle/fat depletion to clavicles and chest, possible metastatic cancer to the liver Malnutrition Alert Body Fat Depletion (Severe) Mod to Severe Depletion Muscle Mass (Severe) Mod to Severe Depletion Fluid Accumulation (Non-Severe) Moderate Mild Fluid Retention Intervention/Recommendation Comments 1. Recommend ground renal diet , dx. acute renal failure, elevated labs: BUN 39H [employer] 2. 2H Potassium 5.5H. 2. Recommend oral supplement change from Bosot Plus TID to Suplena TID, dx. acute renal failure, elevated labs: BUN 39H [employer] 2.2H Potassium 5.5H. Expected Outcomes/Goals Expected Outcomes/Goals 1. PO intake to meet 100% of estimated nutritional needs.
[2017-02-10] MEDS: MULTIVITAMIN IV SCH (18:39)
[2017-02-10] MEDS: AMINO ACIDS IV SCH (18:39)
[2017-02-10] MEDS: DEXT IV SCH (18:39)
[2017-02-10] MEDS: [UNRECOGNIZED DRUG - OTHER] IV SCH (18:39)
--- NOTE | 2017-02-10 20:38 | Consultation ---
DATE OF CONSULTATION: 02/09/2017 Patient in ICU. HISTORY OF PRESENT ILLNESS: This 71-year-old male was seen and examined at the courtesy of Dr. Mccarthy. The patient has been in the hospital for the last few days. He was transferred to ICU for a few days ago with respiratory failure and then apparently he has developed hypotension probably due to septic shock. The patient has pneumonia, also has been diagnosed with ____ liver masses probably metastatic disease, also was found to have acute kidney injury, electrolytes imbalance, dementia, psychosis, respiratory failure, has been on ventilator, history of GI bleeding, has pleural effusions also. The cardiac consultation was called regarding hypotension and sinus tachycardia. LABORATORY DATA: Reviewing the labs, sodium was 147, potassium 3.2, chloride 114, BUN 82, creatinine 2.3, glucose 100. Alpha-fetoprotein was very high at 832.4. ____ was high 2818. CEA was high at 13.4. WBC count was 30.4, hemoglobin 8.4, hematocrit 24.7, platelet count was 120. Chest x-ray, bilateral extensive infiltrates, effusion. EKG has shown sinus rhythm, right bundle-branch block pattern. PAST MEDICAL HISTORY, SOCIAL HISTORY, FAMILY HISTORY AND REVIEW OF SYSTEMS: Not available from the patient. PHYSICAL EXAMINATION: VITAL SIGNS: Heart rate was 120, sinus tachycardia, blood pressure was 110/70 on Levophed IV drip, on ventilator. SKIN: Normal. HEAD: Normocephalic. EYES: Conjunctivae were ____. There is no icterus in the eyes: Pupils reactive to light. NECK: There was no increased jugular vein distention. No thyromegaly, no lymphadenopathy. Carotids equal both sides. CHEST: Bilaterally symmetrical, moves well with respiration. Respiratory movements equal both sides. Trachea is central. There is note to percussion. Breath sounds, diminished air entry at the bases, rales and few rhonchi. CARDIOVASCULAR SYSTEM: PMI not well localized and no positional thrill. No parasternal heave. S1 is normal. S2 is physiologic. There was no S3, no rub. ABDOMEN: Soft, no tenderness, no rigidity, no guarding, no organomegaly. Bowel sounds normal. ____ free fluid, also ascites present. EXTREMITIES: Peripheral pulses diminished. IMPRESSION: Sinus tachycardia, hypotension, sepsis, septic shock, pneumonia, liver masses, anemia, gastrointestinal bleeding, respiratory failure on ventilator, right pleural effusion, acute kidney injury, electrolyte imbalance and thrombocytopenia. DISCUSSION AND PLAN: Suggest to continue present management. Sinus tachycardia is most probably due to underlying problem with infection, sepsis, septic shock, which will definitely improve once hypotension improves and sepsis under control. Suggest to continue Levophed IV drip for hypotension. Levophed maximum is reached then Jose-Synephrine might be added. GI plans as per bulk pigment reducer and antibiotic as per Infectious Disease. Suggest to keep the hematocrit above 30 and correct the electrolyte imbalance. We will get echocardiogram to evaluate left ventricular function and valvular structure and thyroid profile. Thank you, we will follow with you as needed. JOB# [id number]
[2017-02-11] MEDS: INSULIN ASPART SLIDING SCALE 100 UNITS/ML UNIT SUBQ SCH ×4 (01:08→17:57)
[2017-02-11] MEDS: Meropenem 500 MG in Sodium Chloride 0.9% 100 ML IV SCH ×2 (03:25→16:11)
[2017-02-11] MEDS: metroNIDAZOLE 500mg/NS 100mL 500 MG/100 ML BAG IV SCH ×3 (05:00→20:20)
[2017-02-11 05:10] LABS: RED BLOOD COUNT 2.49 Mil/cmm (3.80-5.80)
[2017-02-11 05:15] LABS: HEMOGLOBIN 9.1 gm/dL (12.6-17.4); MEAN CELL VOLUME 103.5 fl (80-99); MEAN CORPUSCULAR HEMOGLOBIN 36.4 pg (27.0-31.0); MEAN CORPUSCULAR HGB CONC 35.2 pg (28.0-36.0); MEAN PLATELET VOLUME 7.8 fl; RED CELL DISTRIBUTION WIDTH 27.7 % (11.5-20.0)
[2017-02-11 05:39] LABS: HEMATOCRIT 25.7 % (39.0-49.0); WHITE BLOOD COUNT 32.2 Th/cmm (4.8-10.8)
[2017-02-11 05:40] LABS: PLATELET COUNT 111 Th/cmm (150-400)
[2017-02-11 05:41] LABS: ANION GAP 13.9 (7.0-16.0); BUN/CREATININE RATIO 21.2; CALCIUM SERUM 9.5 mg/dL (8.6-10.3); CARBON DIOXIDE 20.9 mEq/L (21.0-31.0); CHLORIDE 101 mEq/L (98-107); GLUCOSE 144 mg/dL (70-105); MAGNESIUM 1.9 mg/dL (1.9-2.7); PHOSPHOROUS 4.6 mg/dL (2.5-5.0); POTASSIUM SERUM 3.8 mEq/L (3.5-5.1); SODIUM SERUM 132 mEq/L (136-145)
[2017-02-11 06:17] LABS: BUN - UREA NITROGEN 87 mg/dL (7-25)
[2017-02-11 06:19] LABS: CREATININE - SERUM 4.1 mg/dL (0.7-1.3)
[2017-02-11 06:44] LABS: BAND NEUTROPHILE 18 % (0-10); EOSINOPHIL 1 % (0-5); NEUTROPHILS 62 % (40-80); TOTAL CELLS COUNTED 100
[2017-02-11 06:45] LABS: ANISOCYTOSIS 3+; POLYCHROMASIA 1+
[2017-02-11 06:46] LABS: PLATELET ESTIMATE DECREASED PLATELETS (NORMAL); PLATELET MORPHOLOGY NORMAL (NORMAL)
[2017-02-11] MEDS: Albuterol/Ipratropium Neb 3 ML AERS HHN SCH ×3 (06:55→22:51)
[2017-02-11] MEDS: Budesonide 0.5 Mg/2 mL Ud HHN SCH ×2 (06:55→18:49)
--- NOTE | 2017-02-11 08:02 | Progress Notes ---
DATE: 02/10/2017 Case was discussed with staff of the patient, reviewed records. The patient continues to be in ICU. He is ____ progress. He is interacting a little bit better. At this point, he does not seem ____ treatment for his cancer. It is going to be mostly palliative treatment, and so far, he has been compliant with the medication with no side effects. Thank you very much for allowing me to participate in the care of this most interesting gentleman. JOB# [id number]
[2017-02-11] MEDS: Ferrous Sulfate 325 MG TAB PO SCH (08:19)
[2017-02-11] MEDS: Lactobacillus Rhamnosus 10 Billion CFU Capsule PO SCH (08:19)
[2017-02-11] MEDS: Chlorhexidine Gluconate 0.12% 15mL Mouthwash MM SCH ×2 (08:30→20:23)
[2017-02-11] MEDS: Furosemide 100 MG in Sodium Chloride 0.9% 90 ML IV SCH ×2 (08:31→14:21)
[2017-02-11] MEDS: DOPamine 400 MG/250 ML BAG IV PRN (08:37)
--- NOTE | 2017-02-11 10:56 | Diagnostic Imaging Report ---
Portable chest x-ray HISTORY: Congestive heart failure Compared with prior exam of February 10, 2017, the heart remains enlarged. Persistent bilateral pleural effusions and bilateral infiltrates. Findings consistent with congestive heart failure and pulmonary edema. An endotracheal tube tip is approximately 3.5 cm above the wolf. IMPRESSION: 1. Little change in findings system with congestive heart failure with bilateral pleural effusions and pulmonary edema. Underlying pneumonia cannot be excluded. Clinical relation needed.
[2017-02-11] MEDS: DEXT IV SCH (16:11)
[2017-02-11] MEDS: AMINO ACIDS IV SCH (16:11)
[2017-02-11] MEDS: MULTIVITAMIN IV SCH (16:11)
[2017-02-11] MEDS: [UNRECOGNIZED DRUG - OTHER] IV SCH (16:11)
[2017-02-11] MEDS: Pantoprazole 80 MG in Sodium Chloride 0.9% 100 ML IV SCH (17:38)
[2017-02-11] MEDS: Albumin 25% 25gm/100mL 25 GM/100 ML BTL IV SCH (17:50)
[2017-02-12] MEDS: INSULIN ASPART SLIDING SCALE 100 UNITS/ML UNIT SUBQ SCH ×3 (00:55→13:25)
--- NOTE | 2017-02-12 02:16 | Progress Notes ---
DATE: 02/11/2017 The patient is currently in ICU. The patient continues to do the same, not much progress. His physical condition is not very good with ____ prognosis and apparently, they are going to give him only palliative treatment. He has a mass in the liver and according to the unloader, he was transfused blood. Apparently, he got worse with respiratory failure with low blood pressure. He is conserved and the family asked me if they could takeover the conservatorship. I explained to them that it is not my decision. It is decision and so far no side effects with the medication. Thank you very much for allowing me to participate in care of this most interesting gentleman. JOB# [id number]
[2017-02-12] MEDS: Meropenem 500 MG in Sodium Chloride 0.9% 100 ML IV SCH ×2 (03:11→16:23)
[2017-02-12] MEDS: Pantoprazole 80 MG in Sodium Chloride 0.9% 100 ML IV SCH ×3 (03:21→23:40)
[2017-02-12] MEDS: metroNIDAZOLE 500mg/NS 100mL 500 MG/100 ML BAG IV SCH ×3 (04:33→20:26)
[2017-02-12] MEDS ORDERED: Nitroglycerin 50mg/D5W Premix 50 MG/250 ML INFUS..BTL IV ONE (04:48)
[2017-02-12] MEDS: Morphine Sulfate 2 mg/mL 1mL Syr IVP PRN (05:31)
--- NOTE | 2017-02-12 06:36 | Progress Notes ---
DATE: 02/11/2017 PULMONARY/ICU CRITICAL CARE PROGRESS NOTE PROBLEM LIST: 1. Persistent respiratory failure. 2. Bilateral effusion. 3. Possibly suspect malignancy in the stomach. 4. Significant disability condition, on vasopressors. SYMPTOMS: Nil. No respiratory distress. PHYSICAL EXAMINATION: VITAL SIGNS: Temperature is 96, heart rate is 110-120, BP is 80s-90s, and saturation is 95%-100% on 40% of assist-control mode of ventilator. NECK: Veins not visualized. Good bilateral carotid upstroke. CHEST: Shows diminished air entry with occasional rhonchi. HEART: Regular. ABDOMEN: Soft and nontender. .LABORATORY DATA: White count is 32,000. Electrolytes are okay. Creatinine 4.1 and BUN is 87. ASSESSMENT: The patient clinically appears to be unchanged. Slightly improvement in leukocytosis, but overall, poor condition. PLANS AND SUGGESTION: We will go ahead and continue current treatment. We will follow through other studies in the next few days' time. JOB# [id number]
[2017-02-12] MEDS: Budesonide 0.5 Mg/2 mL Ud HHN SCH ×2 (07:19→19:12)
[2017-02-12] MEDS: Albuterol/Ipratropium Neb 3 ML AERS HHN SCH ×3 (07:19→23:04)
[2017-02-12 07:33] LABS: HEMATOCRIT 24.5 % (39.0-49.0); HEMOGLOBIN 8.6 gm/dL (12.6-17.4); MEAN CORPUSCULAR HEMOGLOBIN 36.8 pg (27.0-31.0); PLATELET COUNT 117 Th/cmm (150-400); RED BLOOD COUNT 2.33 Mil/cmm (3.80-5.80); RED CELL DISTRIBUTION WIDTH 29.4 % (11.5-20.0)
[2017-02-12 07:51] LABS: WHITE BLOOD COUNT 34.8 Th/cmm (4.8-10.8)
[2017-02-12 07:52] LABS: INR 1.58 (0.5-1.4); MEAN CELL VOLUME 105.1 fl (80-99); PROTHROMBIN TIME (TEST) 16.8 SECONDS (9.5-11.5)
[2017-02-12 07:58] LABS: ALB/GLOB RATIO 0.8 (1.0-1.8); ALKALINE PHOSPHATASE 101 U/L (34-104); BILIRUBIN,DIRECT 1.27 mg/dL (0.0-0.2); BILIRUBIN,TOTAL 1.9 mg/dL (0.3-1.0); CALCIUM SERUM 9.5 mg/dL (8.6-10.3); CARBON DIOXIDE 20.7 mEq/L (21.0-31.0); CHLORIDE 99 mEq/L (98-107); GLUCOSE 161 mg/dL (70-105); MAGNESIUM 2.1 mg/dL (1.9-2.7); PHOSPHOROUS 5.1 mg/dL (2.5-5.0); POTASSIUM SERUM 3.7 mEq/L (3.5-5.1); SGOT 52 U/L (13-39); SGPT/ALT 9 U/L (7-52); SODIUM SERUM 129 mEq/L (136-145)
[2017-02-12 08:12] LABS: BUN - UREA NITROGEN 94 mg/dL (7-25); CREATININE - SERUM 4.7 mg/dL (0.7-1.3)
[2017-02-12 08:21] LABS: BAND NEUTROPHILE 20 % (0-10); EOSINOPHIL 2 % (0-5); NEUTROPHILS 58 % (40-80); PLATELET ESTIMATE DECREASED PLATELETS (NORMAL); TOTAL CELLS COUNTED 100
[2017-02-12 08:22] LABS: ANISOCYTOSIS 3+
[2017-02-12 08:46] LABS: CHOLESTEROL 51 mg/dL (<200); TRIGLYCERIDES 89 mg/dL (<150)
[2017-02-12] MEDS: Lactobacillus Rhamnosus 10 Billion CFU Capsule PO SCH (09:13)
[2017-02-12] MEDS: Ferrous Sulfate 325 MG TAB PO SCH (09:13)
--- NOTE | 2017-02-12 11:03 | Diagnostic Imaging Report ---
Portable chest x-ray HISTORY: Shortness of breath, congestive heart failure Compared with prior exam of 02/11/2017, the heart remains enlarged. There are persistent bilateral pleural effusions (right greater than left). Pulmonary vascular redistribution is seen. An endotracheal tube tip is approximately 3.5 cm above the wolf. IMPRESSION: 1. Little change in findings consistent with congestive heart failure and bilateral pleural effusions.
--- NOTE | 2017-02-12 11:44 | Infectious Disease Prog Note ---
Infectious Disease Subjective - Review of Systems Service Date: 02/12/17 Subjective: Yesterday, remains intubated orally, on the ventilator. Has developed low grade fever. Infectious Disease Objective - Results Result Diagrams: 02/12/17 07:00 02/12/17 07:00 Recent Labs: Laboratory Last Values WBC 34.8 Th/cmm (4.8-10.8) H* 02/12/17 07:00 RBC 2.33 Mil/cmm (3.80-5.80) L 02/12/17 07:00 Hgb 8.6 gm/dL (12.6-17.4) L 02/12/17 07:00 Hct 24.5 % (39.0-49.0) L 02/12/17 07:00 MCV 105.1 fl (80-99) H 02/12/17 07:00 MCH 36.8 pg (27.0-31.0) H 02/12/17 07:00 MCHC Differential 35.0 pg (28.0-36.0) 02/12/17 07:00 RDW 29.4 % (11.5-20.0) H 02/12/17 07:00 Plt Count 117 Th/cmm (150-400) L 02/12/17 07:00 MPV 8.0 fl 02/12/17 07:00 Neutrophils % EQUIPMENT CLEANER AND TESTER 02/11/17 05:00 Band Neutrophils % 20 % (0-10) H 02/12/17 07:00 Lymphocytes % [employer]IPMENT [employer] 02/11/17 05:00 Monocytes % EQUIPMENT CLE[employer]ER [employer] TESTER 02/11/17 05:00 Eosinophils % E[employer]IPMENT CLE[employer]ER AND TESTER 02/11/17 05:00 Basophils % E[employer]IPMENT CLE[employer]ER AND TESTER 02/11/17 05:00 Neutrophils (Manual) 58 % (40-80) 02/12/17 07:00 Lymphocytes 11 % (20-50) L 02/12/17 07:00 Monocytes 9 % (2-10) 02/12/17 07:00 Eosinophils 2 % (0-5) 02/12/17 07:00 Metamyelocytes 2 % (0-0) H 02/06/17 05:48 Platelet Estimate DECREASED PLATELETS (NORMAL) 02/12/17 07:00 Platelet Morphology NORMAL (NORMAL) 02/11/17 05:00 Polychromasia 1+ 02/11/17 05:00 Poikilocytosis 1+ 02/06/17 05:48 Anisocytosis 3+ 02/12/17 07:00 Macrocytosis 1+ 02/12/17 07:00 Ovalocytes 1+ 02/04/17 06:37 RBC Morph Micro Appear ABNORMAL (NORMAL) 02/12/17 07:00 Smear Path Review SEE BELOW 02/09/17 04:45 PT 16.8 SECONDS (9.5-11.5) H 02/12/17 07:00 INR 1.58 (0.5-1.4) H 02/12/17 07:00 PTT (Actin FS) 45.0 SECONDS (26.0-38.0) H 02/12/17 07:00 Specimen Source Arterial 02/09/17 08:45 Sample Site Right Radial 02/09/17 08:45 pH 7.32 (7.35-7.45) L 02/09/17 08:45 pCO2 38.0 mmHg (35.0-45.0) 02/09/17 08:45 pO2 65.0 mmHg (80.0-100.0) L 02/09/17 08:45 HCO3 20.1 mEq/L (20.0-26.0) 02/09/17 08:45 Base Excess -6.0 mEq/L (-3.0-3.0) L 02/09/17 08:45 O2 Saturation 91.0 % (92.0-100.0) L 02/09/17 08:45 Dwayne Test YES 02/09/17 08:45 Vent Rate 12 02/09/17 08:45 Inspired O2 40 02/09/17 08:45 Tidal Volume 500 02/09/17 08:45 PEEP NA 02/09/17 08:45 Pressure (ins/psv/peep) NA 02/09/17 08:45 Critical Value E.DIAMOND 02/09/17 08:45 Sodium 129 mEq/L (136-145) L 02/12/17 07:00 Potassium 3.7 mEq/L (3.5-5.1) 02/12/17 07:00 Chloride 99 mEq/L (98-107) 02/12/17 07:00 Carbon Dioxide 20.7 mEq/L (21.0-31.0) L 02/12/17 07:00 Anion Gap 13.0 (7.0-16.0) 02/12/17 07:00 BUN 94 mg/dL (7-25) H* 02/12/17 07:00 Creatinine 4.7 mg/dL (0.7-1.3) H* 02/12/17 07:00 Est GFR ( Amer) TNP 02/12/17 07:00 Est GFR (Non-Af Amer) TNP 02/12/17 07:00 BUN/Creatinine Ratio 20.0 02/12/17 07:00 Glucose 161 mg/dL (70-105) H 02/12/17 07:00 POC Glucose 176 MG/DL (70 - 105) H 02/12/17 06:15 Whole Bld Lactic Acid 2.02 mmol/L (0.60-1.99) H* 01/30/17 12:20 Calcium 9.5 mg/dL (8.6-10.3) 02/12/17 07:00 Phosphorus 5.1 mg/dL (2.5-5.0) H 02/12/17 07:00 Magnesium 2.1 mg/dL (1.9-2.7) 02/12/17 07:00 Iron 151 ug/dL (38-169) 02/04/17 06:37 TIBC 178 ug/dL (250-450) L 02/04/17 06:37 Iron Saturation 85 % (15-55) H 02/04/17 06:37 Unsaturated IBC 27 ug/dL (111-343) L 02/04/17 06:37 Ferritin 1222 ng/mL (30-400) H 02/04/17 06:37 Total Bilirubin 1.9 mg/dL (0.3-1.0) H 02/12/17 07:00 Direct Bilirubin 1.27 mg/dL (0.0-0.2) H 02/12/17 07:00 AST 52 U/L (13-39) H 02/12/17 07:00 ALT 9 U/L (7-52) 02/12/17 07:00 Alkaline Phosphatase 101 U/L (34-104) 02/12/17 07:00 Ammonia 53 umol/L (16-53) 02/12/17 07:00 Total Protein 5.7 gm/dL (6.0-8.3) L 02/12/17 07:00 Albumin 2.6 gm/dL (4.2-5.5) L 02/12/17 07:00 Globulin 3.1 gm/dL 02/12/17 07:00 Albumin/Globulin Ratio 0.8 (1.0-1.8) L 02/12/17 07:00 Prealbumin 6 mg/dL (9-32) L 02/10/17 04:45 [id number]-[id number] 236 mg/dL (90-200) H 02/04/17 06:37 Ceruloplasmin 34.0 mg/dL (16.0-31.0) H 02/04/17 06:37 Triglycerides 89 mg/dL (<150) 02/12/17 07:00 Cholesterol 51 mg/dL (<200) 02/12/17 07:00 LDL Cholesterol Direct 46 mg/dL (75-193) L 01/30/17 10:20 HDL Cholesterol 19 mg/dL (23-92) L 01/30/17 10:20 Tumor Marker AFP 832.4 ng/mL (0.0-8.3) H 02/05/17 06:37 Carcinoembryonic Ag 13.4 ng/mL (0.0-4.7) H 02/04/17 06:37 CA 19-9 Antigen 2818 U/mL (0-35) H 02/04/17 06:37 TSH 0.32 uIU/ml (0.34-5.60) L 02/10/17 04:45 Urine Source CLEAN C 01/30/17 11:05 Urine Color LOS 01/30/17 11:05 Urine Clarity CLEAR (CLEAR) 01/30/17 11:05 Urine pH 5.0 01/30/17 11:05 Ur Specific [place] 1.020 (1.005-1.030) 01/30/17 11:05 Urine Protein 30 mg/dL (NEGATIVE) H 01/30/17 11:05 Urine Glucose (UA) NEGATIVE mg/dL (NEGATIVE) 01/30/17 11:05 Urine Ketones 15 mg/dL (NEGATIVE) H 01/30/17 11:05 Urine Blood NEGATIVE (NEGATIVE) 01/30/17 11:05 Urine Nitrate POSITIVE (NEGATIVE) H 01/30/17 11:05 Urine Bilirubin SMALL (NEGATIVE) H 01/30/17 11:05 Urine Urobilinogen 0.2 E.U./dL (0.2 - 1.0) 01/30/17 11:05 Ur Leukocyte Esterase NEGATIVE (NEGATIVE) 01/30/17 11:05 Urine RBC 0-2 /hpf (0-5) H 01/30/17 11:05 Urine WBC 2-5 /hpf (0-5) H 01/30/17 11:05 Ur Epithelial Cells OCCASIONAL /lpf (FEW) 01/30/17 11:05 Urine Bacteria MODERATE /hpf (NONE SEEN) 01/30/17 11:05 Urine Mucus FEW /lpf (FEW) 01/30/17 11:05 Stool Occult Blood NEGATIVE (NEGATIVE) 02/11/17 17:05 Vancomycin Trough 39.3 ug/mL (10-20) H 02/02/17 16:35 Random Vancomycin 23.4 ug/mL (5.0-40.0) 02/12/17 07:00 Anti-Mitochondrial Ab 25.7 Units (0.0-20.0) H 02/04/17 06:37 Smooth Muscle IgG Ab 38 Units (0-19) H 02/04/17 06:37 RPR NONREACTIVE (NONREACTIVE) 01/30/17 10:20 Hepatitis A IgM Ab Negative (Negative) 01/30/17 10:20 Hep Bs Antigen Negative (Negative) 01/30/17 10:20 Hep B Core IgM Ab Negative (Negative) 01/30/17 10:20 Hepatitis C Antibody >11.0 s/co ratio (0.0-0.9) H 01/30/17 10:20 Blood Type O POSITIVE 02/10/17 07:16 Antibody Screen NEGATIVE 02/10/17 07:16 Crossmatch See Detail 02/10/17 07:16 - Physical Exam Vitals and I&O: Vital Signs Temp 98.7 F 02/12/17 04:00 Pulse 100 02/12/17 11:15 Resp 18 02/12/17 07:00 BP 99/62 02/12/17 08:15 Pulse Ox 93 02/12/17 11:15 Intake & Output 02/11/17 02/12/17 02/12/17 18:59 06:59 18:59 Intake Total 4343.523 962.833 Output Total 95 100 Balance 4248.523 862.833 Weight (lbs) 80.739 kg Intake: Intake, IV Amount 2404.523 242.833 DOPamine 400 mg In 250 ml 216.292 @ 3 MCG/KG/MIN 8.981 mls /hr IV TITR PRN Rx#: [id number] Furosemide 100 mg In 29.167 Sodium Chloride 0.9% 90 ml @ 5 mls/hr IV TITR [facility] Rx#:[id number] Meropenem 500 mg In 100 Sodium Chloride 0.9% 100 ml @ 100 mls/hr IV Q12H [facility] Rx#:[id number] Multivitamin Inj 10 ml In 1507.333 Amino Acids 4.25% /Dext 10% 1,000 ml In Intralipids 20% 500 ml In Dextrose 20% 170 ml @ 60 mls/hr IV .Q24H [facility] Rx#: [id number] Norepinephrine 8 mg In 214.398 45.666 Dextrose 5% 250 ml @ 0 MCG/MIN IV TITR PRN Rx#: [id number] Octreotide Acetate 1,250 237.333 mcg In Sodium Chloride 0. 9% 250 ml @ 10 mls/hr IV .Q24H [facility] Rx#:[id number] Pantoprazole 80 mg In 97.167 Sodium Chloride 0.9% 100 ml @ 10 mls/hr IV Q10H [facility] Rx#:[id number] metroNIDAZOLE 500mg/NS 100 100 100mL 500 mg In 100 ml @ 100 mls/hr IV Q8HR [facility] Rx #:[id number] Oral 0 TPN/PPN 1440 720 Albumin 100 Other 399 Output: Gastric Drainage 25 Urine 70 100 Other: # Bowel Movements 1 1 Stool Characteristics Liquid Mucoid Black Active Medications: Current Medications Acetaminophen (Tylenol) 650 mg PO Q4H PRN PRN Reason: Fever > 100 Stop: 03/31/17 16:47 Last Admin: 02/11/17 20:22 Dose: 650 mg Albuterol/Ipratropium (Duoneb Neb) 3 ml HHN Q8HRT [facility] Stop: 03/31/17 14:59 Last Admin: 02/12/17 07:19 Dose: 3 ml Albuterol/Ipratropium (Duoneb Neb) 3 ml HHN Q4H PRN PRN Reason: Wheezing Stop: 04/08/17 19:25 Ascorbic Acid (Vitamin C) 500 mg PO DAILY [facility] Stop: 04/01/17 19:29 Last Admin: 02/12/17 09:13 Dose: 500 mg Budesonide (Pulmicort) 0.5 mg HHN BIDRT [facility] Stop: 04/09/17 06:59 Last Admin: 02/12/17 07:19 Dose: 0.5 mg Chlorhexidine Gluconate (Peridex) 15 ml MM 0800,2000 [facility] Stop: 04/08/17 19:59 Last Admin: 02/11/17 20:23 Dose: 15 ml Docusate Sodium (Colace) 100 mg PO BID [facility] Stop: 04/01/17 19:29 Last Admin: 02/12/17 09:17 Dose: 100 mg Ferrous Sulfate (Iron) 325 mg PO DAILY [facility] Stop: 04/02/17 08:59 Last Admin: 02/12/17 09:13 Dose: 325 mg Folic Acid (Folate) 1 mg PO DAILY [facility] Stop: 04/01/17 19:29 Last Admin: 02/12/17 09:14 Dose: 1 mg Gabapentin (Neurontin) 300 mg PO BID [facility] Stop: 04/02/17 08:59 Last Admin: 02/12/17 09:18 Dose: 300 mg Heparin Sodium (Porcine) (Heparin) 5,000 units HD UD [facility] Stop: 02/13/17 00:00 Last Admin: 02/12/17 09:14 Dose: 5,000 units Pantoprazole Sodium 80 mg/ (Sodium Chloride) 100 mls @ 10 mls/hr IV Q10H [facility] Stop: 04/09/17 07:59 Last Admin: 02/12/17 03:21 Dose: 10 mls/hr Octreotide Acetate 1,250 mcg/ (Sodium Chloride) 252.5 mls @ 10 mls/hr IV .Q24H [facility] Stop: 04/09/17 07:59 Last Admin: 02/11/17 08:32 Dose: 10 mls/hr Metronidazole (Flagyl) 500 mg in 100 mls @ 100 mls/hr IV Q8HR [facility] Stop: 04/09/17 20:59 Last Admin: 02/12/17 04:33 Dose: 100 mls/hr Multivitamins/Minerals 10 ml/Amino Acids/ Fat Emulsion Intravenous/ Dextrose 1, 680 mls @ 60 mls/hr IV .Q24H [facility] Stop: 04/11/17 15:59 Last Admin: 02/11/17 16:11 Dose: 70 mls/hr Norepinephrine Bitartrate 8 mg (/ Dextrose) 258 mls @ 0 mls/hr IV TITR PRN; Protocol; 0 MCG/MIN PRN Reason: BP MAINTENANCE (PER PROTOCOL) Stop: 04/11/17 13:44 Last Titration: 02/12/17 04:29 Dose: 10 mcg/min, 19.35 mls/hr Furosemide 100 mg/ Sodium (Chloride) 100 mls @ 5 mls/hr IV TITR [facility] Stop: 04/11/17 14:27 Last Admin: 02/11/17 14:21 Dose: 5 mls/hr Meropenem 500 mg/ Sodium (Chloride) 100 mls @ 100 mls/hr IV Q12H [facility] Stop: 04/11/17 15:44 Last Admin: 02/12/17 03:11 Dose: 100 mls/hr Albumin Human (Albuminar 25%) 25 gm in 100 mls @ 50 mls/hr IV 2XW [facility] Stop: 02/13/17 19:00 Last Admin: 02/11/17 17:50 Dose: 50 mls/hr Insulin Aspart (Novolog Insulin Sliding Scale) 0 units SUBQ Q6H [facility] PRN Reason: Protocol Stop: 04/10/17 11:59 Last Admin: 02/12/17 07:36 Dose: 2 units Lactobacillus Rhamnosus (Culturelle) 1 each PO DAILY [facility] Stop: 04/11/17 08:59 Last Admin: 02/12/17 09:13 Dose: 1 each Magnesium Hydroxide (Milk Of Magnesia) 30 ml PO DAILY PRN PRN Reason: Constipation Stop: 04/01/17 19:18 Mirtazapine (Remeron) 22.5 mg PO HS [facility] PRN Reason: Protocol Stop: 04/01/17 20:59 Last Admin: 02/11/17 20:20 Dose: 22.5 mg Miscellaneous (Vancomycin Iv Per Pharmacy) 1 ea MC PRN PRN PRN Reason: PROTOCOL Stop: 03/31/17 16:29 Miscellaneous (Probiotic Screen) 1 ea MC PRN PRN PRN Reason: PROTOCOL Stop: 04/10/17 11:08 Miscellaneous (Tpn Per Pharmacy) 1 ea PRN PRN PRN Reason: PROTOCOL Stop: 04/11/17 07:48 Morphine Sulfate (Morphine) 2 mg IVP Q4HR PRN PRN Reason: Pain (Moderate) Stop: 04/12/17 20:41 Last Admin: 02/12/17 05:31 Dose: 2 mg Temazepam (Restoril) 15 mg PO HS PRN; Protocol PRN Reason: Insomnia Stop: 03/31/17 20:55 Last Admin: 01/30/17 21:43 Dose: 15 mg Tramadol HCl (Ultram) 50 mg PO Q6HR PRN PRN Reason: Pain (Moderate) Stop: 03/31/17 22:01 Last Admin: 02/07/17 07:04 Dose: 50 mg Trazodone HCl (Desyrel) 50 mg PO HS [facility] PRN Reason: Protocol Stop: 04/03/17 20:59 Last Admin: 02/11/17 20:22 Dose: 50 mg General: no acute distress, cachectic, other (On the ventilattor support. Remains intubated orally.) HEENT: atraumatic, normocephalic, PERRLA, EOMI, moist mucous membrane Neck: supple, no thyromegaly, no lymphadenopathy Cardiovascular: S1S2, regular Lungs: clear to auscultation bilaterally, clear to percussion Abdomen: soft, distended, no tender Extremities: no cyanosis, no clubbing, no edema Neurological: other (sedated.) Skin: intact - Procedures Procedures: Procedures Procedure Code Date GROUP PSYCHOTHERAPY 93234 01/14/16 GROUP PSYCHOTHERAPY [id number] 01/14/16 INSERT EMERGENCY AIRWAY 45555 01/30/17 INSERTION OF ENDOTRACHEAL AIRWAY INTO [place]HEA, VIA OPENING [id number] 01/30/17 RESPIRATORY VENTILATION, 24-96 CONSECUTIVE HOURS [id number] 01/30/17 TRANSFUSE NONAUT RED BLOOD CELLS IN PERIPH VEIN, PERC [id number] 01/16/17 VENT MGMT INPAT INIT DAY 92685 01/30/17 Infectious Disease Assmt/Plan - Problem List Patient Problems: All Active Problems Agitation (Acute) R45.1 Combative behavior (Acute) R46.89 HTN (hypertension) (Acute) I10 Psychosis (Acute) F29 - Assessment Assessment: Impression: 1. Leukocytosis, multifactorial. ? malignanacy, sepsis, pneumonia. 2. pneumonia. 3. metastatic lesions of liver, not confirmed yet. 4. Dementia, 5. Psychosis 6. VDRF. 9. Suspect SBP. 10. Renal failure, acute on chronic. Recommendations: Continue meropenem. Continue flagyl empirically suspecting CDAC with this high WBC Count.. Continue vanco IV. Nutritional Asmnt/Malnutr-PDOC - Dietary Evaluation Malnutrition Findings (Please click <Entered> for more info): Nutritional Asmnt/Malnutrition Start: 02/02/17 13: 54 Text: Status: Complete Freq: Document 02/02/17 13:54 GSUN (Rec: 02/02/17 14:04 [id number] [email or web address]) Nutritional Asmnt/Malnutrition Patient General Information Nutritional Screening Moderate Risk Screening Diagnosis Pneumonia, sepsis, acute kidney failure Pertinent Medical Hx/Surgical Hx Dementia, possible metastatic cancer to the liver Subjective Information 71 year old male. Pt was just admitted to [facility] on 01/16/17, bedscale 177.9lb on 01/23/17, bedscale 204lb today, likely inaccurate, edema noted. Pt appears overall thin, severe muscle/fat wasting to chest and clavicles. Pt is edentulous on ground diet, no difficulties. Pt was only able to answer simple questions, able to list to RD what he had for breakfast. RD encouraged PO intake due to hypermetabolic state, pt understood. SUPERVISOR WEBBING at bedside stated pt tolerates Boost Plus . Avg PO itnake 75% of meals, meeting 75% of estimated kcal needs. Current Diet Order/ Nutrition Support [facility] soft ground, Bosot Plus TID Pertinent Medications Vitamin C, Colace, Iron, Folate, MOM, Remeron, Vancomycin, D5-0.45ns Pertinent Labs 02/02: Potassium 5.5H, BUN 39H, creatinine 2.2H (declining), glucose 96 Nutritional Hx/Data Height 1.7 m Height (Calculated Centimeters) 170.2 Current Weight (lbs) 79.832 kg Weight (Calculated Kilograms) 79.8 Weight (Calculated Grams) 86093.3 [place] Body Weight 148lb GI Symptoms Skin Integrity/Comment: [place] 14. Bilateral leg and feet 4+ edema, some bruises. Estimated Nutritional Goals Calories/Kcals/Kg IBW 148lb/67.3kg Kcals Calculated 2356kcal (35kcal/kg) Protein g/kg: IBW Protein Calculated 67-101g (1-1.5g/kg, renal insuffieicny vs sepsis/ pneumonia/depletion) Nutritional Problem 2. Problem Problem Impaired nutrient utilization realted to Etiology acute renal failure Signs/Symptoms: MD progress note, elevated/ declining renal labs: [id number] Guard Manager 2.2H potassium 5.5H 1. Problem Problem Increased kcal and prot needs related to Etiology hypermetabolic state aeb Signs/Symptoms: sepsis, pneumonia, severe muscle/fat depletion to clavicles and chest, possible metastatic cancer to the liver Malnutrition Alert Body Fat Depletion (Severe) Mod to Severe Depletion Muscle Mass (Severe) Mod to Severe Depletion Fluid Accumulation (Non-Severe) Moderate Mild Fluid Retention Intervention/Recommendation Comments 1. Recommend ground renal diet , dx. acute renal failure, elevated labs: BUN 39H Guard Manager 2. 2H Potassium 5.5H. 2. Recommend oral supplement change from Bosot Plus TID to Suplena TID, dx. acute renal failure, elevated labs: BUN 39H Guard Manager 2.2H Potassium 5.5H. Expected Outcomes/Goals Expected Outcomes/Goals 1. PO intake to meet 100% of estimated nutritional needs.
[2017-02-12] MEDS: Furosemide 100 MG in Sodium Chloride 0.9% 90 ML IV SCH (12:44)
--- NOTE | 2017-02-12 13:09 | General Progress Note ---
Subjective - Review of Systems Service Date: 02/12/17 Subjective: more obtunded today Objective - Results Result Diagrams: 02/12/17 07:00 02/12/17 07:00 Recent Labs: Laboratory Last Values WBC 34.8 Th/cmm (4.8-10.8) H* 02/12/17 07:00 RBC 2.33 Mil/cmm (3.80-5.80) L 02/12/17 07:00 Hgb 8.6 gm/dL (12.6-17.4) L 02/12/17 07:00 Hct 24.5 % (39.0-49.0) L 02/12/17 07:00 MCV 105.1 fl (80-99) H 02/12/17 07:00 MCH 36.8 pg (27.0-31.0) H 02/12/17 07:00 MCHC Differential 35.0 pg (28.0-36.0) 02/12/17 07:00 RDW 29.4 % (11.5-20.0) H 02/12/17 07:00 Plt Count 117 Th/cmm (150-400) L 02/12/17 07:00 MPV 8.0 fl 02/12/17 07:00 Neutrophils % RN PROVIDER RELATIONS 02/11/17 05:00 Band Neutrophils % 20 % (0-10) H 02/12/17 07:00 Lymphocytes % RN PROVIDER RELATIONS 02/11/17 05:00 Monocytes % RN PROVIDER RELATIONS 02/11/17 05:00 Eosinophils % RN PROVIDER RELATIONS 02/11/17 05:00 Basophils % RN PROVIDER RELATIONS 02/11/17 05:00 Neutrophils (Manual) 58 % (40-80) 02/12/17 07:00 Lymphocytes 11 % (20-50) L 02/12/17 07:00 Monocytes 9 % (2-10) 02/12/17 07:00 Eosinophils 2 % (0-5) 02/12/17 07:00 Metamyelocytes 2 % (0-0) H 02/06/17 05:48 Platelet Estimate DECREASED PLATELETS (NORMAL) 02/12/17 07:00 Platelet Morphology NORMAL (NORMAL) 02/11/17 05:00 Polychromasia 1+ 02/11/17 05:00 Poikilocytosis 1+ 02/06/17 05:48 Anisocytosis 3+ 02/12/17 07:00 Macrocytosis 1+ 02/12/17 07:00 Ovalocytes 1+ 02/04/17 06:37 RBC Morph Micro Appear ABNORMAL (NORMAL) 02/12/17 07:00 Smear Path Review SEE BELOW 02/09/17 04:45 PT 16.8 SECONDS (9.5-11.5) H 02/12/17 07:00 INR 1.58 (0.5-1.4) H 02/12/17 07:00 PTT (Actin FS) 45.0 SECONDS (26.0-38.0) H 02/12/17 07:00 Specimen Source Arterial 02/09/17 08:45 Sample Site Right Radial 02/09/17 08:45 pH 7.32 (7.35-7.45) L 02/09/17 08:45 pCO2 38.0 mmHg (35.0-45.0) 02/09/17 08:45 pO2 65.0 mmHg (80.0-100.0) L 02/09/17 08:45 HCO3 20.1 mEq/L (20.0-26.0) 02/09/17 08:45 Base Excess -6.0 mEq/L (-3.0-3.0) L 02/09/17 08:45 O2 Saturation 91.0 % (92.0-100.0) L 02/09/17 08:45 Dwayne Test YES 02/09/17 08:45 Vent Rate 12 02/09/17 08:45 Inspired O2 40 02/09/17 08:45 Tidal Volume 500 02/09/17 08:45 PEEP NA 02/09/17 08:45 Pressure (ins/psv/peep) NA 02/09/17 08:45 Critical Value E.DIAMOND 02/09/17 08:45 Sodium 129 mEq/L (136-145) L 02/12/17 07:00 Potassium 3.7 mEq/L (3.5-5.1) 02/12/17 07:00 Chloride 99 mEq/L (98-107) 02/12/17 07:00 Carbon Dioxide 20.7 mEq/L (21.0-31.0) L 02/12/17 07:00 Anion Gap 13.0 (7.0-16.0) 02/12/17 07:00 BUN 94 mg/dL (7-25) H* 02/12/17 07:00 Creatinine 4.7 mg/dL (0.7-1.3) H* 02/12/17 07:00 Est GFR ( Amer) TNP 02/12/17 07:00 Est GFR (Non-Af Amer) TNP 02/12/17 07:00 BUN/Creatinine Ratio 20.0 02/12/17 07:00 Glucose 161 mg/dL (70-105) H 02/12/17 07:00 POC Glucose 176 MG/DL (70 - 105) H 02/12/17 06:15 Whole Bld Lactic Acid 2.02 mmol/L (0.60-1.99) H* 01/30/17 12:20 Calcium 9.5 mg/dL (8.6-10.3) 02/12/17 07:00 Phosphorus 5.1 mg/dL (2.5-5.0) H 02/12/17 07:00 Magnesium 2.1 mg/dL (1.9-2.7) 02/12/17 07:00 Iron 151 ug/dL (38-169) 02/04/17 06:37 TIBC 178 ug/dL (250-450) L 02/04/17 06:37 Iron Saturation 85 % (15-55) H 02/04/17 06:37 Unsaturated IBC 27 ug/dL (111-343) L 02/04/17 06:37 Ferritin 1222 ng/mL (30-400) H 02/04/17 06:37 Total Bilirubin 1.9 mg/dL (0.3-1.0) H 02/12/17 07:00 Direct Bilirubin 1.27 mg/dL (0.0-0.2) H 02/12/17 07:00 AST 52 U/L (13-39) H 02/12/17 07:00 ALT 9 U/L (7-52) 02/12/17 07:00 Alkaline Phosphatase 101 U/L (34-104) 02/12/17 07:00 Ammonia 53 umol/L (16-53) 02/12/17 07:00 Total Protein 5.7 gm/dL (6.0-8.3) L 02/12/17 07:00 Albumin 2.6 gm/dL (4.2-5.5) L 02/12/17 07:00 Globulin 3.1 gm/dL 02/12/17 07:00 Albumin/Globulin Ratio 0.8 (1.0-1.8) L 02/12/17 07:00 Prealbumin 6 mg/dL (9-32) L 02/10/17 04:45 Mmkqh-2-[id number] 236 mg/dL (90-200) H 02/04/17 06:37 Ceruloplasmin 34.0 mg/dL (16.0-31.0) H 02/04/17 06:37 Triglycerides 89 mg/dL (<150) 02/12/17 07:00 Cholesterol 51 mg/dL (<200) 02/12/17 07:00 LDL Cholesterol Direct 46 mg/dL (75-193) L 01/30/17 10:20 HDL Cholesterol 19 mg/dL (23-92) L 01/30/17 10:20 Tumor Marker AFP 832.4 ng/mL (0.0-8.3) H 02/05/17 06:37 Carcinoembryonic Ag 13.4 ng/mL (0.0-4.7) H 02/04/17 06:37 CA 19-9 Antigen 2818 U/mL (0-35) H 02/04/17 06:37 TSH 0.32 uIU/ml (0.34-5.60) L 02/10/17 04:45 Urine Source CLEAN C 01/30/17 11:05 Urine Color LOS 01/30/17 11:05 Urine Clarity CLEAR (CLEAR) 01/30/17 11:05 Urine pH 5.0 01/30/17 11:05 Ur Specific [place] 1.020 (1.005-1.030) 01/30/17 11:05 Urine Protein 30 mg/dL (NEGATIVE) H 01/30/17 11:05 Urine Glucose (UA) NEGATIVE mg/dL (NEGATIVE) 01/30/17 11:05 Urine Ketones 15 mg/dL (NEGATIVE) H 01/30/17 11:05 Urine Blood NEGATIVE (NEGATIVE) 01/30/17 11:05 Urine Nitrate POSITIVE (NEGATIVE) H 01/30/17 11:05 Urine Bilirubin SMALL (NEGATIVE) H 01/30/17 11:05 Urine Urobilinogen 0.2 E.U./dL (0.2 - 1.0) 01/30/17 11:05 Ur Leukocyte Esterase NEGATIVE (NEGATIVE) 01/30/17 11:05 Urine RBC 0-2 /hpf (0-5) H 01/30/17 11:05 Urine WBC 2-5 /hpf (0-5) H 01/30/17 11:05 Ur Epithelial Cells OCCASIONAL /lpf (FEW) 01/30/17 11:05 Urine Bacteria MODERATE /hpf (NONE SEEN) 01/30/17 11:05 Urine Mucus FEW /lpf (FEW) 01/30/17 11:05 Stool Occult Blood NEGATIVE (NEGATIVE) 02/11/17 17:05 Vancomycin Trough 39.3 ug/mL (10-20) H 02/02/17 16:35 Random Vancomycin 23.4 ug/mL (5.0-40.0) 02/12/17 07:00 Anti-Mitochondrial Ab 25.7 Units (0.0-20.0) H 02/04/17 06:37 Smooth Muscle IgG Ab 38 Units (0-19) H 02/04/17 06:37 RPR NONREACTIVE (NONREACTIVE) 01/30/17 10:20 Hepatitis A IgM Ab Negative (Negative) 01/30/17 10:20 Hep Bs Antigen Negative (Negative) 01/30/17 10:20 Hep B Core IgM Ab Negative (Negative) 01/30/17 10:20 Hepatitis C Antibody >11.0 s/co ratio (0.0-0.9) H 01/30/17 10:20 Blood Type O POSITIVE 02/10/17 07:16 Antibody Screen NEGATIVE 02/10/17 07:16 Crossmatch See Detail 02/10/17 07:16 - Physical Exam Vitals and I&O: Vital Signs Temp 98.2 F 02/12/17 08:00 Pulse 99 02/12/17 11:30 Resp 17 02/12/17 08:00 BP 97/63 02/12/17 11:30 Pulse Ox 93 02/12/17 11:15 Intake & Output 02/11/17 02/12/17 02/12/17 18:59 06:59 18:59 Intake Total 4343.523 962.833 446.833 Output Total 95 100 Balance 4248.523 862.833 446.833 Weight (lbs) 80.739 kg Intake: Intake, IV Amount 2404.523 242.833 446.833 DOPamine 400 mg In 250 ml 216.292 @ 3 MCG/KG/MIN 8.981 mls /hr IV TITR PRN Rx#: [id number] Furosemide 100 mg In 29.167 100 Sodium Chloride 0.9% 90 ml @ 5 mls/hr IV TITR [facility] Rx#:[id number] Meropenem 500 mg In 100 Sodium Chloride 0.9% 100 ml @ 100 mls/hr IV Q12H [facility] Rx#:[id number] Multivitamin Inj 10 ml In 1507.333 Amino Acids 4.25% /Dext 10% 1,000 ml In Intralipids 20% 500 ml In Dextrose 20% 170 ml @ 60 mls/hr IV .Q24H [facility] Rx#: [id number] Norepinephrine 8 mg In 214.398 45.666 Dextrose 5% 250 ml @ 0 MCG/MIN IV TITR PRN Rx#: [id number] Octreotide Acetate 1,250 237.333 252.5 mcg In Sodium Chloride 0. 9% 250 ml @ 10 mls/hr IV .Q24H [facility] Rx#:[id number] Pantoprazole 80 mg In 97.167 94.333 Sodium Chloride 0.9% 100 ml @ 10 mls/hr IV Q10H [facility] Rx#:[id number] metroNIDAZOLE 500mg/NS 100 100 100mL 500 mg In 100 ml @ 100 mls/hr IV Q8HR [facility] Rx #:[id number] Oral 0 TPN/PPN 1440 720 Albumin 100 Other 399 Output: Gastric Drainage 25 Urine 70 100 Other: # Bowel Movements 1 1 Stool Characteristics Liquid Mucoid Black Active Medications: Current Medications Acetaminophen (Tylenol) 650 mg PO Q4H PRN PRN Reason: Fever > 100 Stop: 03/31/17 16:47 Last Admin: 02/11/17 20:22 Dose: 650 mg Albuterol/Ipratropium (Duoneb Neb) 3 ml HHN Q8HRT [facility] Stop: 03/31/17 14:59 Last Admin: 02/12/17 07:19 Dose: 3 ml Albuterol/Ipratropium (Duoneb Neb) 3 ml HHN Q4H PRN PRN Reason: Wheezing Stop: 04/08/17 19:25 Ascorbic Acid (Vitamin C) 500 mg PO DAILY [facility] Stop: 04/01/17 19:29 Last Admin: 02/12/17 09:13 Dose: 500 mg Budesonide (Pulmicort) 0.5 mg HHN BIDRT [facility] Stop: 04/09/17 06:59 Last Admin: 02/12/17 07:19 Dose: 0.5 mg Chlorhexidine Gluconate (Peridex) 15 ml MM 0800,2000 [facility] Stop: 04/08/17 19:59 Last Admin: 02/11/17 20:23 Dose: 15 ml Docusate Sodium (Colace) 100 mg PO BID [facility] Stop: 04/01/17 19:29 Last Admin: 02/12/17 09:17 Dose: 100 mg Ferrous Sulfate (Iron) 325 mg PO DAILY [facility] Stop: 04/02/17 08:59 Last Admin: 02/12/17 09:13 Dose: 325 mg Folic Acid (Folate) 1 mg PO DAILY [facility] Stop: 04/01/17 19:29 Last Admin: 02/12/17 09:14 Dose: 1 mg Gabapentin (Neurontin) 300 mg PO BID [facility] Stop: 04/02/17 08:59 Last Admin: 02/12/17 09:18 Dose: 300 mg Heparin Sodium (Porcine) (Heparin) 5,000 units HD UD [facility] Stop: 02/13/17 00:00 Last Admin: 02/12/17 09:14 Dose: 5,000 units Pantoprazole Sodium 80 mg/ (Sodium Chloride) 100 mls @ 10 mls/hr IV Q10H [facility] Stop: 04/09/17 07:59 Last Admin: 02/12/17 12:47 Dose: 10 mls/hr Octreotide Acetate 1,250 mcg/ (Sodium Chloride) 252.5 mls @ 10 mls/hr IV .Q24H [facility] Stop: 04/09/17 07:59 Last Admin: 02/12/17 12:48 Dose: 10 mls/hr Metronidazole (Flagyl) 500 mg in 100 mls @ 100 mls/hr IV Q8HR [facility] Stop: 04/09/17 20:59 Last Admin: 02/12/17 04:33 Dose: 100 mls/hr Multivitamins/Minerals 10 ml/Amino Acids/ Fat Emulsion Intravenous/ Dextrose 1, 680 mls @ 60 mls/hr IV .Q24H [facility] Stop: 04/11/17 15:59 Last Admin: 02/11/17 16:11 Dose: 70 mls/hr Norepinephrine Bitartrate 8 mg (/ Dextrose) 258 mls @ 0 mls/hr IV TITR PRN; Protocol; 0 MCG/MIN PRN Reason: BP MAINTENANCE (PER PROTOCOL) Stop: 04/11/17 13:44 Last Titration: 02/12/17 04:29 Dose: 10 mcg/min, 19.35 mls/hr Furosemide 100 mg/ Sodium (Chloride) 100 mls @ 5 mls/hr IV TITR [facility] Stop: 04/11/17 14:27 Last Admin: 02/12/17 12:44 Dose: 5 mls/hr Meropenem 500 mg/ Sodium (Chloride) 100 mls @ 100 mls/hr IV Q12H [facility] Stop: 04/11/17 15:44 Last Admin: 02/12/17 03:11 Dose: 100 mls/hr Albumin Human (Albuminar 25%) 25 gm in 100 mls @ 50 mls/hr IV 2XW [facility] Stop: 02/13/17 19:00 Last Admin: 02/11/17 17:50 Dose: 50 mls/hr Insulin Aspart (Novolog Insulin Sliding Scale) 0 units SUBQ Q6H [facility] PRN Reason: Protocol Stop: 04/10/17 11:59 Last Admin: 02/12/17 07:36 Dose: 2 units Lactobacillus Rhamnosus (Culturelle) 1 each PO DAILY [facility] Stop: 04/11/17 08:59 Last Admin: 02/12/17 09:13 Dose: 1 each Magnesium Hydroxide (Milk Of Magnesia) 30 ml PO DAILY PRN PRN Reason: Constipation Stop: 04/01/17 19:18 Mirtazapine (Remeron) 22.5 mg PO HS [facility] PRN Reason: Protocol Stop: 04/01/17 20:59 Last Admin: 02/11/17 20:20 Dose: 22.5 mg Miscellaneous (Probiotic Screen) 1 ea MC PRN PRN PRN Reason: PROTOCOL Stop: 04/10/17 11:08 Miscellaneous (Tpn Per Pharmacy) 1 ea MC PRN PRN PRN Reason: PROTOCOL Stop: 04/11/17 07:48 Miscellaneous (Vancomycin Iv Per Pharmacy) 1 ea MC PRN PRN PRN Reason: PROTOCOL Stop: 04/13/17 11:43 Morphine Sulfate (Morphine) 2 mg IVP Q4HR PRN PRN Reason: Pain (Moderate) Stop: 04/12/17 20:41 Last Admin: 02/12/17 05:31 Dose: 2 mg Temazepam (Restoril) 15 mg PO HS PRN; Protocol PRN Reason: Insomnia Stop: 03/31/17 20:55 Last Admin: 01/30/17 21:43 Dose: 15 mg Tramadol HCl (Ultram) 50 mg PO Q6HR PRN PRN Reason: Pain (Moderate) Stop: 03/31/17 22:01 Last Admin: 02/07/17 07:04 Dose: 50 mg Trazodone HCl (Desyrel) 50 mg PO HS [facility] PRN Reason: Protocol Stop: 04/03/17 20:59 Last Admin: 02/11/17 20:22 Dose: 50 mg General: Other (obtunded) HEENT: Atraumatic Neck: Supple, +2 carotid pulse wo bruit Cardiovascular: Regular rate, Normal S1, Normal S2 Lungs: Other (rhonchi, rales) Abdomen: Other (decreased BS, (+) ascites) Extremities: Edema ((+) 3 bipedal edema) Neurological: Other (obtunded) - Procedures Procedures: Procedures Procedure Code Date GROUP PSYCHOTHERAPY 43353 01/14/16 GROUP PSYCHOTHERAPY [id number] 01/14/16 INSERT EMERGENCY AIRWAY 74260 01/30/17 INSERTION OF ENDOTRACHEAL AIRWAY INTO TRACHEA, VIA OPENING [id number] 01/30/17 RESPIRATORY VENTILATION, 24-96 CONSECUTIVE HOURS [id number] 01/30/17 TRANSFUSE NONAUT RED BLOOD CELLS IN PERIPH VEIN, PERC 14710G8 01/16/17 VENT MGMT INPAT INIT DAY 66961 01/30/17 Assessment/Plan - Problem List Patient Problems: All Active Problems Agitation (Acute) R45.1 Combative behavior (Acute) R46.89 HTN (hypertension) (Acute) I10 Psychosis (Acute) F29 - Assessment Assessment: VIPUL on CKD Acute RF on vent decomp CHF Liver mets Anoxic/met Encph Anemia UGI bleed on cd Severe malnutrition B/L HAP - Plan Plan: Lab - Result Diagrams 02/12/17 07:00 02/12/17 07:00 Current Medications Acetaminophen (Tylenol) 650 mg PO Q4H PRN PRN Reason: Fever > 100 Stop: 03/31/17 16:47 Last Admin: 02/11/17 20:22 Dose: 650 mg Albuterol/Ipratropium (Duoneb Neb) 3 ml HHN Q8HRT [facility] Stop: 03/31/17 14:59 Last Admin: 02/12/17 07:19 Dose: 3 ml Albuterol/Ipratropium (Duoneb Neb) 3 ml HHN Q4H PRN PRN Reason: Wheezing Stop: 04/08/17 19:25 Ascorbic Acid (Vitamin C) 500 mg PO DAILY [facility] Stop: 04/01/17 19:29 Last Admin: 02/12/17 09:13 Dose: 500 mg Budesonide (Pulmicort) 0.5 mg HHN BIDRT [facility] Stop: 04/09/17 06:59 Last Admin: 02/12/17 07:19 Dose: 0.5 mg Chlorhexidine Gluconate (Peridex) 15 ml MM 0800,2000 [facility] Stop: 04/08/17 19:59 Last Admin: 02/11/17 20:23 Dose: 15 ml Docusate Sodium (Colace) 100 mg PO BID [facility] Stop: 04/01/17 19:29 Last Admin: 02/12/17 09:17 Dose: 100 mg Ferrous Sulfate (Iron) 325 mg PO DAILY [facility] Stop: 04/02/17 08:59 Last Admin: 02/12/17 09:13 Dose: 325 mg Folic Acid (Folate) 1 mg PO DAILY [facility] Stop: 04/01/17 19:29 Last Admin: 02/12/17 09:14 Dose: 1 mg Gabapentin (Neurontin) 300 mg PO BID [facility] Stop: 04/02/17 08:59 Last Admin: 02/12/17 09:18 Dose: 300 mg Heparin Sodium (Porcine) (Heparin) 5,000 units HD UD [facility] Stop: 02/13/17 00:00 Last Admin: 02/12/17 09:14 Dose: 5,000 units Pantoprazole Sodium 80 mg/ (Sodium Chloride) 100 mls @ 10 mls/hr IV Q10H [facility] Stop: 04/09/17 07:59 Last Admin: 02/12/17 12:47 Dose: 10 mls/hr Octreotide Acetate 1,250 mcg/ (Sodium Chloride) 252.5 mls @ 10 mls/hr IV .Q24H [facility] Stop: 04/09/17 07:59 Last Admin: 02/12/17 12:48 Dose: 10 mls/hr Metronidazole (Flagyl) 500 mg in 100 mls @ 100 mls/hr IV Q8HR [facility] Stop: 04/09/17 20:59 Last Admin: 02/12/17 04:33 Dose: 100 mls/hr Multivitamins/Minerals 10 ml/Amino Acids/ Fat Emulsion Intravenous/ Dextrose 1, 680 mls @ 60 mls/hr IV .Q24H [facility] Stop: 04/11/17 15:59 Last Admin: 02/11/17 16:11 Dose: 70 mls/hr Norepinephrine Bitartrate 8 mg (/ Dextrose) 258 mls @ 0 mls/hr IV TITR PRN; Protocol; 0 MCG/MIN PRN Reason: BP MAINTENANCE (PER PROTOCOL) Stop: 04/11/17 13:44 Last Titration: 02/12/17 04:29 Dose: 10 mcg/min, 19.35 mls/hr Furosemide 100 mg/ Sodium (Chloride) 100 mls @ 5 mls/hr IV TITR [facility] Stop: 04/11/17 14:27 Last Admin: 02/12/17 12:44 Dose: 5 mls/hr Meropenem 500 mg/ Sodium (Chloride) 100 mls @ 100 mls/hr IV Q12H [facility] Stop: 04/11/17 15:44 Last Admin: 02/12/17 03:11 Dose: 100 mls/hr Albumin Human (Albuminar 25%) 25 gm in 100 mls @ 50 mls/hr IV 2XW [facility] Stop: 02/13/17 19:00 Last Admin: 02/11/17 17:50 Dose: 50 mls/hr Insulin Aspart (Novolog Insulin Sliding Scale) 0 units SUBQ Q6H [facility] PRN Reason: Protocol Stop: 04/10/17 11:59 Last Admin: 02/12/17 07:36 Dose: 2 units Lactobacillus Rhamnosus (Culturelle) 1 each PO DAILY [facility] Stop: 04/11/17 08:59 Last Admin: 02/12/17 09:13 Dose: 1 each Magnesium Hydroxide (Milk Of Magnesia) 30 ml PO DAILY PRN PRN Reason: Constipation Stop: 04/01/17 19:18 Mirtazapine (Remeron) 22.5 mg PO HS [facility] PRN Reason: Protocol Stop: 04/01/17 20:59 Last Admin: 02/11/17 20:20 Dose: 22.5 mg Miscellaneous (Probiotic Screen) 1 ea MC PRN PRN PRN Reason: PROTOCOL Stop: 04/10/17 11:08 Miscellaneous (Tpn Per Pharmacy) 1 ea MC PRN PRN PRN Reason: PROTOCOL Stop: 04/11/17 07:48 Miscellaneous (Vancomycin Iv Per Pharmacy) 1 ea MC PRN PRN PRN Reason: PROTOCOL Stop: 04/13/17 11:43 Morphine Sulfate (Morphine) 2 mg IVP Q4HR PRN PRN Reason: Pain (Moderate) Stop: 04/12/17 20:41 Last Admin: 02/12/17 05:31 Dose: 2 mg Temazepam (Restoril) 15 mg PO HS PRN; Protocol PRN Reason: Insomnia Stop: 03/31/17 20:55 Last Admin: 01/30/17 21:43 Dose: 15 mg Tramadol HCl (Ultram) 50 mg PO Q6HR PRN PRN Reason: Pain (Moderate) Stop: 03/31/17 22:01 Last Admin: 02/07/17 07:04 Dose: 50 mg Trazodone HCl (Desyrel) 50 mg PO HS [facility] PRN Reason: Protocol Stop: 04/03/17 20:59 Last Admin: 02/11/17 20:22 Dose: 50 mg Kidney fnc worse w/ BUN/CR of 94/4.7 Na down to 129 due to dilution WBC still elevated awaiting for consent from conservator for HD no heparin during HD discussed w/ / daughter @ bedside started on Lasix drip @ 5mg/hr Nutritional Asmnt/Malnutr-PDOC - Dietary Evaluation Malnutrition Findings (Please click <Entered> for more info): Nutritional Asmnt/Malnutrition Start: 02/02/17 13: 54 Text: Status: Complete Freq: Document 02/02/17 13:54 GSUN (Rec: 02/02/17 14:04 GSDENIZ [email or web address]) Nutritional Asmnt/Malnutrition Patient General Information Nutritional Screening Moderate Risk Screening Diagnosis Pneumonia, sepsis, acute kidney failure Pertinent Medical Hx/Surgical Hx Dementia, possible metastatic cancer to the liver Subjective Information 71 year old male. Pt was just admitted to [facility] on 01/16/17, bedscale 177.9lb on 01/23/17, bedscale 204lb today, likely inaccurate, edema noted. Pt appears overall thin, severe muscle/fat wasting to chest and clavicles. Pt is edentulous on ground diet, no difficulties. Pt was only able to answer simple questions, able to list to RD what he had for breakfast. RD encouraged PO intake due to hypermetabolic state, pt understood. DEMOLITION CRANE OPERATOR at bedside stated pt tolerates Boost Plus . Avg PO itnake 75% of meals, meeting 75% of estimated kcal needs. Current Diet Order/ Nutrition Support [facility] soft ground, Bosot Plus TID Pertinent Medications Vitamin C, Colace, Iron, Folate, MOM, Remeron, Vancomycin, D5-0.45ns Pertinent Labs 02/02: Potassium 5.5H, BUN 39H, creatinine 2.2H (declining), glucose 96 Nutritional Hx/Data Height 1.7 m Height (Calculated Centimeters) 170.2 Current Weight (lbs) 79.832 kg Weight (Calculated Kilograms) 79.8 Weight (Calculated Grams) 21842.3 Bradley Body Weight 148lb GI Symptoms Skin Integrity/Comment: Kong 14. Bilateral leg and feet 4+ edema, some bruises. Estimated Nutritional Goals Calories/Kcals/Kg IBW 148lb/67.3kg Kcals Calculated 2356kcal (35kcal/kg) Protein g/kg: IBW Protein Calculated 67-101g (1-1.5g/kg, renal insuffieicny vs sepsis/ pneumonia/depletion) Nutritional Problem 2. Problem Problem Impaired nutrient utilization realted to Etiology acute renal failure Signs/Symptoms: progress note, elevated/ declining renal labs: BUN39H [place] Rough 2.2H potassium 5.5H 1. Problem Problem Increased kcal and prot needs related to Etiology hypermetabolic state aeb Signs/Symptoms: sepsis, pneumonia, severe muscle/fat depletion to clavicles and chest, possible metastatic cancer to the liver Malnutrition Alert Body Fat Depletion (Severe) Mod to Severe Depletion Muscle Mass (Severe) Mod to Severe Depletion Fluid Accumulation (Non-Severe) Moderate Mild Fluid Retention Intervention/Recommendation Comments 1. Recommend ground renal diet , dx. acute renal failure, elevated labs: BUN 39H [place] Rough 2. 2H Potassium 5.5H. 2. Recommend oral supplement change from Bosot Plus TID to Suplena TID, dx. acute renal failure, elevated labs: BUN 39H [place] Rough 2.2H Potassium 5.5H. Expected Outcomes/Goals Expected Outcomes/Goals 1. PO intake to meet 100% of estimated nutritional needs.
[2017-02-12] MEDS: Albumin 25% 25gm/100mL 25 GM/100 ML BTL IV SCH (13:24)
[2017-02-12] MEDS ORDERED: TPN 10%-70% CUSTOM IV SCH (16:00)
[2017-02-12] MEDS: Chlorhexidine Gluconate 0.12% 15mL Mouthwash MM SCH ×2 (16:19→20:02)
--- NOTE | 2017-02-12 16:58 | Cardiology ---
02/10/[address] Mccarthy. M-MODE ECHOCARDIOGRAM: Mitral valve, anterior leaflet of mitral valve shows normal excursion, EF velocity. Posterior leaflet of the mitral valve shows normal excursion. Left ventricular posterior wall shows increased thickness, normal excursion. Interventricular septum shows increased thickness, normal excursion, hypertrophy of the left ventricle, ejection fraction 71%. Left atrium normal. Aortic root shows normal dimension, normal excursion of aortic leaflets. CONCLUSION: Hypertrophy of the left ventricle, ejection fraction 71%. 2D ECHO: Long axis view showed normal sized left ventricle with hypertrophy of the left ventricle. Left atrium normal. Aortic root shows normal dimension, normal excursion of aortic leaflets. Short axis view of mitral valve normal. Short axis view of aortic valve normal. Apical four chamber view showed normal sized left ventricle, left atrium, right ventricle, right atrium, tricuspid and mitral valve. Ejection fraction 71%. CONCLUSION: Hypertrophy of the left ventricle, ejection fraction 71%. Doppler study shows prominent A wave consistent with poor compliance of left ventricle, trace mitral regurgitation, trace tricuspid regurgitation. [facility]# [id number]
--- NOTE | 2017-02-12 17:40 | Consultation ---
DATE OF CONSULTATION: 02/11/2017 REFERRING PHYSICIAN: Dr. Mccarthy. REASON FOR CONSULTATION: Need for Rolando catheter placement for dialysis. Thank you for referring this patient to me. HISTORY OF PRESENT ILLNESS: This is a 71-year-old male who was admitted because of shortness of breath and intubated. He apparently has history of liver cancer. Other condition includes dementia, psychosis, cirrhosis of the liver, history of smoking, pneumonia, septicemia and septic shock. CT scan of the abdomen showed mesenteric lymphadenopathy, liver masses, likely malignant. CEA and alphafetoprotein are high and the patient has been seen by oncologist. Because of increasing CHF and rising BUN and creatinine, recommendation was made by the farm field manager to dialyze the patient. Last chemistries today, WBC is 34,800, hemoglobin 8.6. The platelet count is 117,000, bands is 20%. The BUN is 94, creatinine of 4.7. The liver function tests are abnormal with total bilirubin of 1.9. PHYSICAL EXAMINATION: GENERAL: The patient is on respirator and unresponsive. EXTREMITIES: He has edema of lower extremities. LUNGS: Breath sounds showed rales. Discussion was made with the family regarding the risks and complications of catheter placement in definite location of big vein for dialysis. The patient's prognosis rather very poor and this was brought out in the discussion. Family for now wants to defer the dialysis and wait at least 24 hours. JOB# [id number]
--- NOTE | 2017-02-12 19:14 | Progress Notes ---
DATE: 02/11/2017 PROBLEM LIST: 1. Persistent respiratory failure. 2. Renal failure. 3. Hypotension. 4. Suspect metastasis to the liver. SUBJECTIVE: Symptoms is nil. Periodically agitated. He moves his head side to side with protruding tongue, no respiratory distress. PHYSICAL EXAMINATION: VITAL SIGNS: The patient is on ____, BP is 110/70, respirations about 15, heart rate is 110-120, saturation 95. NECK: Veins not visualized. Good bilateral carotid upstroke. CHEST: Shows diminished air entry with occasional rhonchi. HEART: Regular. ABDOMEN: Quite distended. EXTREMITIES: Shows slight trace of peripheral edema. ASSESSMENT: The patient overall doing poorly, now getting into the worsening renal status, persistent effusion, ascites as well as possibly infiltrate and vent dependent and hypotension. PLANS AND SUGGESTIONS: We will continue supportive care. Overall prognosis is very poor and we will continue current treatment and go from there. JOB# [id number]
[2017-02-12] MEDS ORDERED: Vancomycin HCl 1.5 GM in Sodium Chloride 0.9% 500 ML IV ONE (20:00)
[2017-02-13] MEDS: INSULIN ASPART SLIDING SCALE 100 UNITS/ML UNIT SUBQ SCH ×4 (00:12→18:09)
[2017-02-13] MEDS: Pantoprazole 80 MG in Sodium Chloride 0.9% 100 ML IV SCH ×3 (00:14→16:50)
[2017-02-13] MEDS: Morphine Sulfate 2 mg/mL 1mL Syr IVP PRN (02:51)
[2017-02-13] MEDS: Meropenem 500 MG in Sodium Chloride 0.9% 100 ML IV SCH ×2 (02:55→16:15)
--- NOTE | 2017-02-13 02:56 | Progress Notes ---
DATE: 02/12/2017 Case was discussed with staff of the patient, reviewed records. The patient continues to be in ICU. Continues to be physically compromised. Continues to be unable to make safe plan for self-care. However, he is compliant with the medication. He was on a ventilator. His family is there, they come every day to take care of him and see what is needed. He is compliant with the medication, no side effects, no sedation, nausea. Thank you very much for allowing me to participate in the care of this most interesting gentleman. JOB# [id number]
[2017-02-13] MEDS: metroNIDAZOLE 500mg/NS 100mL 500 MG/100 ML BAG IV SCH ×3 (04:57→20:40)
[2017-02-13] MEDS: Furosemide 100 MG in Sodium Chloride 0.9% 90 ML IV SCH ×3 (05:26→22:15)
[2017-02-13] MEDS: Albuterol/Ipratropium Neb 3 ML AERS HHN SCH ×3 (07:04→23:13)
[2017-02-13] MEDS: Budesonide 0.5 Mg/2 mL Ud HHN SCH ×2 (07:09→18:38)
--- NOTE | 2017-02-13 08:48 | Diagnostic Imaging Report ---
Portable chest x-ray HISTORY: Shortness of breath Compared with prior exam of 02/12/2017, the heart remains enlarged. Slight increase in the right pleural effusion along with evidence of persistent left pleural effusion. Pulmonary vascular redistribution consistent with underlying cardiac compensation. Hazy interstitial markings consistent with a degree of edema. An endotracheal tube tip is proximally 3.0 cm above the wolf. The distal portion of nasogastric tube cannot be clearly visualized. This may be within the esophagus. Follow-up radiograph recommended. IMPRESSION: 1. Evidence of an increased right pleural effusion along with changes noted above consistent with congestive heart failure. 2. THE DISTAL PORTION OF THE NASOGASTRIC TUBE CANNOT BE CLEARLY VISUALIZED. THIS MAY BE IN THE LOWER ESOPHAGUS. A FOLLOW-UP RADIOGRAPH RECOMMENDED.
[2017-02-13] MEDS: Ferrous Sulfate 325 MG TAB PO SCH (08:53)
[2017-02-13] MEDS: Lactobacillus Rhamnosus 10 Billion CFU Capsule PO SCH (08:53)
[2017-02-13] MEDS: Chlorhexidine Gluconate 0.12% 15mL Mouthwash MM SCH ×2 (08:53→20:30)
[2017-02-13 09:41] LABS: HEMATOCRIT 24.4 % (39.0-49.0); HEMOGLOBIN 8.5 gm/dL (12.6-17.4); MEAN CORPUSCULAR HEMOGLOBIN 37.1 pg (27.0-31.0); MEAN CORPUSCULAR HGB CONC 34.8 pg (28.0-36.0); MEAN PLATELET VOLUME 7.8 fl; PLATELET COUNT 120 Th/cmm (150-400); RED BLOOD COUNT 2.29 Mil/cmm (3.80-5.80); RED CELL DISTRIBUTION WIDTH 30.5 % (11.5-20.0)
[2017-02-13 09:56] LABS: ANION GAP 16.9 (7.0-16.0); BUN/CREATININE RATIO 18.5; CALCIUM SERUM 9.7 mg/dL (8.6-10.3); CARBON DIOXIDE 19.4 mEq/L (21.0-31.0); CHLORIDE 101 mEq/L (98-107); GLUCOSE 110 mg/dL (70-105); MAGNESIUM 2.1 mg/dL (1.9-2.7); PHOSPHOROUS 6.3 mg/dL (2.5-5.0); POTASSIUM SERUM 4.3 mEq/L (3.5-5.1); SODIUM SERUM 133 mEq/L (136-145)
[2017-02-13 10:00] LABS: MEAN CELL VOLUME 106.5 fl (80-99); WHITE BLOOD COUNT 37.3 Th/cmm (4.8-10.8)
[2017-02-13 10:01] LABS: BUN - UREA NITROGEN 102 mg/dL (7-25); CREATININE - SERUM 5.5 mg/dL (0.7-1.3)
[2017-02-13 10:10] LABS: INR 1.55 (0.5-1.4); PROTHROMBIN TIME (TEST) 16.5 SECONDS (9.5-11.5)
--- NOTE | 2017-02-13 10:14 | Progress Notes ---
DATE: 02/12/2017 PULMONARY PROGRESS NOTE PROBLEM LIST: 1. Persistent respiratory failure. 2. Bilateral pneumonia, effusion. 3. Hypotension, on vasopressor. 4. Severe ascites, suspect malignancy, hepatic, with underlying psychiatric illness. SYMPTOMS: ____, noncommunicative, not in acute distress, periodically agitated, restless, no respiratory distress, etc. PHYSICAL EXAMINATION: VITAL SIGNS: Afebrile, pulse is 100 to 110, BP is 95 to 104, saturation is 94% on 40%. ENT: Shows no new changes. CHEST: Shows diminished air entry without any other significant adventitious breath sounds. HEART: Regular. ABDOMEN: Quite distended ____. LABORATORY DATA: White count is 434, 000, hemoglobin is 8.6, and the patient's creatinine is 4.7, BUN is 94. ASSESSMENT: The patient gradually going downhill with multisystem failure, suspect primary hepatic lesions, suspect carcinoma which is affecting whole body including renal failure. PLANS AND SUGGESTIONS: We will continue to consider conservative treatment. Care and plan discussed with Dr. Mccarthy and consider no code or terminal extubation and go from there. JOB# [id number]
[2017-02-13 10:29] LABS: BAND NEUTROPHILE 13 % (0-10); BASOPHIL 1 % (0-3); EOSINOPHIL 1 % (0-5); METAMYELOCYTE 1 % (0-0); NEUTROPHILS 70 % (40-80); TOTAL CELLS COUNTED 100
[2017-02-13 10:30] LABS: ANISOCYTOSIS 3+; PLATELET ESTIMATE DECREASED PLATELETS (NORMAL); PLATELET MORPHOLOGY NORMAL (NORMAL); POLYCHROMASIA 1+
--- NOTE | 2017-02-13 11:32 | Diagnostic Imaging Report ---
Portable chest x-ray HISTORY: Increased shortness of breath, oral gastric tube placement Compared with the exam performed earlier in the day (0744 hours), a nasogastric tube is been advanced extends below the diaphragm into the region of the stomach. There appears to be an increasing right pleural effusion. Persistent cardiomegaly. IMPRESSION: 1. Repositioned orogastric tube extends below the diaphragm into the region of the stomach 2. Suggestion of an increasing right pleural effusion
[2017-02-13] MEDS ORDERED: Vancomycin HCl 1.5 GM in Sodium Chloride 0.9% 500 ML IV ONE (13:00)
--- NOTE | 2017-02-13 14:39 | General Progress Note ---
Subjective - Review of Systems Service Date: 02/13/17 Subjective: more obtunded today, on vent Objective - Results Result Diagrams: 02/13/17 09:30 02/13/17 09:30 Recent Labs: Laboratory Last Values WBC 37.3 Th/cmm (4.8-10.8) H* 02/13/17 09:30 RBC 2.29 Mil/cmm (3.80-5.80) L 02/13/17 09:30 Hgb 8.5 gm/dL (12.6-17.4) L 02/13/17 09:30 Hct 24.4 % (39.0-49.0) L 02/13/17 09:30 MCV 106.5 fl (80-99) H 02/13/17 09:30 MCH 37.1 pg (27.0-31.0) H 02/13/17 09:30 MCHC Differential 34.8 pg (28.0-36.0) 02/13/17 09:30 RDW 30.5 % (11.5-20.0) H 02/13/17 09:30 Plt Count 120 Th/cmm (150-400) L 02/13/17 09:30 MPV 7.8 fl 02/13/17 09:30 Neutrophils % [employer] SUPER[employer]OR 02/11/17 05:00 Band Neutrophils % 13 % (0-10) H 02/13/17 09:30 Lymphocytes % [employer]ODUCTION SUPERVISOR 02/11/17 05:00 Monocytes % [employer]ODUCTION SUPERVISOR 02/11/17 05:00 Eosinophils % [employer]ODUCTION SUPERVISOR 02/11/17 05:00 Basophils % [employer] PRODUCTION SUPERVISOR 02/11/17 05:00 Neutrophils (Manual) 70 % (40-80) 02/13/17 09:30 Lymphocytes 5 % (20-50) L 02/13/17 09:30 Monocytes 9 % (2-10) 02/13/17 09:30 Eosinophils 1 % (0-5) 02/13/17 09:30 Basophils 1 % (0-3) 02/13/17 09:30 Metamyelocytes 1 % (0-0) H 02/13/17 09:30 Platelet Estimate DECREASED PLATELETS (NORMAL) 02/13/17 09:30 Platelet Morphology NORMAL (NORMAL) 02/13/17 09:30 Polychromasia 1+ 02/13/17 09:30 Poikilocytosis 1+ 02/06/17 05:48 Anisocytosis 3+ 02/13/17 09:30 Macrocytosis 1+ 02/13/17 09:30 Ovalocytes 1+ 02/04/17 06:37 RBC Morph Micro Appear ABNORMAL (NORMAL) 02/13/17 09:30 Smear Path Review SEE BELOW 02/09/17 04:45 Plt Count 120 Th/cmm (150-750) L 02/13/17 09:30 PT 16.5 SECONDS (9.5-11.5) H 02/13/17 09:30 INR 1.55 (0.5-1.4) H 02/13/17 09:30 PTT (Actin FS) 38.1 SECONDS (26.0-38.0) H 02/13/17 09:30 Fibrinogen 162.0 mg/dL (200.0-400.0) L 02/13/17 09:30 D-Dimer 2700 ng/mL (100-400) H 02/13/17 09:30 Specimen Source Arterial 02/09/17 08:45 Sample Site Right Radial 02/09/17 08:45 pH 7.32 (7.35-7.45) L 02/09/17 08:45 pCO2 38.0 mmHg (35.0-45.0) 02/09/17 08:45 pO2 65.0 mmHg (80.0-100.0) L 02/09/17 08:45 HCO3 20.1 mEq/L (20.0-26.0) 02/09/17 08:45 Base Excess -6.0 mEq/L (-3.0-3.0) L 02/09/17 08:45 O2 Saturation 91.0 % (92.0-100.0) L 02/09/17 08:45 Dwayne Test YES 02/09/17 08:45 Vent Rate 12 02/09/17 08:45 Inspired O2 40 02/09/17 08:45 Tidal Volume 500 02/09/17 08:45 PEEP NA 02/09/17 08:45 Pressure (ins/psv/peep) NA 02/09/17 08:45 Critical Value E.DIAMOND 02/09/17 08:45 Sodium 133 mEq/L (136-145) L 02/13/17 09:30 Potassium 4.3 mEq/L (3.5-5.1) 02/13/17 09:30 Chloride 101 mEq/L (98-107) 02/13/17 09:30 Carbon Dioxide 19.4 mEq/L (21.0-31.0) L 02/13/17 09:30 Anion Gap 16.9 (7.0-16.0) H 02/13/17 09:30 BUN 102 mg/dL (7-25) H* 02/13/17 09:30 Creatinine 5.5 mg/dL (0.7-1.3) H* 02/13/17 09:30 Est GFR ( Amer) TNP 02/13/17 09:30 Est GFR (Non-Af Amer) TNP 02/13/17 09:30 BUN/Creatinine Ratio 18.5 02/13/17 09:30 Glucose 110 mg/dL (70-105) H 02/13/17 09:30 POC Glucose 137 MG/DL (70 - 105) H 02/12/17 13:10 Whole Bld Lactic Acid 2.02 mmol/L (0.60-1.99) H* 01/30/17 12:20 Calcium 9.7 mg/dL (8.6-10.3) 02/13/17 09:30 Phosphorus 6.3 mg/dL (2.5-5.0) H 02/13/17 09:30 Magnesium 2.1 mg/dL (1.9-2.7) 02/13/17 09:30 Iron 151 ug/dL (38-169) 02/04/17 06:37 TIBC 178 ug/dL (250-450) L 02/04/17 06:37 Iron Saturation 85 % (15-55) H 02/04/17 06:37 Unsaturated IBC 27 ug/dL (111-343) L 02/04/17 06:37 Ferritin 1222 ng/mL (30-400) H 02/04/17 06:37 Total Bilirubin 1.9 mg/dL (0.3-1.0) H 02/12/17 07:00 Direct Bilirubin 1.27 mg/dL (0.0-0.2) H 02/12/17 07:00 AST 52 U/L (13-39) H 02/12/17 07:00 ALT 9 U/L (7-52) 02/12/17 07:00 Alkaline Phosphatase 101 U/L (34-104) 02/12/17 07:00 Ammonia 53 umol/L (16-53) 02/12/17 07:00 Total Protein 5.7 gm/dL (6.0-8.3) L 02/12/17 07:00 Albumin 2.6 gm/dL (4.2-5.5) L 02/12/17 07:00 Globulin 3.1 gm/dL 02/12/17 07:00 Albumin/Globulin Ratio 0.8 (1.0-1.8) L 02/12/17 07:00 Prealbumin 6 mg/dL (9-32) L 02/12/17 07:00 Tfqyw-3-[id number] 236 mg/dL (90-200) H 02/04/17 06:37 Ceruloplasmin 34.0 mg/dL (16.0-31.0) H 02/04/17 06:37 Triglycerides 89 mg/dL (<150) 02/12/17 07:00 Cholesterol 51 mg/dL (<200) 02/12/17 07:00 LDL Cholesterol Direct 46 mg/dL (75-193) L 01/30/17 10:20 HDL Cholesterol 19 mg/dL (23-92) L 01/30/17 10:20 Tumor Marker AFP 832.4 ng/mL (0.0-8.3) H 02/05/17 06:37 Carcinoembryonic Ag 13.4 ng/mL (0.0-4.7) H 02/04/17 06:37 CA 19-9 Antigen 2818 U/mL (0-35) H 02/04/17 06:37 TSH 0.32 uIU/ml (0.34-5.60) L 02/10/17 04:45 Urine Source CLEAN C 01/30/17 11:05 Urine Color LOS 01/30/17 11:05 Urine Clarity CLEAR (CLEAR) 01/30/17 11:05 Urine pH 5.0 01/30/17 11:05 Ur Specific [place] 1.020 (1.005-1.030) 01/30/17 11:05 Urine Protein 30 mg/dL (NEGATIVE) H 01/30/17 11:05 Urine Glucose (UA) NEGATIVE mg/dL (NEGATIVE) 01/30/17 11:05 Urine Ketones 15 mg/dL (NEGATIVE) H 01/30/17 11:05 Urine Blood NEGATIVE (NEGATIVE) 01/30/17 11:05 Urine Nitrate POSITIVE (NEGATIVE) H 01/30/17 11:05 Urine Bilirubin SMALL (NEGATIVE) H 01/30/17 11:05 Urine Urobilinogen 0.2 E.U./dL (0.2 - 1.0) 01/30/17 11:05 Ur Leukocyte Esterase NEGATIVE (NEGATIVE) 01/30/17 11:05 Urine RBC 0-2 /hpf (0-5) H 01/30/17 11:05 Urine WBC 2-5 /hpf (0-5) H 01/30/17 11:05 Ur Epithelial Cells OCCASIONAL /lpf (FEW) 01/30/17 11:05 Urine Bacteria MODERATE /hpf (NONE SEEN) 01/30/17 11:05 Urine Mucus FEW /lpf (FEW) 01/30/17 11:05 Stool Occult Blood NEGATIVE (NEGATIVE) 02/11/17 17:05 Vancomycin Trough 39.3 ug/mL (10-20) H 02/02/17 16:35 Random Vancomycin 23.4 ug/mL (5.0-40.0) 02/12/17 07:00 Anti-Mitochondrial Ab 25.7 Units (0.0-20.0) H 02/04/17 06:37 Smooth Muscle IgG Ab 38 Units (0-19) H 02/04/17 06:37 RPR NONREACTIVE (NONREACTIVE) 01/30/17 10:20 Hepatitis A IgM Ab Negative (Negative) 01/30/17 10:20 Hep Bs Antigen Negative (Negative) 01/30/17 10:20 Hep B Core IgM Ab Negative (Negative) 01/30/17 10:20 Hepatitis C Antibody >11.0 s/co ratio (0.0-0.9) H 01/30/17 10:20 Blood Type O POSITIVE 02/10/17 07:16 Antibody Screen NEGATIVE 02/10/17 07:16 Crossmatch See Detail 02/10/17 07:16 - Physical Exam Vitals and I&O: Vital Signs Temp 98.9 F 02/13/17 12:00 Pulse 99 02/13/17 13:30 Resp 21 02/13/17 13:00 BP 103/58 02/13/17 13:30 Pulse Ox 94 02/13/17 14:00 Intake & Output 02/12/17 02/13/17 02/13/17 18:59 06:59 18:59 Intake Total 802.769 489.167 557.886 Output Total 240 100 Balance 562.769 389.167 557.886 Intake: Intake, IV Amount 802.769 489.167 557.886 Furosemide 100 mg In 100 83.5 17.083 Sodium Chloride 0.9% 90 ml @ 5 mls/hr IV TITR [facility] Rx#:[id number] Meropenem 500 mg In 200 Sodium Chloride 0.9% 100 ml @ 100 mls/hr IV Q12H [facility] Rx#:[id number] Norepinephrine 8 mg In 255.936 248.97 Dextrose 5% 250 ml @ 0 MCG/MIN IV TITR PRN Rx#: [id number] Octreotide Acetate 1,250 252.5 200.5 mcg In Sodium Chloride 0. 9% 250 ml @ 10 mls/hr IV .Q24H [facility] Rx#:[id number] Pantoprazole 80 mg In 94.333 105.667 91.333 Sodium Chloride 0.9% 100 ml @ 10 mls/hr IV Q10H [facility] Rx#:[id number] metroNIDAZOLE 500mg/NS 100 100 100mL 500 mg In 100 ml @ 100 mls/hr IV Q8HR [facility] Rx #:[id number] Oral 0 Output: Gastric Drainage 150 50 Urine 90 50 Other: Stool Characteristics Green Active Medications: Current Medications Acetaminophen (Tylenol) 650 mg PO Q4H PRN PRN Reason: Fever > 100 Stop: 03/31/17 16:47 Last Admin: 02/11/17 20:22 Dose: 650 mg Albuterol/Ipratropium (Duoneb Neb) 3 ml HHN Q8HRT [facility] Stop: 03/31/17 14:59 Last Admin: 02/13/17 07:04 Dose: 3 ml Albuterol/Ipratropium (Duoneb Neb) 3 ml HHN Q4H PRN PRN Reason: Wheezing Stop: 04/08/17 19:25 Ascorbic Acid (Vitamin C) 500 mg PO DAILY [facility] Stop: 04/01/17 19:29 Last Admin: 02/13/17 08:53 Dose: Not Given Budesonide (Pulmicort) 0.5 mg HHN BIDRT [facility] Stop: 04/09/17 06:59 Last Admin: 02/13/17 07:09 Dose: 0.5 mg Chlorhexidine Gluconate (Peridex) 15 ml MM 08,1999 [facility] Stop: 04/08/17 19:59 Last Admin: 02/13/17 08:53 Dose: 15 ml Docusate Sodium (Colace) 100 mg PO BID [facility] Stop: 04/01/17 19:29 Last Admin: 02/13/17 08:53 Dose: Not Given Ferrous Sulfate (Iron) 325 mg PO DAILY [facility] Stop: 04/02/17 08:59 Last Admin: 02/13/17 08:53 Dose: Not Given Folic Acid (Folate) 1 mg PO DAILY [facility] Stop: 04/01/17 19:29 Last Admin: 02/13/17 08:52 Dose: Not Given Gabapentin (Neurontin) 300 mg PO BID [facility] Stop: 04/02/17 08:59 Last Admin: 02/13/17 08:52 Dose: Not Given Pantoprazole Sodium 80 mg/ (Sodium Chloride) 100 mls @ 10 mls/hr IV Q10H [facility] Stop: 04/09/17 07:59 Last Admin: 02/13/17 09:22 Dose: 10 mls/hr Octreotide Acetate 1,250 mcg/ (Sodium Chloride) 252.5 mls @ 10 mls/hr IV .Q24H [facility] Stop: 04/09/17 07:59 Last Admin: 02/13/17 08:51 Dose: 10 mls/hr Metronidazole (Flagyl) 500 mg in 100 mls @ 100 mls/hr IV Q8HR [facility] Stop: 04/09/17 20:59 Last Admin: 02/13/17 04:57 Dose: 100 mls/hr Norepinephrine Bitartrate 8 mg (/ Dextrose) 258 mls @ 0 mls/hr IV TITR PRN; Protocol; 0 MCG/MIN PRN Reason: BP MAINTENANCE (PER PROTOCOL) Stop: 04/11/17 13:44 Last Admin: 02/13/17 08:52 Dose: 10 mcg/min, 19.35 mls/hr Furosemide 100 mg/ Sodium (Chloride) 100 mls @ 5 mls/hr IV TITR [facility] Stop: 04/11/17 14:27 Last Admin: 02/13/17 08:51 Dose: 5 mls/hr Meropenem 500 mg/ Sodium (Chloride) 100 mls @ 100 mls/hr IV Q12H [facility] Stop: 04/11/17 15:44 Last Infusion: 02/13/17 03:55 Dose: Infused Albumin Human (Albuminar 25%) 25 gm in 100 mls @ 50 mls/hr IV 2XW [facility] Stop: 02/13/17 19:00 Last Admin: 02/12/17 13:24 Dose: Not Given Multivitamins/Minerals 10 ml/Dextrose/ Amino Acids/Electrolytes/ Fat Emulsion Intravenous 1,440 mls @ 60 mls/hr IV .Q24H [facility] Stop: 02/13/17 15:59 Last Admin: 02/13/17 08:33 Dose: 60 mls/hr Vancomycin HCl 1.5 gm/ Sodium (Chloride) 500 mls @ 250 mls/hr IV ONCE ONE Stop: 02/13/17 14:59 Multivitamins/Minerals 10 ml/Dextrose/ Amino Acids/Electrolytes/ Fat Emulsion Intravenous 1,200 mls @ 50 mls/hr IV .Q24H [facility] Stop: 04/14/17 15:59 Insulin Aspart (Novolog Insulin Sliding Scale) 0 units SUBQ Q6H [facility] PRN Reason: Protocol Stop: 04/10/17 11:59 Last Admin: 02/13/17 12:51 Dose: Not Given Lactobacillus Rhamnosus (Culturelle) 1 each PO DAILY [facility] Stop: 04/11/17 08:59 Last Admin: 02/13/17 08:53 Dose: Not Given Magnesium Hydroxide (Milk Of Magnesia) 30 ml PO DAILY PRN PRN Reason: Constipation Stop: 04/01/17 19:18 Mirtazapine (Remeron) 22.5 mg PO HS [facility] PRN Reason: Protocol Stop: 04/01/17 20:59 Last Admin: 02/12/17 20:34 Dose: Not Given Miscellaneous (Probiotic Screen) 1 ea MC PRN PRN PRN Reason: PROTOCOL Stop: 04/10/17 11:08 Miscellaneous (Tpn Per Pharmacy) 1 ea MC PRN PRN PRN Reason: PROTOCOL Stop: 04/11/17 07:48 Miscellaneous (Vancomycin Iv Per Pharmacy) 1 ea MC PRN PRN PRN Reason: PROTOCOL Stop: 04/13/17 11:43 Morphine Sulfate (Morphine) 2 mg IVP Q4HR PRN PRN Reason: Pain (Moderate) Stop: 04/12/17 20:41 Last Admin: 02/13/17 02:51 Dose: 2 mg Temazepam (Restoril) 15 mg PO HS PRN; Protocol PRN Reason: Insomnia Stop: 03/31/17 20:55 Last Admin: 01/30/17 21:43 Dose: 15 mg Tramadol HCl (Ultram) 50 mg PO Q6HR PRN PRN Reason: Pain (Moderate) Stop: 03/31/17 22:01 Last Admin: 02/07/17 07:04 Dose: 50 mg Trazodone HCl (Desyrel) 50 mg PO HS [facility] PRN Reason: Protocol Stop: 04/03/17 20:59 Last Admin: 02/12/17 20:35 Dose: Not Given General: Other (obtunded) HEENT: Atraumatic, Mucous membr. moist/pink Neck: Supple, +2 carotid pulse wo bruit Cardiovascular: Regular rate, Normal S1, Normal S2 Lungs: Other (rhonchi, rales) Abdomen: Other (ascites) Extremities: Edema Neurological: Sensation intact Skin: no Rash Psych/Mental Status: Other (obtunded) - Procedures Procedures: Procedures Procedure Code Date GROUP PSYCHOTHERAPY 51761 01/14/16 GROUP PSYCHOTHERAPY [id number] 01/14/16 INSERT EMERGENCY AIRWAY 83536 01/30/17 INSERTION OF ENDOTRACHEAL AIRWAY INTO TRACHEA, VIA OPENING [id number] 01/30/17 RESPIRATORY VENTILATION, GREATER THAN 96 CONSECUTIVE HOURS [id number] 01/30/17 TRANSFUSE NONAUT RED BLOOD CELLS IN PERIPH VEIN, PERC 40309E4 01/16/17 VENT MGMT INPAT INIT DAY 59499 01/30/17 Assessment/Plan - Problem List Patient Problems: All Active Problems Agitation (Acute) R45.1 Combative behavior (Acute) R46.89 HTN (hypertension) (Acute) I10 Psychosis (Acute) F29 - Assessment Assessment: VIPUL on CKD Acute RF on vent decomp CHF Liver mets Anoxic/met Encph Anemia UGI bleed on cd Severe malnutrition B/L HAP - Plan Plan: Lab - Result Diagrams 02/12/17 07:00 02/12/17 07:00 Current Medications Acetaminophen (Tylenol) 650 mg PO Q4H PRN PRN Reason: Fever > 100 Stop: 03/31/17 16:47 Last Admin: 02/11/17 20:22 Dose: 650 mg Albuterol/Ipratropium (Duoneb Neb) 3 ml HHN Q8HRT [facility] Stop: 03/31/17 14:59 Last Admin: 02/12/17 07:19 Dose: 3 ml Albuterol/Ipratropium (Duoneb Neb) 3 ml HHN Q4H PRN PRN Reason: Wheezing Stop: 04/08/17 19:25 Ascorbic Acid (Vitamin C) 500 mg PO DAILY [facility] Stop: 04/01/17 19:29 Last Admin: 02/12/17 09:13 Dose: 500 mg Budesonide (Pulmicort) 0.5 mg HHN BIDRT [facility] Stop: 04/09/17 06:59 Last Admin: 02/12/17 07:19 Dose: 0.5 mg Chlorhexidine Gluconate (Peridex) 15 ml MM 0800,2000 [facility] Stop: 04/08/17 19:59 Last Admin: 02/11/17 20:23 Dose: 15 ml Docusate Sodium (Colace) 100 mg PO BID [facility] Stop: 04/01/17 19:29 Last Admin: 02/12/17 09:17 Dose: 100 mg Ferrous Sulfate (Iron) 325 mg PO DAILY [facility] Stop: 04/02/17 08:59 Last Admin: 02/12/17 09:13 Dose: 325 mg Folic Acid (Folate) 1 mg PO DAILY [facility] Stop: 04/01/17 19:29 Last Admin: 02/12/17 09:14 Dose: 1 mg Gabapentin (Neurontin) 300 mg PO BID [facility] Stop: 04/02/17 08:59 Last Admin: 02/12/17 09:18 Dose: 300 mg Heparin Sodium (Porcine) (Heparin) 5,000 units HD UD [facility] Stop: 02/13/17 00:00 Last Admin: 02/12/17 09:14 Dose: 5,000 units Pantoprazole Sodium 80 mg/ (Sodium Chloride) 100 mls @ 10 mls/hr IV Q10H [facility] Stop: 04/09/17 07:59 Last Admin: 02/12/17 12:47 Dose: 10 mls/hr Octreotide Acetate 1,250 mcg/ (Sodium Chloride) 252.5 mls @ 10 mls/hr IV .Q24H [facility] Stop: 04/09/17 07:59 Last Admin: 02/12/17 12:48 Dose: 10 mls/hr Metronidazole (Flagyl) 500 mg in 100 mls @ 100 mls/hr IV Q8HR [facility] Stop: 04/09/17 20:59 Last Admin: 02/12/17 04:33 Dose: 100 mls/hr Multivitamins/Minerals 10 ml/Amino Acids/ Fat Emulsion Intravenous/ Dextrose 1, 680 mls @ 60 mls/hr IV .Q24H [facility] Stop: 04/11/17 15:59 Last Admin: 02/11/17 16:11 Dose: 70 mls/hr Norepinephrine Bitartrate 8 mg (/ Dextrose) 258 mls @ 0 mls/hr IV TITR PRN; Protocol; 0 MCG/MIN PRN Reason: BP MAINTENANCE (PER PROTOCOL) Stop: 04/11/17 13:44 Last Titration: 02/12/17 04:29 Dose: 10 mcg/min, 19.35 mls/hr Furosemide 100 mg/ Sodium (Chloride) 100 mls @ 5 mls/hr IV TITR [facility] Stop: 04/11/17 14:27 Last Admin: 02/12/17 12:44 Dose: 5 mls/hr Meropenem 500 mg/ Sodium (Chloride) 100 mls @ 100 mls/hr IV Q12H [facility] Stop: 04/11/17 15:44 Last Admin: 02/12/17 03:11 Dose: 100 mls/hr Albumin Human (Albuminar 25%) 25 gm in 100 mls @ 50 mls/hr IV 2XW [facility] Stop: 02/13/17 19:00 Last Admin: 02/11/17 17:50 Dose: 50 mls/hr Insulin Aspart (Novolog Insulin Sliding Scale) 0 units SUBQ Q6H [facility] PRN Reason: Protocol Stop: 04/10/17 11:59 Last Admin: 02/12/17 07:36 Dose: 2 units Lactobacillus Rhamnosus (Culturelle) 1 each PO DAILY [facility] Stop: 04/11/17 08:59 Last Admin: 02/12/17 09:13 Dose: 1 each Magnesium Hydroxide (Milk Of Magnesia) 30 ml PO DAILY PRN PRN Reason: Constipation Stop: 04/01/17 19:18 Mirtazapine (Remeron) 22.5 mg PO HS [facility] PRN Reason: Protocol Stop: 04/01/17 20:59 Last Admin: 02/11/17 20:20 Dose: 22.5 mg Miscellaneous (Probiotic Screen) 1 ea MC PRN PRN PRN Reason: PROTOCOL Stop: 04/10/17 11:08 Miscellaneous (Tpn Per Pharmacy) 1 ea MC PRN PRN PRN Reason: PROTOCOL Stop: 04/11/17 07:48 Miscellaneous (Vancomycin Iv Per Pharmacy) 1 ea MC PRN PRN PRN Reason: PROTOCOL Stop: 04/13/17 11:43 Morphine Sulfate (Morphine) 2 mg IVP Q4HR PRN PRN Reason: Pain (Moderate) Stop: 04/12/17 20:41 Last Admin: 02/12/17 05:31 Dose: 2 mg Temazepam (Restoril) 15 mg PO HS PRN; Protocol PRN Reason: Insomnia Stop: 03/31/17 20:55 Last Admin: 01/30/17 21:43 Dose: 15 mg Tramadol HCl (Ultram) 50 mg PO Q6HR PRN PRN Reason: Pain (Moderate) Stop: 03/31/17 22:01 Last Admin: 02/07/17 07:04 Dose: 50 mg Trazodone HCl (Desyrel) 50 mg PO HS [facility] PRN Reason: Protocol Stop: 04/03/17 20:59 Last Admin: 02/11/17 20:22 Dose: 50 mg Kidney fnc worse w/ BUN/CR of 102/5.5 Na up to 133 WBC still elevated awaiting for consent from conservator for HD no heparin during HD discussed w/ sister, nephew @ bedside started on Lasix drip @ 5mg/hr on levo 10 mcg PPN @ 60 Nutritional Asmnt/Malnutr-PDOC - Dietary Evaluation Malnutrition Findings (Please click <Entered> for more info): Nutritional Asmnt/Malnutrition Start: 02/02/17 13: 54 Text: Status: Complete Freq: Document 02/02/17 13:54 GSUN (Rec: 02/02/17 14:04 GSDENIZ [email or web address]) Nutritional Asmnt/Malnutrition Patient General Information Nutritional Screening Moderate Risk Screening Diagnosis Pneumonia, sepsis, acute kidney failure Pertinent Medical Hx/Surgical Hx Dementia, possible metastatic cancer to the liver Subjective Information 71 year old male. Pt was just admitted to [facility] on 01/16/17, bedscale 177.9lb on 01/23/17, bedscale 204lb today, likely inaccurate, edema noted. Pt appears overall thin, severe muscle/fat wasting to chest and clavicles. Pt is edentulous on ground diet, no difficulties. Pt was only able to answer simple questions, able to list to RD what he had for breakfast. RD encouraged PO intake due to hypermetabolic state, pt understood. MERCHANDISE FLOW ASSOCIATE at bedside stated pt tolerates Boost Plus . Avg PO itnake 75% of meals, meeting 75% of estimated kcal needs. Current Diet Order/ Nutrition Support [facility] soft ground, Bosot Plus TID Pertinent Medications Vitamin C, Colace, Iron, Folate, MOM, Remeron, Vancomycin, D5-0.45ns Pertinent Labs 02/02: Potassium 5.5H, BUN 39H, creatinine 2.2H (declining), glucose 96 Nutritional Hx/Data Height 1.7 m Height (Calculated Centimeters) 170.2 Current Weight (lbs) 79.832 kg Weight (Calculated Kilograms) 79.8 Weight (Calculated Grams) 33059.3 [place] Body Weight 148lb GI Symptoms Skin Integrity/Comment: [place] 14. Bilateral leg and feet 4+ edema, some bruises. Estimated Nutritional Goals Calories/Kcals/Kg IBW 148lb/67.3kg Kcals Calculated 2356kcal (35kcal/kg) Protein g/kg: IBW Protein Calculated 67-101g (1-1.5g/kg, renal insuffieicny vs sepsis/ pneumonia/depletion) Nutritional Problem 2. 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 Problem Problem Increased kcal and prot needs related to Etiology hypermetabolic state aeb Signs/Symptoms: sepsis, pneumonia, severe muscle/fat depletion to clavicles and chest, possible metastatic cancer to the liver Malnutrition Alert Body Fat Depletion (Severe) Mod to Severe Depletion Muscle Mass (Severe) Mod to Severe Depletion Fluid Accumulation (Non-Severe) Moderate Mild Fluid Retention Intervention/Recommendation Comments 1. Recommend ground renal diet , dx. acute renal failure, elevated labs: BUN 39H Equipment Maintenance Supervisor 2. 2H Potassium 5.5H. 2. Recommend oral supplement change from Bosot Plus TID to Suplena TID, dx. acute renal failure, elevated labs: BUN 39H Equipment Maintenance Supervisor 2.2H Potassium 5.5H. Expected Outcomes/Goals Expected Outcomes/Goals 1. PO intake to meet 100% of estimated nutritional needs.
[2017-02-13] MEDS: TPN 10%-70% CUSTOM IV SCH (16:14)
[2017-02-13] MEDS: Albumin 25% 25gm/100mL 25 GM/100 ML BTL IV SCH (17:37)
[2017-02-13] MEDS ORDERED: Norepinephrine 4 mg/4mL Vial IV ONE ×2 (18:19→18:21)
--- NOTE | 2017-02-14 00:01 | Operative Report ---
DATE OF SURGERY: 02/13/2017 PREOPERATIVE DIAGNOSES: 1. Acute renal failure. 2. Respiratory failure. 3. Cancer of the liver? POSTOPERATIVE DIAGNOSES: 1. Acute renal failure. 2. Respiratory failure. 3. Cancer of the liver? OPERATION DONE: Insertion of Rolando catheter, right subclavian vein under ultrasound guidance. Informed consent was given to conservator. Family has agreed to the procedure, likewise. DESCRIPTION OF PROCEDURE: The right chest was prepped with ChloraPrep and draped in appropriate manner. 1% lidocaine was used to infiltrate. The site identified on ultrasound. A size 18 needle was used to locate the vein. The guidewire was inserted, the dilator, and triple-lumen catheter. This anchored to the chest wall with 3-0 silk. A portable chest x-ray will be done. JOB# [id number]
[2017-02-14] MEDS: INSULIN ASPART SLIDING SCALE 100 UNITS/ML UNIT SUBQ SCH ×4 (00:09→12:24)
[2017-02-14] MEDS: Pantoprazole 80 MG in Sodium Chloride 0.9% 100 ML IV SCH ×3 (02:09→19:44)
[2017-02-14] MEDS: Meropenem 500 MG in Sodium Chloride 0.9% 100 ML IV SCH ×2 (03:54→15:25)
--- NOTE | 2017-02-14 04:44 | Progress Notes ---
DATE: 02/13/2017 Case was discussed with staff of the patient and reviewed records. The patient continues to do the same and he is in ICU. He continues to be medically ill, unable to make safe plan for self-care. His prognosis is poor according to the cytometry technologist and he is still on the same medication with no side effects. Thank you very much for allowing me to participate in the care of this most interesting gentleman. [facility]# [id number]
[2017-02-14] MEDS: metroNIDAZOLE 500mg/NS 100mL 500 MG/100 ML BAG IV SCH (05:47)
[2017-02-14 06:20] LABS: HEMATOCRIT 24.5 % (39.0-49.0); HEMOGLOBIN 8.8 gm/dL (12.6-17.4); MEAN CORPUSCULAR HEMOGLOBIN 37.6 pg (27.0-31.0); MEAN CORPUSCULAR HGB CONC 35.8 pg (28.0-36.0); MEAN PLATELET VOLUME 8.3 fl; PLATELET COUNT 125 Th/cmm (150-400); RED BLOOD COUNT 2.33 Mil/cmm (3.80-5.80)
[2017-02-14 06:33] LABS: INR 1.62 (0.5-1.4); PROTHROMBIN TIME (TEST) 17.3 SECONDS (9.5-11.5)
[2017-02-14 06:38] LABS: ANION GAP 10.1 (7.0-16.0); BUN - UREA NITROGEN 77 mg/dL (7-25); BUN/CREATININE RATIO 16.7; CALCIUM SERUM 9.3 mg/dL (8.6-10.3); CARBON DIOXIDE 24.5 mEq/L (21.0-31.0); CHLORIDE 102 mEq/L (98-107); GLUCOSE 148 mg/dL (70-105); MAGNESIUM 2.1 mg/dL (1.9-2.7); PHOSPHOROUS 4.8 mg/dL (2.5-5.0); POTASSIUM SERUM 3.6 mEq/L (3.5-5.1); SODIUM SERUM 133 mEq/L (136-145)
[2017-02-14 06:45] LABS: MEAN CELL VOLUME 105.1 fl (80-99); WHITE BLOOD COUNT 38.7 Th/cmm (4.8-10.8)
[2017-02-14 06:47] LABS: CREATININE - SERUM 4.6 mg/dL (0.7-1.3)
[2017-02-14] MEDS: Albuterol/Ipratropium Neb 3 ML AERS HHN SCH ×2 (07:57→15:43)
[2017-02-14] MEDS: Budesonide 0.5 Mg/2 mL Ud HHN SCH (07:57)
[2017-02-14 08:02] LABS: BAND NEUTROPHILE 11 % (0-10); EOSINOPHIL 2 % (0-5); METAMYELOCYTE 1 % (0-0); NEUTROPHILS 64 % (40-80); TOTAL CELLS COUNTED 100
[2017-02-14 08:03] LABS: ANISOCYTOSIS 2+; PLATELET ESTIMATE DECREASED PLATELETS (NORMAL); PLATELET MORPHOLOGY NORMAL (NORMAL); POLYCHROMASIA 1+
[2017-02-14] MEDS: Ferrous Sulfate 325 MG TAB PO SCH (08:04)
[2017-02-14] MEDS: Lactobacillus Rhamnosus 10 Billion CFU Capsule PO SCH (08:04)
[2017-02-14] MEDS: Chlorhexidine Gluconate 0.12% 15mL Mouthwash MM SCH ×2 (08:46→20:45)
--- NOTE | 2017-02-14 09:54 | Diagnostic Imaging Report ---
CHEST X-RAY: AP view INDICATION: Rolando catheter placement COMPARISON: Chest x-ray earlier the same day FINDINGS: Right-sided Rolando catheter has been place with tip in SVC. Remaining support devices are stable. Findings of CHF are seen with right effusion. No evidence of a pneumothorax. Bilateral infiltrates are noted. IMPRESSION: Interval right-sided Rolando catheter placement with tip in the SVC. No evidence of pneumothorax CHF and right effusion and bilateral infiltrates.
--- NOTE | 2017-02-14 09:57 | Diagnostic Imaging Report ---
CHEST X-RAY: AP view INDICATION: CHF COMPARISON: Chest x-ray 02/13/2017 at 15:23 FINDINGS: Support devices remain stable. Findings of CHF are seen with layering right effusion and bilateral hazy infiltrates. Mild cardiomegaly is noted. IMPRESSION: No significant change in pulmonary status.
--- NOTE | 2017-02-14 11:14 | Progress Notes ---
DATE: 02/13/2017 PROBLEM LIST: 1. Acute respiratory failure. 2. Bilateral pneumonia with effusion. 3. Encephalopathy. 4. Persistent hypotension. 5. Possibly hepatic disease with now renal failure. SYMPTOMS: The patient is awake, looks from side to side, but no other related subjective issues. PHYSICAL EXAMINATION: VITAL SIGNS: Temperature is 99, heart rate ____ and BP is on vasopressors ____ and the patient's saturation is 94% on 40% of oxygen. NECK: Veins not visualized. Good bilateral carotid upstroke. CHEST: Shows marked diminished air entry with occasional rhonchi. HEART: Regular. ABDOMEN: Quite distended. EXTREMITIES: Shows poor pulsations. LABORATORY DATA: White count is 13,000, and platelet count is 120 and creatinine is 5.5, BUN is 120. ASSESSMENT: The patient clinically doing poorly with multisystem problem, suspected hepatic issue/lesion with renal failure, respiratory failure, third-spacing including fluid in the chest. PLANS AND SUGGESTIONS: We will go ahead and continue current treatment. We will follow through other studies in the next few days. Overall prognosis appears to be very poor and will continue rest of other treatment and go from there. JOB# [id number]
--- NOTE | 2017-02-14 14:32 | General Progress Note ---
Subjective - Review of Systems Service Date: 02/14/17 Subjective: more obtunded today, on vent Objective - Results Result Diagrams: 02/14/17 05:30 02/14/17 05:30 Recent Labs: Laboratory Last Values WBC 38.7 Th/cmm (4.8-10.8) H* 02/14/17 05:30 RBC 2.33 Mil/cmm (3.80-5.80) L 02/14/17 05:30 Hgb 8.8 gm/dL (12.6-17.4) L 02/14/17 05:30 Hct 24.5 % (39.0-49.0) L 02/14/17 05:30 MCV 105.1 fl (80-99) H 02/14/17 05:30 MCH 37.6 pg (27.0-31.0) H 02/14/17 05:30 MCHC Differential 35.8 pg (28.0-36.0) 02/14/17 05:30 RDW 30.0 % (11.5-20.0) H 02/14/17 05:30 Plt Count 125 Th/cmm (150-400) L 02/14/17 05:30 MPV 8.3 fl 02/14/17 05:30 Neutrophils % PRODUCTION CONTROL SPECIALIST 02/11/17 05:00 Band Neutrophils % 11 % (0-10) H 02/14/17 05:30 Lymphocytes % PRODUCTION CONTROL SPECIALIST 02/11/17 05:00 Monocytes % PRODUCTION CONTROL SPECIALIST 02/11/17 05:00 Eosinophils % PRODUCTION CONTROL SPECIALIST 02/11/17 05:00 Basophils % PRODUCTION CONTROL SPECIALIST 02/11/17 05:00 Neutrophils (Manual) 64 % (40-80) 02/14/17 05:30 Lymphocytes 9 % (20-50) L 02/14/17 05:30 Monocytes 13 % (2-10) H 02/14/17 05:30 Eosinophils 2 % (0-5) 02/14/17 05:30 Basophils 1 % (0-3) 02/13/17 09:30 Metamyelocytes 1 % (0-0) H 02/14/17 05:30 Platelet Estimate DECREASED PLATELETS (NORMAL) 02/14/17 05:30 Platelet Morphology NORMAL (NORMAL) 02/14/17 05:30 Polychromasia 1+ 02/14/17 05:30 Poikilocytosis 1+ 02/06/17 05:48 Anisocytosis 2+ 02/14/17 05:30 Macrocytosis 1+ 02/14/17 05:30 Ovalocytes 1+ 02/04/17 06:37 RBC Morph Micro Appear ABNORMAL (NORMAL) 02/14/17 05:30 Smear Path Review SEE BELOW 02/09/17 04:45 Plt Count 120 Th/cmm (150-750) L 02/13/17 09:30 PT 17.3 SECONDS (9.5-11.5) H 02/14/17 05:30 INR 1.62 (0.5-1.4) H 02/14/17 05:30 PTT (Actin FS) 38.1 SECONDS (26.0-38.0) H 02/13/17 09:30 Fibrinogen 162.0 mg/dL (200.0-400.0) L 02/13/17 09:30 D-Dimer 2700 ng/mL (100-400) H 02/13/17 09:30 Specimen Source Arterial 02/09/17 08:45 Sample Site Right Radial 02/09/17 08:45 pH 7.32 (7.35-7.45) L 02/09/17 08:45 pCO2 38.0 mmHg (35.0-45.0) 02/09/17 08:45 pO2 65.0 mmHg (80.0-100.0) L 02/09/17 08:45 HCO3 20.1 mEq/L (20.0-26.0) 02/09/17 08:45 Base Excess -6.0 mEq/L (-3.0-3.0) L 02/09/17 08:45 O2 Saturation 91.0 % (92.0-100.0) L 02/09/17 08:45 Dwayne Test YES 02/09/17 08:45 Vent Rate 12 02/09/17 08:45 Inspired O2 40 02/09/17 08:45 Tidal Volume 500 02/09/17 08:45 PEEP NA 02/09/17 08:45 Pressure (ins/psv/peep) NA 02/09/17 08:45 Critical Value E.DIAMOND 02/09/17 08:45 Sodium 133 mEq/L (136-145) L 02/14/17 05:30 Potassium 3.6 mEq/L (3.5-5.1) 02/14/17 05:30 Chloride 102 mEq/L (98-107) 02/14/17 05:30 Carbon Dioxide 24.5 mEq/L (21.0-31.0) 02/14/17 05:30 Anion Gap 10.1 (7.0-16.0) 02/14/17 05:30 BUN 77 mg/dL (7-25) H 02/14/17 05:30 Creatinine 4.6 mg/dL (0.7-1.3) H* 02/14/17 05:30 Est GFR ( Amer) TNP 02/14/17 05:30 Est GFR (Non-Af Amer) TNP 02/14/17 05:30 BUN/Creatinine Ratio 16.7 02/14/17 05:30 Glucose 148 mg/dL (70-105) H 02/14/17 05:30 POC Glucose 137 MG/DL (70 - 105) H 02/12/17 13:10 Whole Bld Lactic Acid 2.02 mmol/L (0.60-1.99) H* 01/30/17 12:20 Calcium 9.3 mg/dL (8.6-10.3) 02/14/17 05:30 Phosphorus 4.8 mg/dL (2.5-5.0) 02/14/17 05:30 Magnesium 2.1 mg/dL (1.9-2.7) 02/14/17 05:30 Iron 151 ug/dL (38-169) 02/04/17 06:37 TIBC 178 ug/dL (250-450) L 02/04/17 06:37 Iron Saturation 85 % (15-55) H 02/04/17 06:37 Unsaturated IBC 27 ug/dL (111-343) L 02/04/17 06:37 Ferritin 1222 ng/mL (30-400) H 02/04/17 06:37 Total Bilirubin 1.9 mg/dL (0.3-1.0) H 02/12/17 07:00 Direct Bilirubin 1.27 mg/dL (0.0-0.2) H 02/12/17 07:00 AST 52 U/L (13-39) H 02/12/17 07:00 ALT 9 U/L (7-52) 02/12/17 07:00 Alkaline Phosphatase 101 U/L (34-104) 02/12/17 07:00 Ammonia 53 umol/L (16-53) 02/12/17 07:00 Total Protein 5.7 gm/dL (6.0-8.3) L 02/12/17 07:00 Albumin 2.6 gm/dL (4.2-5.5) L 02/12/17 07:00 Globulin 3.1 gm/dL 02/12/17 07:00 Albumin/Globulin Ratio 0.8 (1.0-1.8) L 02/12/17 07:00 Prealbumin 6 mg/dL (9-32) L 02/12/17 07:00 [id number] 236 mg/dL (90-200) H 02/04/17 06:37 Ceruloplasmin 34.0 mg/dL (16.0-31.0) H 02/04/17 06:37 Triglycerides 89 mg/dL (<150) 02/12/17 07:00 Cholesterol 51 mg/dL (<200) 02/12/17 07:00 LDL Cholesterol Direct 46 mg/dL (75-193) L 01/30/17 10:20 HDL Cholesterol 19 mg/dL (23-92) L 01/30/17 10:20 Tumor Marker AFP 832.4 ng/mL (0.0-8.3) H 02/05/17 06:37 Carcinoembryonic Ag 13.4 ng/mL (0.0-4.7) H 02/04/17 06:37 CA 19-9 Antigen 2818 U/mL (0-35) H 02/04/17 06:37 TSH 0.32 uIU/ml (0.34-5.60) L 02/10/17 04:45 Urine Source CLEAN C 01/30/17 11:05 Urine Color LOS 01/30/17 11:05 Urine Clarity CLEAR (CLEAR) 01/30/17 11:05 Urine pH 5.0 01/30/17 11:05 Ur Specific [place] 1.020 (1.005-1.030) 01/30/17 11:05 Urine Protein 30 mg/dL (NEGATIVE) H 01/30/17 11:05 Urine Glucose (UA) NEGATIVE mg/dL (NEGATIVE) 01/30/17 11:05 Urine Ketones 15 mg/dL (NEGATIVE) H 01/30/17 11:05 Urine Blood NEGATIVE (NEGATIVE) 01/30/17 11:05 Urine Nitrate POSITIVE (NEGATIVE) H 01/30/17 11:05 Urine Bilirubin SMALL (NEGATIVE) H 01/30/17 11:05 Urine Urobilinogen 0.2 E.U./dL (0.2 - 1.0) 01/30/17 11:05 Ur Leukocyte Esterase NEGATIVE (NEGATIVE) 01/30/17 11:05 Urine RBC 0-2 /hpf (0-5) H 01/30/17 11:05 Urine WBC 2-5 /hpf (0-5) H 01/30/17 11:05 Ur Epithelial Cells OCCASIONAL /lpf (FEW) 01/30/17 11:05 Urine Bacteria MODERATE /hpf (NONE SEEN) 01/30/17 11:05 Urine Mucus FEW /lpf (FEW) 01/30/17 11:05 Stool Occult Blood NEGATIVE (NEGATIVE) 02/11/17 17:05 Vancomycin Trough 39.3 ug/mL (10-20) H 02/02/17 16:35 Random Vancomycin 23.4 ug/mL (5.0-40.0) 02/12/17 07:00 Anti-Mitochondrial Ab 25.7 Units (0.0-20.0) H 02/04/17 06:37 Smooth Muscle IgG Ab 38 Units (0-19) H 02/04/17 06:37 RPR NONREACTIVE (NONREACTIVE) 01/30/17 10:20 Hepatitis A IgM Ab Negative (Negative) 01/30/17 10:20 Hep Bs Antigen Negative (Negative) 01/30/17 10:20 Hep B Core IgM Ab Negative (Negative) 01/30/17 10:20 Hepatitis C Antibody >11.0 s/co ratio (0.0-0.9) H 01/30/17 10:20 Blood Type O POSITIVE 02/10/17 07:16 Antibody Screen NEGATIVE 02/10/17 07:16 Crossmatch See Detail 02/10/17 07:16 - Physical Exam Vitals and I&O: Vital Signs Temp 98.1 F 02/14/17 12:00 Pulse 103 02/14/17 14:00 Resp 18 02/14/17 14:00 BP 106/67 02/14/17 14:00 Pulse Ox 94 02/14/17 14:00 Intake & Output 02/13/17 02/14/17 02/14/17 18:59 06:59 18:59 Intake Total 1828.780 7299.437 305.334 Output Total 1620 Balance 1009.283 579.437 305.334 Intake: Intake, IV Amount 1009.283 599.437 305.334 Furosemide 100 mg In 17.083 67 Sodium Chloride 0.9% 90 ml @ 5 mls/hr IV TITR [facility] Rx#:[id number] Meropenem 500 mg In 100 Sodium Chloride 0.9% 100 ml @ 100 mls/hr IV Q12H [facility] Rx#:[id number] Norepinephrine 8 mg In 425.70 339.27 Dextrose 5% 250 ml @ 0 MCG/MIN IV TITR PRN Rx#: [id number] Octreotide Acetate 1,250 200.5 239.167 mcg In Sodium Chloride 0. 9% 250 ml @ 10 mls/hr IV .Q24H [facility] Rx#:[id number] Pantoprazole 80 mg In 166.000 93.167 66.167 Sodium Chloride 0.9% 100 ml @ 10 mls/hr IV Q10H [facility] Rx#:[id number] metroNIDAZOLE 500mg/NS 100 100 100mL 500 mg In 100 ml @ 100 mls/hr IV Q8HR [facility] Rx #:[id number] TPN/PPN 1200 Albumin 100 Other 300 Output: Gastric Drainage 200 Urine 20 Stool 0 Hemodialysis 1400 Other: # Bowel Movements 0 Stool Characteristics Green Active Medications: Current Medications Acetaminophen (Tylenol) 650 mg PO Q4H PRN PRN Reason: Fever > 100 Stop: 03/31/17 16:47 Last Admin: 02/11/17 20:22 Dose: 650 mg Albuterol/Ipratropium (Duoneb Neb) 3 ml HHN Q8HRT [facility] Stop: 03/31/17 14:59 Last Admin: 02/14/17 07:57 Dose: 3 ml Albuterol/Ipratropium (Duoneb Neb) 3 ml HHN Q4H PRN PRN Reason: Wheezing Stop: 04/08/17 19:25 Ascorbic Acid (Vitamin C) 500 mg PO DAILY [facility] Stop: 04/01/17 19:29 Last Admin: 02/14/17 08:03 Dose: Not Given Budesonide (Pulmicort) 0.5 mg HHN BIDRT [facility] Stop: 04/09/17 06:59 Last Admin: 02/14/17 07:57 Dose: 0.5 mg Chlorhexidine Gluconate (Peridex) 15 ml MM 799,1999 [facility] Stop: 04/08/17 19:59 Last Admin: 02/14/17 08:46 Dose: 15 ml Docusate Sodium (Colace) 100 mg PO BID [facility] Stop: 04/01/17 19:29 Last Admin: 02/14/17 08:04 Dose: Not Given Ferrous Sulfate (Iron) 325 mg PO DAILY [facility] Stop: 04/02/17 08:59 Last Admin: 02/14/17 08:04 Dose: Not Given Folic Acid (Folate) 1 mg PO DAILY [facility] Stop: 04/01/17 19:29 Last Admin: 02/14/17 08:04 Dose: Not Given Gabapentin (Neurontin) 300 mg PO BID [facility] Stop: 04/02/17 08:59 Last Admin: 02/14/17 08:04 Dose: Not Given Pantoprazole Sodium 80 mg/ (Sodium Chloride) 100 mls @ 10 mls/hr IV Q10H [facility] Stop: 04/09/17 07:59 Last Admin: 02/14/17 08:46 Dose: 10 mls/hr Octreotide Acetate 1,250 mcg/ (Sodium Chloride) 252.5 mls @ 10 mls/hr IV .Q24H [facility] Stop: 04/09/17 07:59 Last Admin: 02/14/17 08:46 Dose: 10 mls/hr Norepinephrine Bitartrate 8 mg (/ Dextrose) 258 mls @ 0 mls/hr IV TITR PRN; Protocol; 0 MCG/MIN PRN Reason: BP MAINTENANCE (PER PROTOCOL) Stop: 04/11/17 13:44 Last Admin: 02/14/17 07:41 Dose: 20 mcg/min, 39 mls/hr Furosemide 100 mg/ Sodium (Chloride) 100 mls @ 5 mls/hr IV TITR [facility] Stop: 04/11/17 14:27 Last Admin: 02/13/17 22:15 Dose: 5 mls/hr Meropenem 500 mg/ Sodium (Chloride) 100 mls @ 100 mls/hr IV Q12H [facility] Stop: 04/11/17 15:44 Last Admin: 02/14/17 03:54 Dose: 100 mls/hr Multivitamins/Minerals 10 ml/Dextrose/ Amino Acids/Electrolytes/ Fat Emulsion Intravenous 1,200 mls @ 50 mls/hr IV .Q24H [facility] Stop: 04/14/17 15:59 Last Admin: 02/13/17 16:14 Dose: 50 mls/hr Insulin Aspart (Novolog Insulin Sliding Scale) 0 units SUBQ Q6H [facility] PRN Reason: Protocol Stop: 04/10/17 11:59 Last Admin: 02/14/17 12:24 Dose: Not Given Lactobacillus Rhamnosus (Culturelle) 1 each PO DAILY [facility] Stop: 04/11/17 08:59 Last Admin: 02/14/17 08:04 Dose: Not Given Magnesium Hydroxide (Milk Of Magnesia) 30 ml PO DAILY PRN PRN Reason: Constipation Stop: 04/01/17 19:18 Mirtazapine (Remeron) 22.5 mg PO [facility] PRN Reason: Protocol Stop: 04/01/17 20:59 Last Admin: 02/13/17 21:00 Dose: Not Given Miscellaneous (Probiotic Screen) 1 ea PRN PRN PRN Reason: PROTOCOL Stop: 04/10/17 11:08 Miscellaneous (Tpn Per Pharmacy) 1 ea PRN PRN PRN Reason: PROTOCOL Stop: 04/11/17 07:48 Miscellaneous (Vancomycin Iv Per Pharmacy) 1 ea PRN PRN PRN Reason: PROTOCOL Stop: 04/13/17 11:43 Morphine Sulfate (Morphine) 2 mg IVP Q4HR PRN PRN Reason: Pain (Moderate) Stop: 04/12/17 20:41 Last Admin: 02/13/17 02:51 Dose: 2 mg Trazodone HCl (Desyrel) 50 mg PO [facility] PRN Reason: Protocol Stop: 04/03/17 20:59 Last Admin: 02/14/17 07:41 Dose: Not Given General: Mild distress, Other (obtunded) HEENT: Atraumatic, Mucous membr. moist/pink Neck: Supple, +2 carotid pulse wo bruit Cardiovascular: Regular rate, Normal S1, Normal S2 Lungs: Other (rales, rhonchi) Abdomen: Other (ascites, diminished BS) Extremities: Edema ((+) 4 bipedal edema, upper ext edema) Neurological: Sensation intact Skin: no Rash Psych/Mental Status: Other (obtunded) - Procedures Procedures: Procedures Procedure Code Date GROUP PSYCHOTHERAPY 82865 01/14/16 GROUP PSYCHOTHERAPY [id number] 01/14/16 INSERT EMERGENCY AIRWAY 22263 01/30/17 INSERTION OF ENDOTRACHEAL AIRWAY INTO TRACHEA, VIA OPENING [id number] 01/30/17 RESPIRATORY VENTILATION, GREATER THAN 96 CONSECUTIVE HOURS [id number] 01/30/17 TRANSFUSE NONAUT RED BLOOD CELLS IN PERIPH VEIN, PERC 03549Q2 01/16/17 VENT MGMT INPAT INIT DAY 17510 01/30/17 Assessment/Plan - Problem List Patient Problems: All Active Problems Agitation (Acute) R45.1 Combative behavior (Acute) R46.89 HTN (hypertension) (Acute) I10 Psychosis (Acute) F29 - Assessment Assessment: VIPUL on CKD Acute RF on vent decomp CHF Liver mets Anoxic/met Encph Anemia UGI bleed on cd Severe malnutrition B/L HAP - Plan Plan: Lab - Result Diagrams 02/12/17 07:00 02/12/17 07:00 Current Medications Acetaminophen (Tylenol) 650 mg PO Q4H PRN PRN Reason: Fever > 100 Stop: 03/31/17 16:47 Last Admin: 02/11/17 20:22 Dose: 650 mg Albuterol/Ipratropium (Duoneb Neb) 3 ml HHN Q8HRT [facility] Stop: 03/31/17 14:59 Last Admin: 02/12/17 07:19 Dose: 3 ml Albuterol/Ipratropium (Duoneb Neb) 3 ml HHN Q4H PRN PRN Reason: Wheezing Stop: 04/08/17 19:25 Ascorbic Acid (Vitamin C) 500 mg PO DAILY [facility] Stop: 04/01/17 19:29 Last Admin: 02/12/17 09:13 Dose: 500 mg Budesonide (Pulmicort) 0.5 mg HHN BIDRT [facility] Stop: 04/09/17 06:59 Last Admin: 02/12/17 07:19 Dose: 0.5 mg Chlorhexidine Gluconate (Peridex) 15 ml MM 0800,2000 [facility] Stop: 04/08/17 19:59 Last Admin: 02/11/17 20:23 Dose: 15 ml Docusate Sodium (Colace) 100 mg PO BID [facility] Stop: 04/01/17 19:29 Last Admin: 02/12/17 09:17 Dose: 100 mg Ferrous Sulfate (Iron) 325 mg PO DAILY [facility] Stop: 04/02/17 08:59 Last Admin: 02/12/17 09:13 Dose: 325 mg Folic Acid (Folate) 1 mg PO DAILY [facility] Stop: 04/01/17 19:29 Last Admin: 02/12/17 09:14 Dose: 1 mg Gabapentin (Neurontin) 300 mg PO BID [facility] Stop: 04/02/17 08:59 Last Admin: 02/12/17 09:18 Dose: 300 mg Heparin Sodium (Porcine) (Heparin) 5,000 units HD UD [facility] Stop: 02/13/17 00:00 Last Admin: 02/12/17 09:14 Dose: 5,000 units Pantoprazole Sodium 80 mg/ (Sodium Chloride) 100 mls @ 10 mls/hr IV Q10H [facility] Stop: 04/09/17 07:59 Last Admin: 02/12/17 12:47 Dose: 10 mls/hr Octreotide Acetate 1,250 mcg/ (Sodium Chloride) 252.5 mls @ 10 mls/hr IV .Q24H [facility] Stop: 04/09/17 07:59 Last Admin: 02/12/17 12:48 Dose: 10 mls/hr Metronidazole (Flagyl) 500 mg in 100 mls @ 100 mls/hr IV Q8HR [facility] Stop: 04/09/17 20:59 Last Admin: 02/12/17 04:33 Dose: 100 mls/hr Multivitamins/Minerals 10 ml/Amino Acids/ Fat Emulsion Intravenous/ Dextrose 1, 680 mls @ 60 mls/hr IV .Q24H [facility] Stop: 04/11/17 15:59 Last Admin: 02/11/17 16:11 Dose: 70 mls/hr Norepinephrine Bitartrate 8 mg (/ Dextrose) 258 mls @ 0 mls/hr IV TITR PRN; Protocol; 0 MCG/MIN PRN Reason: BP MAINTENANCE (PER PROTOCOL) Stop: 04/11/17 13:44 Last Titration: 02/12/17 04:29 Dose: 10 mcg/min, 19.35 mls/hr Furosemide 100 mg/ Sodium (Chloride) 100 mls @ 5 mls/hr IV TITR [facility] Stop: 04/11/17 14:27 Last Admin: 02/12/17 12:44 Dose: 5 mls/hr Meropenem 500 mg/ Sodium (Chloride) 100 mls @ 100 mls/hr IV Q12H [facility] Stop: 04/11/17 15:44 Last Admin: 02/12/17 03:11 Dose: 100 mls/hr Albumin Human (Albuminar 25%) 25 gm in 100 mls @ 50 mls/hr IV 2XW [facility] Stop: 02/13/17 19:00 Last Admin: 02/11/17 17:50 Dose: 50 mls/hr Insulin Aspart (Novolog Insulin Sliding Scale) 0 units SUBQ Q6H [facility] PRN Reason: Protocol Stop: 04/10/17 11:59 Last Admin: 02/12/17 07:36 Dose: 2 units Lactobacillus Rhamnosus (Culturelle) 1 each PO DAILY [facility] Stop: 04/11/17 08:59 Last Admin: 02/12/17 09:13 Dose: 1 each Magnesium Hydroxide (Milk Of Magnesia) 30 ml PO DAILY PRN PRN Reason: Constipation Stop: 04/01/17 19:18 Mirtazapine (Remeron) 22.5 mg PO HS [facility] PRN Reason: Protocol Stop: 04/01/17 20:59 Last Admin: 02/11/17 20:20 Dose: 22.5 mg Miscellaneous (Probiotic Screen) 1 ea PRN PRN PRN Reason: PROTOCOL Stop: 04/10/17 11:08 Miscellaneous (Tpn Per Pharmacy) 1 ea PRN PRN PRN Reason: PROTOCOL Stop: 04/11/17 07:48 Miscellaneous (Vancomycin Iv Per Pharmacy) 1 ea PRN PRN PRN Reason: PROTOCOL Stop: 04/13/17 11:43 Morphine Sulfate (Morphine) 2 mg IVP Q4HR PRN PRN Reason: Pain (Moderate) Stop: 04/12/17 20:41 Last Admin: 02/12/17 05:31 Dose: 2 mg Temazepam (Restoril) 15 mg PO HS PRN; Protocol PRN Reason: Insomnia Stop: 03/31/17 20:55 Last Admin: 01/30/17 21:43 Dose: 15 mg Tramadol HCl (Ultram) 50 mg PO Q6HR PRN PRN Reason: Pain (Moderate) Stop: 03/31/17 22:01 Last Admin: 02/07/17 07:04 Dose: 50 mg Trazodone HCl (Desyrel) 50 mg PO HS [facility] PRN Reason: Protocol Stop: 04/03/17 20:59 Last Admin: 02/11/17 20:22 Dose: 50 mg Kidney fnc better w/ BUN/CR of 77/4.6 Na up to 133 WBC still elevated @ 38.7 started hd yesterday no heparin during HD dc Lasix drip on levo 14 mcg PPN @ 50 Nutritional Asmnt/Malnutr-PDOC - Dietary Evaluation Malnutrition Findings (Please click <Entered> for more info): Nutritional Asmnt/Malnutrition Start: 02/02/17 13: 54 Text: Status: Complete Freq: Document 02/02/17 13:54 GSUN (Rec: 02/02/17 14:04 GSUN [id number]) Nutritional Asmnt/Malnutrition Patient General Information Nutritional Screening Moderate Risk Screening Diagnosis Pneumonia, sepsis, acute kidney failure Pertinent Medical Hx/Surgical Hx Dementia, possible metastatic cancer to the liver Subjective Information 71 year old male. Pt was just admitted to [facility] on 01/16/17, bedscale 177.9lb on 01/23/17, bedscale 204lb today, likely inaccurate, edema noted. Pt appears overall thin, severe muscle/fat wasting to chest and clavicles. Pt is edentulous on ground diet, no difficulties. Pt was only able to answer simple questions, able to list to RD what he had for breakfast. RD encouraged PO intake due to hypermetabolic state, pt understood. RADIOLOGICAL HEALTH SPECIALIST at bedside stated pt tolerates Boost Plus . Avg PO itnake 75% of meals, meeting 75% of estimated kcal needs. Current Diet Order/ Nutrition Support [facility] soft ground, Bosot Plus TID Pertinent Medications Vitamin C, Colace, Iron, Folate, MOM, Remeron, Vancomycin, D5-0.45ns Pertinent Labs 02/02: Potassium 5.5H, BUN 39H, creatinine 2.2H (declining), glucose 96 Nutritional Hx/Data Height 1.7 m Height (Calculated Centimeters) 170.2 Current Weight (lbs) 79.832 kg Weight (Calculated Kilograms) 79.8 Weight (Calculated Grams) 86367.3 [place] Body Weight 148lb GI Symptoms Skin Integrity/Comment: [place] 14. Bilateral leg and feet 4+ edema, some bruises. Estimated Nutritional Goals Calories/Kcals/Kg IBW 148lb/67.3kg Kcals Calculated 2356kcal (35kcal/kg) Protein g/kg: IBW Protein Calculated 67-101g (1-1.5g/kg, renal insuffieicny vs sepsis/ pneumonia/depletion) Nutritional Problem 2. Problem Problem Impaired nutrient utilization realted to Etiology acute renal failure Signs/Symptoms: progress note, elevated/ declining renal labs: BUN39H Wastewater Technician 2.2H potassium 5.5H 1. Problem Problem Increased kcal and prot needs related to Etiology hypermetabolic state aeb Signs/Symptoms: sepsis, pneumonia, severe muscle/fat depletion to clavicles and chest, possible metastatic cancer to the liver Malnutrition Alert Body Fat Depletion (Severe) Mod to Severe Depletion Muscle Mass (Severe) Mod to Severe Depletion Fluid Accumulation (Non-Severe) Moderate Mild Fluid Retention Intervention/Recommendation Comments 1. Recommend ground renal diet , dx. acute renal failure, elevated labs: BUN 39H Wastewater Technician 2. 2H Potassium 5.5H. 2. Recommend oral supplement change from Bosot Plus TID to Suplena TID, dx. acute renal failure, elevated labs: BUN 39H Wastewater Technician 2.2H Potassium 5.5H. Expected Outcomes/Goals Expected Outcomes/Goals 1. PO intake to meet 100% of estimated nutritional needs.
[2017-02-14] MEDS ORDERED: Albumin 25% 25gm/100mL 50 GM/200 ML BTL IV ONE (15:00)
[2017-02-14] MEDS: TPN 10%-70% CUSTOM IV SCH (15:34)
--- NOTE | 2017-02-14 17:50 | Progress Notes ---
DATE: 02/14/2017 Case was discussed with staff of the patient, reviewed records. The patient continues to be in ICU. He is on a ventilator, seems like he is not getting any better; however, he make decisions and I did sign some papers for him full, so they can do the lab work . He is compliant with the medication with no side effects, no sedation, no nausea. Thank you very much for allowing me to participate in the care of this most interesting gentleman. JOB# [id number]
[2017-02-14] MEDS: HYDROmorphone 1 mg/mL 1mL Syr IVP PRN (21:20)
--- NOTE | 2017-02-14 23:26 | Infectious Disease Prog Note ---
Infectious Disease Subjective - Review of Systems Service Date: 02/14/17 Subjective: Yesterday, remains intubated orally, on the ventilator. Has developed no fever. Infectious Disease Objective - Results Result Diagrams: 02/14/17 05:30 02/14/17 05:30 Recent Labs: Laboratory Last Values WBC 38.7 Th/cmm (4.8-10.8) H* 02/14/17 05:30 RBC 2.33 Mil/cmm (3.80-5.80) L 02/14/17 05:30 Hgb 8.8 gm/dL (12.6-17.4) L 02/14/17 05:30 Hct 24.5 % (39.0-49.0) L 02/14/17 05:30 MCV 105.1 fl (80-99) H 02/14/17 05:30 MCH 37.6 pg (27.0-31.0) H 02/14/17 05:30 MCHC Differential 35.8 pg (28.0-36.0) 02/14/17 05:30 RDW 30.0 % (11.5-20.0) H 02/14/17 05:30 Plt Count 125 Th/cmm (150-400) L 02/14/17 05:30 MPV 8.3 fl 02/14/17 05:30 Neutrophils % MANAGER IN TRAINING 02/11/17 05:00 Band Neutrophils % 11 % (0-10) H 02/14/17 05:30 Lymphocytes % MANAGER IN TRAINING 02/11/17 05:00 Monocytes % MANAGER IN TRAINING 02/11/17 05:00 Eosinophils % MANAGER IN TRAINING 02/11/17 05:00 Basophils % MANAGER IN TRAINING 02/11/17 05:00 Neutrophils (Manual) 64 % (40-80) 02/14/17 05:30 Lymphocytes 9 % (20-50) L 02/14/17 05:30 Monocytes 13 % (2-10) H 02/14/17 05:30 Eosinophils 2 % (0-5) 02/14/17 05:30 Basophils 1 % (0-3) 02/13/17 09:30 Metamyelocytes 1 % (0-0) H 02/14/17 05:30 Platelet Estimate DECREASED PLATELETS (NORMAL) 02/14/17 05:30 Platelet Morphology NORMAL (NORMAL) 02/14/17 05:30 Polychromasia 1+ 02/14/17 05:30 Poikilocytosis 1+ 02/06/17 05:48 Anisocytosis 2+ 02/14/17 05:30 Macrocytosis 1+ 02/14/17 05:30 Ovalocytes 1+ 02/04/17 06:37 RBC Morph Micro Appear ABNORMAL (NORMAL) 02/14/17 05:30 Smear Path Review SEE BELOW 02/09/17 04:45 Plt Count 120 Th/cmm (150-750) L 02/13/17 09:30 PT 17.3 SECONDS (9.5-11.5) H 02/14/17 05:30 INR 1.62 (0.5-1.4) H 02/14/17 05:30 PTT (Actin FS) 38.1 SECONDS (26.0-38.0) H 02/13/17 09:30 Fibrinogen 162.0 mg/dL (200.0-400.0) L 02/13/17 09:30 D-Dimer 2700 ng/mL (100-400) H 02/13/17 09:30 Specimen Source Arterial 02/09/17 08:45 Sample Site Right Radial 02/09/17 08:45 pH 7.32 (7.35-7.45) L 02/09/17 08:45 pCO2 38.0 mmHg (35.0-45.0) 02/09/17 08:45 pO2 65.0 mmHg (80.0-100.0) L 02/09/17 08:45 HCO3 20.1 mEq/L (20.0-26.0) 02/09/17 08:45 Base Excess -6.0 mEq/L (-3.0-3.0) L 02/09/17 08:45 O2 Saturation 91.0 % (92.0-100.0) L 02/09/17 08:45 Dwayne Test YES 02/09/17 08:45 Vent Rate 12 02/09/17 08:45 Inspired O2 40 02/09/17 08:45 Tidal Volume 500 02/09/17 08:45 PEEP NA 02/09/17 08:45 Pressure (ins/psv/peep) NA 02/09/17 08:45 Critical Value E.DIAMOND 02/09/17 08:45 Sodium 133 mEq/L (136-145) L 02/14/17 05:30 Potassium 3.6 mEq/L (3.5-5.1) 02/14/17 05:30 Chloride 102 mEq/L (98-107) 02/14/17 05:30 Carbon Dioxide 24.5 mEq/L (21.0-31.0) 02/14/17 05:30 Anion Gap 10.1 (7.0-16.0) 02/14/17 05:30 BUN 77 mg/dL (7-25) H 02/14/17 05:30 Creatinine 4.6 mg/dL (0.7-1.3) H* 02/14/17 05:30 Est GFR ( Amer) TNP 02/14/17 05:30 Est GFR (Non-Af Amer) TNP 02/14/17 05:30 BUN/Creatinine Ratio 16.7 02/14/17 05:30 Glucose 148 mg/dL (70-105) H 02/14/17 05:30 POC Glucose 137 MG/DL (70 - 105) H 02/12/17 13:10 Whole Bld Lactic Acid 2.02 mmol/L (0.60-1.99) H* 01/30/17 12:20 Calcium 9.3 mg/dL (8.6-10.3) 02/14/17 05:30 Phosphorus 4.8 mg/dL (2.5-5.0) 02/14/17 05:30 Magnesium 2.1 mg/dL (1.9-2.7) 02/14/17 05:30 Iron 151 ug/dL (38-169) 02/04/17 06:37 TIBC 178 ug/dL (250-450) L 02/04/17 06:37 Iron Saturation 85 % (15-55) H 02/04/17 06:37 Unsaturated IBC 27 ug/dL (111-343) L 02/04/17 06:37 Ferritin 1222 ng/mL (30-400) H 02/04/17 06:37 Total Bilirubin 1.9 mg/dL (0.3-1.0) H 02/12/17 07:00 Direct Bilirubin 1.27 mg/dL (0.0-0.2) H 02/12/17 07:00 AST 52 U/L (13-39) H 02/12/17 07:00 ALT 9 U/L (7-52) 02/12/17 07:00 Alkaline Phosphatase 101 U/L (34-104) 02/12/17 07:00 Ammonia 53 umol/L (16-53) 02/12/17 07:00 Total Protein 5.7 gm/dL (6.0-8.3) L 02/12/17 07:00 Albumin 2.6 gm/dL (4.2-5.5) L 02/12/17 07:00 Globulin 3.1 gm/dL 02/12/17 07:00 Albumin/Globulin Ratio 0.8 (1.0-1.8) L 02/12/17 07:00 Prealbumin 6 mg/dL (9-32) L 02/12/17 07:00 [id number]-6-[id number] 236 mg/dL (90-200) H 02/04/17 06:37 Ceruloplasmin 34.0 mg/dL (16.0-31.0) H 02/04/17 06:37 Triglycerides 89 mg/dL (<150) 02/12/17 07:00 Cholesterol 51 mg/dL (<200) 02/12/17 07:00 LDL Cholesterol Direct 46 mg/dL (75-193) L 01/30/17 10:20 HDL Cholesterol 19 mg/dL (23-92) L 01/30/17 10:20 Tumor Marker AFP 832.4 ng/mL (0.0-8.3) H 02/05/17 06:37 Carcinoembryonic Ag 13.4 ng/mL (0.0-4.7) H 02/04/17 06:37 CA 19-9 Antigen 2818 U/mL (0-35) H 02/04/17 06:37 TSH 0.32 uIU/ml (0.34-5.60) L 02/10/17 04:45 Urine Source CLEAN C 01/30/17 11:05 Urine Color LOS 01/30/17 11:05 Urine Clarity CLEAR (CLEAR) 01/30/17 11:05 Urine pH 5.0 01/30/17 11:05 Ur Specific [place] 1.020 (1.005-1.030) 01/30/17 11:05 Urine Protein 30 mg/dL (NEGATIVE) H 01/30/17 11:05 Urine Glucose (UA) NEGATIVE mg/dL (NEGATIVE) 01/30/17 11:05 Urine Ketones 15 mg/dL (NEGATIVE) H 01/30/17 11:05 Urine Blood NEGATIVE (NEGATIVE) 01/30/17 11:05 Urine Nitrate POSITIVE (NEGATIVE) H 01/30/17 11:05 Urine Bilirubin SMALL (NEGATIVE) H 01/30/17 11:05 Urine Urobilinogen 0.2 E.U./dL (0.2 - 1.0) 01/30/17 11:05 Ur Leukocyte Esterase NEGATIVE (NEGATIVE) 01/30/17 11:05 Urine RBC 0-2 /hpf (0-5) H 01/30/17 11:05 Urine WBC 2-5 /hpf (0-5) H 01/30/17 11:05 Ur Epithelial Cells OCCASIONAL /lpf (FEW) 01/30/17 11:05 Urine Bacteria MODERATE /hpf (NONE SEEN) 01/30/17 11:05 Urine Mucus FEW /lpf (FEW) 01/30/17 11:05 Stool Occult Blood NEGATIVE (NEGATIVE) 02/11/17 17:05 Vancomycin Trough 39.3 ug/mL (10-20) H 02/02/17 16:35 Random Vancomycin 23.4 ug/mL (5.0-40.0) 02/12/17 07:00 Anti-Mitochondrial Ab 25.7 Units (0.0-20.0) H 02/04/17 06:37 Smooth Muscle IgG Ab 38 Units (0-19) H 02/04/17 06:37 RPR NONREACTIVE (NONREACTIVE) 01/30/17 10:20 Hepatitis A IgM Ab Negative (Negative) 01/30/17 10:20 Hep Bs Antigen Negative (Negative) 01/30/17 10:20 Hep B Core IgM Ab Negative (Negative) 01/30/17 10:20 Hepatitis C Antibody >11.0 s/co ratio (0.0-0.9) H 01/30/17 10:20 Blood Type O POSITIVE 02/10/17 07:16 Antibody Screen NEGATIVE 02/10/17 07:16 Crossmatch See Detail 02/10/17 07:16 - Physical Exam Vitals and I&O: Vital Signs Temp 98.6 F 02/14/17 22:00 Pulse 105 02/14/17 23:15 Resp 17 02/14/17 23:00 BP 109/66 02/14/17 23:15 Pulse Ox 96 02/14/17 23:00 Intake & Output 02/14/17 02/14/17 02/15/17 06:59 18:59 06:59 Intake Total 2299.437 1830.001 Output Total 1620 Balance 059.220 9919.001 Intake: Intake, IV Amount 170.020 9065.001 Furosemide 100 mg In 67 Sodium Chloride 0.9% 90 ml @ 5 mls/hr IV TITR [facility] Rx#:[id number] Meropenem 500 mg In 100 Sodium Chloride 0.9% 100 ml @ 100 mls/hr IV Q12H [facility] Rx#:[id number] Multivitamin Inj 10 ml In 1166.667 Dextrose 70% 440 ml In Amino Acids 10% 500 ml In Intralipids 20% 250 ml @ 50 mls/hr IV .Q24H [facility] Rx#:[id number] Norepinephrine 8 mg In 339.27 258 Dextrose 5% 250 ml @ 0 MCG/MIN IV TITR PRN Rx#: [id number] Octreotide Acetate 1,250 239.167 mcg In Sodium Chloride 0. 9% 250 ml @ 10 mls/hr IV .Q24H [facility] Rx#:[id number] Pantoprazole 80 mg In 93.167 166.167 Sodium Chloride 0.9% 100 ml @ 10 mls/hr IV Q10H [facility] Rx#:[id number] metroNIDAZOLE 500mg/NS 100 100mL 500 mg In 100 ml @ 100 mls/hr IV Q8HR [facility] Rx #:[id number] TPN/PPN 1200 Albumin 100 Other 300 Output: Gastric Drainage 200 Urine 20 Stool 0 Hemodialysis 1400 Other: # Bowel Movements 0 Stool Characteristics Green Active Medications: Current Medications Acetaminophen (Tylenol) 650 mg PO Q4H PRN PRN Reason: Fever > 100 Stop: 03/31/17 16:47 Last Admin: 02/11/17 20:22 Dose: 650 mg Albuterol/Ipratropium (Duoneb Neb) 3 ml HHN Q8HRT RICHELLE Stop: 03/31/17 14:59 Last Admin: 02/14/17 15:43 Dose: 3 ml Albuterol/Ipratropium (Duoneb Neb) 3 ml HHN Q4H PRN PRN Reason: Wheezing Stop: 04/08/17 19:25 Ascorbic Acid (Vitamin C) 500 mg PO DAILY [facility] Stop: 04/01/17 19:29 Last Admin: 02/14/17 08:03 Dose: Not Given Budesonide (Pulmicort) 0.5 mg HHN BIDRT [facility] Stop: 04/09/17 06:59 Last Admin: 02/14/17 07:57 Dose: 0.5 mg Chlorhexidine Gluconate (Peridex) 15 ml MM 0800,2000 [facility] Stop: 04/08/17 19:59 Last Admin: 02/14/17 20:45 Dose: 15 ml Docusate Sodium (Colace) 100 mg PO BID [facility] Stop: 04/01/17 19:29 Last Admin: 02/14/17 17:20 Dose: Not Given Ferrous Sulfate (Iron) 325 mg PO DAILY [facility] Stop: 04/02/17 08:59 Last Admin: 02/14/17 08:04 Dose: Not Given Folic Acid (Folate) 1 mg PO DAILY [facility] Stop: 04/01/17 19:29 Last Admin: 02/14/17 08:04 Dose: Not Given Gabapentin (Neurontin) 300 mg PO BID [facility] Stop: 04/02/17 08:59 Last Admin: 02/14/17 17:20 Dose: Not Given Hydromorphone HCl (Dilaudid) 0.5 mg IVP Q4HR PRN PRN Reason: PAIN Stop: 04/15/17 21:10 Last Admin: 02/14/17 21:20 Dose: 0.5 mg Pantoprazole Sodium 80 mg/ (Sodium Chloride) 100 mls @ 10 mls/hr IV Q10H [facility] Stop: 04/09/17 07:59 Last Admin: 02/14/17 19:44 Dose: 10 mls/hr Octreotide Acetate 1,250 mcg/ (Sodium Chloride) 252.5 mls @ 10 mls/hr IV .Q24H [facility] Stop: 04/09/17 07:59 Last Admin: 02/14/17 08:46 Dose: 10 mls/hr Norepinephrine Bitartrate 8 mg (/ Dextrose) 258 mls @ 0 mls/hr IV TITR PRN; Protocol; 0 MCG/MIN PRN Reason: BP MAINTENANCE (PER PROTOCOL) Stop: 04/11/17 13:44 Last Admin: 02/14/17 17:14 Dose: 20 mcg/min, 39 mls/hr Meropenem 500 mg/ Sodium (Chloride) 100 mls @ 100 mls/hr IV Q12H [facility] Stop: 04/11/17 15:44 Last Admin: 02/14/17 15:25 Dose: 100 mls/hr Multivitamins/Minerals 10 ml/Dextrose/ Amino Acids/Electrolytes/ Fat Emulsion Intravenous 1,200 mls @ 50 mls/hr IV .Q24H [facility] Stop: 04/14/17 15:59 Last Admin: 02/14/17 15:34 Dose: 50 mls/hr Insulin Aspart (Novolog Insulin Sliding Scale) 0 units SUBQ Q6H [facility]ICHEL[facility] PRN Reason: Protocol Stop: 04/10/17 11:59 Last Admin: 02/14/17 12:24 Dose: Not Given Lactobacillus Rhamnosus (Culturelle) 1 each PO DAILY [facility] Stop: 04/11/17 08:59 Last Admin: 02/14/17 08:04 Dose: Not Given Magnesium Hydroxide (Milk Of Magnesia) 30 ml PO DAILY PRN PRN Reason: Constipation Stop: 04/01/17 19:18 Mirtazapine (Remeron) 22.5 mg PO [facility] PRN Reason: Protocol Stop: 04/01/17 20:59 Last Admin: 02/14/17 21:04 Dose: Not Given Miscellaneous (Probiotic Screen) 1 ea PRN PRN PRN Reason: PROTOCOL Stop: 04/10/17 11:08 Miscellaneous (Tpn Per Pharmacy) 1 [facility] PRN PRN PRN Reason: PROTOCOL Stop: 04/11/17 07:48 Miscellaneous (Vancomycin Iv Per Pharmacy) 1 ea PRN PRN PRN Reason: PROTOCOL Stop: 04/13/17 11:43 Trazodone HCl (Desyrel) 50 mg PO [facility] PRN Reason: Protocol Stop: 04/03/17 20:59 Last Admin: 02/14/17 21:04 Dose: Not Given General: no acute distress HEENT: atraumatic, normocephalic, PERRLA, EOMI, moist mucous membrane Neck: supple, no thyromegaly, no lymphadenopathy Cardiovascular: S1S2, regular Lungs: clear to auscultation bilaterally, clear to percussion Abdomen: soft, distended, no tender Extremities: edema, no cyanosis, no clubbing Neurological: awake, alert Skin: intact - Procedures Procedures: Procedures Procedure Code Date GROUP PSYCHOTHERAPY 13847 01/14/16 GROUP PSYCHOTHERAPY [id number] 01/14/16 INSERT EMERGENCY AIRWAY 12969 01/30/17 INSERTION OF ENDOTRACHEAL AIRWAY INTO TRACHEA, VIA OPENING [id number] 01/30/17 RESPIRATORY VENTILATION, GREATER THAN 96 CONSECUTIVE HOURS [id number] 01/30/17 TRANSFUSE NONAUT RED BLOOD CELLS IN PERIPH VEIN, PERC [id number] 01/16/17 VENT MGMT INPAT IN DAY 36358 01/30/17 Infectious Disease Assmt/Plan - Problem List Patient Problems: All Active Problems Agitation (Acute) R45.1 Combative behavior (Acute) R46.89 HTN (hypertension) (Acute) I10 Psychosis (Acute) F29 - Assessment Assessment: Impression: 1. Leukocytosis, multifactorial. ? malignanacy, sepsis, pneumonia. 2. pneumonia. 3. metastatic lesions of liver, not confirmed yet. ? abscess. 4. Dementia, 5. Psychosis 6. VDRF. 9. Suspect SBP. 10. Renal failure, acute on chronic. Recommendations: Continue meropenem. Continue flagyl empirically suspecting CDAC with this high WBC Count.. Continue vanco IV. Nutritional Asmnt/Malnutr-PDOC - Dietary Evaluation Malnutrition Findings (Please click <Entered> for more info): Nutritional Asmnt/Malnutrition Start: 02/02/17 13: 54 Text: Status: Complete Freq: Document 02/02/17 13:54 GSUN (Rec: 02/02/17 14:04 GSUN [email or web address]) Nutritional Asmnt/Malnutrition Patient General Information Nutritional Screening Moderate Risk Screening Diagnosis Pneumonia, sepsis, acute kidney failure Pertinent Medical Hx/Surgical Hx Dementia, possible metastatic cancer to the liver Subjective Information 71 year old male. Pt was just admitted to [facility] on 01/16/17, bedscale 177.9lb on 01/23/17, bedscale 204lb today, likely inaccurate, edema noted. Pt appears overall thin, severe muscle/fat wasting to chest and clavicles. Pt is edentulous on ground diet, no difficulties. Pt was only able to answer simple questions, able to list to RD what he had for breakfast. RD encouraged PO intake due to hypermetabolic state, pt understood. TEACHING MANAGER at bedside stated pt tolerates Boost Plus . Avg PO itnake 75% of meals, meeting 75% of estimated kcal needs. Current Diet Order/ Nutrition Support [facility] soft ground, Bosot Plus TID Pertinent Medications Vitamin C, Colace, Iron, Folate, MOM, Remeron, Vancomycin, D5-0.45ns Pertinent Labs 02/02: Potassium 5.5H, BUN 39H, creatinine 2.2H (declining), glucose 96 Nutritional Hx/Data Height 1.7 m Height (Calculated Centimeters) 170.2 Current Weight (lbs) 79.832 kg Weight (Calculated Kilograms) 79.8 Weight (Calculated Grams) 28280.3 [place] Body Weight 148lb GI Symptoms Skin Integrity/Comment: [place] 14. Bilateral leg and feet 4+ edema, some bruises. Estimated Nutritional Goals Calories/Kcals/Kg IBW 148lb/67.3kg Kcals Calculated 2356kcal (35kcal/kg) Protein g/kg: IBW Protein Calculated 67-101g (1-1.5g/kg, renal insuffieicny vs sepsis/ pneumonia/depletion) Nutritional Problem 2. Problem Problem Impaired nutrient utilization realted to Etiology acute renal failure Signs/Symptoms: progress note, elevated/ declining renal labs: [id number] Town Manager 2.2H potassium 5.5H 1. Problem Problem Increased kcal and prot needs related to Etiology hypermetabolic state aeb Signs/Symptoms: sepsis, pneumonia, severe muscle/fat depletion to clavicles and chest, possible metastatic cancer to the liver Malnutrition Alert Body Fat Depletion (Severe) Mod to Severe Depletion Muscle Mass (Severe) Mod to Severe Depletion Fluid Accumulation (Non-Severe) Moderate Mild Fluid Retention Intervention/Recommendation Comments 1. Recommend ground renal diet , dx. acute renal failure, elevated labs: BUN 39H Town Manager 2. 2H Potassium 5.5H. 2. Recommend oral supplement change from Bosot Plus TID to Suplena TID, dx. acute renal failure, elevated labs: BUN 39H Town Manager 2.2H Potassium 5.5H. Expected Outcomes/Goals Expected Outcomes/Goals 1. PO intake to meet 100% of estimated nutritional needs.
[2017-02-15] MEDS: Albuterol/Ipratropium Neb 3 ML AERS HHN SCH ×3 (00:04→14:18)
[2017-02-15] MEDS: INSULIN ASPART SLIDING SCALE 100 UNITS/ML UNIT SUBQ SCH ×4 (00:12→17:49)
[2017-02-15] MEDS: HYDROmorphone 1 mg/mL 1mL Syr IVP PRN ×3 (01:43→20:01)
[2017-02-15] MEDS: Meropenem 500 MG in Sodium Chloride 0.9% 100 ML IV SCH ×2 (03:45→14:56)
[2017-02-15] MEDS: metroNIDAZOLE 500mg/NS 100mL 500 MG/100 ML BAG IV SCH ×3 (05:00→21:00)
[2017-02-15] MEDS: Pantoprazole 80 MG in Sodium Chloride 0.9% 100 ML IV SCH ×2 (05:52→14:46)
[2017-02-15 06:09] LABS: HEMATOCRIT 25.1 % (39.0-49.0); MEAN CORPUSCULAR HEMOGLOBIN 37.8 pg (27.0-31.0); MEAN CORPUSCULAR HGB CONC 35.7 pg (28.0-36.0); MEAN PLATELET VOLUME 8.2 fl; PLATELET COUNT 108 Th/cmm (150-400); RED BLOOD COUNT 2.37 Mil/cmm (3.80-5.80); RED CELL DISTRIBUTION WIDTH 30.7 % (11.5-20.0)
[2017-02-15 06:16] LABS: MEAN CELL VOLUME 105.9 fl (80-99); WHITE BLOOD COUNT 44.6 Th/cmm (4.8-10.8)
[2017-02-15 06:19] LABS: ANION GAP 14.6 (7.0-16.0); BUN - UREA NITROGEN 63 mg/dL (7-25); BUN/CREATININE RATIO 16.2; CALCIUM SERUM 9.6 mg/dL (8.6-10.3); CARBON DIOXIDE 24.8 mEq/L (21.0-31.0); CHLORIDE 100 mEq/L (98-107); CREATININE - SERUM 3.9 mg/dL (0.7-1.3); GLUCOSE 153 mg/dL (70-105); POTASSIUM SERUM 3.4 mEq/L (3.5-5.1); SODIUM SERUM 136 mEq/L (136-145)
[2017-02-15 06:30] LABS: INR 1.84 (0.5-1.4); PROTHROMBIN TIME (TEST) 19.8 SECONDS (9.5-11.5)
[2017-02-15] MEDS: Budesonide 0.5 Mg/2 mL Ud HHN SCH ×2 (07:55→19:24)
[2017-02-15] MEDS: Ferrous Sulfate 325 MG TAB PO SCH (08:06)
[2017-02-15] MEDS: Lactobacillus Rhamnosus 10 Billion CFU Capsule PO SCH (08:07)
[2017-02-15 08:11] LABS: HEP B CORE IGM Negative (Negative); HEP C ANTIBODY >11.0 s/co ratio (0.0-0.9)
[2017-02-15 08:22] LABS: BAND NEUTROPHILE 9 % (0-10); EOSINOPHIL 1 % (0-5); NEUTROPHILS 74 % (40-80); TOTAL CELLS COUNTED 100
[2017-02-15 08:23] LABS: ANISOCYTOSIS 2+; PLATELET ESTIMATE DECREASED PLATELETS (NORMAL); PLATELET MORPHOLOGY NORMAL (NORMAL); POLYCHROMASIA 1+
[2017-02-15] MEDS: Chlorhexidine Gluconate 0.12% 15mL Mouthwash MM SCH ×2 (08:48→20:02)
--- NOTE | 2017-02-15 09:52 | Progress Notes ---
DATE: 02/14/2017 PULMONARY/CRITICAL PROGRESS NOTE PROBLEM LIST: 1. Respiratory failure with bilateral effusion. 2. Pneumonia. 3. Cirrhosis of liver ____ possible metastasis. SYMPTOMS: Nil. Quite obtunded, on hypotension, vasopressors. He has been ____ dialysis now. PHYSICAL EXAMINATION: VITAL SIGNS: The patient is afebrile, heart rate 110-120, blood pressure is in low 90s on Levophed, saturation 95% on 40% of oxygen. NECK: Neck veins not visualized. CHEST: Shows diminished air entry with occasional rhonchi. HEART: Regular. ABDOMEN: Quite distended. EXTREMITIES: Show 2+ pitting edema. LABORATORY DATA: White count is 38,000, and the patient's platelet count is 120,000, and electrolytes show creatinine of 5.6 and BUN is 77. Chest x-ray show increased effusion bilaterally. ET tube ____ position. ASSESSMENT: The patient is clinically doing poorly with multisystem failure, respiratory, hypertension, renal failure as well as bilateral effusion with some hepatic disease. PLANS AND SUGGESTIONS: We will continue current supportive care, etc., and see how he does and go from there. JOB# [id number]
--- NOTE | 2017-02-15 11:26 | Diagnostic Imaging Report ---
Portable chest x-ray HISTORY: Shortness of breath, congestive heart failure Compared with prior exam of 02/14/2017, persistent cardiomegaly. Evidence of a persistent right pleural effusion. Question left pleural effusion. Pulmonary vascular redistribution suggests underlying cardiac decompensation. No change in line and tube placements. IMPRESSION: 1. No change in the cardiopulmonary status as noted above.
[2017-02-15] MEDS: TPN 10%-70% CUSTOM IV SCH (15:54)
--- NOTE | 2017-02-15 17:01 | General Progress Note ---
Subjective - Review of Systems Service Date: 02/15/17 Subjective: more awake today, trying to converse, on vent Objective - Results Result Diagrams: 02/15/17 05:48 02/15/17 05:48 Recent Labs: Laboratory Last Values WBC 44.6 Th/cmm (4.8-10.8) H* 02/15/17 05:48 RBC 2.37 Mil/cmm (3.80-5.80) L 02/15/17 05:48 Hgb 9.0 gm/dL (12.6-17.4) L 02/15/17 05:48 Hct 25.1 % (39.0-49.0) L 02/15/17 05:48 MCV 105.9 fl (80-99) H 02/15/17 05:48 MCH 37.8 pg (27.0-31.0) H 02/15/17 05:48 MCHC Differential 35.7 pg (28.0-36.0) 02/15/17 05:48 RDW 30.7 % (11.5-20.0) H 02/15/17 05:48 Plt Count 108 Th/cmm (150-400) L 02/15/17 05:48 MPV 8.2 fl 02/15/17 05:48 Neutrophils % [facility]ER D[facility] NET 02/11/17 05:00 Band Neutrophils % 9 % (0-10) 02/15/17 05:48 Lymphocytes % [employer] NET 02/11/17 05:00 Monocytes % [facility] NET 02/11/17 05:00 Eosinophils % [employer] NET 02/11/17 05:00 Basophils % [employer] D[employer] NET 02/11/17 05:00 Neutrophils (Manual) 74 % (40-80) 02/15/17 05:48 Lymphocytes 10 % (20-50) L 02/15/17 05:48 Monocytes 6 % (2-10) 02/15/17 05:48 Eosinophils 1 % (0-5) 02/15/17 05:48 Basophils 1 % (0-3) 02/13/17 09:30 Metamyelocytes 1 % (0-0) H 02/14/17 05:30 Platelet Estimate DECREASED PLATELETS (NORMAL) 02/15/17 05:48 Platelet Morphology NORMAL (NORMAL) 02/15/17 05:48 Polychromasia 1+ 02/15/17 05:48 Poikilocytosis 1+ 02/06/17 05:48 Anisocytosis 2+ 02/15/17 05:48 Macrocytosis 1+ 02/15/17 05:48 Ovalocytes 1+ 02/04/17 06:37 RBC Morph Micro Appear ABNORMAL (NORMAL) 02/15/17 05:48 Smear Path Review SEE BELOW 02/09/17 04:45 Plt Count 120 Th/cmm (150-750) L 02/13/17 09:30 PT 19.8 SECONDS (9.5-11.5) H 02/15/17 05:48 INR 1.84 (0.5-1.4) H 02/15/17 05:48 PTT (Actin FS) 38.1 SECONDS (26.0-38.0) H 02/13/17 09:30 Fibrinogen 162.0 mg/dL (200.0-400.0) L 02/13/17 09:30 D-Dimer 2700 ng/mL (100-400) H 02/13/17 09:30 Specimen Source Arterial 02/09/17 08:45 Sample Site Right Radial 02/09/17 08:45 pH 7.32 (7.35-7.45) L 02/09/17 08:45 pCO2 38.0 mmHg (35.0-45.0) 02/09/17 08:45 pO2 65.0 mmHg (80.0-100.0) L 02/09/17 08:45 HCO3 20.1 mEq/L (20.0-26.0) 02/09/17 08:45 Base Excess -6.0 mEq/L (-3.0-3.0) L 02/09/17 08:45 O2 Saturation 91.0 % (92.0-100.0) L 02/09/17 08:45 Dwayne Test YES 02/09/17 08:45 Vent Rate 12 02/09/17 08:45 Inspired O2 40 02/09/17 08:45 Tidal Volume 500 02/09/17 08:45 PEEP NA 02/09/17 08:45 Pressure (ins/psv/peep) NA 02/09/17 08:45 Critical Value E.DIAMOND 02/09/17 08:45 Sodium 136 mEq/L (136-145) 02/15/17 05:48 Potassium 3.4 mEq/L (3.5-5.1) L 02/15/17 05:48 Chloride 100 mEq/L (98-107) 02/15/17 05:48 Carbon Dioxide 24.8 mEq/L (21.0-31.0) 02/15/17 05:48 Anion Gap 14.6 (7.0-16.0) 02/15/17 05:48 BUN 63 mg/dL (7-25) H 02/15/17 05:48 Creatinine 3.9 mg/dL (0.7-1.3) H 02/15/17 05:48 Est GFR ( Amer) TNP 02/15/17 05:48 Est GFR (Non-Af Amer) TNP 02/15/17 05:48 BUN/Creatinine Ratio 16.2 02/15/17 05:48 Glucose 153 mg/dL (70-105) H 02/15/17 05:48 POC Glucose 137 MG/DL (70 - 105) H 02/12/17 13:10 Whole Bld Lactic Acid 2.02 mmol/L (0.60-1.99) H* 01/30/17 12:20 Calcium 9.6 mg/dL (8.6-10.3) 02/15/17 05:48 Phosphorus 4.8 mg/dL (2.5-5.0) 02/14/17 05:30 Magnesium 2.1 mg/dL (1.9-2.7) 02/14/17 05:30 Iron 151 ug/dL (38-169) 02/04/17 06:37 TIBC 178 ug/dL (250-450) L 02/04/17 06:37 Iron Saturation 85 % (15-55) H 02/04/17 06:37 Unsaturated IBC 27 ug/dL (111-343) L 02/04/17 06:37 Ferritin 1222 ng/mL (30-400) H 02/04/17 06:37 Total Bilirubin 1.9 mg/dL (0.3-1.0) H 02/12/17 07:00 Direct Bilirubin 1.27 mg/dL (0.0-0.2) H 02/12/17 07:00 AST 52 U/L (13-39) H 02/12/17 07:00 ALT 9 U/L (7-52) 02/12/17 07:00 Alkaline Phosphatase 101 U/L (34-104) 02/12/17 07:00 Ammonia 53 umol/L (16-53) 02/12/17 07:00 Total Protein 5.7 gm/dL (6.0-8.3) L 02/12/17 07:00 Albumin 2.6 gm/dL (4.2-5.5) L 02/12/17 07:00 Globulin 3.1 gm/dL 02/12/17 07:00 Albumin/Globulin Ratio 0.8 (1.0-1.8) L 02/12/17 07:00 Prealbumin 6 mg/dL (9-32) L 02/12/17 07:00 [id number]-[id number] 236 mg/dL (90-200) H 02/04/17 06:37 Ceruloplasmin 34.0 mg/dL (16.0-31.0) H 02/04/17 06:37 Triglycerides 89 mg/dL (<150) 02/12/17 07:00 Cholesterol 51 mg/dL (<200) 02/12/17 07:00 LDL Cholesterol Direct 46 mg/dL (75-193) L 01/30/17 10:20 HDL Cholesterol 19 mg/dL (23-92) L 01/30/17 10:20 Tumor Marker AFP 832.4 ng/mL (0.0-8.3) H 02/05/17 06:37 Carcinoembryonic Ag 13.4 ng/mL (0.0-4.7) H 02/04/17 06:37 CA 19-9 Antigen 2818 U/mL (0-35) H 02/04/17 06:37 TSH 0.32 uIU/ml (0.34-5.60) L 02/10/17 04:45 Urine Source CLEAN C 01/30/17 11:05 Urine Color LOS 01/30/17 11:05 Urine Clarity CLEAR (CLEAR) 01/30/17 11:05 Urine pH 5.0 01/30/17 11:05 Ur Specific [place] 1.020 (1.005-1.030) 01/30/17 11:05 Urine Protein 30 mg/dL (NEGATIVE) H 01/30/17 11:05 Urine Glucose (UA) NEGATIVE mg/dL (NEGATIVE) 01/30/17 11:05 Urine Ketones 15 mg/dL (NEGATIVE) H 01/30/17 11:05 Urine Blood NEGATIVE (NEGATIVE) 01/30/17 11:05 Urine Nitrate POSITIVE (NEGATIVE) H 01/30/17 11:05 Urine Bilirubin SMALL (NEGATIVE) H 01/30/17 11:05 Urine Urobilinogen 0.2 E.U./dL (0.2 - 1.0) 01/30/17 11:05 Ur Leukocyte Esterase NEGATIVE (NEGATIVE) 01/30/17 11:05 Urine RBC 0-2 /hpf (0-5) H 01/30/17 11:05 Urine WBC 2-5 /hpf (0-5) H 01/30/17 11:05 Ur Epithelial Cells OCCASIONAL /lpf (FEW) 01/30/17 11:05 Urine Bacteria MODERATE /hpf (NONE SEEN) 01/30/17 11:05 Urine Mucus FEW /lpf (FEW) 01/30/17 11:05 Stool Occult Blood NEGATIVE (NEGATIVE) 02/11/17 17:05 Vancomycin Trough 39.3 ug/mL (10-20) H 02/02/17 16:35 Random Vancomycin 23.4 ug/mL (5.0-40.0) 02/12/17 07:00 Anti-Mitochondrial Ab 25.7 Units (0.0-20.0) H 02/04/17 06:37 Smooth Muscle IgG Ab 38 Units (0-19) H 02/04/17 06:37 RPR NONREACTIVE (NONREACTIVE) 01/30/17 10:20 Hepatitis A IgM Ab Negative (Negative) 02/14/17 05:30 Hep Bs Antigen Negative (Negative) 02/14/17 05:30 Hep B Core IgM Ab Negative (Negative) 02/14/17 05:30 Hepatitis C Antibody >11.0 s/co ratio (0.0-0.9) H 02/14/17 05:30 Blood Type O POSITIVE 02/10/17 07:16 Antibody Screen NEGATIVE 02/10/17 07:16 Crossmatch See Detail 02/10/17 07:16 - Physical Exam Vitals and I&O: Vital Signs Temp 99.0 F 02/15/17 12:00 Pulse 109 02/15/17 15:58 Resp 20 02/15/17 15:00 BP 95/54 02/15/17 15:45 Pulse Ox 94 02/15/17 15:58 Intake & Output 02/14/17 02/15/17 02/15/17 18:59 06:59 18:59 Intake Total 0978.555 9289 2126.750 Output Total 5 Balance 2598.918 3603 2126.750 Weight (lbs) 116.12 kg Intake: Intake, IV Amount 1830.015 726 1381.750 Meropenem 500 mg In 200 Sodium Chloride 0.9% 100 ml @ 100 mls/hr IV Q12H [facility] Rx#:[id number] Multivitamin Inj 10 ml In 8751.665 2692 Dextrose 70% 440 ml In Amino Acids 10% 500 ml In Intralipids 20% 250 ml @ 50 mls/hr IV .Q24H [facility] Rx#:[id number] Norepinephrine 8 mg In 258 258 497.583 Dextrose 5% 250 ml @ 0 MCG/MIN IV TITR PRN Rx#: [id number] Octreotide Acetate 1,250 239.167 240.167 mcg In Sodium Chloride 0. 9% 250 ml @ 10 mls/hr IV .Q24H [facility] Rx#:[id number] Pantoprazole 80 mg In 166.167 100 89 Sodium Chloride 0.9% 100 ml @ 10 mls/hr IV Q10H [facility] Rx#:[id number] metroNIDAZOLE 500mg/NS 100 100 100mL 500 mg In 100 ml @ 100 mls/hr IV Q8HR [facility] Rx #:[id number] Oral 0 TPN/PPN 600 Output: Urine 5 Active Medications: Current Medications Acetaminophen (Tylenol) 650 mg PO Q4H PRN PRN Reason: Fever > 100 Stop: 03/31/17 16:47 Last Admin: 02/11/17 20:22 Dose: 650 mg Albuterol/Ipratropium (Duoneb Neb) 3 ml HHN Q8HRT [facility] Stop: 03/31/17 14:59 Last Admin: 02/15/17 14:18 Dose: 3 ml Albuterol/Ipratropium (Duoneb Neb) 3 ml HHN Q4H PRN PRN Reason: Wheezing Stop: 04/08/17 19:25 Ascorbic Acid (Vitamin C) 500 mg PO DAILY [facility] Stop: 04/01/17 19:29 Last Admin: 02/15/17 08:06 Dose: Not Given Budesonide (Pulmicort) 0.5 mg HHN BIDRT [facility] Stop: 04/09/17 06:59 Last Admin: 02/15/17 07:55 Dose: 0.5 mg Chlorhexidine Gluconate (Peridex) 15 ml MM 08,1999 [facility] Stop: 04/08/17 19:59 Last Admin: 02/15/17 08:48 Dose: 15 ml Docusate Sodium (Colace) 100 mg PO BID [facility] Stop: 04/01/17 19:29 Last Admin: 02/15/17 08:06 Dose: Not Given Ferrous Sulfate (Iron) 325 mg PO DAILY [facility] Stop: 04/02/17 08:59 Last Admin: 02/15/17 08:06 Dose: Not Given Folic Acid (Folate) 1 mg PO DAILY [facility] Stop: 04/01/17 19:29 Last Admin: 02/15/17 08:06 Dose: Not Given Gabapentin (Neurontin) 300 mg PO BID [facility] Stop: 04/02/17 08:59 Last Admin: 02/15/17 08:06 Dose: Not Given Hydromorphone HCl (Dilaudid) 0.5 mg IVP Q4HR PRN PRN Reason: PAIN Stop: 04/15/17 21:10 Last Admin: 02/15/17 05:17 Dose: 0.5 mg Pantoprazole Sodium 80 mg/ (Sodium Chloride) 100 mls @ 10 mls/hr IV Q10H [facility] Stop: 04/09/17 07:59 Last Admin: 02/15/17 14:46 Dose: 10 mls/hr Octreotide Acetate 1,250 mcg/ (Sodium Chloride) 252.5 mls @ 10 mls/hr IV .Q24H [facility] Stop: 04/09/17 07:59 Last Admin: 02/15/17 08:47 Dose: 10 mls/hr Norepinephrine Bitartrate 8 mg (/ Dextrose) 258 mls @ 0 mls/hr IV TITR PRN; Protocol; 0 MCG/MIN PRN Reason: BP MAINTENANCE (PER PROTOCOL) Stop: 04/11/17 13:44 Last Titration: 02/15/17 15:44 Dose: 18 mcg/min, 35 mls/hr Meropenem 500 mg/ Sodium (Chloride) 100 mls @ 100 mls/hr IV Q12H [facility] Stop: 04/11/17 15:44 Last Admin: 02/15/17 14:56 Dose: 100 mls/hr Multivitamins/Minerals 10 ml/Dextrose/ Amino Acids/Electrolytes/ Fat Emulsion Intravenous 1,200 mls @ 50 mls/hr IV .Q24H [facility] Stop: 04/14/17 15:59 Last Admin: 02/15/17 15:54 Dose: 50 mls/hr Metronidazole (Flagyl) 500 mg in 100 mls @ 100 mls/hr IV Q8HR [facility] Stop: 04/16/17 04:59 Last Infusion: 02/15/17 13:00 Dose: Infused Insulin Aspart (Novolog Insulin Sliding Scale) 0 units SUBQ Q6H [facility] PRN Reason: Protocol Stop: 04/10/17 11:59 Last Admin: 02/15/17 11:57 Dose: Not Given Lactobacillus Rhamnosus (Culturelle) 1 each PO DAILY [facility] Stop: 04/11/17 08:59 Last Admin: 02/15/17 08:07 Dose: Not Given Magnesium Hydroxide (Milk Of Magnesia) 30 ml PO DAILY PRN PRN Reason: Constipation Stop: 04/01/17 19:18 Mirtazapine (Remeron) 22.5 mg PO [facility] PRN Reason: Protocol Stop: 04/01/17 20:59 Last Admin: 02/14/17 21:04 Dose: Not Given Miscellaneous (Probiotic Screen) 1 ea PRN PRN PRN Reason: PROTOCOL Stop: 04/10/17 11:08 Miscellaneous (Tpn Per Pharmacy) [facility] PRN PRN PRN Reason: PROTOCOL Stop: 04/11/17 07:48 Miscellaneous (Vancomycin Iv Per Pharmacy) [facility] PRN PRN PRN Reason: PROTOCOL Stop: 04/13/17 11:43 Trazodone HCl (Desyrel) 50 mg PO [facility] PRN Reason: Protocol Stop: 04/03/17 20:59 Last Admin: 02/14/17 21:04 Dose: Not Given General: Mild distress, Other (more awake) HEENT: Atraumatic, EOMI Neck: Supple, +2 carotid pulse wo bruit Cardiovascular: Regular rate, Normal S1, Normal S2 Lungs: Other (rhonchi, rales) Abdomen: Other (ascites, decrease BS) Extremities: Edema ((+) 3) Neurological: Sensation intact Skin: no Rash Psych/Mental Status: Mood NL - Procedures Procedures: Procedures Procedure Code Date GROUP PSYCHOTHERAPY 68671 01/14/16 GROUP PSYCHOTHERAPY [id number] 01/14/16 INSERT EMERGENCY AIRWAY 40313 01/30/17 INSERTION OF ENDOTRACHEAL AIRWAY INTO TRACHEA, VIA OPENING [id number] 01/30/17 RESPIRATORY VENTILATION, GREATER THAN 96 CONSECUTIVE HOURS [id number] 01/30/17 TRANSFUSE NONAUT RED BLOOD CELLS IN PERIPH VEIN, PERC 56896T8 01/16/17 VENT MGMT INPAT INIT DAY 38417 01/30/17 Assessment/Plan - Problem List Patient Problems: All Active Problems Agitation (Acute) R45.1 Combative behavior (Acute) R46.89 HTN (hypertension) (Acute) I10 Psychosis (Acute) F29 - Assessment Assessment: VIPUL on CKD Acute RF on vent decomp CHF Liver mets Anoxic/met Encph Anemia UGI bleed on cd Severe malnutrition B/L HAP - Plan Plan: Lab - Result Diagrams 02/12/17 07:00 02/12/17 07:00 Current Medications Acetaminophen (Tylenol) 650 mg PO Q4H PRN PRN Reason: Fever > 100 Stop: 03/31/17 16:47 Last Admin: 02/11/17 20:22 Dose: 650 mg Albuterol/Ipratropium (Duoneb Neb) 3 ml HHN Q8HRT [facility] Stop: 03/31/17 14:59 Last Admin: 02/12/17 07:19 Dose: 3 ml Albuterol/Ipratropium (Duoneb Neb) 3 ml HHN Q4H PRN PRN Reason: Wheezing Stop: 04/08/17 19:25 Ascorbic Acid (Vitamin C) 500 mg PO DAILY [facility] Stop: 04/01/17 19:29 Last Admin: 02/12/17 09:13 Dose: 500 mg Budesonide (Pulmicort) 0.5 mg HHN BIDRT [facility] Stop: 04/09/17 06:59 Last Admin: 02/12/17 07:19 Dose: 0.5 mg Chlorhexidine Gluconate (Peridex) 15 ml MM 0800,1999 [facility] Stop: 04/08/17 19:59 Last Admin: 02/11/17 20:23 Dose: 15 ml Docusate Sodium (Colace) 100 mg PO BID [facility] Stop: 04/01/17 19:29 Last Admin: 02/12/17 09:17 Dose: 100 mg Ferrous Sulfate (Iron) 325 mg PO DAILY [facility] Stop: 04/02/17 08:59 Last Admin: 02/12/17 09:13 Dose: 325 mg Folic Acid (Folate) 1 mg PO DAILY [facility] Stop: 04/01/17 19:29 Last Admin: 02/12/17 09:14 Dose: 1 mg Gabapentin (Neurontin) 300 mg PO BID [facility] Stop: 04/02/17 08:59 Last Admin: 02/12/17 09:18 Dose: 300 mg Heparin Sodium (Porcine) (Heparin) 5,000 units HD UD [facility] Stop: 02/13/17 00:00 Last Admin: 02/12/17 09:14 Dose: 5,000 units Pantoprazole Sodium 80 mg/ (Sodium Chloride) 100 mls @ 10 mls/hr IV Q10H [facility] Stop: 04/09/17 07:59 Last Admin: 02/12/17 12:47 Dose: 10 mls/hr Octreotide Acetate 1,250 mcg/ (Sodium Chloride) 252.5 mls @ 10 mls/hr IV .Q24H [facility] Stop: 04/09/17 07:59 Last Admin: 02/12/17 12:48 Dose: 10 mls/hr Metronidazole (Flagyl) 500 mg in 100 mls @ 100 mls/hr IV Q8HR [facility] Stop: 04/09/17 20:59 Last Admin: 02/12/17 04:33 Dose: 100 mls/hr Multivitamins/Minerals 10 ml/Amino Acids/ Fat Emulsion Intravenous/ Dextrose 1, 680 mls @ 60 mls/hr IV .Q24H [facility] Stop: 04/11/17 15:59 Last Admin: 02/11/17 16:11 Dose: 70 mls/hr Norepinephrine Bitartrate 8 mg (/ Dextrose) 258 mls @ 0 mls/hr IV TITR PRN; Protocol; 0 MCG/MIN PRN Reason: BP MAINTENANCE (PER PROTOCOL) Stop: 04/11/17 13:44 Last Titration: 02/12/17 04:29 Dose: 10 mcg/min, 19.35 mls/hr Furosemide 100 mg/ Sodium (Chloride) 100 mls @ 5 mls/hr IV TITR [facility] Stop: 04/11/17 14:27 Last Admin: 02/12/17 12:44 Dose: 5 mls/hr Meropenem 500 mg/ Sodium (Chloride) 100 mls @ 100 mls/hr IV Q12H [facility] Stop: 04/11/17 15:44 Last Admin: 02/12/17 03:11 Dose: 100 mls/hr Albumin Human (Albuminar 25%) 25 gm in 100 mls @ 50 mls/hr IV 2XW [facility] Stop: 02/13/17 19:00 Last Admin: 02/11/17 17:50 Dose: 50 mls/hr Insulin Aspart (Novolog Insulin Sliding Scale) 0 units SUBQ Q6H [facility] PRN Reason: Protocol Stop: 04/10/17 11:59 Last Admin: 02/12/17 07:36 Dose: 2 units Lactobacillus Rhamnosus (Culturelle) 1 each PO DAILY [facility] Stop: 04/11/17 08:59 Last Admin: 02/12/17 09:13 Dose: 1 each Magnesium Hydroxide (Milk Of Magnesia) 30 ml PO DAILY PRN PRN Reason: Constipation Stop: 04/01/17 19:18 Mirtazapine (Remeron) 22.5 mg PO HS [facility] PRN Reason: Protocol Stop: 04/01/17 20:59 Last Admin: 02/11/17 20:20 Dose: 22.5 mg Miscellaneous (Probiotic Screen) 1 ea PRN PRN PRN Reason: PROTOCOL Stop: 04/10/17 11:08 Miscellaneous (Tpn Per Pharmacy) 1 ea PRN PRN PRN Reason: PROTOCOL Stop: 04/11/17 07:48 Miscellaneous (Vancomycin Iv Per Pharmacy) [facility] PRN PRN PRN Reason: PROTOCOL Stop: 04/13/17 11:43 Morphine Sulfate (Morphine) 2 mg IVP Q4HR PRN PRN Reason: Pain (Moderate) Stop: 04/12/17 20:41 Last Admin: 02/12/17 05:31 Dose: 2 mg Temazepam (Restoril) 15 mg PO HS PRN; Protocol PRN Reason: Insomnia Stop: 03/31/17 20:55 Last Admin: 01/30/17 21:43 Dose: 15 mg Tramadol HCl (Ultram) 50 mg PO Q6HR PRN PRN Reason: Pain (Moderate) Stop: 03/31/17 22:01 Last Admin: 02/07/17 07:04 Dose: 50 mg Trazodone HCl (Desyrel) 50 mg PO HS [facility] PRN Reason: Protocol Stop: 04/03/17 20:59 Last Admin: 02/11/17 20:22 Dose: 50 mg Kidney fnc better w/ BUN/CR of 63/3.9 Na up to 136 WBC still elevated @ 44 started hd yesterday no heparin during HD dc Lasix drip on levo 18 mcg PPN @ 50 for HD in am Nutritional Asmnt/Malnutr-PDOC - Dietary Evaluation Malnutrition Findings (Please click <Entered> for more info): Nutritional Asmnt/Malnutrition Start: 02/02/17 13: 54 Text: Status: Complete Freq: Document 02/02/17 13:54 GSUN (Rec: 02/02/17 14:04 [email or web address] [email or web address]) Nutritional Asmnt/Malnutrition Patient General Information Nutritional Screening Moderate Risk Screening Diagnosis Pneumonia, sepsis, acute kidney failure Pertinent Medical Hx/Surgical Hx Dementia, possible metastatic cancer to the liver Subjective Information 71 year old male. Pt was just admitted to [facility] on 01/16/17, bedscale 177.9lb on 01/23/17, bedscale 204lb today, likely inaccurate, edema noted. Pt appears overall thin, severe muscle/fat wasting to chest and clavicles. Pt is edentulous on ground diet, no difficulties. Pt was only able to answer simple questions, able to list to RD what he had for breakfast. RD encouraged PO intake due to hypermetabolic state, pt understood. BOAT ENGINE MECHANIC at bedside stated pt tolerates Boost Plus . Avg PO itnake 75% of meals, meeting 75% of estimated kcal needs. Current Diet Order/ Nutrition Support [facility] soft ground, Bosot Plus TID Pertinent Medications Vitamin C, Colace, Iron, Folate, MOM, Remeron, Vancomycin, D5-0.45ns Pertinent Labs 02/02: Potassium 5.5H, BUN 39H, creatinine 2.2H (declining), glucose 96 Nutritional Hx/Data Height 1.7 m Height (Calculated Centimeters) 170.2 Current Weight (lbs) 79.832 kg Weight (Calculated Kilograms) 79.8 Weight (Calculated Grams) 42403.3 [place] Body Weight 148lb GI Symptoms Skin Integrity/Comment: [place] 14. Bilateral leg and feet 4+ edema, some bruises. Estimated Nutritional Goals Calories/Kcals/Kg IBW 148lb/67.3kg Kcals Calculated 2356kcal (35kcal/kg) Protein g/kg: IBW Protein Calculated 67-101g (1-1.5g/kg, renal insuffieicny vs sepsis/ pneumonia/depletion) Nutritional Problem 2. Problem Problem Impaired nutrient utilization realted to Etiology acute renal failure Signs/Symptoms: progress note, elevated/ declining renal labs: [id number] Customer Care Specialist 2.2H potassium 5.5H 1. Problem Problem Increased kcal and prot needs related to Etiology hypermetabolic state aeb Signs/Symptoms: sepsis, pneumonia, severe muscle/fat depletion to clavicles and chest, possible metastatic cancer to the liver Malnutrition Alert Body Fat Depletion (Severe) Mod to Severe Depletion Muscle Mass (Severe) Mod to Severe Depletion Fluid Accumulation (Non-Severe) Moderate Mild Fluid Retention Intervention/Recommendation Comments 1. Recommend ground renal diet , dx. acute renal failure, elevated labs: BUN 39H Customer Care Specialist 2. 2H Potassium 5.5H. 2. Recommend oral supplement change from Bosot Plus TID to Suplena TID, dx. acute renal failure, elevated labs: BUN 39H Customer Care Specialist 2.2H Potassium 5.5H. Expected Outcomes/Goals Expected Outcomes/Goals 1. PO intake to meet 100% of estimated nutritional needs.
[2017-02-15] MEDS ORDERED: Albumin 25% 25gm/100mL 25 GM/100 ML BTL IV ONE (17:03)
[2017-02-16] MEDS: INSULIN ASPART SLIDING SCALE 100 UNITS/ML UNIT SUBQ SCH ×3 (00:19→18:43)
[2017-02-16] MEDS: HYDROmorphone 1 mg/mL 1mL Syr IVP PRN (00:34)
[2017-02-16] MEDS: Albuterol/Ipratropium Neb 3 ML AERS HHN SCH ×4 (00:37→23:15)
[2017-02-16] MEDS: Pantoprazole 80 MG in Sodium Chloride 0.9% 100 ML IV SCH ×3 (00:50→18:50)
[2017-02-16] MEDS: Meropenem 500 MG in Sodium Chloride 0.9% 100 ML IV SCH ×2 (04:00→19:55)
--- NOTE | 2017-02-16 04:49 | Progress Notes ---
DATE: 02/15/2017 Case was discussed with staff of the patient. The patient on the ventilator, but he is able to open his eyes and smile. He does not seem to be in much distress. He seems to be comfortable at this point, but still prognosis according to the student is not well and his family has been beside him most of the time. Thank you very much for allowing me to participate in the care of this most interesting gentleman. JOB# [id number]
[2017-02-16] MEDS: metroNIDAZOLE 500mg/NS 100mL 500 MG/100 ML BAG IV SCH ×3 (05:30→21:06)
[2017-02-16] MEDS: Budesonide 0.5 Mg/2 mL Ud HHN SCH ×2 (06:31→18:51)
[2017-02-16 06:51] LABS: HEMATOCRIT 27.1 % (39.0-49.0); HEMOGLOBIN 9.5 gm/dL (12.6-17.4); INR 2.1 (0.5-1.4); MEAN CORPUSCULAR HEMOGLOBIN 37.3 pg (27.0-31.0); MEAN CORPUSCULAR HGB CONC 34.9 pg (28.0-36.0); MEAN PLATELET VOLUME 8.7 fl; PLATELET COUNT 95 Th/cmm (150-400); PROTHROMBIN TIME (TEST) 22.7 SECONDS (9.5-11.5); RED BLOOD COUNT 2.54 Mil/cmm (3.80-5.80); RED CELL DISTRIBUTION WIDTH 29.5 % (11.5-20.0)
[2017-02-16 07:00] LABS: ANION GAP 13.3 (7.0-16.0); BUN - UREA NITROGEN 73 mg/dL (7-25); BUN/CREATININE RATIO 15.9; CALCIUM SERUM 9.4 mg/dL (8.6-10.3); CARBON DIOXIDE 25.2 mEq/L (21.0-31.0); CHLORIDE 100 mEq/L (98-107); GLUCOSE 136 mg/dL (70-105); POTASSIUM SERUM 3.5 mEq/L (3.5-5.1); SODIUM SERUM 135 mEq/L (136-145)
[2017-02-16 07:08] LABS: CREATININE - SERUM 4.6 mg/dL (0.7-1.3)
[2017-02-16 08:00] LABS: ANISOCYTOSIS 2+; BAND NEUTROPHILE 15 % (0-10); EOSINOPHIL 4 % (0-5); METAMYELOCYTE 1 % (0-0); NEUTROPHILS 62 % (40-80); PLATELET ESTIMATE DECREASED PLATELETS (NORMAL); POLYCHROMASIA 1+; TOTAL CELLS COUNTED 100
[2017-02-16 08:01] LABS: PLATELET MORPHOLOGY NORMAL (NORMAL)
[2017-02-16] MEDS: Chlorhexidine Gluconate 0.12% 15mL Mouthwash MM SCH ×2 (08:26→19:56)
[2017-02-16] MEDS: Ferrous Sulfate 325 MG TAB PO SCH (08:26)
[2017-02-16] MEDS: Lactobacillus Rhamnosus 10 Billion CFU Capsule PO SCH (08:26)
--- NOTE | 2017-02-16 09:11 | Infectious Disease Prog Note ---
Infectious Disease Subjective - Review of Systems Service Date: 02/16/17 Subjective: Yesterday, remains intubated orally, on the ventilator. Has developed no fever. Patient has developed upper gi bleed. There is no fever. Infectious Disease Objective - Results Result Diagrams: 02/16/17 06:24 02/16/17 06:24 Recent Labs: Laboratory Last Values WBC 52.0 Th/cmm (4.8-10.8) H* 02/16/17 06:24 RBC 2.54 Mil/cmm (3.80-5.80) L 02/16/17 06:24 Hgb 9.5 gm/dL (12.6-17.4) L 02/16/17 06:24 Hct 27.1 % (39.0-49.0) L 02/16/17 06:24 MCV 107.0 fl (80-99) H 02/16/17 06:24 MCH 37.3 pg (27.0-31.0) H 02/16/17 06:24 MCHC Differential 34.9 pg (28.0-36.0) 02/16/17 06:24 RDW 29.5 % (11.5-20.0) H 02/16/17 06:24 Plt Count 95 Th/cmm (150-400) L 02/16/17 06:24 MPV 8.7 fl 02/16/17 06:24 Neutrophils % GASTROENTEROLOGY NURSE 02/11/17 05:00 Band Neutrophils % 15 % (0-10) H 02/16/17 06:24 Lymphocytes % GASTROENTEROLOGY NURSE 02/11/17 05:00 Monocytes % GASTROENTEROLOGY NURSE 02/11/17 05:00 Eosinophils % GASTROENTEROLOGY NURSE 02/11/17 05:00 Basophils % GASTROENTEROLOGY NURSE 02/11/17 05:00 Neutrophils (Manual) 62 % (40-80) 02/16/17 06:24 Lymphocytes 7 % (20-50) L 02/16/17 06:24 Monocytes 11 % (2-10) H 02/16/17 06:24 Eosinophils 4 % (0-5) 02/16/17 06:24 Basophils 1 % (0-3) 02/13/17 09:30 Metamyelocytes 1 % (0-0) H 02/16/17 06:24 Platelet Estimate DECREASED PLATELETS (NORMAL) 02/16/17 06:24 Platelet Morphology NORMAL (NORMAL) 02/16/17 06:24 Polychromasia 1+ 02/16/17 06:24 Poikilocytosis 1+ 02/06/17 05:48 Anisocytosis 2+ 02/16/17 06:24 Macrocytosis 1+ 02/16/17 06:24 Ovalocytes 1+ 02/04/17 06:37 RBC Morph Micro Appear ABNORMAL (NORMAL) 02/16/17 06:24 Smear Path Review SEE BELOW 02/09/17 04:45 Plt Count 120 Th/cmm (150-750) L 02/13/17 09:30 PT 22.7 SECONDS (9.5-11.5) H 02/16/17 06:24 INR 2.10 (0.5-1.4) H 02/16/17 06:24 PTT (Actin FS) 38.1 SECONDS (26.0-38.0) H 02/13/17 09:30 Fibrinogen 162.0 mg/dL (200.0-400.0) L 02/13/17 09:30 D-Dimer 2700 ng/mL (100-400) H 02/13/17 09:30 Specimen Source Arterial 02/09/17 08:45 Sample Site Right Radial 02/09/17 08:45 pH 7.32 (7.35-7.45) L 02/09/17 08:45 pCO2 38.0 mmHg (35.0-45.0) 02/09/17 08:45 pO2 65.0 mmHg (80.0-100.0) L 02/09/17 08:45 HCO3 20.1 mEq/L (20.0-26.0) 02/09/17 08:45 Base Excess -6.0 mEq/L (-3.0-3.0) L 02/09/17 08:45 O2 Saturation 91.0 % (92.0-100.0) L 02/09/17 08:45 Dwayne Test YES 02/09/17 08:45 Vent Rate 12 02/09/17 08:45 Inspired O2 40 02/09/17 08:45 Tidal Volume 500 02/09/17 08:45 PEEP NA 02/09/17 08:45 Pressure (ins/psv/peep) NA 02/09/17 08:45 Critical Value E.DIAMOND 02/09/17 08:45 Sodium 135 mEq/L (136-145) L 02/16/17 06:24 Potassium 3.5 mEq/L (3.5-5.1) 02/16/17 06:24 Chloride 100 mEq/L (98-107) 02/16/17 06:24 Carbon Dioxide 25.2 mEq/L (21.0-31.0) 02/16/17 06:24 Anion Gap 13.3 (7.0-16.0) 02/16/17 06:24 BUN 73 mg/dL (7-25) H 02/16/17 06:24 Creatinine 4.6 mg/dL (0.7-1.3) H* 02/16/17 06:24 Est GFR ( Amer) TNP 02/16/17 06:24 Est GFR (Non-Af Amer) TNP 02/16/17 06:24 BUN/Creatinine Ratio 15.9 02/16/17 06:24 Glucose 136 mg/dL (70-105) H 02/16/17 06:24 POC Glucose 137 MG/DL (70 - 105) H 02/12/17 13:10 Whole Bld Lactic Acid 2.02 mmol/L (0.60-1.99) H* 01/30/17 12:20 Calcium 9.4 mg/dL (8.6-10.3) 02/16/17 06:24 Phosphorus 4.8 mg/dL (2.5-5.0) 02/14/17 05:30 Magnesium 2.1 mg/dL (1.9-2.7) 02/14/17 05:30 Iron 151 ug/dL (38-169) 02/04/17 06:37 TIBC 178 ug/dL (250-450) L 02/04/17 06:37 Iron Saturation 85 % (15-55) H 02/04/17 06:37 Unsaturated IBC 27 ug/dL (111-343) L 02/04/17 06:37 Ferritin 1222 ng/mL (30-400) H 02/04/17 06:37 Total Bilirubin 1.9 mg/dL (0.3-1.0) H 02/12/17 07:00 Direct Bilirubin 1.27 mg/dL (0.0-0.2) H 02/12/17 07:00 AST 52 U/L (13-39) H 02/12/17 07:00 ALT 9 U/L (7-52) 02/12/17 07:00 Alkaline Phosphatase 101 U/L (34-104) 02/12/17 07:00 Ammonia 53 umol/L (16-53) 02/12/17 07:00 Total Protein 5.7 gm/dL (6.0-8.3) L 02/12/17 07:00 Albumin 2.6 gm/dL (4.2-5.5) L 02/12/17 07:00 Globulin 3.1 gm/dL 02/12/17 07:00 Albumin/Globulin Ratio 0.8 (1.0-1.8) L 02/12/17 07:00 Prealbumin 6 mg/dL (9-32) L 02/12/17 07:00 Anhex-2-[id number] 236 mg/dL (90-200) H 02/04/17 06:37 Ceruloplasmin 34.0 mg/dL (16.0-31.0) H 02/04/17 06:37 Triglycerides 89 mg/dL (<150) 02/12/17 07:00 Cholesterol 51 mg/dL (<200) 02/12/17 07:00 LDL Cholesterol Direct 46 mg/dL (75-193) L 01/30/17 10:20 HDL Cholesterol 19 mg/dL (23-92) L 01/30/17 10:20 Tumor Marker AFP 832.4 ng/mL (0.0-8.3) H 02/05/17 06:37 Carcinoembryonic Ag 13.4 ng/mL (0.0-4.7) H 02/04/17 06:37 CA 19-9 Antigen 2818 U/mL (0-35) H 02/04/17 06:37 TSH 0.32 uIU/ml (0.34-5.60) L 02/10/17 04:45 Urine Source CLEAN C 01/30/17 11:05 Urine Color LOS 01/30/17 11:05 Urine Clarity CLEAR (CLEAR) 01/30/17 11:05 Urine pH 5.0 01/30/17 11:05 Ur Specific [place] 1.020 (1.005-1.030) 01/30/17 11:05 Urine Protein 30 mg/dL (NEGATIVE) H 01/30/17 11:05 Urine Glucose (UA) NEGATIVE mg/dL (NEGATIVE) 01/30/17 11:05 Urine Ketones 15 mg/dL (NEGATIVE) H 01/30/17 11:05 Urine Blood NEGATIVE (NEGATIVE) 01/30/17 11:05 Urine Nitrate POSITIVE (NEGATIVE) H 01/30/17 11:05 Urine Bilirubin SMALL (NEGATIVE) H 01/30/17 11:05 Urine Urobilinogen 0.2 E.U./dL (0.2 - 1.0) 01/30/17 11:05 Ur Leukocyte Esterase NEGATIVE (NEGATIVE) 01/30/17 11:05 Urine RBC 0-2 /hpf (0-5) H 01/30/17 11:05 Urine WBC 2-5 /hpf (0-5) H 01/30/17 11:05 Ur Epithelial Cells OCCASIONAL /lpf (FEW) 01/30/17 11:05 Urine Bacteria MODERATE /hpf (NONE SEEN) 01/30/17 11:05 Urine Mucus FEW /lpf (FEW) 01/30/17 11:05 Stool Occult Blood NEGATIVE (NEGATIVE) 02/11/17 17:05 Vancomycin Trough 39.3 ug/mL (10-20) H 02/02/17 16:35 Random Vancomycin 19.5 ug/mL (5.0-40.0) 02/16/17 06:24 Anti-Mitochondrial Ab 25.7 Units (0.0-20.0) H 02/04/17 06:37 Smooth Muscle IgG Ab 38 Units (0-19) H 02/04/17 06:37 RPR NONREACTIVE (NONREACTIVE) 01/30/17 10:20 Hepatitis A IgM Ab Negative (Negative) 02/14/17 05:30 Hep Bs Antigen Negative (Negative) 02/14/17 05:30 Hep B Core IgM Ab Negative (Negative) 02/14/17 05:30 Hepatitis C Antibody >11.0 s/co ratio (0.0-0.9) H 02/14/17 05:30 Blood Type O POSITIVE 02/10/17 07:16 Antibody Screen NEGATIVE 02/10/17 07:16 Crossmatch See Detail 02/10/17 07:16 - Physical Exam Vitals and I&O: Vital Signs Temp 98.4 F 02/16/17 08:00 Pulse 112 02/16/17 08:34 Resp 21 02/16/17 08:00 BP 104/62 02/16/17 08:30 Pulse Ox 94 02/16/17 08:34 Intake & Output 02/15/17 02/16/17 02/16/17 18:59 06:59 18:59 Intake Total 2841.500 1260.917 567.750 Output Total 135 5 Balance 2706.500 1255.917 567.750 Intake: Intake, IV Amount 2241.500 660.917 567.750 Meropenem 500 mg In 100 Sodium Chloride 0.9% 100 ml @ 100 mls/hr IV Q12H [facility] Rx#:[id number] Multivitamin Inj 10 ml In 1200 Dextrose 70% 440 ml In Amino Acids 10% 500 ml In Intralipids 20% 250 ml @ 50 mls/hr IV .Q24H [facility] Rx#:[id number] Norepinephrine 8 mg In 512.333 260.917 255.083 Dextrose 5% 250 ml @ 0 MCG/MIN IV TITR PRN Rx#: [id number] Octreotide Acetate 1,250 240.167 236.167 mcg In Sodium Chloride 0. 9% 250 ml @ 10 mls/hr IV .Q24H [facility] Rx#:[id number] Pantoprazole 80 mg In 89 100 76.5 Sodium Chloride 0.9% 100 ml @ 10 mls/hr IV Q10H [facility] Rx#:[id number] metroNIDAZOLE 500mg/NS 100 200 100mL 500 mg In 100 ml @ 100 mls/hr IV Q8HR [facility] Rx #:[id number] TPN/PPN 600 600 Output: Gastric Drainage 100 Urine 35 5 Other: # Bowel Movements 1 Stool Characteristics Mucoid Mucoid Green Green Active Medications: Current Medications Acetaminophen (Tylenol) 650 mg PO Q4H PRN PRN Reason: Fever > 100 Stop: 03/31/17 16:47 Last Admin: 02/11/17 20:22 Dose: 650 mg Albuterol/Ipratropium (Duoneb Neb) 3 ml HHN Q8HRT [facility] Stop: 03/31/17 14:59 Last Admin: 02/16/17 06:31 Dose: 3 ml Albuterol/Ipratropium (Duoneb Neb) 3 ml HHN Q4H PRN PRN Reason: Wheezing Stop: 04/08/17 19:25 Ascorbic Acid (Vitamin C) 500 mg PO DAILY [facility] Stop: 04/01/17 19:29 Last Admin: 02/15/17 08:06 Dose: Not Given Budesonide (Pulmicort) 0.5 mg HHN BIDRT [facility] Stop: 04/09/17 06:59 Last Admin: 02/16/17 06:31 Dose: 0.5 mg Chlorhexidine Gluconate (Peridex) 15 ml MM 0800,1999 [facility] Stop: 04/08/17 19:59 Last Admin: 02/16/17 08:26 Dose: 15 ml Docusate Sodium (Colace) 100 mg PO BID [facility] Stop: 04/01/17 19:29 Last Admin: 02/16/17 08:26 Dose: Not Given Ferrous Sulfate (Iron) 325 mg PO DAILY [facility] Stop: 04/02/17 08:59 Last Admin: 02/16/17 08:26 Dose: Not Given Folic Acid (Folate) 1 mg PO DAILY [facility] Stop: 04/01/17 19:29 Last Admin: 02/16/17 08:26 Dose: Not Given Gabapentin (Neurontin) 300 mg PO BID [facility] Stop: 04/02/17 08:59 Last Admin: 02/16/17 08:26 Dose: Not Given Hydromorphone HCl (Dilaudid) 0.5 mg IVP Q4HR PRN PRN Reason: PAIN Stop: 04/15/17 21:10 Last Admin: 02/16/17 00:34 Dose: 0.5 mg Pantoprazole Sodium 80 mg/ (Sodium Chloride) 100 mls @ 10 mls/hr IV Q10H [facility] Stop: 04/09/17 07:59 Last Admin: 02/16/17 08:29 Dose: 10 mls/hr Octreotide Acetate 1,250 mcg/ (Sodium Chloride) 252.5 mls @ 10 mls/hr IV .Q24H [facility] Stop: 04/09/17 07:59 Last Admin: 02/16/17 08:24 Dose: 10 mls/hr Norepinephrine Bitartrate 8 mg (/ Dextrose) 258 mls @ 0 mls/hr IV TITR PRN; Protocol; 0 MCG/MIN PRN Reason: BP MAINTENANCE (PER PROTOCOL) Stop: 04/11/17 13:44 Last Admin: 02/16/17 08:25 Dose: 20 mcg/min, 39 mls/hr Multivitamins/Minerals 10 ml/Dextrose/ Amino Acids/Electrolytes/ Fat Emulsion Intravenous 1,200 mls @ 50 mls/hr IV .Q24H [facility] Stop: 04/14/17 15:59 Last Admin: 02/15/17 15:54 Dose: 50 mls/hr Metronidazole (Flagyl) 500 mg in 100 mls @ 100 mls/hr IV Q8HR [facility] Stop: 04/16/17 04:59 Last Infusion: 02/16/17 06:30 Dose: Infused Albumin Human (Albuminar 25%) 25 gm in 100 mls @ 50 mls/hr IV X1 ONE Stop: 02/16/17 11:59 Meropenem 500 mg/ Sodium (Chloride) 100 mls @ 100 mls/hr IV Q12H [facility] Stop: 04/17/17 11:59 Vancomycin HCl 1 gm/ Sodium (Chloride) 250 mls @ 165 mls/hr IV ONCE ONE Stop: 02/16/17 16:30 Insulin Aspart (Novolog Insulin Sliding Scale) 0 units SUBQ Q6H [facility] PRN Reason: Protocol Stop: 04/10/17 11:59 Last Admin: 02/16/17 06:18 Dose: Not Given Lactobacillus Rhamnosus (Culturelle) 1 each PO DAILY [facility] Stop: 04/11/17 08:59 Last Admin: 02/16/17 08:26 Dose: Not Given Magnesium Hydroxide (Milk Of Magnesia) 30 ml PO DAILY PRN PRN Reason: Constipation Stop: 04/01/17 19:18 Mirtazapine (Remeron) 22.5 mg PO [facility] PRN Reason: Protocol Stop: 04/01/17 20:59 Last Admin: 02/15/17 21:00 Dose: Not Given Miscellaneous (Probiotic Screen) 1 ea MC PRN PRN PRN Reason: PROTOCOL Stop: 04/10/17 11:08 Miscellaneous (Tpn Per Pharmacy) 1 ea [facility] PRN PRN PRN Reason: PROTOCOL Stop: 04/11/17 07:48 Miscellaneous (Vancomycin Iv Per Pharmacy) 1 ea MC PRN PRN PRN Reason: PROTOCOL Stop: 04/13/17 11:43 Trazodone HCl (Desyrel) 50 mg PO [facility] PRN Reason: Protocol Stop: 04/03/17 20:59 Last Admin: 02/15/17 21:00 Dose: Not Given General: no acute distress, cachectic HEENT: atraumatic, normocephalic, PERRLA, EOMI, moist mucous membrane Neck: supple Cardiovascular: S1S2, regular Lungs: clear to auscultation bilaterally, clear to percussion, other (decreased breath sounds.) Abdomen: soft, distended, ascites Extremities: edema, no cyanosis, no clubbing Neurological: awake, alert Skin: intact - Procedures Procedures: Procedures Procedure Code Date GROUP PSYCHOTHERAPY 42056 01/14/16 GROUP PSYCHOTHERAPY [id number] 01/14/16 INSERT EMERGENCY AIRWAY 56805 01/30/17 INSERTION OF ENDOTRACHEAL AIRWAY INTO [place]ACHEA, VIA OPENING [id number] 01/30/17 RESPIRATORY VENTILATION, GREATER THAN 96 CONSECUTIVE HOURS [id number] 01/30/17 TRANSFUSE NONAUT RED BLOOD CELLS IN PERIPH VEIN, PERC [id number] 01/16/17 VENT MGMT INPAT INIT DAY 60881 01/30/17 Infectious Disease Assmt/Plan - Problem List Patient Problems: All Active Problems Agitation (Acute) R45.1 Combative behavior (Acute) R46.89 HTN (hypertension) (Acute) I10 Psychosis (Acute) F29 - Assessment Assessment: Impression: 1. Leukocytosis, multifactorial. ? malignanacy, sepsis, pneumonia. 2. pneumonia. 3. metastatic lesions of liver, not confirmed yet. ? abscess. 4. Dementia, 5. Psychosis 6. VDRF. 9. Suspect SBP. 10. Renal failure, acute on chronic. Recommendations: Continue meropenem. Continue flagyl empirically suspecting CDAC with this high WBC Count.. Continue vanco IV. Patient's condition is critical and prognosis is poor. Waiting for approval from the court for further intervention. Nutritional Asmnt/Malnutr-PDOC - Dietary Evaluation Malnutrition Findings (Please click <Entered> for more info): Nutritional Asmnt/Malnutrition Start: 02/02/17 13: 54 Text: Status: Complete Freq: Document 02/02/17 13:54 GSUN (Rec: 02/02/17 14:04 [email or web address] [id number]) Nutritional Asmnt/Malnutrition Patient General Information Nutritional Screening Moderate Risk Screening Diagnosis Pneumonia, sepsis, acute kidney failure Pertinent Medical Hx/Surgical Hx Dementia, possible metastatic cancer to the liver Subjective Information 71 year old male. Pt was just admitted to [facility] on 01/16/17, bedscale 177.9lb on 01/23/17, bedscale 204lb today, likely inaccurate, edema noted. Pt appears overall thin, severe muscle/fat wasting to chest and clavicles. Pt is edentulous on ground diet, no difficulties. Pt was only able to answer simple questions, able to list to RD what he had for breakfast. RD encouraged PO intake due to hypermetabolic state, pt understood. SHEET METAL ROOFER at bedside stated pt tolerates Boost Plus . Avg PO itnake 75% of meals, meeting 75% of estimated kcal needs. Current Diet Order/ Nutrition Support [facility] soft ground, Bosot Plus TID Pertinent Medications Vitamin C, Colace, Iron, Folate, MOM, Remeron, Vancomycin, D5-0.45ns Pertinent Labs 02/02: Potassium 5.5H, BUN 39H, creatinine 2.2H (declining), glucose 96 Nutritional Hx/Data Height 1.7 m Height (Calculated Centimeters) 170.2 Current Weight (lbs) 79.832 kg Weight (Calculated Kilograms) 79.8 Weight (Calculated Grams) 98539.3 [place] Body Weight 148lb GI Symptoms Skin Integrity/Comment: [place] 14. Bilateral leg and feet 4+ edema, some bruises. Estimated Nutritional Goals Calories/Kcals/Kg IBW 148lb/67.3kg Kcals Calculated 2356kcal (35kcal/kg) Protein g/kg: IBW Protein Calculated 67-101g (1-1.5g/kg, renal insuffieicny vs sepsis/ pneumonia/depletion) Nutritional Problem 2. Problem Problem Impaired nutrient utilization realted to Etiology acute renal failure Signs/Symptoms: progress note, elevated/ declining renal labs: [id number] [employer] 2.2H potassium 5.5H 1. Problem Problem Increased kcal and prot needs related to Etiology hypermetabolic state aeb Signs/Symptoms: sepsis, pneumonia, severe muscle/fat depletion to clavicles and chest, possible metastatic cancer to the liver Malnutrition Alert Body Fat Depletion (Severe) Mod to Severe Depletion Muscle Mass (Severe) Mod to Severe Depletion Fluid Accumulation (Non-Severe) Moderate Mild Fluid Retention Intervention/Recommendation Comments 1. Recommend ground renal diet , dx. acute renal failure, elevated labs: BUN 39H [employer] 2. 2H Potassium 5.5H. 2. Recommend oral supplement change from Bosot Plus TID to Suplena TID, dx. acute renal failure, elevated labs: BUN 39H [employer] 2.2H Potassium 5.5H. Expected Outcomes/Goals Expected Outcomes/Goals 1. PO intake to meet 100% of estimated nutritional needs.
[2017-02-16] MEDS ORDERED: Albumin 25% 25gm/100mL 25 GM/100 ML BTL IV ONE (10:00)
--- NOTE | 2017-02-16 11:44 | Diagnostic Imaging Report ---
CHEST X-RAY: AP view INDICATION: NG tube placement COMPARISON: Chest x-ray 02/15/2017 FINDINGS: ET tube is seen with tip 4.2 cm above the wolf. NG tube is seen within the stomach. Right dialysis catheter and left PICC line are stable. Findings of CHF are seen with bilateral effusions right greater than left and right lung infiltrates. Low lung volumes are noted. Heart size is difficult to assess on this exam. IMPRESSION: Interval NG tube placement with tip in the stomach CHF with bilateral effusions, right greater than left, and right lung infiltrates.
--- NOTE | 2017-02-16 12:34 | General Progress Note ---
Subjective - Review of Systems Service Date: 02/16/17 Subjective: more tired today, on vent Objective - Results Result Diagrams: 02/16/17 06:24 02/16/17 06:24 Recent Labs: Laboratory Last Values WBC 52.0 Th/cmm (4.8-10.8) H* 02/16/17 06:24 RBC 2.54 Mil/cmm (3.80-5.80) L 02/16/17 06:24 Hgb 9.5 gm/dL (12.6-17.4) L 02/16/17 06:24 Hct 27.1 % (39.0-49.0) L 02/16/17 06:24 MCV 107.0 fl (80-99) H 02/16/17 06:24 MCH 37.3 pg (27.0-31.0) H 02/16/17 06:24 MCHC Differential 34.9 pg (28.0-36.0) 02/16/17 06:24 RDW 29.5 % (11.5-20.0) H 02/16/17 06:24 Plt Count 95 Th/cmm (150-400) L 02/16/17 06:24 MPV 8.7 fl 02/16/17 06:24 Neutrophils % EXHIBITIONS AND COLLECTIONS MANAGER 02/11/17 05:00 Band Neutrophils % 15 % (0-10) H 02/16/17 06:24 Lymphocytes % EXHIBITIONS AND COLLECTIONS MANAGER 02/11/17 05:00 Monocytes % EXHIBITIONS AND COLLECTIONS MANAGER 02/11/17 05:00 Eosinophils % EXHIBITIONS AND COLLECTIONS MANAGER 02/11/17 05:00 Basophils % EXHIBITIONS AND COLLECTIONS MANAGER 02/11/17 05:00 Neutrophils (Manual) 62 % (40-80) 02/16/17 06:24 Lymphocytes 7 % (20-50) L 02/16/17 06:24 Monocytes 11 % (2-10) H 02/16/17 06:24 Eosinophils 4 % (0-5) 02/16/17 06:24 Basophils 1 % (0-3) 02/13/17 09:30 Metamyelocytes 1 % (0-0) H 02/16/17 06:24 Platelet Estimate DECREASED PLATELETS (NORMAL) 02/16/17 06:24 Platelet Morphology NORMAL (NORMAL) 02/16/17 06:24 Polychromasia 1+ 02/16/17 06:24 Poikilocytosis 1+ 02/06/17 05:48 Anisocytosis 2+ 02/16/17 06:24 Macrocytosis 1+ 02/16/17 06:24 Ovalocytes 1+ 02/04/17 06:37 RBC Morph Micro Appear ABNORMAL (NORMAL) 02/16/17 06:24 Smear Path Review SEE BELOW 02/09/17 04:45 Plt Count 120 Th/cmm (150-750) L 02/13/17 09:30 PT 22.7 SECONDS (9.5-11.5) H 02/16/17 06:24 INR 2.10 (0.5-1.4) H 02/16/17 06:24 PTT (Actin FS) 38.1 SECONDS (26.0-38.0) H 02/13/17 09:30 Fibrinogen 162.0 mg/dL (200.0-400.0) L 02/13/17 09:30 D-Dimer 2700 ng/mL (100-400) H 02/13/17 09:30 Specimen Source Arterial 02/09/17 08:45 Sample Site Right Radial 02/09/17 08:45 pH 7.32 (7.35-7.45) L 02/09/17 08:45 pCO2 38.0 mmHg (35.0-45.0) 02/09/17 08:45 pO2 65.0 mmHg (80.0-100.0) L 02/09/17 08:45 HCO3 20.1 mEq/L (20.0-26.0) 02/09/17 08:45 Base Excess -6.0 mEq/L (-3.0-3.0) L 02/09/17 08:45 O2 Saturation 91.0 % (92.0-100.0) L 02/09/17 08:45 Dwayne Test YES 02/09/17 08:45 Vent Rate 12 02/09/17 08:45 Inspired O2 40 02/09/17 08:45 Tidal Volume 500 02/09/17 08:45 PEEP NA 02/09/17 08:45 Pressure (ins/psv/peep) NA 02/09/17 08:45 Critical Value E.DIAMOND 02/09/17 08:45 Sodium 135 mEq/L (136-145) L 02/16/17 06:24 Potassium 3.5 mEq/L (3.5-5.1) 02/16/17 06:24 Chloride 100 mEq/L (98-107) 02/16/17 06:24 Carbon Dioxide 25.2 mEq/L (21.0-31.0) 02/16/17 06:24 Anion Gap 13.3 (7.0-16.0) 02/16/17 06:24 BUN 73 mg/dL (7-25) H 02/16/17 06:24 Creatinine 4.6 mg/dL (0.7-1.3) H* 02/16/17 06:24 Est GFR ( Amer) TNP 02/16/17 06:24 Est GFR (Non-Af Amer) TNP 02/16/17 06:24 BUN/Creatinine Ratio 15.9 02/16/17 06:24 Glucose 136 mg/dL (70-105) H 02/16/17 06:24 POC Glucose 137 MG/DL (70 - 105) H 02/12/17 13:10 Whole Bld Lactic Acid 2.02 mmol/L (0.60-1.99) H* 01/30/17 12:20 Calcium 9.4 mg/dL (8.6-10.3) 02/16/17 06:24 Phosphorus 4.8 mg/dL (2.5-5.0) 02/14/17 05:30 Magnesium 2.1 mg/dL (1.9-2.7) 02/14/17 05:30 Iron 151 ug/dL (38-169) 02/04/17 06:37 TIBC 178 ug/dL (250-450) L 02/04/17 06:37 Iron Saturation 85 % (15-55) H 02/04/17 06:37 Unsaturated IBC 27 ug/dL (111-343) L 02/04/17 06:37 Ferritin 1222 ng/mL (30-400) H 02/04/17 06:37 Total Bilirubin 1.9 mg/dL (0.3-1.0) H 02/12/17 07:00 Direct Bilirubin 1.27 mg/dL (0.0-0.2) H 02/12/17 07:00 AST 52 U/L (13-39) H 02/12/17 07:00 ALT 9 U/L (7-52) 02/12/17 07:00 Alkaline Phosphatase 101 U/L (34-104) 02/12/17 07:00 Ammonia 53 umol/L (16-53) 02/12/17 07:00 Total Protein 5.7 gm/dL (6.0-8.3) L 02/12/17 07:00 Albumin 2.6 gm/dL (4.2-5.5) L 02/12/17 07:00 Globulin 3.1 gm/dL 02/12/17 07:00 Albumin/Globulin Ratio 0.8 (1.0-1.8) L 02/12/17 07:00 Prealbumin 6 mg/dL (9-32) L 02/12/17 07:00 Mfymb-6-Cqrwebldenl 236 mg/dL (90-200) H 02/04/17 06:37 Ceruloplasmin 34.0 mg/dL (16.0-31.0) H 02/04/17 06:37 Triglycerides 89 mg/dL (<150) 02/12/17 07:00 Cholesterol 51 mg/dL (<200) 02/12/17 07:00 LDL Cholesterol Direct 46 mg/dL (75-193) L 01/30/17 10:20 HDL Cholesterol 19 mg/dL (23-92) L 01/30/17 10:20 Tumor Marker AFP 832.4 ng/mL (0.0-8.3) H 02/05/17 06:37 Carcinoembryonic Ag 13.4 ng/mL (0.0-4.7) H 02/04/17 06:37 CA 19-9 Antigen 2818 U/mL (0-35) H 02/04/17 06:37 TSH 0.32 uIU/ml (0.34-5.60) L 02/10/17 04:45 Urine Source CLEAN C 01/30/17 11:05 Urine Color LOS 01/30/17 11:05 Urine Clarity CLEAR (CLEAR) 01/30/17 11:05 Urine pH 5.0 01/30/17 11:05 Ur Specific [place] 1.020 (1.005-1.030) 01/30/17 11:05 Urine Protein 30 mg/dL (NEGATIVE) H 01/30/17 11:05 Urine Glucose (UA) NEGATIVE mg/dL (NEGATIVE) 01/30/17 11:05 Urine Ketones 15 mg/dL (NEGATIVE) H 01/30/17 11:05 Urine Blood NEGATIVE (NEGATIVE) 01/30/17 11:05 Urine Nitrate POSITIVE (NEGATIVE) H 01/30/17 11:05 Urine Bilirubin SMALL (NEGATIVE) H 01/30/17 11:05 Urine Urobilinogen 0.2 E.U./dL (0.2 - 1.0) 01/30/17 11:05 Ur Leukocyte Esterase NEGATIVE (NEGATIVE) 01/30/17 11:05 Urine RBC 0-2 /hpf (0-5) H 01/30/17 11:05 Urine WBC 2-5 /hpf (0-5) H 01/30/17 11:05 Ur Epithelial Cells OCCASIONAL /lpf (FEW) 01/30/17 11:05 Urine Bacteria MODERATE /hpf (NONE SEEN) 01/30/17 11:05 Urine Mucus FEW /lpf (FEW) 01/30/17 11:05 Stool Occult Blood NEGATIVE (NEGATIVE) 02/11/17 17:05 Vancomycin Trough 39.3 ug/mL (10-20) H 02/02/17 16:35 Random Vancomycin 19.5 ug/mL (5.0-40.0) 02/16/17 06:24 Anti-Mitochondrial Ab 25.7 Units (0.0-20.0) H 02/04/17 06:37 Smooth Muscle IgG Ab 38 Units (0-19) H 02/04/17 06:37 RPR NONREACTIVE (NONREACTIVE) 01/30/17 10:20 Hepatitis A IgM Ab Negative (Negative) 02/14/17 05:30 Hep Bs Antigen Negative (Negative) 02/14/17 05:30 Hep B Core IgM Ab Negative (Negative) 02/14/17 05:30 Hepatitis C Antibody >11.0 s/co ratio (0.0-0.9) H 02/14/17 05:30 Blood Type O POSITIVE 02/10/17 07:16 Antibody Screen NEGATIVE 02/10/17 07:16 Crossmatch See Detail 02/10/17 07:16 - Physical Exam Vitals and I&O: Vital Signs Temp 97.7 F 02/16/17 12:00 Pulse 110 02/16/17 12:15 Resp 18 02/16/17 12:00 BP 99/61 02/16/17 12:15 Pulse Ox 94 02/16/17 12:00 Intake & Output 02/15/17 02/16/17 02/16/17 18:59 06:59 18:59 Intake Total 2841.500 1260.917 567.750 Output Total 135 5 Balance 2706.500 1255.917 567.750 Intake: Intake, IV Amount 2241.500 660.917 567.750 Meropenem 500 mg In 100 Sodium Chloride 0.9% 100 ml @ 100 mls/hr IV Q12H [facility] Rx#:[id number] Multivitamin Inj 10 ml In 1200 Dextrose 70% 440 ml In Amino Acids 10% 500 ml In Intralipids 20% 250 ml @ 50 mls/hr IV .Q24H [facility] Rx#:[id number] Norepinephrine 8 mg In 512.333 260.917 255.083 Dextrose 5% 250 ml @ 0 MCG/MIN IV TITR PRN Rx#: [id number] Octreotide Acetate 1,250 240.167 236.167 mcg In Sodium Chloride 0. 9% 250 ml @ 10 mls/hr IV .Q24H [facility] Rx#:[id number] Pantoprazole 80 mg In 89 100 76.5 Sodium Chloride 0.9% 100 ml @ 10 mls/hr IV Q10H [facility] Rx#:[id number] metroNIDAZOLE 500mg/NS 100 200 100mL 500 mg In 100 ml @ 100 mls/hr IV Q8HR [facility] Rx #:[id number] TPN/PPN 600 600 Output: Gastric Drainage 100 Urine 35 5 Other: # Bowel Movements 1 Stool Characteristics Mucoid Mucoid Green Green Active Medications: Current Medications Acetaminophen (Tylenol) 650 mg PO Q4H PRN PRN Reason: Fever > 100 Stop: 03/31/17 16:47 Last Admin: 02/11/17 20:22 Dose: 650 mg Albuterol/Ipratropium (Duoneb Neb) 3 ml HHN Q8HRT [facility] Stop: 03/31/17 14:59 Last Admin: 02/16/17 06:31 Dose: 3 ml Albuterol/Ipratropium (Duoneb Neb) 3 ml HHN Q4H PRN PRN Reason: Wheezing Stop: 04/08/17 19:25 Ascorbic Acid (Vitamin C) 500 mg PO DAILY [facility] Stop: 04/01/17 19:29 Last Admin: 02/16/17 10:09 Dose: Not Given Budesonide (Pulmicort) 0.5 mg HHN BIDRT [facility] Stop: 04/09/17 06:59 Last Admin: 02/16/17 06:31 Dose: 0.5 mg Chlorhexidine Gluconate (Peridex) 15 ml MM 799,1999 [facility] Stop: 04/08/17 19:59 Last Admin: 02/16/17 08:26 Dose: 15 ml Docusate Sodium (Colace) 100 mg PO BID [facility] Stop: 04/01/17 19:29 Last Admin: 02/16/17 08:26 Dose: Not Given Ferrous Sulfate (Iron) 325 mg PO DAILY [facility] Stop: 04/02/17 08:59 Last Admin: 02/16/17 08:26 Dose: Not Given Folic Acid (Folate) 1 mg PO DAILY [facility] Stop: 04/01/17 19:29 Last Admin: 02/16/17 08:26 Dose: Not Given Gabapentin (Neurontin) 300 mg PO BID [facility] Stop: 04/02/17 08:59 Last Admin: 02/16/17 08:26 Dose: Not Given Hydromorphone HCl (Dilaudid) 0.5 mg IVP Q4HR PRN PRN Reason: PAIN Stop: 04/15/17 21:10 Last Admin: 02/16/17 00:34 Dose: 0.5 mg Pantoprazole Sodium 80 mg/ (Sodium Chloride) 100 mls @ 10 mls/hr IV Q10H [facility] Stop: 04/09/17 07:59 Last Admin: 02/16/17 08:29 Dose: 10 mls/hr Octreotide Acetate 1,250 mcg/ (Sodium Chloride) 252.5 mls @ 10 mls/hr IV .Q24H [facility] Stop: 04/09/17 07:59 Last Admin: 02/16/17 08:24 Dose: 10 mls/hr Norepinephrine Bitartrate 8 mg (/ Dextrose) 258 mls @ 0 mls/hr IV TITR PRN; Protocol; 0 MCG/MIN PRN Reason: BP MAINTENANCE (PER PROTOCOL) Stop: 04/11/17 13:44 Last Admin: 02/16/17 08:25 Dose: 20 mcg/min, 39 mls/hr Multivitamins/Minerals 10 ml/Dextrose/ Amino Acids/Electrolytes/ Fat Emulsion Intravenous 1,200 mls @ 50 mls/hr IV .Q24H [facility] Stop: 02/16/17 16:00 Last Admin: 02/15/17 15:54 Dose: 50 mls/hr Metronidazole (Flagyl) 500 mg in 100 mls @ 100 mls/hr IV Q8HR [facility] Stop: 04/16/17 04:59 Last Admin: 02/16/17 12:16 Dose: 100 mls/hr Meropenem 500 mg/ Sodium (Chloride) 100 mls @ 100 mls/hr IV Q12H [facility] Stop: 04/17/17 16:59 Vancomycin HCl 1 gm/ Sodium (Chloride) 250 mls @ 165 mls/hr IV ONCE ONE Stop: 02/16/17 16:30 Multivitamins/Minerals 10 ml/Amino Acids/Electrolytes/Dextrose/ Fat Emulsion Intravenous 1,207 mls @ 50 mls/hr IV .Q24H [facility] Stop: 04/17/17 15:59 Insulin Aspart (Novolog Insulin Sliding Scale) 0 units SUBQ Q6H [facility] PRN Reason: Protocol Stop: 04/17/17 17:59 Lactobacillus Rhamnosus (Culturelle) 1 each PO DAILY [facility] Stop: 04/11/17 08:59 Last Admin: 02/16/17 08:26 Dose: Not Given Magnesium Hydroxide (Milk Of Magnesia) 30 ml PO DAILY PRN PRN Reason: Constipation Stop: 04/01/17 19:18 Mirtazapine (Remeron) 22.5 mg PO [facility] PRN Reason: Protocol Stop: 04/01/17 20:59 Last Admin: 02/15/17 21:00 Dose: Not Given Miscellaneous (Probiotic Screen) 1 ea MC PRN PRN PRN Reason: PROTOCOL Stop: 04/10/17 11:08 Miscellaneous (Tpn Per Pharmacy) 1 ea MC PRN PRN PRN Reason: PROTOCOL Stop: 04/11/17 07:48 Miscellaneous (Vancomycin Iv Per Pharmacy) 1 ea MC PRN PRN PRN Reason: PROTOCOL Stop: 04/13/17 11:43 Trazodone HCl (Desyrel) 50 mg PO HS [facility] PRN Reason: Protocol Stop: 04/03/17 20:59 Last Admin: 02/15/17 21:00 Dose: Not Given General: No acute distress HEENT: Atraumatic, Mucous membr. moist/pink Neck: Supple, +2 carotid pulse wo bruit Cardiovascular: Regular rate, Normal S1, Normal S2 Lungs: Other (few rhonchi) Abdomen: Soft, Other (ascites) Extremities: Edema ((+) 3 bipedal) Neurological: Sensation intact Skin: no Rash Psych/Mental Status: Mood NL - Procedures Procedures: Procedures Procedure Code Date GROUP PSYCHOTHERAPY 20652 01/14/16 GROUP PSYCHOTHERAPY [id number] 01/14/16 INSERT EMERGENCY AIRWAY 44362 01/30/17 INSERTION OF ENDOTRACHEAL AIRWAY INTO TRACHEA, VIA OPENING [id number] 01/30/17 INSERTION OF INFUSION DEV INTO SUP VENA CAVA, PERC APPROACH [id number] 01/30/[address] CATHETER IN VEIN 39291 01/30/17 RESPIRATORY VENTILATION, GREATER THAN 96 CONSECUTIVE HOURS [id number] 01/30/17 TRANSFUSE NONAUT RED BLOOD CELLS IN PERIPH VEIN, PERC [id number] 01/16/17 VENT MGMT INPAT INIT DAY 63722 01/30/17 Assessment/Plan - Problem List Patient Problems: All Active Problems Agitation (Acute) R45.1 Combative behavior (Acute) R46.89 HTN (hypertension) (Acute) I10 Psychosis (Acute) F29 - Assessment Assessment: VIPUL on CKD Acute RF on vent decomp CHF Liver mets Anoxic/met Encph Anemia UGI bleed on cd Severe malnutrition B/L HAP Anasarca/Ascites - Plan Plan: Lab - Result Diagrams 02/12/17 07:00 02/12/17 07:00 Current Medications Acetaminophen (Tylenol) 650 mg PO Q4H PRN PRN Reason: Fever > 100 Stop: 03/31/17 16:47 Last Admin: 02/11/17 20:22 Dose: 650 mg Albuterol/Ipratropium (Duoneb Neb) 3 ml HHN Q8HRT [facility] Stop: 03/31/17 14:59 Last Admin: 02/12/17 07:19 Dose: 3 ml Albuterol/Ipratropium (Duoneb Neb) 3 ml HHN Q4H PRN PRN Reason: Wheezing Stop: 04/08/17 19:25 Ascorbic Acid (Vitamin C) 500 mg PO DAILY [facility] Stop: 04/01/17 19:29 Last Admin: 02/12/17 09:13 Dose: 500 mg Budesonide (Pulmicort) 0.5 mg HHN BIDRT [facility] Stop: 04/09/17 06:59 Last Admin: 02/12/17 07:19 Dose: 0.5 mg Chlorhexidine Gluconate (Peridex) 15 ml MM 799,1999 [facility] Stop: 04/08/17 19:59 Last Admin: 02/11/17 20:23 Dose: 15 ml Docusate Sodium (Colace) 100 mg PO BID [facility] Stop: 04/01/17 19:29 Last Admin: 02/12/17 09:17 Dose: 100 mg Ferrous Sulfate (Iron) 325 mg PO DAILY [facility] Stop: 04/02/17 08:59 Last Admin: 02/12/17 09:13 Dose: 325 mg Folic Acid (Folate) 1 mg PO DAILY [facility] Stop: 04/01/17 19:29 Last Admin: 02/12/17 09:14 Dose: 1 mg Gabapentin (Neurontin) 300 mg PO BID [facility] Stop: 04/02/17 08:59 Last Admin: 02/12/17 09:18 Dose: 300 mg Heparin Sodium (Porcine) (Heparin) 5,000 units HD UD [facility] Stop: 02/13/17 00:00 Last Admin: 02/12/17 09:14 Dose: 5,000 units Pantoprazole Sodium 80 mg/ (Sodium Chloride) 100 mls @ 10 mls/hr IV Q10H [facility] Stop: 04/09/17 07:59 Last Admin: 02/12/17 12:47 Dose: 10 mls/hr Octreotide Acetate 1,250 mcg/ (Sodium Chloride) 252.5 mls @ 10 mls/hr IV .Q24H [facility] Stop: 04/09/17 07:59 Last Admin: 02/12/17 12:48 Dose: 10 mls/hr Metronidazole (Flagyl) 500 mg in 100 mls @ 100 mls/hr IV Q8HR [facility] Stop: 04/09/17 20:59 Last Admin: 02/12/17 04:33 Dose: 100 mls/hr Multivitamins/Minerals 10 ml/Amino Acids/ Fat Emulsion Intravenous/ Dextrose 1, 680 mls @ 60 mls/hr IV .Q24H [facility] Stop: 04/11/17 15:59 Last Admin: 02/11/17 16:11 Dose: 70 mls/hr Norepinephrine Bitartrate 8 mg (/ Dextrose) 258 mls @ 0 mls/hr IV TITR PRN; Protocol; 0 MCG/MIN PRN Reason: BP MAINTENANCE (PER PROTOCOL) Stop: 04/11/17 13:44 Last Titration: 02/12/17 04:29 Dose: 10 mcg/min, 19.35 mls/hr Furosemide 100 mg/ Sodium (Chloride) 100 mls @ 5 mls/hr IV TITR [facility] Stop: 04/11/17 14:27 Last Admin: 02/12/17 12:44 Dose: 5 mls/hr Meropenem 500 mg/ Sodium (Chloride) 100 mls @ 100 mls/hr IV Q12H [facility] Stop: 04/11/17 15:44 Last Admin: 02/12/17 03:11 Dose: 100 mls/hr Albumin Human (Albuminar 25%) 25 gm in 100 mls @ 50 mls/hr IV 2XW [facility] Stop: 02/13/17 19:00 Last Admin: 02/11/17 17:50 Dose: 50 mls/hr Insulin Aspart (Novolog Insulin Sliding Scale) 0 units SUBQ Q6H [facility] PRN Reason: Protocol Stop: 04/10/17 11:59 Last Admin: 02/12/17 07:36 Dose: 2 units Lactobacillus Rhamnosus (Culturelle) 1 each PO DAILY [facility] Stop: 04/11/17 08:59 Last Admin: 02/12/17 09:13 Dose: 1 each Magnesium Hydroxide (Milk Of Magnesia) 30 ml PO DAILY PRN PRN Reason: Constipation Stop: 04/01/17 19:18 Mirtazapine (Remeron) 22.5 mg PO HS [facility] PRN Reason: Protocol Stop: 04/01/17 20:59 Last Admin: 02/11/17 20:20 Dose: 22.5 mg Miscellaneous (Probiotic Screen) 1 ea MC PRN PRN PRN Reason: PROTOCOL Stop: 04/10/17 11:08 Miscellaneous (Tpn Per Pharmacy) 1 ea MC PRN PRN PRN Reason: PROTOCOL Stop: 04/11/17 07:48 Miscellaneous (Vancomycin Iv Per Pharmacy) 1 ea MC PRN PRN PRN Reason: PROTOCOL Stop: 04/13/17 11:43 Morphine Sulfate (Morphine) 2 mg IVP Q4HR PRN PRN Reason: Pain (Moderate) Stop: 04/12/17 20:41 Last Admin: 02/12/17 05:31 Dose: 2 mg Temazepam (Restoril) 15 mg PO HS PRN; Protocol PRN Reason: Insomnia Stop: 03/31/17 20:55 Last Admin: 01/30/17 21:43 Dose: 15 mg Tramadol HCl (Ultram) 50 mg PO Q6HR PRN PRN Reason: Pain (Moderate) Stop: 03/31/17 22:01 Last Admin: 02/07/17 07:04 Dose: 50 mg Trazodone HCl (Desyrel) 50 mg PO HS [facility] PRN Reason: Protocol Stop: 04/03/17 20:59 Last Admin: 02/11/17 20:22 Dose: 50 mg Latest BUN/CR were73/4.6 Na up to 135 WBC still elevated @ 52 scheduled for HD today no heparin during HD dc Lasix drip on levo 20 mcg PPN @ 50 discussed w/ family @ bedside Nutritional Asmnt/Malnutr-PDOC - Dietary Evaluation Malnutrition Findings (Please click <Entered> for more info): Nutritional Asmnt/Malnutrition Start: 02/02/17 13: 54 Text: Status: Complete Freq: Document 02/02/17 13:54 GSUN (Rec: 02/02/17 14:04 GSUN [email or web address]) Nutritional Asmnt/Malnutrition Patient General Information Nutritional Screening Moderate Risk Screening Diagnosis Pneumonia, sepsis, acute kidney failure Pertinent Medical Hx/Surgical Hx Dementia, possible metastatic cancer to the liver Subjective Information 71 year old male. Pt was just admitted to [facility] on 01/16/17, bedscale 177.9lb on 01/23/17, bedscale 204lb today, likely inaccurate, edema noted. Pt appears overall thin, severe muscle/fat wasting to chest and clavicles. Pt is edentulous on ground diet, no difficulties. Pt was only able to answer simple questions, able to list to RD what he had for breakfast. RD encouraged PO intake due to hypermetabolic state, pt understood. [employer] COORDINATOR at bedside stated pt tolerates Boost Plus . Avg PO itnake 75% of meals, meeting 75% of estimated kcal needs. Current Diet Order/ Nutrition Support [facility] soft ground, Bosot Plus TID Pertinent Medications Vitamin C, Colace, Iron, Folate, MOM, Remeron, Vancomycin, D5-0.45ns Pertinent Labs 02/02: Potassium 5.5H, BUN 39H, creatinine 2.2H (declining), glucose 96 Nutritional Hx/Data Height 1.7 m Height (Calculated Centimeters) 170.2 Current Weight (lbs) 79.832 kg Weight (Calculated Kilograms) 79.8 Weight (Calculated Grams) 96557.3 Clare Body Weight 148lb GI Symptoms Skin Integrity/Comment: Kong 14. Bilateral leg and feet 4+ edema, some bruises. Estimated Nutritional Goals Calories/Kcals/Kg IBW 148lb/67.3kg Kcals Calculated 2356kcal (35kcal/kg) Protein g/kg: IBW Protein Calculated 67-101g (1-1.5g/kg, renal insuffieicny vs sepsis/ pneumonia/depletion) Nutritional Problem 2. Problem Problem Impaired nutrient utilization realted to Etiology acute renal failure Signs/Symptoms: progress note, elevated/ declining renal labs: BUN39H [employer] 2.2H potassium 5.5H 1. Problem Problem Increased kcal and prot needs related to Etiology hypermetabolic state aeb Signs/Symptoms: sepsis, pneumonia, severe muscle/fat depletion to clavicles and chest, possible metastatic cancer to the liver Malnutrition Alert Body Fat Depletion (Severe) Mod to Severe Depletion Muscle Mass (Severe) Mod to Severe Depletion Fluid Accumulation (Non-Severe) Moderate Mild Fluid Retention Intervention/Recommendation Comments 1. Recommend ground renal diet , dx. acute renal failure, elevated labs: BUN 39H [employer] 2. 2H Potassium 5.5H. 2. Recommend oral supplement change from Bosot Plus TID to Suplena TID, dx. acute renal failure, elevated labs: BUN 39H [employer] 2.2H Potassium 5.5H. Expected Outcomes/Goals Expected Outcomes/Goals 1. PO intake to meet 100% of estimated nutritional needs.
[2017-02-16] MEDS: MULTIVITAMIN IV SCH (16:34)
[2017-02-16] MEDS: [UNRECOGNIZED DRUG - OTHER] IV SCH (16:34)
[2017-02-16] MEDS: AMINO ACIDS IV SCH (16:34)
[2017-02-16] MEDS: DEXTROSE IV SCH (16:34)
[2017-02-16] MEDS: TPN 10%-70% CUSTOM IV SCH (17:21)
--- NOTE | 2017-02-16 21:08 | Progress Notes ---
DATE: 02/15/2017 PROBLEMS: 1. Persistent respiratory failure. 2. Bilateral effusion, pneumonia. 3. Large ascites with possibly hepatic mass plus cirrhosis. 4. Renal failure, on multiple vasopressors. SYMPTOMS: Noncommunicative, not in any acute distress. PHYSICAL EXAMINATION: VITAL SIGNS: Temperature is 96, blood pressure 102/59, respiration is about 20-25 shallow with 40% of oxygen saturation in mid 90s. GENERAL: On exam, quite obtunded, no respiratory distress, etc. BP is ____ maintained with vasopressors. CHEST: Shows diminished air entry with occasional rhonchi. HEART: Regular, tachycardic. ABDOMEN: Quite distended. LABORATORY DATA: White count is 14,000 and INR is 1.8. ASSESSMENT: The patient clinically doing poorly with multisystem problem with coagulopathy. PLANS AND SUGGESTIONS: We will go ahead and continue current treatment. Discuss with family. Discuss with Dr. Evans and if coagulopathy allows me, consider paracentesis and go from there. JOB# [id number]
--- NOTE | 2017-02-16 23:56 | Consultation ---
DATE OF CONSULTATION: 02/16/2017 HISTORY OF PRESENT ILLNESS: The patient is currently in the IC. The patient is under the care of Dr. Mccarthy. Noted history of dementia, psychosis. Diagnosed with pneumonia, possible metastatic cancer of the liver. Started on antibiotics. Diagnosed with leukocytosis, pneumonia. On [id number], the patient is on multiple pressors, minimally interactive, brother at bedside. No behaviors noted. MENTAL STATUS EXAMINATION: Stated age and sedated, not really interactive with me, sedated, lethargic. Staff noting he is minimally interactive. Thought content unknown. Thought processes diminished. Poor insight, poor judgment at this time. PROVISIONAL DIAGNOSIS: Psychosis, unspecified, known history of dementia. RECOMMENDATIONS AND PLAN: Staff noting he is pretty stable from a psychiatric perspective in regards to any behavioral disturbances or psychotic or agitated behaviors. We will continue to monitor and followup. [facility]# [id number]
[2017-02-17] MEDS: INSULIN ASPART SLIDING SCALE 100 UNITS/ML UNIT SUBQ SCH ×4 (00:11→18:16)
[2017-02-17] MEDS: metroNIDAZOLE 500mg/NS 100mL 500 MG/100 ML BAG IV SCH ×3 (04:14→20:53)
[2017-02-17] MEDS: Meropenem 500 MG in Sodium Chloride 0.9% 100 ML IV SCH ×2 (05:21→16:59)
[2017-02-17] MEDS: Pantoprazole 80 MG in Sodium Chloride 0.9% 100 ML IV SCH ×3 (06:00→21:37)
[2017-02-17 07:01] LABS: HEMATOCRIT 24.4 % (39.0-49.0); HEMOGLOBIN 8.7 gm/dL (12.6-17.4); MEAN CORPUSCULAR HEMOGLOBIN 38.1 pg (27.0-31.0); MEAN CORPUSCULAR HGB CONC 35.5 pg (28.0-36.0); MEAN PLATELET VOLUME 9.1 fl; RED BLOOD COUNT 2.27 Mil/cmm (3.80-5.80); RED CELL DISTRIBUTION WIDTH 29.5 % (11.5-20.0)
[2017-02-17 07:08] LABS: PLATELET COUNT 68 Th/cmm (150-400); WHITE BLOOD COUNT 44.5 Th/cmm (4.8-10.8)
[2017-02-17 07:24] LABS: INR 2.42 (0.5-1.4); PROTHROMBIN TIME (TEST) 26.3 SECONDS (9.5-11.5)
[2017-02-17 07:25] LABS: ANION GAP 9.5 (7.0-16.0); BUN - UREA NITROGEN 60 mg/dL (7-25); BUN/CREATININE RATIO 15.4; CALCIUM SERUM 9.7 mg/dL (8.6-10.3); CARBON DIOXIDE 28.1 mEq/L (21.0-31.0); CHLORIDE 102 mEq/L (98-107); CREATININE - SERUM 3.9 mg/dL (0.7-1.3); GLUCOSE 143 mg/dL (70-105); MAGNESIUM 1.7 mg/dL (1.9-2.7); PHOSPHOROUS 3.9 mg/dL (2.5-5.0); POTASSIUM SERUM 3.6 mEq/L (3.5-5.1); SODIUM SERUM 136 mEq/L (136-145)
[2017-02-17] MEDS: Albuterol/Ipratropium Neb 3 ML AERS HHN SCH ×3 (07:39→22:57)
[2017-02-17] MEDS: Budesonide 0.5 Mg/2 mL Ud HHN SCH ×2 (07:40→18:51)
[2017-02-17 07:48] LABS: ANISOCYTOSIS 2+; BAND NEUTROPHILE 29 % (0-10); EOSINOPHIL 2 % (0-5); HYPOCHROMIA 1+; NEUTROPHILS 56 % (40-80); PLATELET ESTIMATE DECREASED PLATELETS (NORMAL); POLYCHROMASIA 1+; TOTAL CELLS COUNTED 100
[2017-02-17 08:02] LABS: MEAN CELL VOLUME 107.4 fl (80-99)
--- NOTE | 2017-02-17 08:23 | Progress Notes ---
DATE: 02/16/2017 PROBLEM LIST: 1. Acute respiratory failure. 2. Bilateral pneumonia. 3. Third spacing. 4. Renal failure. 5. Encephalopathy. 6. Hepatic disease. SYMPTOMS: The patient is a little bit more awake, currently undergoing dialysis. No respiratory distress, still on assist control mode of ventilator with 40% of FIO2. PHYSICAL EXAMINATION: VITAL SIGNS: Temperature is 98, heart rate is 110 to 120, BP is 80 to 90 on vasopressors, saturation 96% on 40%. NECK: Veins not visualized. Good bilateral carotid upstroke. CHEST: Shows diminished air entry with occasional rhonchi. HEART: Regular. ABDOMEN: Quite distended. EXTREMITIES: Shows 2+ edema. LABORATORY DATA: White count is 52,000 and the patient's other laboratory studies are essentially unremarkable. ASSESSMENT: The patient clinically doing poorly with multisystem failure. PLANS AND SUGGESTIONS: to take care of the patient. I had discussed with the case charge nurse as well as the nursing staff, and we will discuss with Dr. Mccarthy again and go from there. JOB# [id number]
[2017-02-17] MEDS: Lactobacillus Rhamnosus 10 Billion CFU Capsule PO SCH (09:17)
[2017-02-17] MEDS: Ferrous Sulfate 325 MG TAB PO SCH (09:19)
[2017-02-17] MEDS: Chlorhexidine Gluconate 0.12% 15mL Mouthwash MM SCH ×2 (09:20→20:20)
--- NOTE | 2017-02-17 10:31 | General Progress Note ---
Subjective - Review of Systems Service Date: 02/17/17 Subjective: more alert, interacting, on vent Objective - Results Result Diagrams: 02/17/17 06:55 02/17/17 06:55 Recent Labs: Laboratory Last Values WBC 44.5 Th/cmm (4.8-10.8) H* 02/17/17 06:55 RBC 2.27 Mil/cmm (3.80-5.80) L 02/17/17 06:55 Hgb 8.7 gm/dL (12.6-17.4) L 02/17/17 06:55 Hct 24.4 % (39.0-49.0) L 02/17/17 06:55 MCV 107.4 fl (80-99) H 02/17/17 06:55 MCH 38.1 pg (27.0-31.0) H 02/17/17 06:55 MCHC Differential 35.5 pg (28.0-36.0) 02/17/17 06:55 RDW 29.5 % (11.5-20.0) H 02/17/17 06:55 Plt Count 68 Th/cmm (150-400) L D 02/17/17 06:55 MPV 9.1 fl 02/17/17 06:55 Neutrophils % FATBACK TRIMMER 02/11/17 05:00 Band Neutrophils % 29 % (0-10) H 02/17/17 06:55 Lymphocytes % FATBACK TRIMMER 02/11/17 05:00 Monocytes % FATBACK TRIMMER 02/11/17 05:00 Eosinophils % FATBACK TRIMMER 02/11/17 05:00 Basophils % FATBACK TRIMMER 02/11/17 05:00 Neutrophils (Manual) 56 % (40-80) 02/17/17 06:55 Lymphocytes 6 % (20-50) L 02/17/17 06:55 Monocytes 7 % (2-10) 02/17/17 06:55 Eosinophils 2 % (0-5) 02/17/17 06:55 Basophils 1 % (0-3) 02/13/17 09:30 Metamyelocytes 1 % (0-0) H 02/16/17 06:24 Hypochromia 1+ 02/17/17 06:55 Platelet Estimate DECREASED PLATELETS (NORMAL) 02/17/17 06:55 Platelet Morphology NORMAL (NORMAL) 02/16/17 06:24 Polychromasia 1+ 02/17/17 06:55 Poikilocytosis 1+ 02/06/17 05:48 Anisocytosis 2+ 02/17/17 06:55 Macrocytosis 2+ 02/17/17 06:55 Ovalocytes 1+ 02/04/17 06:37 RBC Morph Micro Appear ABNORMAL (NORMAL) 02/16/17 06:24 Smear Path Review SEE BELOW 02/09/17 04:45 Plt Count 68 Th/cmm (150-750) L 02/17/17 06:55 PT 26.3 SECONDS (9.5-11.5) H 02/17/17 06:55 INR 2.42 (0.5-1.4) H 02/17/17 06:55 PTT (Actin FS) 60.6 SECONDS (26.0-38.0) H 02/17/17 06:55 Fibrinogen 107.0 mg/dL (200.0-400.0) L 02/17/17 06:55 D-Dimer 2800 ng/mL (100-400) H 02/17/17 06:55 Specimen Source Arterial 02/09/17 08:45 Sample Site Right Radial 02/09/17 08:45 pH 7.32 (7.35-7.45) L 02/09/17 08:45 pCO2 38.0 mmHg (35.0-45.0) 02/09/17 08:45 pO2 65.0 mmHg (80.0-100.0) L 02/09/17 08:45 HCO3 20.1 mEq/L (20.0-26.0) 02/09/17 08:45 Base Excess -6.0 mEq/L (-3.0-3.0) L 02/09/17 08:45 O2 Saturation 91.0 % (92.0-100.0) L 02/09/17 08:45 Dwayne Test YES 02/09/17 08:45 Vent Rate 12 02/09/17 08:45 Inspired O2 40 02/09/17 08:45 Tidal Volume 500 02/09/17 08:45 PEEP NA 02/09/17 08:45 Pressure (ins/psv/peep) NA 02/09/17 08:45 Critical Value E.DIAMOND 02/09/17 08:45 Sodium 136 mEq/L (136-145) 02/17/17 06:55 Potassium 3.6 mEq/L (3.5-5.1) 02/17/17 06:55 Chloride 102 mEq/L (98-107) 02/17/17 06:55 Carbon Dioxide 28.1 mEq/L (21.0-31.0) 02/17/17 06:55 Anion Gap 9.5 (7.0-16.0) 02/17/17 06:55 BUN 60 mg/dL (7-25) H 02/17/17 06:55 Creatinine 3.9 mg/dL (0.7-1.3) H 02/17/17 06:55 Est GFR ( Amer) TNP 02/17/17 06:55 Est GFR (Non-Af Amer) TNP 02/17/17 06:55 BUN/Creatinine Ratio 15.4 02/17/17 06:55 Glucose 143 mg/dL (70-105) H 02/17/17 06:55 POC Glucose 127 MG/DL (70 - 105) H 02/17/17 06:17 Whole Bld Lactic Acid 2.02 mmol/L (0.60-1.99) H* 01/30/17 12:20 Calcium 9.7 mg/dL (8.6-10.3) 02/17/17 06:55 Phosphorus 3.9 mg/dL (2.5-5.0) 02/17/17 06:55 Magnesium 1.7 mg/dL (1.9-2.7) L 02/17/17 06:55 Iron 151 ug/dL (38-169) 02/04/17 06:37 TIBC 178 ug/dL (250-450) L 02/04/17 06:37 Iron Saturation 85 % (15-55) H 02/04/17 06:37 Unsaturated IBC 27 ug/dL (111-343) L 02/04/17 06:37 Ferritin 1222 ng/mL (30-400) H 02/04/17 06:37 Total Bilirubin 1.9 mg/dL (0.3-1.0) H 02/12/17 07:00 Direct Bilirubin 1.27 mg/dL (0.0-0.2) H 02/12/17 07:00 AST 52 U/L (13-39) H 02/12/17 07:00 ALT 9 U/L (7-52) 02/12/17 07:00 Alkaline Phosphatase 101 U/L (34-104) 02/12/17 07:00 Ammonia 53 umol/L (16-53) 02/12/17 07:00 Total Protein 5.7 gm/dL (6.0-8.3) L 02/12/17 07:00 Albumin 2.6 gm/dL (4.2-5.5) L 02/12/17 07:00 Globulin 3.1 gm/dL 02/12/17 07:00 Albumin/Globulin Ratio 0.8 (1.0-1.8) L 02/12/17 07:00 Prealbumin 6 mg/dL (9-32) L 02/12/17 07:00 Pgypg-5-Ryuethxvhgr 236 mg/dL (90-200) H 02/04/17 06:37 Ceruloplasmin 34.0 mg/dL (16.0-31.0) H 02/04/17 06:37 Triglycerides 89 mg/dL (<150) 02/12/17 07:00 Cholesterol 51 mg/dL (<200) 02/12/17 07:00 LDL Cholesterol Direct 46 mg/dL (75-193) L 01/30/17 10:20 HDL Cholesterol 19 mg/dL (23-92) L 01/30/17 10:20 Tumor Marker AFP 832.4 ng/mL (0.0-8.3) H 02/05/17 06:37 Carcinoembryonic Ag 13.4 ng/mL (0.0-4.7) H 02/04/17 06:37 CA 19-9 Antigen 2818 U/mL (0-35) H 02/04/17 06:37 TSH 0.32 uIU/ml (0.34-5.60) L 02/10/17 04:45 Urine Source CLEAN C 01/30/17 11:05 Urine Color LOS 01/30/17 11:05 Urine Clarity CLEAR (CLEAR) 01/30/17 11:05 Urine pH 5.0 01/30/17 11:05 Ur Specific [place] 1.020 (1.005-1.030) 01/30/17 11:05 Urine Protein 30 mg/dL (NEGATIVE) H 01/30/17 11:05 Urine Glucose (UA) NEGATIVE mg/dL (NEGATIVE) 01/30/17 11:05 Urine Ketones 15 mg/dL (NEGATIVE) H 01/30/17 11:05 Urine Blood NEGATIVE (NEGATIVE) 01/30/17 11:05 Urine Nitrate POSITIVE (NEGATIVE) H 01/30/17 11:05 Urine Bilirubin SMALL (NEGATIVE) H 01/30/17 11:05 Urine Urobilinogen 0.2 E.U./dL (0.2 - 1.0) 01/30/17 11:05 Ur Leukocyte Esterase NEGATIVE (NEGATIVE) 01/30/17 11:05 Urine RBC 0-2 /hpf (0-5) H 01/30/17 11:05 Urine WBC 2-5 /hpf (0-5) H 01/30/17 11:05 Ur Epithelial Cells OCCASIONAL /lpf (FEW) 01/30/17 11:05 Urine Bacteria MODERATE /hpf (NONE SEEN) 01/30/17 11:05 Urine Mucus FEW /lpf (FEW) 01/30/17 11:05 Stool Occult Blood NEGATIVE (NEGATIVE) 02/11/17 17:05 Vancomycin Trough 39.3 ug/mL (10-20) H 02/02/17 16:35 Random Vancomycin 19.5 ug/mL (5.0-40.0) 02/16/17 06:24 Anti-Mitochondrial Ab 25.7 Units (0.0-20.0) H 02/04/17 06:37 Smooth Muscle IgG Ab 38 Units (0-19) H 02/04/17 06:37 RPR NONREACTIVE (NONREACTIVE) 01/30/17 10:20 Hepatitis A IgM Ab Negative (Negative) 02/14/17 05:30 Hep Bs Antigen Negative (Negative) 02/14/17 05:30 Hep B Core IgM Ab Negative (Negative) 02/14/17 05:30 Hepatitis C Antibody >11.0 s/co ratio (0.0-0.9) H 02/14/17 05:30 Blood Type O POSITIVE 02/10/17 07:16 Antibody Screen NEGATIVE 02/10/17 07:16 Crossmatch See Detail 02/10/17 07:16 - Physical Exam Vitals and I&O: Vital Signs Temp 98.1 F 02/17/17 08:00 Pulse 114 02/17/17 10:15 Resp 15 02/17/17 08:00 BP 97/51 02/17/17 10:15 Pulse Ox 98 02/17/17 08:00 Intake & Output 02/16/17 02/17/17 02/17/17 18:59 06:59 18:59 Intake Total 9584.077 7450.700 32.333 Output Total 2050 50 Balance -645.645 2042.700 32.333 Weight (lbs) 65.771 kg Intake: Intake, IV Amount 195.957 3553.700 32.333 Meropenem 500 mg In 165 Sodium Chloride 0.9% 100 ml @ 100 mls/hr IV Q12H [facility] Rx#:[id number] Multivitamin Inj 10 ml In 600 Amino Acids 15% 387 ml In Dextrose 70% 387 ml In Intralipids 20% 423 ml @ 50 mls/hr IV .Q24H [facility] Rx#:[id number] Norepinephrine 8 mg In 464.383 306.700 Dextrose 5% 250 ml @ 0 MCG/MIN IV TITR PRN Rx#: [id number] Octreotide Acetate 1,250 236.167 150 32.333 mcg In Sodium Chloride 0. 9% 250 ml @ 10 mls/hr IV .Q24H [facility] Rx#:[id number] Pantoprazole 80 mg In 176.5 100 Sodium Chloride 0.9% 100 ml @ 10 mls/hr IV Q10H [facility] Rx#:[id number] metroNIDAZOLE 500mg/NS 100 200 100mL 500 mg In 100 ml @ 100 mls/hr IV Q8HR [facility] Rx #:[id number] Oral 0 TPN/PPN 600 Albumin 200 Output: Gastric Drainage 25 50 Urine 25 0 Hemodialysis 2000 Other: # Bowel Movements 1 0 Active Medications: Current Medications Acetaminophen (Tylenol) 650 mg PO Q4H PRN PRN Reason: Fever > 100 Stop: 03/31/17 16:47 Last Admin: 02/11/17 20:22 Dose: 650 mg Albuterol/Ipratropium (Duoneb Neb) 3 ml HHN Q8HRT [facility] Stop: 03/31/17 14:59 Last Admin: 02/17/17 07:39 Dose: 3 ml Albuterol/Ipratropium (Duoneb Neb) 3 ml HHN Q4H PRN PRN Reason: Wheezing Stop: 04/08/17 19:25 Ascorbic Acid (Vitamin C) 500 mg PO DAILY [facility] Stop: 04/01/17 19:29 Last Admin: 02/17/17 09:19 Dose: Not Given Budesonide (Pulmicort) 0.5 mg HHN BIDRT [facility] Stop: 04/09/17 06:59 Last Admin: 02/17/17 07:40 Dose: 0.5 mg Chlorhexidine Gluconate (Peridex) 15 ml MM 0800,2000 [facility] Stop: 04/08/17 19:59 Last Admin: 02/17/17 09:20 Dose: 15 ml Docusate Sodium (Colace) 100 mg PO BID [facility] Stop: 04/01/17 19:29 Last Admin: 02/17/17 09:19 Dose: Not Given Ferrous Sulfate (Iron) 325 mg PO DAILY [facility] Stop: 04/02/17 08:59 Last Admin: 02/17/17 09:19 Dose: Not Given Folic Acid (Folate) 1 mg PO DAILY [facility] Stop: 04/01/17 19:29 Last Admin: 02/17/17 09:18 Dose: Not Given Gabapentin (Neurontin) 300 mg PO BID [facility] Stop: 04/02/17 08:59 Last Admin: 02/17/17 09:18 Dose: Not Given Hydromorphone HCl (Dilaudid) 0.5 mg IVP Q4HR PRN PRN Reason: PAIN Stop: 04/15/17 21:10 Last Admin: 02/16/17 00:34 Dose: 0.5 mg Pantoprazole Sodium 80 mg/ (Sodium Chloride) 100 mls @ 10 mls/hr IV Q10H [facility] Stop: 04/09/17 07:59 Last Admin: 02/17/17 06:00 Dose: 10 mls/hr Octreotide Acetate 1,250 mcg/ (Sodium Chloride) 252.5 mls @ 10 mls/hr IV .Q24H [facility] Stop: 04/09/17 07:59 Last Admin: 02/17/17 09:14 Dose: 10 mls/hr Norepinephrine Bitartrate 8 mg (/ Dextrose) 258 mls @ 0 mls/hr IV TITR PRN; Protocol; 0 MCG/MIN PRN Reason: BP MAINTENANCE (PER PROTOCOL) Stop: 04/11/17 13:44 Last Admin: 02/17/17 09:02 Dose: 18 mcg/min, 35 mls/hr Metronidazole (Flagyl) 500 mg in 100 mls @ 100 mls/hr IV Q8HR [facility] Stop: 04/16/17 04:59 Last Infusion: 02/17/17 05:15 Dose: Infused Meropenem 500 mg/ Sodium (Chloride) 100 mls @ 100 mls/hr IV Q12H [facility] Stop: 04/17/17 16:59 Last Infusion: 02/17/17 06:00 Dose: 100 mls/hr Multivitamins/Minerals 10 ml/Amino Acids/Electrolytes/Dextrose/ Fat Emulsion Intravenous 1,207 mls @ 50 mls/hr IV .Q24H [facility] Stop: 04/17/17 15:59 Last Infusion: 02/17/17 06:00 Dose: 50 mls/hr Insulin Aspart (Novolog Insulin Sliding Scale) 0 units SUBQ Q6H [facility] PRN Reason: Protocol Stop: 04/17/17 17:59 Last Admin: 02/17/17 06:20 Dose: Not Given Lactobacillus Rhamnosus (Culturelle) 1 each PO DAILY [facility] Stop: 04/11/17 08:59 Last Admin: 02/17/17 09:17 Dose: Not Given Magnesium Hydroxide (Milk Of Magnesia) 30 ml PO DAILY PRN PRN Reason: Constipation Stop: 04/01/17 19:18 Mirtazapine (Remeron) 22.5 mg PO HS [facility] PRN Reason: Protocol Stop: 04/01/17 20:59 Last Admin: 02/16/17 23:21 Dose: Not Given Miscellaneous (Probiotic Screen) 1 ea PRN PRN PRN Reason: PROTOCOL Stop: 04/10/17 11:08 Miscellaneous (Tpn Per Pharmacy) 1 ea PRN PRN PRN Reason: PROTOCOL Stop: 04/11/17 07:48 Miscellaneous (Vancomycin Iv Per Pharmacy) 1 ea PRN PRN PRN Reason: PROTOCOL Stop: 04/13/17 11:43 Trazodone HCl (Desyrel) 50 mg PO HS [facility] PRN Reason: Protocol Stop: 04/03/17 20:59 Last Admin: 02/16/17 23:21 Dose: Not Given General: Alert, Mild distress HEENT: Atraumatic, Mucous membr. moist/pink Neck: Supple, +2 carotid pulse wo bruit Cardiovascular: Normal S1, Other (tachy), no Regular rate Lungs: Other (rhonchi, rales) Abdomen: Other (ascites) Extremities: Edema ((+) 3 bipdeal) Neurological: Sensation intact Skin: no Rash Psych/Mental Status: Mood NL - Procedures Procedures: Procedures Procedure Code Date GROUP PSYCHOTHERAPY 29067 01/14/16 GROUP PSYCHOTHERAPY [id number] 01/14/16 INSERT EMERGENCY AIRWAY 04859 01/30/17 INSERTION OF ENDOTRACHEAL AIRWAY INTO TRACHEA, VIA OPENING [id number] 01/30/17 INSERTION OF INFUSION DEV INTO SUP VENA CAVA, PERC APPROACH [id number] 01/30/[address] CATHETER IN VEIN 35071 01/30/17 RESPIRATORY VENTILATION, GREATER THAN 96 CONSECUTIVE HOURS [id number] 01/30/17 TRANSFUSE NONAUT RED BLOOD CELLS IN PERIPH VEIN, PERC [id number] 01/16/17 VENT MGMT INPAT IN DAY 04348 01/30/17 Assessment/Plan - Problem List Patient Problems: All Active Problems Agitation (Acute) R45.1 Combative behavior (Acute) R46.89 HTN (hypertension) (Acute) I10 Psychosis (Acute) F29 - Assessment Assessment: VIPUL on CKD Acute RF on vent decomp CHF Liver mets Anoxic/met Encph Anemia UGI bleed on cd Severe malnutrition B/L HAP Anasarca/Ascites - Plan Plan: Lab - Result Diagrams 02/12/17 07:00 02/12/17 07:00 Current Medications Acetaminophen (Tylenol) 650 mg PO Q4H PRN PRN Reason: Fever > 100 Stop: 03/31/17 16:47 Last Admin: 02/11/17 20:22 Dose: 650 mg Albuterol/Ipratropium (Duoneb Neb) 3 ml HHN Q8HRT [facility] Stop: 03/31/17 14:59 Last Admin: 02/12/17 07:19 Dose: 3 ml Albuterol/Ipratropium (Duoneb Neb) 3 ml HHN Q4H PRN PRN Reason: Wheezing Stop: 04/08/17 19:25 Ascorbic Acid (Vitamin C) 500 mg PO DAILY [facility] Stop: 04/01/17 19:29 Last Admin: 02/12/17 09:13 Dose: 500 mg Budesonide (Pulmicort) 0.5 mg HHN BIDRT [facility] Stop: 04/09/17 06:59 Last Admin: 02/12/17 07:19 Dose: 0.5 mg Chlorhexidine Gluconate (Peridex) 15 ml MM 08,1999 [facility] Stop: 04/08/17 19:59 Last Admin: 02/11/17 20:23 Dose: 15 ml Docusate Sodium (Colace) 100 mg PO BID [facility] Stop: 04/01/17 19:29 Last Admin: 02/12/17 09:17 Dose: 100 mg Ferrous Sulfate (Iron) 325 mg PO DAILY [facility] Stop: 04/02/17 08:59 Last Admin: 02/12/17 09:13 Dose: 325 mg Folic Acid (Folate) 1 mg PO DAILY [facility] Stop: 04/01/17 19:29 Last Admin: 02/12/17 09:14 Dose: 1 mg Gabapentin (Neurontin) 300 mg PO BID [facility] Stop: 04/02/17 08:59 Last Admin: 02/12/17 09:18 Dose: 300 mg Heparin Sodium (Porcine) (Heparin) 5,000 units HD UD [facility] Stop: 02/13/17 00:00 Last Admin: 02/12/17 09:14 Dose: 5,000 units Pantoprazole Sodium 80 mg/ (Sodium Chloride) 100 mls @ 10 mls/hr IV Q10H [facility] Stop: 04/09/17 07:59 Last Admin: 02/12/17 12:47 Dose: 10 mls/hr Octreotide Acetate 1,250 mcg/ (Sodium Chloride) 252.5 mls @ 10 mls/hr IV .Q24H [facility] Stop: 04/09/17 07:59 Last Admin: 02/12/17 12:48 Dose: 10 mls/hr Metronidazole (Flagyl) 500 mg in 100 mls @ 100 mls/hr IV Q8HR [facility] Stop: 04/09/17 20:59 Last Admin: 02/12/17 04:33 Dose: 100 mls/hr Multivitamins/Minerals 10 ml/Amino Acids/ Fat Emulsion Intravenous/ Dextrose 1, 680 mls @ 60 mls/hr IV .Q24H [facility] Stop: 04/11/17 15:59 Last Admin: 02/11/17 16:11 Dose: 70 mls/hr Norepinephrine Bitartrate 8 mg (/ Dextrose) 258 mls @ 0 mls/hr IV TITR PRN; Protocol; 0 MCG/MIN PRN Reason: BP MAINTENANCE (PER PROTOCOL) Stop: 04/11/17 13:44 Last Titration: 02/12/17 04:29 Dose: 10 mcg/min, 19.35 mls/hr Furosemide 100 mg/ Sodium (Chloride) 100 mls @ 5 mls/hr IV TITR [facility] Stop: 04/11/17 14:27 Last Admin: 02/12/17 12:44 Dose: 5 mls/hr Meropenem 500 mg/ Sodium (Chloride) 100 mls @ 100 mls/hr IV Q12H [facility] Stop: 04/11/17 15:44 Last Admin: 02/12/17 03:11 Dose: 100 mls/hr Albumin Human (Albuminar 25%) 25 gm in 100 mls @ 50 mls/hr IV 2XW [facility] Stop: 02/13/17 19:00 Last Admin: 02/11/17 17:50 Dose: 50 mls/hr Insulin Aspart (Novolog Insulin Sliding Scale) 0 units SUBQ Q6H [facility] PRN Reason: Protocol Stop: 04/10/17 11:59 Last Admin: 02/12/17 07:36 Dose: 2 units Lactobacillus Rhamnosus (Culturelle) 1 each PO DAILY [facility] Stop: 04/11/17 08:59 Last Admin: 02/12/17 09:13 Dose: 1 each Magnesium Hydroxide (Milk Of Magnesia) 30 ml PO DAILY PRN PRN Reason: Constipation Stop: 04/01/17 19:18 Mirtazapine (Remeron) 22.5 mg PO HS [facility] PRN Reason: Protocol Stop: 04/01/17 20:59 Last Admin: 02/11/17 20:20 Dose: 22.5 mg Miscellaneous (Probiotic Screen) 1 ea MC PRN PRN PRN Reason: PROTOCOL Stop: 04/10/17 11:08 Miscellaneous (Tpn Per Pharmacy) 1 ea MC PRN PRN PRN Reason: PROTOCOL Stop: 04/11/17 07:48 Miscellaneous (Vancomycin Iv Per Pharmacy) 1 ea MC PRN PRN PRN Reason: PROTOCOL Stop: 04/13/17 11:43 Morphine Sulfate (Morphine) 2 mg IVP Q4HR PRN PRN Reason: Pain (Moderate) Stop: 04/12/17 20:41 Last Admin: 02/12/17 05:31 Dose: 2 mg Temazepam (Restoril) 15 mg PO HS PRN; Protocol PRN Reason: Insomnia Stop: 03/31/17 20:55 Last Admin: 01/30/17 21:43 Dose: 15 mg Tramadol HCl (Ultram) 50 mg PO Q6HR PRN PRN Reason: Pain (Moderate) Stop: 03/31/17 22:01 Last Admin: 02/07/17 07:04 Dose: 50 mg Trazodone HCl (Desyrel) 50 mg PO HS [facility] PRN Reason: Protocol Stop: 04/03/17 20:59 Last Admin: 02/11/17 20:22 Dose: 50 mg Latest BUN/CR were 60/3.9 Na up to 136 WBC down to 44 scheduled for HD tomorrow no heparin during HD dc Lasix drip on levo 20 mcg PPN @ 50 discussed w/ family @ bedside Nutritional Asmnt/Malnutr-PDOC - Dietary Evaluation Malnutrition Findings (Please click <Entered> for more info): Nutritional Asmnt/Malnutrition Start: 02/02/17 13: 54 Text: Status: Complete Freq: Document 02/02/17 13:54 GSUN (Rec: 02/02/17 14:04 GSUN [email or web address]) Nutritional Asmnt/Malnutrition Patient General Information Nutritional Screening Moderate Risk Screening Diagnosis Pneumonia, sepsis, acute kidney failure Pertinent Medical Hx/Surgical Hx Dementia, possible metastatic cancer to the liver Subjective Information 71 year old male. Pt was just admitted to [facility] on 01/16/17, bedscale 177.9lb on 01/23/17, bedscale 204lb today, likely inaccurate, edema noted. Pt appears overall thin, severe muscle/fat wasting to chest and clavicles. Pt is edentulous on ground diet, no difficulties. Pt was only able to answer simple questions, able to list to RD what he had for breakfast. RD encouraged PO intake due to hypermetabolic state, pt understood. HAT COPYIST at bedside stated pt tolerates Boost Plus . Avg PO itnake 75% of meals, meeting 75% of estimated kcal needs. Current Diet Order/ Nutrition Support [facility] soft ground, Bosot Plus TID Pertinent Medications Vitamin C, Colace, Iron, Folate, MOM, Remeron, Vancomycin, D5-0.45ns Pertinent Labs 02/02: Potassium 5.5H, BUN 39H, creatinine 2.2H (declining), glucose 96 Nutritional Hx/Data Height 1.7 m Height (Calculated Centimeters) 170.2 Current Weight (lbs) 79.832 kg Weight (Calculated Kilograms) 79.8 Weight (Calculated Grams) 07763.3 [place] Body Weight 148lb GI Symptoms Skin Integrity/Comment: [place] 14. Bilateral leg and feet 4+ edema, some bruises. Estimated Nutritional Goals Calories/Kcals/Kg IBW 148lb/67.3kg Kcals Calculated 2356kcal (35kcal/kg) Protein g/kg: IBW Protein Calculated 67-101g (1-1.5g/kg, renal insuffieicny vs sepsis/ pneumonia/depletion) Nutritional Problem 2. Problem Problem Impaired nutrient utilization realted to Etiology acute renal failure Signs/Symptoms: MD progress note, elevated/ declining renal labs: BUN39H Sandblast Or Shotblast Equipment Tender 2.2H potassium 5.5H 1. Problem Problem Increased kcal and prot needs related to Etiology hypermetabolic state aeb Signs/Symptoms: sepsis, pneumonia, severe muscle/fat depletion to clavicles and chest, possible metastatic cancer to the liver Malnutrition Alert Body Fat Depletion (Severe) Mod to Severe Depletion Muscle Mass (Severe) Mod to Severe Depletion Fluid Accumulation (Non-Severe) Moderate Mild Fluid Retention Intervention/Recommendation Comments 1. Recommend ground renal diet , dx. acute renal failure, elevated labs: BUN 39H Sandblast Or Shotblast Equipment Tender 2. 2H Potassium 5.5H. 2. Recommend oral supplement change from Bosot Plus TID to Suplena TID, dx. acute renal failure, elevated labs: BUN 39H Sandblast Or Shotblast Equipment Tender 2.2H Potassium 5.5H. Expected Outcomes/Goals Expected Outcomes/Goals 1. PO intake to meet 100% of estimated nutritional needs.
[2017-02-17] MEDS: [UNRECOGNIZED DRUG - OTHER] IV SCH (18:11)
[2017-02-17] MEDS: MULTIVITAMIN IV SCH (18:11)
[2017-02-17] MEDS: AMINO ACIDS IV SCH (18:11)
[2017-02-17] MEDS: DEXTROSE IV SCH (18:11)
[2017-02-17] MEDS: HYDROmorphone 1 mg/mL 1mL Syr IVP PRN (21:48)
[2017-02-18] MEDS: HYDROmorphone 1 mg/mL 1mL Syr IVP PRN (04:20)
[2017-02-18] MEDS: Meropenem 500 MG in Sodium Chloride 0.9% 100 ML IV SCH ×2 (04:21→16:32)
[2017-02-18 05:20] LABS: MEAN PLATELET VOLUME 9.5 fl; RED BLOOD COUNT 2.44 Mil/cmm (3.80-5.80)
[2017-02-18 05:25] LABS: HEMATOCRIT 26.7 % (39.0-49.0); HEMOGLOBIN 9.3 gm/dL (12.6-17.4); MEAN CORPUSCULAR HGB CONC 34.7 pg (28.0-36.0); PLATELET COUNT 78 Th/cmm (150-400); RED CELL DISTRIBUTION WIDTH 29.9 % (11.5-20.0)
[2017-02-18] MEDS: metroNIDAZOLE 500mg/NS 100mL 500 MG/100 ML BAG IV SCH ×3 (05:25→20:57)
[2017-02-18] MEDS ORDERED: Norepinephrine 4 mg/4mL Vial IV ONE ×2 (05:34→05:36)
[2017-02-18 05:35] LABS: MEAN CELL VOLUME 109.5 fl (80-99); WHITE BLOOD COUNT 51.6 Th/cmm (4.8-10.8)
[2017-02-18 05:52] LABS: MAGNESIUM 1.7 mg/dL (1.9-2.7); PHOSPHOROUS 5.1 mg/dL (2.5-5.0)
[2017-02-18 05:54] LABS: ALB/GLOB RATIO 0.8 (1.0-1.8); ALKALINE PHOSPHATASE 131 U/L (34-104); ANION GAP 14.7 (7.0-16.0); BILIRUBIN,TOTAL 4.7 mg/dL (0.3-1.0); BUN - UREA NITROGEN 65 mg/dL (7-25); BUN/CREATININE RATIO 14.4; CALCIUM SERUM 9.6 mg/dL (8.6-10.3); CARBON DIOXIDE 22.5 mEq/L (21.0-31.0); CHLORIDE 102 mEq/L (98-107); GLUCOSE 139 mg/dL (70-105); POTASSIUM SERUM 4.2 mEq/L (3.5-5.1); SGOT 418 U/L (13-39); SGPT/ALT 32 U/L (7-52); SODIUM SERUM 135 mEq/L (136-145)
[2017-02-18 05:59] LABS: VANCOMYCIN RANDOM 21.3 ug/mL (5.0-40.0)
[2017-02-18 06:00] LABS: CREATININE - SERUM 4.5 mg/dL (0.7-1.3)
[2017-02-18] MEDS: INSULIN ASPART SLIDING SCALE 100 UNITS/ML UNIT SUBQ SCH ×6 (06:05→23:58)
[2017-02-18 06:06] LABS: BAND NEUTROPHILE 14 % (0-10); METAMYELOCYTE 2 % (0-0); MYELOCYTE 2 %; NEUTROPHILS 70 % (40-80); PLATELET ESTIMATE SLIGHT DECREASED (NORMAL); TOTAL CELLS COUNTED 100
[2017-02-18 06:07] LABS: ANISOCYTOSIS 2+
--- NOTE | 2017-02-18 06:22 | Progress Notes ---
DATE: 02/17/2017 PULMONARY/CRITICAL CARE PROGRESS NOTE PROBLEM LIST: 1. Acute respiratory failure. 2. Bilateral pneumonia with effusion. 3. Ascites with history of previous alcoholism. 4. Significant ascites with respiratory failure. SYMPTOMS: Noncommunicative, periodic agitated. No respiratory distress. PHYSICAL EXAMINATION: VITAL SIGNS: Temperature is around 99, 98; heart rate is ____ to120, blood pressure 106/60, still on vasopressors and currently on 50% of oxygen, saturating okay. NECK: Veins not visualized. CHEST: Shows diminished air entry. HEART: Regular. ABDOMEN: Quite distended. LABORATORY DATA: White count is 44,000, and platelet is significantly decreased and also the patient's INR is still 2.4. Electrolytes shows creatinine is 3.9, BUN is 60. ASSESSMENT: The patient is clinically is very slowly deteriorating, not requiring high flow oxygen with multisystem failure. PLANS AND SUGGESTIONS: We will continue current respiratory care, inhalation treatment, vasopressors. Prognosis is very poor. JOB# [id number]
[2017-02-18] MEDS: Budesonide 0.5 Mg/2 mL Ud HHN SCH ×2 (06:40→18:28)
[2017-02-18] MEDS: Albuterol/Ipratropium Neb 3 ML AERS HHN SCH ×3 (06:48→22:45)
[2017-02-18] MEDS: Pantoprazole 80 MG in Sodium Chloride 0.9% 100 ML IV SCH ×2 (08:43→17:42)
[2017-02-18] MEDS: Chlorhexidine Gluconate 0.12% 15mL Mouthwash MM SCH ×2 (09:33→20:59)
[2017-02-18] MEDS: Ferrous Sulfate 325 MG TAB PO SCH (09:53)
[2017-02-18] MEDS: Lactobacillus Rhamnosus 10 Billion CFU Capsule PO SCH (09:54)
[2017-02-18] MEDS ORDERED: Albumin 25% 25gm/100mL 25 GM/100 ML BTL IV ONE (10:32)
--- NOTE | 2017-02-18 10:32 | General Progress Note ---
Subjective - Review of Systems Service Date: 02/18/17 Subjective: comatose, on vent Objective - Results Result Diagrams: 02/18/17 04:38 02/18/17 05:30 Recent Labs: Laboratory Last Values WBC 51.6 Th/cmm (4.8-10.8) H* 02/18/17 04:38 RBC 2.44 Mil/cmm (3.80-5.80) L 02/18/17 04:38 Hgb 9.3 gm/dL (12.6-17.4) L 02/18/17 04:38 Hct 26.7 % (39.0-49.0) L 02/18/17 04:38 MCV 109.5 fl (80-99) H 02/18/17 04:38 MCH 38.0 pg (27.0-31.0) H 02/18/17 04:38 MCHC Differential 34.7 pg (28.0-36.0) 02/18/17 04:38 RDW 29.9 % (11.5-20.0) H 02/18/17 04:38 Plt Count 78 Th/cmm (150-400) L 02/18/17 04:38 MPV 9.5 fl 02/18/17 04:38 Neutrophils % PRESSURE TESTER OPERATOR 02/11/17 05:00 Band Neutrophils % 14 % (0-10) H 02/18/17 04:38 Lymphocytes % PRESSURE TESTER OPERATOR 02/11/17 05:00 Monocytes % PRESSURE TESTER OPERATOR 02/11/17 05:00 Eosinophils % PRESSURE TESTER OPERATOR 02/11/17 05:00 Basophils % PRESSURE TESTER OPERATOR 02/11/17 05:00 Neutrophils (Manual) 70 % (40-80) 02/18/17 04:38 Lymphocytes 7 % (20-50) L 02/18/17 04:38 Monocytes 5 % (2-10) 02/18/17 04:38 Eosinophils 2 % (0-5) 02/17/17 06:55 Basophils 1 % (0-3) 02/13/17 09:30 Metamyelocytes 2 % (0-0) H 02/18/17 04:38 Myelocytes 2 % 02/18/17 04:38 Hypochromia 1+ 02/17/17 06:55 Platelet Estimate SLIGHT DECREASED (NORMAL) 02/18/17 04:38 Platelet Morphology NORMAL (NORMAL) 02/16/17 06:24 Polychromasia 1+ 02/17/17 06:55 Poikilocytosis 1+ 02/06/17 05:48 Anisocytosis 2+ 02/18/17 04:38 Macrocytosis 2+ 02/18/17 04:38 Ovalocytes 1+ 02/04/17 06:37 RBC Morph Micro Appear ABNORMAL (NORMAL) 02/16/17 06:24 Smear Path Review SEE BELOW 02/09/17 04:45 Plt Count 68 Th/cmm (150-750) L 02/17/17 06:55 PT 26.3 SECONDS (9.5-11.5) H 02/17/17 06:55 INR 2.42 (0.5-1.4) H 02/17/17 06:55 PTT (Actin FS) 60.6 SECONDS (26.0-38.0) H 02/17/17 06:55 Fibrinogen 107.0 mg/dL (200.0-400.0) L 02/17/17 06:55 D-Dimer 2800 ng/mL (100-400) H 02/17/17 06:55 Specimen Source Arterial 02/09/17 08:45 Sample Site Right Radial 02/09/17 08:45 pH 7.32 (7.35-7.45) L 02/09/17 08:45 pCO2 38.0 mmHg (35.0-45.0) 02/09/17 08:45 pO2 65.0 mmHg (80.0-100.0) L 02/09/17 08:45 HCO3 20.1 mEq/L (20.0-26.0) 02/09/17 08:45 Base Excess -6.0 mEq/L (-3.0-3.0) L 02/09/17 08:45 O2 Saturation 91.0 % (92.0-100.0) L 02/09/17 08:45 Dwayne Test YES 02/09/17 08:45 Vent Rate 12 02/09/17 08:45 Inspired O2 40 02/09/17 08:45 Tidal Volume 500 02/09/17 08:45 PEEP NA 02/09/17 08:45 Pressure (ins/psv/peep) NA 02/09/17 08:45 Critical Value E.DIAMOND 02/09/17 08:45 Sodium 135 mEq/L (136-145) L 02/18/17 05:30 Potassium 4.2 mEq/L (3.5-5.1) 02/18/17 05:30 Chloride 102 mEq/L (98-107) 02/18/17 05:30 Carbon Dioxide 22.5 mEq/L (21.0-31.0) 02/18/17 05:30 Anion Gap 14.7 (7.0-16.0) 02/18/17 05:30 BUN 65 mg/dL (7-25) H 02/18/17 05:30 Creatinine 4.5 mg/dL (0.7-1.3) H* 02/18/17 05:30 Est GFR ( Amer) TNP 02/18/17 05:30 Est GFR (Non-Af Amer) TNP 02/18/17 05:30 BUN/Creatinine Ratio 14.4 02/18/17 05:30 Glucose 139 mg/dL (70-105) H 02/18/17 05:30 POC Glucose 150 MG/DL (70 - 105) H 02/17/17 23:29 Whole Bld Lactic Acid 2.02 mmol/L (0.60-1.99) H* 01/30/17 12:20 Calcium 9.6 mg/dL (8.6-10.3) 02/18/17 05:30 Phosphorus 5.1 mg/dL (2.5-5.0) H 02/18/17 05:00 Magnesium 1.7 mg/dL (1.9-2.7) L 02/18/17 05:00 Iron 151 ug/dL (38-169) 02/04/17 06:37 TIBC 178 ug/dL (250-450) L 02/04/17 06:37 Iron Saturation 85 % (15-55) H 02/04/17 06:37 Unsaturated IBC 27 ug/dL (111-343) L 02/04/17 06:37 Ferritin 1222 ng/mL (30-400) H 02/04/17 06:37 Total Bilirubin 4.7 mg/dL (0.3-1.0) H 02/18/17 05:30 Direct Bilirubin 1.27 mg/dL (0.0-0.2) H 02/12/17 07:00 AST 418 U/L (13-39) H 02/18/17 05:30 ALT 32 U/L (7-52) 02/18/17 05:30 Alkaline Phosphatase 131 U/L (34-104) H 02/18/17 05:30 Ammonia 53 umol/L (16-53) 02/12/17 07:00 Total Protein 5.7 gm/dL (6.0-8.3) L 02/18/17 05:30 Albumin 2.5 gm/dL (4.2-5.5) L 02/18/17 05:30 Globulin 3.2 gm/dL 02/18/17 05:30 Albumin/Globulin Ratio 0.8 (1.0-1.8) L 02/18/17 05:30 Prealbumin 6 mg/dL (9-32) L 02/12/17 07:00 Jwnil-8-Bvcjzlipcnp 236 mg/dL (90-200) H 02/04/17 06:37 Ceruloplasmin 34.0 mg/dL (16.0-31.0) H 02/04/17 06:37 Triglycerides 89 mg/dL (<150) 02/12/17 07:00 Cholesterol 51 mg/dL (<200) 02/12/17 07:00 LDL Cholesterol Direct 46 mg/dL (75-193) L 01/30/17 10:20 HDL Cholesterol 19 mg/dL (23-92) L 01/30/17 10:20 Tumor Marker AFP 832.4 ng/mL (0.0-8.3) H 02/05/17 06:37 Carcinoembryonic Ag 13.4 ng/mL (0.0-4.7) H 02/04/17 06:37 CA 19-9 Antigen 2818 U/mL (0-35) H 02/04/17 06:37 TSH 0.32 uIU/ml (0.34-5.60) L 02/10/17 04:45 Urine Source CLEAN C 01/30/17 11:05 Urine Color LOS 01/30/17 11:05 Urine Clarity CLEAR (CLEAR) 01/30/17 11:05 Urine pH 5.0 01/30/17 11:05 Ur Specific [place] 1.020 (1.005-1.030) 01/30/17 11:05 Urine Protein 30 mg/dL (NEGATIVE) H 01/30/17 11:05 Urine Glucose (UA) NEGATIVE mg/dL (NEGATIVE) 01/30/17 11:05 Urine Ketones 15 mg/dL (NEGATIVE) H 01/30/17 11:05 Urine Blood NEGATIVE (NEGATIVE) 01/30/17 11:05 Urine Nitrate POSITIVE (NEGATIVE) H 01/30/17 11:05 Urine Bilirubin SMALL (NEGATIVE) H 01/30/17 11:05 Urine Urobilinogen 0.2 E.U./dL (0.2 - 1.0) 01/30/17 11:05 Ur Leukocyte Esterase NEGATIVE (NEGATIVE) 01/30/17 11:05 Urine RBC 0-2 /hpf (0-5) H 01/30/17 11:05 Urine WBC 2-5 /hpf (0-5) H 01/30/17 11:05 Ur Epithelial Cells OCCASIONAL /lpf (FEW) 01/30/17 11:05 Urine Bacteria MODERATE /hpf (NONE SEEN) 01/30/17 11:05 Urine Mucus FEW /lpf (FEW) 01/30/17 11:05 Stool Occult Blood NEGATIVE (NEGATIVE) 02/11/17 17:05 Vancomycin Trough 39.3 ug/mL (10-20) H 02/02/17 16:35 Random Vancomycin 21.3 ug/mL (5.0-40.0) 02/18/17 05:00 Anti-Mitochondrial Ab 25.7 Units (0.0-20.0) H 02/04/17 06:37 Smooth Muscle IgG Ab 38 Units (0-19) H 02/04/17 06:37 RPR NONREACTIVE (NONREACTIVE) 01/30/17 10:20 Hepatitis A IgM Ab Negative (Negative) 02/14/17 05:30 Hep Bs Antigen Negative (Negative) 02/14/17 05:30 Hep B Core IgM Ab Negative (Negative) 02/14/17 05:30 Hepatitis C Antibody >11.0 s/co ratio (0.0-0.9) H 02/14/17 05:30 Blood Type O POSITIVE 02/10/17 07:16 Antibody Screen NEGATIVE 02/10/17 07:16 Crossmatch See Detail 02/10/17 07:16 - Physical Exam Vitals and I&O: Vital Signs Temp 99.5 F 02/18/17 08:00 Pulse 130 02/18/17 10:00 Resp 19 02/18/17 10:00 BP 94/55 02/18/17 10:00 Pulse Ox 99 02/18/17 10:00 Intake & Output 02/17/17 02/18/17 02/18/17 18:59 06:59 18:59 Intake Total 3874.543 1412.417 1019.000 Output Total 10 Balance 6567.650 5304.417 1019.000 Intake: Intake, IV Amount 9575.945 2546.417 1019.000 Meropenem 500 mg In 100 100 Sodium Chloride 0.9% 100 ml @ 100 mls/hr IV Q12H [facility] Rx#:[id number] Multivitamin Inj 10 ml In 607 Amino Acids 15% 387 ml In Dextrose 70% 387 ml In Intralipids 20% 423 ml @ 50 mls/hr IV .Q24H [facility] Rx#:[id number] Norepinephrine 8 mg In 212.333 692.75 Dextrose 5% 250 ml @ 0 MCG/MIN IV TITR PRN Rx#: [id number] Octreotide Acetate 1,250 32.333 247.000 mcg In Sodium Chloride 0. 9% 250 ml @ 10 mls/hr IV .Q24H [facility] Rx#:[id number] Pantoprazole 80 mg In 73.5 82.667 200 Sodium Chloride 0.9% 100 ml @ 10 mls/hr IV Q10H [facility] Rx#:[id number] Phenylephrine HCl 10 mg 250 472 In Sodium Chloride 0.9% 250 ml @ Per Protocol IV TITR [facility] Rx#:[id number] metroNIDAZOLE 500mg/NS 100 100 100mL 500 mg In 100 ml @ 100 mls/hr IV Q8HR [facility] Rx #:[id number] TPN/PPN 600 Output: Urine 10 Other: Stool Characteristics Liquid Active Medications: Current Medications Acetaminophen (Tylenol) 650 mg PO Q4H PRN PRN Reason: Fever > 100 Stop: 03/31/17 16:47 Last Admin: 02/17/17 21:36 Dose: 650 mg Albuterol/Ipratropium (Duoneb Neb) 3 ml HHN Q8HRT [facility] Stop: 03/31/17 14:59 Last Admin: 02/18/17 06:48 Dose: 3 ml Albuterol/Ipratropium (Duoneb Neb) 3 ml HHN Q4H PRN PRN Reason: Wheezing Stop: 04/08/17 19:25 Ascorbic Acid (Vitamin C) 500 mg PO DAILY [facility] Stop: 04/01/17 19:29 Last Admin: 02/18/17 09:53 Dose: Not Given Budesonide (Pulmicort) 0.5 mg HHN BIDRT [facility] Stop: 04/09/17 06:59 Last Admin: 02/18/17 06:40 Dose: 0.5 mg Chlorhexidine Gluconate (Peridex) 15 ml MM 0800,1999 [facility] Stop: 04/08/17 19:59 Last Admin: 02/18/17 09:33 Dose: 15 ml Docusate Sodium (Colace) 100 mg PO BID [facility] Stop: 04/01/17 19:29 Last Admin: 02/18/17 09:53 Dose: Not Given Ferrous Sulfate (Iron) 325 mg PO DAILY [facility] Stop: 04/02/17 08:59 Last Admin: 02/18/17 09:53 Dose: Not Given Folic Acid (Folate) 1 mg PO DAILY [facility] Stop: 04/01/17 19:29 Last Admin: 02/18/17 09:55 Dose: Not Given Gabapentin (Neurontin) 300 mg PO BID [facility] Stop: 04/02/17 08:59 Last Admin: 02/18/17 09:55 Dose: Not Given Hydromorphone HCl (Dilaudid) 0.5 mg IVP Q4HR PRN PRN Reason: PAIN Stop: 04/15/17 21:10 Last Admin: 02/18/17 04:20 Dose: 0.5 mg Pantoprazole Sodium 80 mg/ (Sodium Chloride) 100 mls @ 10 mls/hr IV Q10H [facility] Stop: 04/09/17 07:59 Last Infusion: 02/18/17 09:50 Dose: Infused Octreotide Acetate 1,250 mcg/ (Sodium Chloride) 252.5 mls @ 10 mls/hr IV .Q24H [facility] Stop: 04/09/17 07:59 Last Infusion: 02/18/17 09:56 Dose: 10 mls/hr Norepinephrine Bitartrate 8 mg (/ Dextrose) 258 mls @ 0 mls/hr IV TITR PRN; Protocol; 0 MCG/MIN PRN Reason: BP MAINTENANCE (PER PROTOCOL) Stop: 04/11/17 13:44 Last Admin: 02/18/17 05:58 Dose: 30 mcg/min, 58 mls/hr Metronidazole (Flagyl) 500 mg in 100 mls @ 100 mls/hr IV Q8HR [facility] Stop: 04/16/17 04:59 Last Admin: 02/18/17 05:25 Dose: 100 mls/hr Meropenem 500 mg/ Sodium (Chloride) 100 mls @ 100 mls/hr IV Q12H [facility] Stop: 04/17/17 16:59 Last Infusion: 02/18/17 09:34 Dose: Infused Multivitamins/Minerals 10 ml/Amino Acids/Electrolytes/Dextrose/ Fat Emulsion Intravenous 1,207 mls @ 50 mls/hr IV .Q24H [facility] Stop: 04/17/17 15:59 Last Admin: 02/17/17 18:11 Dose: 50 mls/hr Albumin Human (Albuminar 25%) 25 gm in 100 mls @ 50 mls/hr IV X1 ONE Stop: 02/18/17 12:31 Phenylephrine HCl 10 mg/ (Sodium Chloride) 250 mls @ 0 mls/hr IV TITR [facility]; Per Protocol PRN Reason: Protocol Stop: 04/18/17 17:59 Last Titration: 02/18/17 09:30 Dose: Infused Insulin Aspart (Novolog Insulin Sliding Scale) 0 units SUBQ Q6H [facility] PRN Reason: Protocol Stop: 04/17/17 17:59 Last Admin: 02/18/17 06:05 Dose: Not Given Lactobacillus Rhamnosus (Culturelle) 1 each PO DAILY [facility] Stop: 04/11/17 08:59 Last Admin: 02/18/17 09:54 Dose: Not Given Magnesium Hydroxide (Milk Of Magnesia) 30 ml PO DAILY PRN PRN Reason: Constipation Stop: 04/01/17 19:18 Mirtazapine (Remeron) 22.5 mg PO HS [facility] PRN Reason: Protocol Stop: 04/01/17 20:59 Last Admin: 02/17/17 21:00 Dose: Not Given Miscellaneous (Probiotic Screen) 1 ea PRN PRN PRN Reason: PROTOCOL Stop: 04/10/17 11:08 Miscellaneous (Tpn Per Pharmacy) 1 ea PRN PRN PRN Reason: PROTOCOL Stop: 04/11/17 07:48 Trazodone HCl (Desyrel) 50 mg PO HS [facility]LE PRN Reason: Protocol Stop: 04/03/17 20:59 Last Admin: 02/17/17 21:00 Dose: Not Given General: Other (comatose) HEENT: Atraumatic, Mucous membr. moist/pink Neck: Supple, +2 carotid pulse wo bruit Cardiovascular: Normal S1, Normal S2, Other (tachy, irreg) Lungs: Other (rhonchi, rales) Abdomen: Other (ascites), no Bowel sounds Extremities: Edema, Other ((+) 3 bipedal edema) Neurological: no Sensation intact Skin: no Rash Psych/Mental Status: Other (comatose) - Procedures Procedures: Procedures Procedure Code Date GROUP PSYCHOTHERAPY 68553 01/14/16 GROUP PSYCHOTHERAPY [id number] 01/14/16 INSERT EMERGENCY AIRWAY 26651 01/30/17 INSERTION OF ENDOTRACHEAL AIRWAY INTO TRACHEA, VIA OPENING [id number] 01/30/17 INSERTION OF INFUSION DEV INTO SUP VENA CAVA, PERC APPROACH [id number] 01/30/[address] CATHETER IN VEIN 67181 01/30/17 RESPIRATORY VENTILATION, GREATER THAN 96 CONSECUTIVE HOURS [id number] 01/30/17 TRANSFUSE NONAUT RED BLOOD CELLS IN PERIPH VEIN, PERC 42547D0 01/16/17 VENT MGMT INPAT INIT DAY 82686 01/30/17 Assessment/Plan - Problem List Patient Problems: All Active Problems Agitation (Acute) R45.1 Combative behavior (Acute) R46.89 HTN (hypertension) (Acute) I10 Psychosis (Acute) F29 - Assessment Assessment: VIPUL on CKD Acute RF on vent decomp CHF Liver mets Anoxic/met Encph Anemia UGI bleed on cd Severe malnutrition B/L HAP Anasarca/Ascites - Plan Plan: Lab - Result Diagrams 02/12/17 07:00 02/12/17 07:00 Current Medications Acetaminophen (Tylenol) 650 mg PO Q4H PRN PRN Reason: Fever > 100 Stop: 03/31/17 16:47 Last Admin: 02/11/17 20:22 Dose: 650 mg Albuterol/Ipratropium (Duoneb Neb) 3 ml HHN Q8HRT [facility] Stop: 03/31/17 14:59 Last Admin: 02/12/17 07:19 Dose: 3 ml Albuterol/Ipratropium (Duoneb Neb) 3 ml HHN Q4H PRN PRN Reason: Wheezing Stop: 04/08/17 19:25 Ascorbic Acid (Vitamin C) 500 mg PO DAILY [facility] Stop: 04/01/17 19:29 Last Admin: 02/12/17 09:13 Dose: 500 mg Budesonide (Pulmicort) 0.5 mg HHN BIDRT [facility] Stop: 04/09/17 06:59 Last Admin: 02/12/17 07:19 Dose: 0.5 mg Chlorhexidine Gluconate (Peridex) 15 ml MM 08,1999 [facility] Stop: 04/08/17 19:59 Last Admin: 02/11/17 20:23 Dose: 15 ml Docusate Sodium (Colace) 100 mg PO BID [facility] Stop: 04/01/17 19:29 Last Admin: 02/12/17 09:17 Dose: 100 mg Ferrous Sulfate (Iron) 325 mg PO DAILY [facility] Stop: 04/02/17 08:59 Last Admin: 02/12/17 09:13 Dose: 325 mg Folic Acid (Folate) 1 mg PO DAILY [facility] Stop: 04/01/17 19:29 Last Admin: 02/12/17 09:14 Dose: 1 mg Gabapentin (Neurontin) 300 mg PO BID [facility] Stop: 04/02/17 08:59 Last Admin: 02/12/17 09:18 Dose: 300 mg Heparin Sodium (Porcine) (Heparin) 5,000 units HD UD [facility] Stop: 02/13/17 00:00 Last Admin: 02/12/17 09:14 Dose: 5,000 units Pantoprazole Sodium 80 mg/ (Sodium Chloride) 100 mls @ 10 mls/hr IV Q10H [facility] Stop: 04/09/17 07:59 Last Admin: 02/12/17 12:47 Dose: 10 mls/hr Octreotide Acetate 1,250 mcg/ (Sodium Chloride) 252.5 mls @ 10 mls/hr IV .Q24H [facility] Stop: 04/09/17 07:59 Last Admin: 02/12/17 12:48 Dose: 10 mls/hr Metronidazole (Flagyl) 500 mg in 100 mls @ 100 mls/hr IV Q8HR [facility] Stop: 04/09/17 20:59 Last Admin: 02/12/17 04:33 Dose: 100 mls/hr Multivitamins/Minerals 10 ml/Amino Acids/ Fat Emulsion Intravenous/ Dextrose 1, 680 mls @ 60 mls/hr IV .Q24H [facility] Stop: 04/11/17 15:59 Last Admin: 02/11/17 16:11 Dose: 70 mls/hr Norepinephrine Bitartrate 8 mg (/ Dextrose) 258 mls @ 0 mls/hr IV TITR PRN; Protocol; 0 MCG/MIN PRN Reason: BP MAINTENANCE (PER PROTOCOL) Stop: 04/11/17 13:44 Last Titration: 02/12/17 04:29 Dose: 10 mcg/min, 19.35 mls/hr Furosemide 100 mg/ Sodium (Chloride) 100 mls @ 5 mls/hr IV TITR [facility] Stop: 04/11/17 14:27 Last Admin: 02/12/17 12:44 Dose: 5 mls/hr Meropenem 500 mg/ Sodium (Chloride) 100 mls @ 100 mls/hr IV Q12H [facility] Stop: 04/11/17 15:44 Last Admin: 02/12/17 03:11 Dose: 100 mls/hr Albumin Human (Albuminar 25%) 25 gm in 100 mls @ 50 mls/hr IV 2XW [facility] Stop: 02/13/17 19:00 Last Admin: 02/11/17 17:50 Dose: 50 mls/hr Insulin Aspart (Novolog Insulin Sliding Scale) 0 units SUBQ Q6H [facility] PRN Reason: Protocol Stop: 04/10/17 11:59 Last Admin: 02/12/17 07:36 Dose: 2 units Lactobacillus Rhamnosus (Culturelle) 1 each PO DAILY [facility] Stop: 04/11/17 08:59 Last Admin: 02/12/17 09:13 Dose: 1 each Magnesium Hydroxide (Milk Of Magnesia) 30 ml PO DAILY PRN PRN Reason: Constipation Stop: 04/01/17 19:18 Mirtazapine (Remeron) 22.5 mg PO HS [facility] PRN Reason: Protocol Stop: 04/01/17 20:59 Last Admin: 02/11/17 20:20 Dose: 22.5 mg Miscellaneous (Probiotic Screen) 1 ea MC PRN PRN PRN Reason: PROTOCOL Stop: 04/10/17 11:08 Miscellaneous (Tpn Per Pharmacy) 1 ea PRN PRN PRN Reason: PROTOCOL Stop: 04/11/17 07:48 Miscellaneous (Vancomycin Iv Per Pharmacy) 1 ea MC PRN PRN PRN Reason: PROTOCOL Stop: 04/13/17 11:43 Morphine Sulfate (Morphine) 2 mg IVP Q4HR PRN PRN Reason: Pain (Moderate) Stop: 04/12/17 20:41 Last Admin: 02/12/17 05:31 Dose: 2 mg Temazepam (Restoril) 15 mg PO HS PRN; Protocol PRN Reason: Insomnia Stop: 03/31/17 20:55 Last Admin: 01/30/17 21:43 Dose: 15 mg Tramadol HCl (Ultram) 50 mg PO Q6HR PRN PRN Reason: Pain (Moderate) Stop: 03/31/17 22:01 Last Admin: 02/07/17 07:04 Dose: 50 mg Trazodone HCl (Desyrel) 50 mg PO HS [facility] PRN Reason: Protocol Stop: 04/03/17 20:59 Last Admin: 02/11/17 20:22 Dose: 50 mg Latest BUN/CR were 65/4.5 Na up to 130 WBC up to 51 cancel HD because pt. too unstable no heparin during HD dc Lasix drip on levo 30, Jose 120 mcg PPN @ 50 discussed w/ family @ bedside w/ very poor prognosis Nutritional Asmnt/Malnutr-PDOC - Dietary Evaluation Malnutrition Findings (Please click <Entered> for more info): Nutritional Asmnt/Malnutrition Start: 02/02/17 13: 54 Text: Status: Complete Freq: Document 02/02/17 13:54 GSUN (Rec: 02/02/17 14:04 GSUN [email or web address]) Nutritional Asmnt/Malnutrition Patient General Information Nutritional Screening Moderate Risk Screening Diagnosis Pneumonia, sepsis, acute kidney failure Pertinent Medical Hx/Surgical Hx Dementia, possible metastatic cancer to the liver Subjective Information 71 year old male. Pt was just admitted to [facility] on 01/16/17, bedscale 177.9lb on 01/23/17, bedscale 204lb today, likely inaccurate, edema noted. Pt appears overall thin, severe muscle/fat wasting to chest and clavicles. Pt is edentulous on ground diet, no difficulties. Pt was only able to answer simple questions, able to list to RD what he had for breakfast. RD encouraged PO intake due to hypermetabolic state, pt understood. WATER SUPPLY ENGINEER at bedside stated pt tolerates Boost Plus . Avg PO itnake 75% of meals, meeting 75% of estimated kcal needs. Current Diet Order/ Nutrition Support [facility] soft ground, Bosot Plus TID Pertinent Medications Vitamin C, Colace, Iron, Folate, MOM, Remeron, Vancomycin, D5-0.45ns Pertinent Labs 02/02: Potassium 5.5H, BUN 39H, creatinine 2.2H (declining), glucose 96 Nutritional Hx/Data Height 1.7 m Height (Calculated Centimeters) 170.2 Current Weight (lbs) 79.832 kg Weight (Calculated Kilograms) 79.8 Weight (Calculated Grams) 52927.3 [place] Body Weight 148lb GI Symptoms Skin Integrity/Comment: Kong 14. Bilateral leg and feet 4+ edema, some bruises. Estimated Nutritional Goals Calories/Kcals/Kg IBW 148lb/67.3kg Kcals Calculated 2356kcal (35kcal/kg) Protein g/kg: IBW Protein Calculated 67-101g (1-1.5g/kg, renal insuffieicny vs sepsis/ pneumonia/depletion) Nutritional Problem 2. Problem Problem Impaired nutrient utilization realted to Etiology acute renal failure Signs/Symptoms: progress note, elevated/ declining renal labs: BUN39H Rfid Specialist 2.2H potassium 5.5H 1. Problem Problem Increased kcal and prot needs related to Etiology hypermetabolic state aeb Signs/Symptoms: sepsis, pneumonia, severe muscle/fat depletion to clavicles and chest, possible metastatic cancer to the liver Malnutrition Alert Body Fat Depletion (Severe) Mod to Severe Depletion Muscle Mass (Severe) Mod to Severe Depletion Fluid Accumulation (Non-Severe) Moderate Mild Fluid Retention Intervention/Recommendation Comments 1. Recommend ground renal diet , dx. acute renal failure, elevated labs: BUN 39H Rfid Specialist 2. 2H Potassium 5.5H. 2. Recommend oral supplement change from Bosot Plus TID to Suplena TID, dx. acute renal failure, elevated labs: BUN 39H Rfid Specialist 2.2H Potassium 5.5H. Expected Outcomes/Goals Expected Outcomes/Goals 1. PO intake to meet 100% of estimated nutritional needs.
[2017-02-18] MEDS: [UNRECOGNIZED DRUG - OTHER] IV SCH (16:05)
[2017-02-18] MEDS: DEXTROSE IV SCH (16:05)
[2017-02-18] MEDS: AMINO ACIDS IV SCH (16:05)
[2017-02-18] MEDS: MULTIVITAMIN IV SCH (16:05)
--- NOTE | 2017-02-19 01:51 | Progress Notes ---
DATE: 02/18/2017 PULMONARY PROGRESS NOTE PROBLEM LIST: 1. Acute respiratory failure. 2. Bilateral pneumonia. 3. Bilateral effusion. 4. Hypotension. 5. Acute renal failure. 6. Acute hepatic failure. SYMPTOMS: Nil. Occasionally involuntary movement. The patient is maxed out on all vasopressors with BP of low 90s to high 80s, heart rate 120-140 and respirations very shallow to about 20-25. PHYSICAL EXAMINATION NECK: Veins not visualized. CHEST: Shows diminished air entry with occasional rhonchi. VITAL SIGNS: Currently, 100% of oxygen saturation 96. ABDOMEN: Quite distended. EXTREMITIES: Shows edematous. LABORATORY DATA: White count is again ____ 50,000, hemoglobin 9.3, and electrolytes shows magnesium 1.7 and potassium is 5.7, albumin is 2.5, and the patient's creatinine is 4.5. ASSESSMENT: The patient seemingly has come to point of no return for meaningful, successful, or any life so to speak, medically speaking with multisystem advanced failure. PLANS AND SUGGESTIONS: Discussed with brother. We will continue supportive care and go from there. JOB# [id number]
[2017-02-19] MEDS: Pantoprazole 80 MG in Sodium Chloride 0.9% 100 ML IV SCH ×3 (03:17→14:13)
[2017-02-19] MEDS: metroNIDAZOLE 500mg/NS 100mL 500 MG/100 ML BAG IV SCH ×3 (05:05→20:50)
[2017-02-19] MEDS: Meropenem 500 MG in Sodium Chloride 0.9% 100 ML IV SCH ×2 (05:56→17:02)
[2017-02-19] MEDS: INSULIN ASPART SLIDING SCALE 100 UNITS/ML UNIT SUBQ SCH ×3 (05:56→18:23)
[2017-02-19 07:15] LABS: BUN - UREA NITROGEN 66 mg/dL (7-25); CALCIUM SERUM 8.9 mg/dL (8.6-10.3); CARBON DIOXIDE 26.2 mEq/L (21.0-31.0); CHLORIDE 102 mEq/L (98-107); GLUCOSE 151 mg/dL (70-105); MAGNESIUM 1.6 mg/dL (1.9-2.7); PHOSPHOROUS 6.3 mg/dL (2.5-5.0); POTASSIUM SERUM 4.2 mEq/L (3.5-5.1); SODIUM SERUM 137 mEq/L (136-145)
[2017-02-19 07:18] LABS: HEMATOCRIT 24.1 % (39.0-49.0); HEMOGLOBIN 8.5 gm/dL (12.6-17.4); MEAN CORPUSCULAR HEMOGLOBIN 39.1 pg (27.0-31.0); MEAN CORPUSCULAR HGB CONC 35.2 pg (28.0-36.0); MEAN PLATELET VOLUME 9.9 fl; RED BLOOD COUNT 2.17 Mil/cmm (3.80-5.80); RED CELL DISTRIBUTION WIDTH 29.5 % (11.5-20.0)
[2017-02-19 07:22] LABS: MEAN CELL VOLUME 111.1 fl (80-99); WHITE BLOOD COUNT 59.4 Th/cmm (4.8-10.8)
[2017-02-19 07:23] LABS: PLATELET COUNT 43 Th/cmm (150-400)
[2017-02-19 07:25] LABS: CREATININE - SERUM 4.7 mg/dL (0.7-1.3)
[2017-02-19] MEDS: Albuterol/Ipratropium Neb 3 ML AERS HHN SCH ×3 (07:35→23:13)
[2017-02-19] MEDS: Budesonide 0.5 Mg/2 mL Ud HHN SCH (07:35)
[2017-02-19 07:37] LABS: BAND NEUTROPHILE 17 % (0-10); EOSINOPHIL 1 % (0-5); METAMYELOCYTE 6 % (0-0); MYELOCYTE 3 %; NEUTROPHILS 57 % (40-80); TOTAL CELLS COUNTED 100
[2017-02-19 07:38] LABS: ANISOCYTOSIS 2+; PLATELET ESTIMATE DECREASED PLATELETS (NORMAL); PLATELET MORPHOLOGY NORMAL (NORMAL); POIKILOCYTOSIS 1+; POLYCHROMASIA 1+
[2017-02-19] MEDS: Chlorhexidine Gluconate 0.12% 15mL Mouthwash MM SCH ×2 (08:03→20:50)
[2017-02-19] MEDS: Ferrous Sulfate 325 MG TAB PO SCH (10:51)
[2017-02-19] MEDS: Lactobacillus Rhamnosus 10 Billion CFU Capsule PO SCH (10:52)
--- NOTE | 2017-02-19 11:02 | General Progress Note ---
Subjective - Review of Systems Service Date: 02/19/17 Subjective: comatose, on vent Objective - Results Result Diagrams: 02/19/17 06:00 02/19/17 06:00 Recent Labs: Laboratory Last Values WBC 59.4 Th/cmm (4.8-10.8) H* 02/19/17 06:00 RBC 2.17 Mil/cmm (3.80-5.80) L 02/19/17 06:00 Hgb 8.5 gm/dL (12.6-17.4) L 02/19/17 06:00 Hct 24.1 % (39.0-49.0) L 02/19/17 06:00 MCV 111.1 fl (80-99) H 02/19/17 06:00 MCH 39.1 pg (27.0-31.0) H 02/19/17 06:00 MCHC Differential 35.2 pg (28.0-36.0) 02/19/17 06:00 RDW 29.5 % (11.5-20.0) H 02/19/17 06:00 Plt Count 43 Th/cmm (150-400) L D 02/19/17 06:00 MPV 9.9 fl 02/19/17 06:00 Neutrophils % FRAUD MANAGER 02/11/17 05:00 Band Neutrophils % 17 % (0-10) H 02/19/17 06:00 Lymphocytes % FRAUD MANAGER 02/11/17 05:00 Monocytes % FRAUD MANAGER 02/11/17 05:00 Eosinophils % FRAUD MANAGER 02/11/17 05:00 Basophils % FRAUD MANAGER 02/11/17 05:00 Neutrophils (Manual) 57 % (40-80) 02/19/17 06:00 Lymphocytes 9 % (20-50) L 02/19/17 06:00 Monocytes 7 % (2-10) 02/19/17 06:00 Eosinophils 1 % (0-5) 02/19/17 06:00 Basophils 1 % (0-3) 02/13/17 09:30 Metamyelocytes 6 % (0-0) H 02/19/17 06:00 Myelocytes 3 % 02/19/17 06:00 Nucleated RBCs 1.0 % (0-0) H 02/19/17 06:00 Hypochromia 1+ 02/17/17 06:55 Platelet Estimate DECREASED PLATELETS (NORMAL) 02/19/17 06:00 Platelet Morphology NORMAL (NORMAL) 02/19/17 06:00 Polychromasia 1+ 02/19/17 06:00 Poikilocytosis 1+ 02/19/17 06:00 Anisocytosis 2+ 02/19/17 06:00 Macrocytosis 3+ 02/19/17 06:00 Ovalocytes 1+ 02/04/17 06:37 RBC Morph Micro Appear ABNORMAL (NORMAL) 02/19/17 06:00 Smear Path Review SEE BELOW 02/09/17 04:45 Plt Count 68 Th/cmm (150-750) L 02/17/17 06:55 PT 26.3 SECONDS (9.5-11.5) H 02/17/17 06:55 INR 2.42 (0.5-1.4) H 02/17/17 06:55 PTT (Actin FS) 60.6 SECONDS (26.0-38.0) H 02/17/17 06:55 Fibrinogen 107.0 mg/dL (200.0-400.0) L 02/17/17 06:55 D-Dimer 2800 ng/mL (100-400) H 02/17/17 06:55 Specimen Source Arterial 02/09/17 08:45 Sample Site Right Radial 02/09/17 08:45 pH 7.32 (7.35-7.45) L 02/09/17 08:45 pCO2 38.0 mmHg (35.0-45.0) 02/09/17 08:45 pO2 65.0 mmHg (80.0-100.0) L 02/09/17 08:45 HCO3 20.1 mEq/L (20.0-26.0) 02/09/17 08:45 Base Excess -6.0 mEq/L (-3.0-3.0) L 02/09/17 08:45 O2 Saturation 91.0 % (92.0-100.0) L 02/09/17 08:45 Dwayne Test YES 02/09/17 08:45 Vent Rate 12 02/09/17 08:45 Inspired O2 40 02/09/17 08:45 Tidal Volume 500 02/09/17 08:45 PEEP NA 02/09/17 08:45 Pressure (ins/psv/peep) NA 02/09/17 08:45 Critical Value E.DIAMOND 02/09/17 08:45 Sodium 137 mEq/L (136-145) 02/19/17 06:00 Potassium 4.2 mEq/L (3.5-5.1) 02/19/17 06:00 Chloride 102 mEq/L (98-107) 02/19/17 06:00 Carbon Dioxide 26.2 mEq/L (21.0-31.0) 02/19/17 06:00 Anion Gap 13.0 (7.0-16.0) 02/19/17 06:00 BUN 66 mg/dL (7-25) H 02/19/17 06:00 Creatinine 4.7 mg/dL (0.7-1.3) H* 02/19/17 06:00 Est GFR ( Amer) TNP 02/19/17 06:00 Est GFR (Non-Af Amer) TNP 02/19/17 06:00 BUN/Creatinine Ratio 14.0 02/19/17 06:00 Glucose 151 mg/dL (70-105) H 02/19/17 06:00 POC Glucose 152 MG/DL (70 - 105) H 02/19/17 05:44 Whole Bld Lactic Acid 2.02 mmol/L (0.60-1.99) H* 01/30/17 12:20 Calcium 8.9 mg/dL (8.6-10.3) 02/19/17 06:00 Phosphorus 6.3 mg/dL (2.5-5.0) H 02/19/17 06:00 Magnesium 1.6 mg/dL (1.9-2.7) L 02/19/17 06:00 Iron 151 ug/dL (38-169) 02/04/17 06:37 TIBC 178 ug/dL (250-450) L 02/04/17 06:37 Iron Saturation 85 % (15-55) H 02/04/17 06:37 Unsaturated IBC 27 ug/dL (111-343) L 02/04/17 06:37 Ferritin 1222 ng/mL (30-400) H 02/04/17 06:37 Total Bilirubin 4.7 mg/dL (0.3-1.0) H 02/18/17 05:30 Direct Bilirubin 1.27 mg/dL (0.0-0.2) H 02/12/17 07:00 AST 418 U/L (13-39) H 02/18/17 05:30 ALT 32 U/L (7-52) 02/18/17 05:30 Alkaline Phosphatase 131 U/L (34-104) H 02/18/17 05:30 Ammonia 53 umol/L (16-53) 02/12/17 07:00 Total Protein 5.7 gm/dL (6.0-8.3) L 02/18/17 05:30 Albumin 2.5 gm/dL (4.2-5.5) L 02/18/17 05:30 Globulin 3.2 gm/dL 02/18/17 05:30 Albumin/Globulin Ratio 0.8 (1.0-1.8) L 02/18/17 05:30 Prealbumin 6 mg/dL (9-32) L 02/12/17 07:00 [id number]-4-[id number] 236 mg/dL (90-200) H 02/04/17 06:37 Ceruloplasmin 34.0 mg/dL (16.0-31.0) H 02/04/17 06:37 Triglycerides 89 mg/dL (<150) 02/12/17 07:00 Cholesterol 51 mg/dL (<200) 02/12/17 07:00 LDL Cholesterol Direct 46 mg/dL (75-193) L 01/30/17 10:20 HDL Cholesterol 19 mg/dL (23-92) L 01/30/17 10:20 Tumor Marker AFP 832.4 ng/mL (0.0-8.3) H 02/05/17 06:37 Carcinoembryonic Ag 13.4 ng/mL (0.0-4.7) H 02/04/17 06:37 CA 19-9 Antigen 2818 U/mL (0-35) H 02/04/17 06:37 TSH 0.32 uIU/ml (0.34-5.60) L 02/10/17 04:45 Urine Source CLEAN C 01/30/17 11:05 Urine Color LOS 01/30/17 11:05 Urine Clarity CLEAR (CLEAR) 01/30/17 11:05 Urine pH 5.0 01/30/17 11:05 Ur Specific Mc[place]en 1.020 (1.005-1.030) 01/30/17 11:05 Urine Protein 30 mg/dL (NEGATIVE) H 01/30/17 11:05 Urine Glucose (UA) NEGATIVE mg/dL (NEGATIVE) 01/30/17 11:05 Urine Ketones 15 mg/dL (NEGATIVE) H 01/30/17 11:05 Urine Blood NEGATIVE (NEGATIVE) 01/30/17 11:05 Urine Nitrate POSITIVE (NEGATIVE) H 01/30/17 11:05 Urine Bilirubin SMALL (NEGATIVE) H 01/30/17 11:05 Urine Urobilinogen 0.2 E.U./dL (0.2 - 1.0) 01/30/17 11:05 Ur Leukocyte Esterase NEGATIVE (NEGATIVE) 01/30/17 11:05 Urine RBC 0-2 /hpf (0-5) H 01/30/17 11:05 Urine WBC 2-5 /hpf (0-5) H 01/30/17 11:05 Ur Epithelial Cells OCCASIONAL /lpf (FEW) 01/30/17 11:05 Urine Bacteria MODERATE /hpf (NONE SEEN) 01/30/17 11:05 Urine Mucus FEW /lpf (FEW) 01/30/17 11:05 Stool Occult Blood NEGATIVE (NEGATIVE) 02/11/17 17:05 Vancomycin Trough 39.3 ug/mL (10-20) H 02/02/17 16:35 Random Vancomycin 21.3 ug/mL (5.0-40.0) 02/18/17 05:00 Anti-Mitochondrial Ab 25.7 Units (0.0-20.0) H 02/04/17 06:37 Smooth Muscle IgG Ab 38 Units (0-19) H 02/04/17 06:37 RPR NONREACTIVE (NONREACTIVE) 01/30/17 10:20 Hepatitis A IgM Ab Negative (Negative) 02/14/17 05:30 Hep Bs Antigen Negative (Negative) 02/14/17 05:30 Hep B Core IgM Ab Negative (Negative) 02/14/17 05:30 Hepatitis C Antibody >11.0 s/co ratio (0.0-0.9) H 02/14/17 05:30 Blood Type O POSITIVE 02/10/17 07:16 Antibody Screen NEGATIVE 02/10/17 07:16 Crossmatch See Detail 02/10/17 07:16 - Physical Exam Vitals and I&O: Vital Signs Temp 97.8 F 02/19/17 08:00 Pulse 110 02/19/17 09:15 Resp 12 02/19/17 09:00 BP 77/24 02/19/17 09:00 Pulse Ox 94 02/19/17 09:15 Intake & Output 02/18/17 02/19/17 02/19/17 18:59 06:59 18:59 Intake Total 3939.900 4383.334 993.633 Output Total 700 100 Balance 3239.900 4283.334 993.633 Intake: Intake, IV Amount 3939.900 4383.334 993.633 Meropenem 500 mg In 100 Sodium Chloride 0.9% 100 ml @ 100 mls/hr IV Q12H [facility] Rx#:[id number] Multivitamin Inj 10 ml In 1095 683.333 Amino Acids 15% 387 ml In Dextrose 70% 387 ml In Intralipids 20% 423 ml @ 50 mls/hr IV .Q24H [facility] Rx#:[id number] Norepinephrine 8 mg In 547.900 498.800 237.8 Dextrose 5% 250 ml @ 0 MCG/MIN IV TITR PRN Rx#: [id number] Octreotide Acetate 1,250 247.000 198.167 35.333 mcg In Sodium Chloride 0. 9% 250 ml @ 10 mls/hr IV .Q24H [facility] Rx#:[id number] Pantoprazole 80 mg In 200 96.534 Sodium Chloride 0.9% 100 ml @ 10 mls/hr IV Q10H [facility] Rx#:[id number] Phenylephrine HCl 10 mg 1650 2706.50 720.5 In Sodium Chloride 0.9% 250 ml @ Per Protocol IV TITR [facility] Rx#:[id number] metroNIDAZOLE 500mg/NS 100 200 100mL 500 mg In 100 ml @ 100 mls/hr IV Q8HR [facility] Rx #:[id number] Oral 0 Output: Gastric Drainage 400 Other 300 100 Active Medications: Current Medications Acetaminophen (Tylenol) 650 mg PO Q4H PRN PRN Reason: Fever > 100 Stop: 03/31/17 16:47 Last Admin: 02/17/17 21:36 Dose: 650 mg Albuterol/Ipratropium (Duoneb Neb) 3 ml HHN Q8HRT [facility] Stop: 03/31/17 14:59 Last Admin: 02/19/17 07:35 Dose: 3 ml Albuterol/Ipratropium (Duoneb Neb) 3 ml HHN Q4H PRN PRN Reason: Wheezing Stop: 04/08/17 19:25 Ascorbic Acid (Vitamin C) 500 mg PO DAILY [facility] Stop: 04/01/17 19:29 Last Admin: 02/19/17 10:51 Dose: Not Given Budesonide (Pulmicort) 0.5 mg HHN BIDRT [facility] Stop: 04/09/17 06:59 Last Admin: 02/19/17 07:35 Dose: 0.5 mg Chlorhexidine Gluconate (Peridex) 15 ml MM 0800,1999 [facility] Stop: 04/08/17 19:59 Last Admin: 02/19/17 08:03 Dose: 15 ml Docusate Sodium (Colace) 100 mg PO BID [facility] Stop: 04/01/17 19:29 Last Admin: 02/19/17 10:51 Dose: Not Given Ferrous Sulfate (Iron) 325 mg PO DAILY [facility] Stop: 04/02/17 08:59 Last Admin: 02/19/17 10:51 Dose: Not Given Folic Acid (Folate) 1 mg PO DAILY [facility] Stop: 04/01/17 19:29 Last Admin: 02/19/17 10:52 Dose: Not Given Gabapentin (Neurontin) 300 mg PO BID [facility] Stop: 04/02/17 08:59 Last Admin: 02/19/17 10:52 Dose: Not Given Hydromorphone HCl (Dilaudid) 0.5 mg IVP Q4HR PRN PRN Reason: PAIN Stop: 04/15/17 21:10 Last Admin: 02/18/17 04:20 Dose: 0.5 mg Pantoprazole Sodium 80 mg/ (Sodium Chloride) 100 mls @ 10 mls/hr IV Q10H [facility] Stop: 04/09/17 07:59 Last Infusion: 02/19/17 05:46 Dose: 8 mls/hr Octreotide Acetate 1,250 mcg/ (Sodium Chloride) 252.5 mls @ 10 mls/hr IV .Q24H [facility] Stop: 04/09/17 07:59 Last Admin: 02/19/17 09:17 Dose: 10 mls/hr Norepinephrine Bitartrate 8 mg (/ Dextrose) 258 mls @ 0 mls/hr IV TITR PRN; Protocol; 0 MCG/MIN PRN Reason: BP MAINTENANCE (PER PROTOCOL) Stop: 04/11/17 13:44 Last Admin: 02/19/17 08:55 Dose: 29.97 mcg/min, 58 mls/hr Metronidazole (Flagyl) 500 mg in 100 mls @ 100 mls/hr IV Q8HR [facility] Stop: 04/16/17 04:59 Last Infusion: 02/19/17 06:05 Dose: Infused Meropenem 500 mg/ Sodium (Chloride) 100 mls @ 100 mls/hr IV Q12H [facility] Stop: 04/17/17 16:59 Last Admin: 02/19/17 05:56 Dose: 100 mls/hr Multivitamins/Minerals 10 ml/Amino Acids/Electrolytes/Dextrose/ Fat Emulsion Intravenous 1,207 mls @ 50 mls/hr IV .Q24H [facility] Stop: 04/17/17 15:59 Last Infusion: 02/19/17 05:45 Dose: 50 mls/hr Phenylephrine HCl 10 mg/ (Sodium Chloride) 250 mls @ 0 mls/hr IV TITR [facility]; Per Protocol PRN Reason: Protocol Stop: 04/18/17 17:59 Last Admin: 02/19/17 09:52 Dose: 180 mcg/min, 270 mls/hr Insulin Aspart (Novolog Insulin Sliding Scale) 0 units SUBQ Q6H [facility] PRN Reason: Protocol Stop: 04/17/17 17:59 Last Admin: 02/19/17 05:56 Dose: 2 units Lactobacillus Rhamnosus (Culturelle) 1 each PO DAILY [facility] Stop: 04/11/17 08:59 Last Admin: 02/19/17 10:52 Dose: Not Given Magnesium Hydroxide (Milk Of Magnesia) 30 ml PO DAILY PRN PRN Reason: Constipation Stop: 04/01/17 19:18 Mirtazapine (Remeron) 22.5 mg PO HS [facility] PRN Reason: Protocol Stop: 04/01/17 20:59 Last Admin: 02/18/17 21:00 Dose: Not Given Miscellaneous (Probiotic Screen) 1 ea PRN PRN PRN Reason: PROTOCOL Stop: 04/10/17 11:08 Miscellaneous (Tpn Per Pharmacy) 1 ea PRN PRN PRN Reason: PROTOCOL Stop: 04/11/17 07:48 Trazodone HCl (Desyrel) 50 mg PO HS [facility] PRN Reason: Protocol Stop: 04/03/17 20:59 Last Admin: 02/18/17 21:00 Dose: Not Given General: Other (comatose) HEENT: Atraumatic Neck: Supple Cardiovascular: Regular rate, Other (tachycardic) Lungs: Other (rhonchi, rales) Abdomen: Other (ascites) Neurological: Sensation intact Skin: no Rash Psych/Mental Status: Other (comarose) - Procedures Procedures: Procedures Procedure Code Date GROUP PSYCHOTHERAPY 51370 01/14/16 GROUP PSYCHOTHERAPY [id number] 01/14/16 INSERT EMERGENCY AIRWAY 35477 01/30/17 INSERTION OF ENDOTRACHEAL AIRWAY INTO TRACHEA, VIA OPENING [id number] 01/30/17 INSERTION OF INFUSION DEV INTO SUP VENA CAVA, PERC APPROACH [id number] 01/30/[address] PL[address] CATHETER IN VEIN 96493 01/30/17 RESPIRATORY VENTILATION, GREATER THAN 96 CONSECUTIVE HOURS [id number] 01/30/17 TRANSFUSE NONAUT RED BLOOD CELLS IN PERIPH VEIN, PERC [id number] 01/16/17 VENT MGMT INPAT INIT DAY 11935 01/30/17 Assessment/Plan - Problem List Patient Problems: All Active Problems Agitation (Acute) R45.1 Combative behavior (Acute) R46.89 HTN (hypertension) (Acute) I10 Psychosis (Acute) F29 - Assessment Assessment: VIPUL on CKD Acute RF on vent decomp CHF Liver mets Anoxic/met Encph Anemia UGI bleed on cd Severe malnutrition B/L HAP Anasarca/Ascites - Plan Plan: Lab - Result Diagrams 02/12/17 07:00 02/12/17 07:00 Current Medications Acetaminophen (Tylenol) 650 mg PO Q4H PRN PRN Reason: Fever > 100 Stop: 03/31/17 16:47 Last Admin: 02/11/17 20:22 Dose: 650 mg Albuterol/Ipratropium (Duoneb Neb) 3 ml HHN Q8HRT [facility] Stop: 03/31/17 14:59 Last Admin: 02/12/17 07:19 Dose: 3 ml Albuterol/Ipratropium (Duoneb Neb) 3 ml HHN Q4H PRN PRN Reason: Wheezing Stop: 04/08/17 19:25 Ascorbic Acid (Vitamin C) 500 mg PO DAILY [facility] Stop: 04/01/17 19:29 Last Admin: 02/12/17 09:13 Dose: 500 mg Budesonide (Pulmicort) 0.5 mg HHN BIDRT [facility] Stop: 04/09/17 06:59 Last Admin: 02/12/17 07:19 Dose: 0.5 mg Chlorhexidine Gluconate (Peridex) 15 ml MM 0800,1999 [facility] Stop: 04/08/17 19:59 Last Admin: 02/11/17 20:23 Dose: 15 ml Docusate Sodium (Colace) 100 mg PO BID [facility] Stop: 04/01/17 19:29 Last Admin: 02/12/17 09:17 Dose: 100 mg Ferrous Sulfate (Iron) 325 mg PO DAILY [facility] Stop: 04/02/17 08:59 Last Admin: 02/12/17 09:13 Dose: 325 mg Folic Acid (Folate) 1 mg PO DAILY [facility] Stop: 04/01/17 19:29 Last Admin: 02/12/17 09:14 Dose: 1 mg Gabapentin (Neurontin) 300 mg PO BID [facility] Stop: 04/02/17 08:59 Last Admin: 02/12/17 09:18 Dose: 300 mg Heparin Sodium (Porcine) (Heparin) 5,000 units HD UD [facility] Stop: 02/13/17 00:00 Last Admin: 02/12/17 09:14 Dose: 5,000 units Pantoprazole Sodium 80 mg/ (Sodium Chloride) 100 mls @ 10 mls/hr IV Q10H [facility] Stop: 04/09/17 07:59 Last Admin: 02/12/17 12:47 Dose: 10 mls/hr Octreotide Acetate 1,250 mcg/ (Sodium Chloride) 252.5 mls @ 10 mls/hr IV .Q24H [facility] Stop: 04/09/17 07:59 Last Admin: 02/12/17 12:48 Dose: 10 mls/hr Metronidazole (Flagyl) 500 mg in 100 mls @ 100 mls/hr IV Q8HR [facility] Stop: 04/09/17 20:59 Last Admin: 02/12/17 04:33 Dose: 100 mls/hr Multivitamins/Minerals 10 ml/Amino Acids/ Fat Emulsion Intravenous/ Dextrose 1, 680 mls @ 60 mls/hr IV .Q24H [facility] Stop: 04/11/17 15:59 Last Admin: 02/11/17 16:11 Dose: 70 mls/hr Norepinephrine Bitartrate 8 mg (/ Dextrose) 258 mls @ 0 mls/hr IV TITR PRN; Protocol; 0 MCG/MIN PRN Reason: BP MAINTENANCE (PER PROTOCOL) Stop: 04/11/17 13:44 Last Titration: 02/12/17 04:29 Dose: 10 mcg/min, 19.35 mls/hr Furosemide 100 mg/ Sodium (Chloride) 100 mls @ 5 mls/hr IV TITR [facility] Stop: 04/11/17 14:27 Last Admin: 02/12/17 12:44 Dose: 5 mls/hr Meropenem 500 mg/ Sodium (Chloride) 100 mls @ 100 mls/hr IV Q12H [facility] Stop: 04/11/17 15:44 Last Admin: 02/12/17 03:11 Dose: 100 mls/hr Albumin Human (Albuminar 25%) 25 gm in 100 mls @ 50 mls/hr IV 2XW [facility] Stop: 02/13/17 19:00 Last Admin: 02/11/17 17:50 Dose: 50 mls/hr Insulin Aspart (Novolog Insulin Sliding Scale) 0 units SUBQ Q6H [facility] PRN Reason: Protocol Stop: 04/10/17 11:59 Last Admin: 02/12/17 07:36 Dose: 2 units Lactobacillus Rhamnosus (Culturelle) 1 each PO DAILY [facility] Stop: 04/11/17 08:59 Last Admin: 02/12/17 09:13 Dose: 1 each Magnesium Hydroxide (Milk Of Magnesia) 30 ml PO DAILY PRN PRN Reason: Constipation Stop: 04/01/17 19:18 Mirtazapine (Remeron) 22.5 mg PO HS [facility] PRN Reason: Protocol Stop: 04/01/17 20:59 Last Admin: 02/11/17 20:20 Dose: 22.5 mg Miscellaneous (Probiotic Screen) 1 ea MC PRN PRN PRN Reason: PROTOCOL Stop: 04/10/17 11:08 Miscellaneous (Tpn Per Pharmacy) 1 ea MC PRN PRN PRN Reason: PROTOCOL Stop: 04/11/17 07:48 Miscellaneous (Vancomycin Iv Per Pharmacy) 1 ea MC PRN PRN PRN Reason: PROTOCOL Stop: 04/13/17 11:43 Morphine Sulfate (Morphine) 2 mg IVP Q4HR PRN PRN Reason: Pain (Moderate) Stop: 04/12/17 20:41 Last Admin: 02/12/17 05:31 Dose: 2 mg Temazepam (Restoril) 15 mg PO HS PRN; Protocol PRN Reason: Insomnia Stop: 03/31/17 20:55 Last Admin: 01/30/17 21:43 Dose: 15 mg Tramadol HCl (Ultram) 50 mg PO Q6HR PRN PRN Reason: Pain (Moderate) Stop: 03/31/17 22:01 Last Admin: 02/07/17 07:04 Dose: 50 mg Trazodone HCl (Desyrel) 50 mg PO HS [facility] PRN Reason: Protocol Stop: 04/03/17 20:59 Last Admin: 02/11/17 20:22 Dose: 50 mg Latest BUN/CR were 65/4.5 Na up to 130 WBC up to 51 cancel HD because pt. too unstable on levo 30, Jose 120 mcg PPN @ 50 discussed w/ family @ bedside w/ very poor prognosis Nutritional Asmnt/Malnutr-PDOC - Dietary Evaluation Malnutrition Findings (Please click <Entered> for more info): Nutritional Asmnt/Malnutrition Start: 02/02/17 13: 54 Text: Status: Complete Freq: Document 02/02/17 13:54 GSUN (Rec: 02/02/17 14:04 [id number] [id number]) Nutritional Asmnt/Malnutrition Patient General Information Nutritional Screening Moderate Risk Screening Diagnosis Pneumonia, sepsis, acute kidney failure Pertinent Medical Hx/Surgical Hx Dementia, possible metastatic cancer to the liver Subjective Information 71 year old male. Pt was just admitted to [facility] on 01/16/17, bedscale 177.9lb on 01/23/17, bedscale 204lb today, likely inaccurate, edema noted. Pt appears overall thin, severe muscle/fat wasting to chest and clavicles. Pt is edentulous on ground diet, no difficulties. Pt was only able to answer simple questions, able to list to RD what he had for breakfast. RD encouraged PO intake due to hypermetabolic state, pt understood. CORRECTIONS UNIT SUPERVISOR at bedside stated pt tolerates Boost Plus . Avg PO itnake 75% of meals, meeting 75% of estimated kcal needs. Current Diet Order/ Nutrition Support [facility] soft ground, Bosot Plus TID Pertinent Medications Vitamin C, Colace, Iron, Folate, MOM, Remeron, Vancomycin, D5-0.45ns Pertinent Labs 02/02: Potassium 5.5H, BUN 39H, creatinine 2.2H (declining), glucose 96 Nutritional Hx/Data Height 1.7 m Height (Calculated Centimeters) 170.2 Current Weight (lbs) 79.832 kg Weight (Calculated Kilograms) 79.8 Weight (Calculated Grams) 97630.3 Plato Body Weight 148lb GI Symptoms Skin Integrity/Comment: Kong 14. Bilateral leg and feet 4+ edema, some bruises. Estimated Nutritional Goals Calories/Kcals/Kg IBW 148lb/67.3kg Kcals Calculated 2356kcal (35kcal/kg) Protein g/kg: IBW Protein Calculated 67-101g (1-1.5g/kg, renal insuffieicny vs sepsis/ pneumonia/depletion) Nutritional Problem 2. Problem Problem Impaired nutrient utilization realted to Etiology acute renal failure Signs/Symptoms: progress note, elevated/ declining renal labs: [id number] Venue Manager 2.2H potassium 5.5H 1. Problem Problem Increased kcal and prot needs related to Etiology hypermetabolic state aeb Signs/Symptoms: sepsis, pneumonia, severe muscle/fat depletion to clavicles and chest, possible metastatic cancer to the liver Malnutrition Alert Body Fat Depletion (Severe) Mod to Severe Depletion Muscle Mass (Severe) Mod to Severe Depletion Fluid Accumulation (Non-Severe) Moderate Mild Fluid Retention Intervention/Recommendation Comments 1. Recommend ground renal diet , dx. acute renal failure, elevated labs: BUN 39H Venue Manager 2. 2H Potassium 5.5H. 2. Recommend oral supplement change from Bosot Plus TID to Suplena TID, dx. acute renal failure, elevated labs: BUN 39H Venue Manager 2.2H Potassium 5.5H. Expected Outcomes/Goals Expected Outcomes/Goals 1. PO intake to meet 100% of estimated nutritional needs.
[2017-02-19] MEDS: MULTIVITAMIN IV SCH (15:39)
[2017-02-19] MEDS: DEXTROSE IV SCH (15:39)
[2017-02-19] MEDS: AMINO ACIDS IV SCH (15:39)
[2017-02-19] MEDS: [UNRECOGNIZED DRUG - OTHER] IV SCH (15:39)
--- NOTE | 2017-02-19 21:53 | Consultation ---
DATE OF CONSULTATION: 02/19/2017 HISTORY OF PRESENT ILLNESS: The patient was seen, chart reviewed, and discussed with staff. The patient is currently in the ICU under the care of Dr. Mccarthy with history of dementia, psychosis, diagnosed with pneumonia, currently on multiple pressors, but with a low blood pressure right now and nursing staff concerned, history of psychosis, pneumonia, no agitation, and no behavioral disturbances. On [id number], the patient is not interactive whatsoever. Family is visiting. MENTAL STATUS EXAMINATION: Stated age, somewhat sedated, lethargic, not interactive, and diminished thought processes. PROVISIONAL DIAGNOSIS: Psychosis, unspecified, known history of dementia. RECOMMENDATIONS AND PLAN: The patient is noted to be stable from a psychiatric perspective, but unfortunately not doing well medically. We will monitor and follow up. [facility]# [id number]
--- NOTE | 2017-02-19 23:55 | Infectious Disease Prog Note ---
Infectious Disease Subjective - Review of Systems Service Date: 02/19/17 Subjective: Yesterday, remains intubated orally, on the ventilator. Has developed no fever. Patient has developed upper gi bleed. There is no fever. Infectious Disease Objective - Results Result Diagrams: 02/19/17 06:00 02/19/17 06:00 Recent Labs: Laboratory Last Values WBC 59.4 Th/cmm (4.8-10.8) H* 02/19/17 06:00 RBC 2.17 Mil/cmm (3.80-5.80) L 02/19/17 06:00 Hgb 8.5 gm/dL (12.6-17.4) L 02/19/17 06:00 Hct 24.1 % (39.0-49.0) L 02/19/17 06:00 MCV 111.1 fl (80-99) H 02/19/17 06:00 MCH 39.1 pg (27.0-31.0) H 02/19/17 06:00 MCHC Differential 35.2 pg (28.0-36.0) 02/19/17 06:00 RDW 29.5 % (11.5-20.0) H 02/19/17 06:00 Plt Count 43 Th/cmm (150-400) L D 02/19/17 06:00 MPV 9.9 fl 02/19/17 06:00 Neutrophils % [employer] 02/11/17 05:00 Band Neutrophils % 17 % (0-10) H 02/19/17 06:00 Lymphocytes % [employer] 02/11/17 05:00 Monocytes % [employer] 02/11/17 05:00 Eosinophils % [employer] 02/11/17 05:00 Basophils % [employer] 02/11/17 05:00 Neutrophils (Manual) 57 % (40-80) 02/19/17 06:00 Lymphocytes 9 % (20-50) L 02/19/17 06:00 Monocytes 7 % (2-10) 02/19/17 06:00 Eosinophils 1 % (0-5) 02/19/17 06:00 Basophils 1 % (0-3) 02/13/17 09:30 Metamyelocytes 6 % (0-0) H 02/19/17 06:00 Myelocytes 3 % 02/19/17 06:00 Nucleated RBCs 1.0 % (0-0) H 02/19/17 06:00 Hypochromia 1+ 02/17/17 06:55 Platelet Estimate DECREASED PLATELETS (NORMAL) 02/19/17 06:00 Platelet Morphology NORMAL (NORMAL) 02/19/17 06:00 Polychromasia 1+ 02/19/17 06:00 Poikilocytosis 1+ 02/19/17 06:00 Anisocytosis 2+ 02/19/17 06:00 Macrocytosis 3+ 02/19/17 06:00 Ovalocytes 1+ 02/04/17 06:37 RBC Morph Micro Appear ABNORMAL (NORMAL) 02/19/17 06:00 Smear Path Review SEE BELOW 02/09/17 04:45 Plt Count 68 Th/cmm (150-750) L 02/17/17 06:55 PT 26.3 SECONDS (9.5-11.5) H 02/17/17 06:55 INR 2.42 (0.5-1.4) H 02/17/17 06:55 PTT (Actin FS) 60.6 SECONDS (26.0-38.0) H 02/17/17 06:55 Fibrinogen 107.0 mg/dL (200.0-400.0) L 02/17/17 06:55 D-Dimer 2800 ng/mL (100-400) H 02/17/17 06:55 Specimen Source Arterial 02/09/17 08:45 Sample Site Right Radial 02/09/17 08:45 pH 7.32 (7.35-7.45) L 02/09/17 08:45 pCO2 38.0 mmHg (35.0-45.0) 02/09/17 08:45 pO2 65.0 mmHg (80.0-100.0) L 02/09/17 08:45 HCO3 20.1 mEq/L (20.0-26.0) 02/09/17 08:45 Base Excess -6.0 mEq/L (-3.0-3.0) L 02/09/17 08:45 O2 Saturation 91.0 % (92.0-100.0) L 02/09/17 08:45 Dwayne Test YES 02/09/17 08:45 Vent Rate 12 02/09/17 08:45 Inspired O2 40 02/09/17 08:45 Tidal Volume 500 02/09/17 08:45 PEEP NA 02/09/17 08:45 Pressure (ins/psv/peep) NA 02/09/17 08:45 Critical Value E.DIAMOND 02/09/17 08:45 Sodium 137 mEq/L (136-145) 02/19/17 06:00 Potassium 4.2 mEq/L (3.5-5.1) 02/19/17 06:00 Chloride 102 mEq/L (98-107) 02/19/17 06:00 Carbon Dioxide 26.2 mEq/L (21.0-31.0) 02/19/17 06:00 Anion Gap 13.0 (7.0-16.0) 02/19/17 06:00 BUN 66 mg/dL (7-25) H 02/19/17 06:00 Creatinine 4.7 mg/dL (0.7-1.3) H* 02/19/17 06:00 Est GFR ( Amer) TNP 02/19/17 06:00 Est GFR (Non-Af Amer) TNP 02/19/17 06:00 BUN/Creatinine Ratio 14.0 02/19/17 06:00 Glucose 151 mg/dL (70-105) H 02/19/17 06:00 POC Glucose 155 MG/DL (70 - 105) H 02/19/17 16:57 Whole Bld Lactic Acid 2.02 mmol/L (0.60-1.99) H* 01/30/17 12:20 Calcium 8.9 mg/dL (8.6-10.3) 02/19/17 06:00 Phosphorus 6.3 mg/dL (2.5-5.0) H 02/19/17 06:00 Magnesium 1.6 mg/dL (1.9-2.7) L 02/19/17 06:00 Iron 151 ug/dL (38-169) 02/04/17 06:37 TIBC 178 ug/dL (250-450) L 02/04/17 06:37 Iron Saturation 85 % (15-55) H 02/04/17 06:37 Unsaturated IBC 27 ug/dL (111-343) L 02/04/17 06:37 Ferritin 1222 ng/mL (30-400) H 02/04/17 06:37 Total Bilirubin 4.7 mg/dL (0.3-1.0) H 02/18/17 05:30 Direct Bilirubin 1.27 mg/dL (0.0-0.2) H 02/12/17 07:00 AST 418 U/L (13-39) H 02/18/17 05:30 ALT 32 U/L (7-52) 02/18/17 05:30 Alkaline Phosphatase 131 U/L (34-104) H 02/18/17 05:30 Ammonia 53 umol/L (16-53) 02/12/17 07:00 Total Protein 5.7 gm/dL (6.0-8.3) L 02/18/17 05:30 Albumin 2.5 gm/dL (4.2-5.5) L 02/18/17 05:30 Globulin 3.2 gm/dL 02/18/17 05:30 Albumin/Globulin Ratio 0.8 (1.0-1.8) L 02/18/17 05:30 Prealbumin 6 mg/dL (9-32) L 02/12/17 07:00 Rafnf-8-[id number] 236 mg/dL (90-200) H 02/04/17 06:37 Ceruloplasmin 34.0 mg/dL (16.0-31.0) H 02/04/17 06:37 Triglycerides 89 mg/dL (<150) 02/12/17 07:00 Cholesterol 51 mg/dL (<200) 02/12/17 07:00 LDL Cholesterol Direct 46 mg/dL (75-193) L 01/30/17 10:20 HDL Cholesterol 19 mg/dL (23-92) L 01/30/17 10:20 Tumor Marker AFP 832.4 ng/mL (0.0-8.3) H 02/05/17 06:37 Carcinoembryonic Ag 13.4 ng/mL (0.0-4.7) H 02/04/17 06:37 CA 19-9 Antigen 2818 U/mL (0-35) H 02/04/17 06:37 TSH 0.32 uIU/ml (0.34-5.60) L 02/10/17 04:45 Urine Source CLEAN C 01/30/17 11:05 Urine Color LOS 01/30/17 11:05 Urine Clarity CLEAR (CLEAR) 01/30/17 11:05 Urine pH 5.0 01/30/17 11:05 Ur Specific Lawrence 1.020 (1.005-1.030) 01/30/17 11:05 Urine Protein 30 mg/dL (NEGATIVE) H 01/30/17 11:05 Urine Glucose (UA) NEGATIVE mg/dL (NEGATIVE) 01/30/17 11:05 Urine Ketones 15 mg/dL (NEGATIVE) H 01/30/17 11:05 Urine Blood NEGATIVE (NEGATIVE) 01/30/17 11:05 Urine Nitrate POSITIVE (NEGATIVE) H 01/30/17 11:05 Urine Bilirubin SMALL (NEGATIVE) H 01/30/17 11:05 Urine Urobilinogen 0.2 E.U./dL (0.2 - 1.0) 01/30/17 11:05 Ur Leukocyte Esterase NEGATIVE (NEGATIVE) 01/30/17 11:05 Urine RBC 0-2 /hpf (0-5) H 01/30/17 11:05 Urine WBC 2-5 /hpf (0-5) H 01/30/17 11:05 Ur Epithelial Cells OCCASIONAL /lpf (FEW) 01/30/17 11:05 Urine Bacteria MODERATE /hpf (NONE SEEN) 01/30/17 11:05 Urine Mucus FEW /lpf (FEW) 01/30/17 11:05 Stool Occult Blood NEGATIVE (NEGATIVE) 02/11/17 17:05 Vancomycin Trough 39.3 ug/mL (10-20) H 02/02/17 16:35 Random Vancomycin 21.3 ug/mL (5.0-40.0) 02/18/17 05:00 Anti-Mitochondrial Ab 25.7 Units (0.0-20.0) H 02/04/17 06:37 Smooth Muscle IgG Ab 38 Units (0-19) H 02/04/17 06:37 RPR NONREACTIVE (NONREACTIVE) 01/30/17 10:20 Hepatitis A IgM Ab Negative (Negative) 02/14/17 05:30 Hep Bs Antigen Negative (Negative) 02/14/17 05:30 Hep B Core IgM Ab Negative (Negative) 02/14/17 05:30 Hepatitis C Antibody >11.0 s/co ratio (0.0-0.9) H 02/14/17 05:30 Blood Type O POSITIVE 02/10/17 07:16 Antibody Screen NEGATIVE 02/10/17 07:16 Crossmatch See Detail 02/10/17 07:16 - Physical Exam Vitals and I&O: Vital Signs Temp 97.1 F 02/19/17 20:00 Pulse 96 02/19/17 23:30 Resp 19 02/19/17 23:00 BP 68/37 02/19/17 23:30 Pulse Ox 83 02/19/17 23:20 Intake & Output 02/19/17 02/19/17 02/20/17 06:59 18:59 06:59 Intake Total 4483.334 4138.500 1469.5 Output Total 100 50 Balance 4383.334 4088.500 1469.5 Intake: Intake, IV Amount 4483.334 4138.500 1469.5 Meropenem 500 mg In 100 Sodium Chloride 0.9% 100 ml @ 100 mls/hr IV Q12H [facility] Rx#:[id number] Multivitamin Inj 10 ml In 683.333 495 Amino Acids 15% 387 ml In Dextrose 70% 387 ml In Intralipids 20% 423 ml @ 50 mls/hr IV .Q24H [facility] Rx#:[id number] Norepinephrine 8 mg In 498.800 720.067 258 Dextrose 5% 250 ml @ 0 MCG/MIN IV TITR PRN Rx#: [id number] Octreotide Acetate 1,250 198.167 35.333 mcg In Sodium Chloride 0. 9% 250 ml @ 10 mls/hr IV .Q24H [facility] Rx#:[id number] Pantoprazole 80 mg In 96.534 67.6 Sodium Chloride 0.9% 100 ml @ 10 mls/hr IV Q10H [facility] Rx#:[id number] Phenylephrine HCl 10 mg 2706.50 2720.5 1211.5 In Sodium Chloride 0.9% 250 ml @ Per Protocol IV TITR [facility] Rx#:[id number] metroNIDAZOLE 500mg/NS 200 100 100mL 500 mg In 100 ml @ 100 mls/hr IV Q8HR [facility] Rx #:[id number] Output: Urine 50 Other 100 Active Medications: Current Medications Acetaminophen (Tylenol) 650 mg PO Q4H PRN PRN Reason: Fever > 100 Stop: 03/31/17 16:47 Last Admin: 02/17/17 21:36 Dose: 650 mg Albuterol/Ipratropium (Duoneb Neb) 3 ml HHN Q8HRT [facility] Stop: 03/31/17 14:59 Last Admin: 02/19/17 23:13 Dose: 3 ml Albuterol/Ipratropium (Duoneb Neb) 3 ml HHN Q4H PRN PRN Reason: Wheezing Stop: 04/08/17 19:25 Ascorbic Acid (Vitamin C) 500 mg PO DAILY [facility] Stop: 04/01/17 19:29 Last Admin: 02/19/17 10:51 Dose: Not Given Budesonide (Pulmicort) 0.5 mg HHN BIDRT [facility] Stop: 04/09/17 06:59 Last Admin: 02/19/17 07:35 Dose: 0.5 mg Chlorhexidine Gluconate (Peridex) 15 ml MM 0800,1999 [facility] Stop: 04/08/17 19:59 Last Admin: 02/19/17 20:50 Dose: 15 ml Docusate Sodium (Colace) 100 mg PO BID [facility] Stop: 04/01/17 19:29 Last Admin: 02/19/17 17:05 Dose: Not Given Ferrous Sulfate (Iron) 325 mg PO DAILY [facility] Stop: 04/02/17 08:59 Last Admin: 02/19/17 10:51 Dose: Not Given Folic Acid (Folate) 1 mg PO DAILY [facility] Stop: 04/01/17 19:29 Last Admin: 02/19/17 10:52 Dose: Not Given Gabapentin (Neurontin) 300 mg PO BID [facility] Stop: 04/02/17 08:59 Last Admin: 02/19/17 17:05 Dose: Not Given Hydromorphone HCl (Dilaudid) 0.5 mg IVP Q4HR PRN PRN Reason: PAIN Stop: 04/15/17 21:10 Last Admin: 02/18/17 04:20 Dose: 0.5 mg Pantoprazole Sodium 80 mg/ (Sodium Chloride) 100 mls @ 10 mls/hr IV Q10H [facility] Stop: 04/09/17 07:59 Last Admin: 02/19/17 14:13 Dose: 8 mls/hr Octreotide Acetate 1,250 mcg/ (Sodium Chloride) 252.5 mls @ 10 mls/hr IV .Q24H [facility] Stop: 04/09/17 07:59 Last Admin: 02/19/17 09:17 Dose: 10 mls/hr Norepinephrine Bitartrate 8 mg (/ Dextrose) 258 mls @ 0 mls/hr IV TITR PRN; Protocol; 0 MCG/MIN PRN Reason: BP MAINTENANCE (PER PROTOCOL) Stop: 04/11/17 13:44 Last Admin: 02/19/17 22:26 Dose: 29.97 mcg/min, 58 mls/hr Metronidazole (Flagyl) 500 mg in 100 mls @ 100 mls/hr IV Q8HR [facility] Stop: 04/16/17 04:59 Last Admin: 02/19/17 20:50 Dose: 100 mls/hr Meropenem 500 mg/ Sodium (Chloride) 100 mls @ 100 mls/hr IV Q12H [facility] Stop: 04/17/17 16:59 Last Admin: 02/19/17 17:02 Dose: 100 mls/hr Multivitamins/Minerals 10 ml/Amino Acids/Electrolytes/Dextrose/ Fat Emulsion Intravenous 1,207 mls @ 50 mls/hr IV .Q24H [facility] Stop: 04/17/17 15:59 Last Admin: 02/19/17 15:39 Dose: 50 mls/hr Phenylephrine HCl 10 mg/ (Sodium Chloride) 250 mls @ 0 mls/hr IV TITR [facility]; Per Protocol PRN Reason: Protocol Stop: 04/18/17 17:59 Last Admin: 02/19/17 23:45 Dose: 180 mcg/min, 270 mls/hr Insulin Aspart (Novolog Insulin Sliding Scale) 0 units SUBQ Q6H [facility] PRN Reason: Protocol Stop: 04/17/17 17:59 Last Admin: 02/19/17 18:23 Dose: 2 units Lactobacillus Rhamnosus (Culturelle) 1 each PO DAILY [facility] Stop: 04/11/17 08:59 Last Admin: 02/19/17 10:52 Dose: Not Given Magnesium Hydroxide (Milk Of Magnesia) 30 ml PO DAILY PRN PRN Reason: Constipation Stop: 04/01/17 19:18 Mirtazapine (Remeron) 22.5 mg PO HS [facility] PRN Reason: Protocol Stop: 04/01/17 20:59 Last Admin: 02/19/17 21:35 Dose: Not Given Miscellaneous (Probiotic Screen) 1 ea PRN PRN PRN Reason: PROTOCOL Stop: 04/10/17 11:08 Miscellaneous (Tpn Per Pharmacy) 1 ea MC PRN PRN PRN Reason: PROTOCOL Stop: 04/11/17 07:48 Trazodone HCl (Desyrel) 50 mg PO HS [facility] PRN Reason: Protocol Stop: 04/03/17 20:59 Last Admin: 02/19/17 21:35 Dose: Not Given - Procedures Procedures: Procedures Procedure Code Date GROUP PSYCHOTHERAPY 44380 01/14/16 GROUP PSYCHOTHERAPY [id number] 01/14/16 INSERT EMERGENCY AIRWAY 01350 01/30/17 INSERTION OF ENDOTRACHEAL AIRWAY INTO TRACHEA, VIA OPENING [id number] 01/30/17 INSERTION OF INFUSION DEV INTO SUP VENA CAVA, PERC APPROACH [id number] 01/30/[address]HETER IN VEIN 22199 01/30/17 RESPIRATORY VENTILATION, GREATER THAN 96 CONSECUTIVE HOURS [id number] 01/30/17 TRANSFUSE NONAUT RED BLOOD CELLS IN PERIPH VEIN, PERC [id number] 01/16/17 VENT MGMT INPAT INIT DAY 06543 01/30/17 Infectious Disease Assmt/Plan - Problem List Patient Problems: All Active Problems Agitation (Acute) R45.1 Combative behavior (Acute) R46.89 HTN (hypertension) (Acute) I10 Psychosis (Acute) F29 - Assessment Assessment: Impression: 1. Leukocytosis, multifactorial. ? malignanacy, sepsis, pneumonia. 2. pneumonia. 3. metastatic lesions of liver, not confirmed yet. ? abscess. 4. Dementia, 5. Psychosis 6. VDRF. 9. Suspect SBP. 10. Renal failure, acute on chronic. Recommendations: Continue meropenem. Continue flagyl empirically suspecting CDAC with this high WBC Count.. Continue vanco IV. Patient's condition is critical and prognosis is poor. Waiting for approval from the court for further intervention. Nutritional Asmnt/Malnutr-PDOC - Dietary Evaluation Malnutrition Findings (Please click <Entered> for more info): Nutritional Asmnt/Malnutrition Start: 02/02/17 13: 54 Text: Status: Complete Freq: Document 02/02/17 13:54 GSUN (Rec: 02/02/17 14:04 GSUN [email or web address]) Nutritional Asmnt/Malnutrition Patient General Information Nutritional Screening Moderate Risk Screening Diagnosis Pneumonia, sepsis, acute kidney failure Pertinent Medical Hx/Surgical Hx Dementia, possible metastatic cancer to the liver Subjective Information 71 year old male. Pt was just admitted to [facility] on 4/25/17, bedscale 177.9lb on 01/23/17, bedscale 204lb today, likely inaccurate, edema noted. Pt appears overall thin, severe muscle/fat wasting to chest and clavicles. Pt is edentulous on ground diet, no difficulties. Pt was only able to answer simple questions, able to list to RD what he had for breakfast. RD encouraged PO intake due to hypermetabolic state, pt understood. BRAKE SPECIALIST at bedside stated pt tolerates Boost Plus . Avg PO itnake 75% of meals, meeting 75% of estimated kcal needs. Current Diet Order/ Nutrition Support [facility] soft ground, Bosot Plus TID Pertinent Medications Vitamin C, Colace, Iron, Folate, MOM, Remeron, Vancomycin, D5-0.45ns Pertinent Labs 02/02: Potassium 5.5H, BUN 39H, creatinine 2.2H (declining), glucose 96 Nutritional Hx/Data Height 1.7 m Height (Calculated Centimeters) 170.2 Current Weight (lbs) 79.832 kg Weight (Calculated Kilograms) 79.8 Weight (Calculated Grams) 19708.3 [place] Body Weight 148lb GI Symptoms Skin Integrity/Comment: [place] 14. Bilateral leg and feet 4+ edema, some bruises. Estimated Nutritional Goals Calories/Kcals/Kg IBW 148lb/67.3kg Kcals Calculated 2356kcal (35kcal/kg) Protein g/kg: IBW Protein Calculated 67-101g (1-1.5g/kg, renal insuffieicny vs sepsis/ pneumonia/depletion) Nutritional Problem 2. Problem Problem Impaired nutrient utilization realted to Etiology acute renal failure Signs/Symptoms: progress note, elevated/ declining renal labs: [id number] [employer] 2.2H potassium 5.5H 1. Problem Problem Increased kcal and prot needs related to Etiology hypermetabolic state aeb Signs/Symptoms: sepsis, pneumonia, severe muscle/fat depletion to clavicles and chest, possible metastatic cancer to the liver Malnutrition Alert Body Fat Depletion (Severe) Mod to Severe Depletion Muscle Mass (Severe) Mod to Severe Depletion Fluid Accumulation (Non-Severe) Moderate Mild Fluid Retention Intervention/Recommendation Comments 1. Recommend ground renal diet , dx. acute renal failure, elevated labs: BUN 39H [employer] 2. 2H Potassium 5.5H. 2. Recommend oral supplement change from Bosot Plus TID to Suplena TID, dx. acute renal failure, elevated labs: BUN 39H [employer] 2.2H Potassium 5.5H. Expected Outcomes/Goals Expected Outcomes/Goals 1. PO intake to meet 100% of estimated nutritional needs.
[2017-02-20] MEDS: Pantoprazole 80 MG in Sodium Chloride 0.9% 100 ML IV SCH ×2 (00:04→09:57)
[2017-02-20] MEDS: INSULIN ASPART SLIDING SCALE 100 UNITS/ML UNIT SUBQ SCH ×2 (01:03→06:30)
[2017-02-20] MEDS: metroNIDAZOLE 500mg/NS 100mL 500 MG/100 ML BAG IV SCH (04:44)
[2017-02-20] MEDS: Meropenem 500 MG in Sodium Chloride 0.9% 100 ML IV SCH (05:46)
[2017-02-20] MEDS: Budesonide 0.5 Mg/2 mL Ud HHN SCH (07:36)
[2017-02-20] MEDS: Albuterol/Ipratropium Neb 3 ML AERS HHN SCH (07:36)
--- NOTE | 2017-02-20 07:38 | Progress Notes ---
DATE: 02/19/2017 PROBLEM LIST: 1. Multisystem failure. 2. Hypotension with max vasopressors. 3. Cirrhosis of liver with hepatic failure. 4. Bilateral effusion with pneumonia. 5. Respiratory failure associated with acute renal failure. SYMPTOMS: Nil, noncommunicative, quite obtunded, very shallow agonal type of breathing. PHYSICAL EXAMINATION: VITAL SIGNS: The patient's recorded vital signs; heart rate is and the patient's blood pressure 70/60, saturation 95% 100%. CHEST: Shows marked diminished air entry with occasional rhonchi. HEART: Regular. ABDOMEN: Quite distended at times. LABORATORY DATA: The patient's white count is 59,000 and electrolytes shows creatinine 4.7, BUN is 66. ASSESSMENT: The patient is terminal with multisystem failure. PLANS AND SUGGESTIONS: We will continue supportive care and see how she does in next 24-48 hours. Care and plan briefly discussed with the patient's brother. JOB# [id number]
[2017-02-20] MEDS: Ferrous Sulfate 325 MG TAB PO SCH (08:20)
[2017-02-20] MEDS: Lactobacillus Rhamnosus 10 Billion CFU Capsule PO SCH (08:21)
--- NOTE | 2017-02-20 13:15 | General Progress Note ---
Subjective - Review of Systems Service Date: 02/20/17 Subjective: comatose, on vent Objective - Results Result Diagrams: 02/19/17 06:00 02/19/17 06:00 Recent Labs: Laboratory Last Values WBC 59.4 Th/cmm (4.8-10.8) H* 02/19/17 06:00 RBC 2.17 Mil/cmm (3.80-5.80) L 02/19/17 06:00 Hgb 8.5 gm/dL (12.6-17.4) L 02/19/17 06:00 Hct 24.1 % (39.0-49.0) L 02/19/17 06:00 MCV 111.1 fl (80-99) H 02/19/17 06:00 MCH 39.1 pg (27.0-31.0) H 02/19/17 06:00 MCHC Differential 35.2 pg (28.0-36.0) 02/19/17 06:00 RDW 29.5 % (11.5-20.0) H 02/19/17 06:00 Plt Count 43 Th/cmm (150-400) L D 02/19/17 06:00 MPV 9.9 fl 02/19/17 06:00 Neutrophils % [employer] 02/11/17 05:00 Band Neutrophils % 17 % (0-10) H 02/19/17 06:00 Lymphocytes % [employer] 02/11/17 05:00 Monocytes % [employer] 02/11/17 05:00 Eosinophils % [employer] 02/11/17 05:00 Basophils % [employer] 02/11/17 05:00 Neutrophils (Manual) 57 % (40-80) 02/19/17 06:00 Lymphocytes 9 % (20-50) L 02/19/17 06:00 Monocytes 7 % (2-10) 02/19/17 06:00 Eosinophils 1 % (0-5) 02/19/17 06:00 Basophils 1 % (0-3) 02/13/17 09:30 Metamyelocytes 6 % (0-0) H 02/19/17 06:00 Myelocytes 3 % 02/19/17 06:00 Nucleated RBCs 1.0 % (0-0) H 02/19/17 06:00 Hypochromia 1+ 02/17/17 06:55 Platelet Estimate DECREASED PLATELETS (NORMAL) 02/19/17 06:00 Platelet Morphology NORMAL (NORMAL) 02/19/17 06:00 Polychromasia 1+ 02/19/17 06:00 Poikilocytosis 1+ 02/19/17 06:00 Anisocytosis 2+ 02/19/17 06:00 Macrocytosis 3+ 02/19/17 06:00 Ovalocytes 1+ 02/04/17 06:37 RBC Morph Micro Appear ABNORMAL (NORMAL) 02/19/17 06:00 Smear Path Review SEE BELOW 02/09/17 04:45 Plt Count 68 Th/cmm (150-750) L 02/17/17 06:55 PT 26.3 SECONDS (9.5-11.5) H 02/17/17 06:55 INR 2.42 (0.5-1.4) H 02/17/17 06:55 PTT (Actin FS) 60.6 SECONDS (26.0-38.0) H 02/17/17 06:55 Fibrinogen 107.0 mg/dL (200.0-400.0) L 02/17/17 06:55 D-Dimer 2800 ng/mL (100-400) H 02/17/17 06:55 Specimen Source Arterial 02/09/17 08:45 Sample Site Right Radial 02/09/17 08:45 pH 7.32 (7.35-7.45) L 02/09/17 08:45 pCO2 38.0 mmHg (35.0-45.0) 02/09/17 08:45 pO2 65.0 mmHg (80.0-100.0) L 02/09/17 08:45 HCO3 20.1 mEq/L (20.0-26.0) 02/09/17 08:45 Base Excess -6.0 mEq/L (-3.0-3.0) L 02/09/17 08:45 O2 Saturation 91.0 % (92.0-100.0) L 02/09/17 08:45 Dwayne Test YES 02/09/17 08:45 Vent Rate 12 02/09/17 08:45 Inspired O2 40 02/09/17 08:45 Tidal Volume 500 02/09/17 08:45 PEEP NA 02/09/17 08:45 Pressure (ins/psv/peep) NA 02/09/17 08:45 Critical Value E.DIAMOND 02/09/17 08:45 Sodium 137 mEq/L (136-145) 02/19/17 06:00 Potassium 4.2 mEq/L (3.5-5.1) 02/19/17 06:00 Chloride 102 mEq/L (98-107) 02/19/17 06:00 Carbon Dioxide 26.2 mEq/L (21.0-31.0) 02/19/17 06:00 Anion Gap 13.0 (7.0-16.0) 02/19/17 06:00 BUN 66 mg/dL (7-25) H 02/19/17 06:00 Creatinine 4.7 mg/dL (0.7-1.3) H* 02/19/17 06:00 Est GFR ( Amer) TNP 02/19/17 06:00 Est GFR (Non-Af Amer) TNP 02/19/17 06:00 BUN/Creatinine Ratio 14.0 02/19/17 06:00 Glucose 151 mg/dL (70-105) H 02/19/17 06:00 POC Glucose 170 MG/DL (70 - 105) H 02/20/17 12:21 Whole Bld Lactic Acid 2.02 mmol/L (0.60-1.99) H* 01/30/17 12:20 Calcium 8.9 mg/dL (8.6-10.3) 02/19/17 06:00 Phosphorus 6.3 mg/dL (2.5-5.0) H 02/19/17 06:00 Magnesium 1.6 mg/dL (1.9-2.7) L 02/19/17 06:00 Iron 151 ug/dL (38-169) 02/04/17 06:37 TIBC 178 ug/dL (250-450) L 02/04/17 06:37 Iron Saturation 85 % (15-55) H 02/04/17 06:37 Unsaturated IBC 27 ug/dL (111-343) L 02/04/17 06:37 Ferritin 1222 ng/mL (30-400) H 02/04/17 06:37 Total Bilirubin 4.7 mg/dL (0.3-1.0) H 02/18/17 05:30 Direct Bilirubin 1.27 mg/dL (0.0-0.2) H 02/12/17 07:00 AST 418 U/L (13-39) H 02/18/17 05:30 ALT 32 U/L (7-52) 02/18/17 05:30 Alkaline Phosphatase 131 U/L (34-104) H 02/18/17 05:30 Ammonia 53 umol/L (16-53) 02/12/17 07:00 Total Protein 5.7 gm/dL (6.0-8.3) L 02/18/17 05:30 Albumin 2.5 gm/dL (4.2-5.5) L 02/18/17 05:30 Globulin 3.2 gm/dL 02/18/17 05:30 Albumin/Globulin Ratio 0.8 (1.0-1.8) L 02/18/17 05:30 Prealbumin 6 mg/dL (9-32) L 02/12/17 07:00 Ocdec-3-Erzeuuoutyh 236 mg/dL (90-200) H 02/04/17 06:37 Ceruloplasmin 34.0 mg/dL (16.0-31.0) H 02/04/17 06:37 Triglycerides 89 mg/dL (<150) 02/12/17 07:00 Cholesterol 51 mg/dL (<200) 02/12/17 07:00 LDL Cholesterol Direct 46 mg/dL (75-193) L 01/30/17 10:20 HDL Cholesterol 19 mg/dL (23-92) L 01/30/17 10:20 Tumor Marker AFP 832.4 ng/mL (0.0-8.3) H 02/05/17 06:37 Carcinoembryonic Ag 13.4 ng/mL (0.0-4.7) H 02/04/17 06:37 CA 19-9 Antigen 2818 U/mL (0-35) H 02/04/17 06:37 TSH 0.32 uIU/ml (0.34-5.60) L 02/10/17 04:45 Urine Source CLEAN C 01/30/17 11:05 Urine Color LOS 01/30/17 11:05 Urine Clarity CLEAR (CLEAR) 01/30/17 11:05 Urine pH 5.0 01/30/17 11:05 Ur Specific [place] 1.020 (1.005-1.030) 01/30/17 11:05 Urine Protein 30 mg/dL (NEGATIVE) H 01/30/17 11:05 Urine Glucose (UA) NEGATIVE mg/dL (NEGATIVE) 01/30/17 11:05 Urine Ketones 15 mg/dL (NEGATIVE) H 01/30/17 11:05 Urine Blood NEGATIVE (NEGATIVE) 01/30/17 11:05 Urine Nitrate POSITIVE (NEGATIVE) H 01/30/17 11:05 Urine Bilirubin SMALL (NEGATIVE) H 01/30/17 11:05 Urine Urobilinogen 0.2 E.U./dL (0.2 - 1.0) 01/30/17 11:05 Ur Leukocyte Esterase NEGATIVE (NEGATIVE) 01/30/17 11:05 Urine RBC 0-2 /hpf (0-5) H 01/30/17 11:05 Urine WBC 2-5 /hpf (0-5) H 01/30/17 11:05 Ur Epithelial Cells OCCASIONAL /lpf (FEW) 01/30/17 11:05 Urine Bacteria MODERATE /hpf (NONE SEEN) 01/30/17 11:05 Urine Mucus FEW /lpf (FEW) 01/30/17 11:05 Stool Occult Blood NEGATIVE (NEGATIVE) 02/11/17 17:05 Vancomycin Trough 39.3 ug/mL (10-20) H 02/02/17 16:35 Random Vancomycin 21.3 ug/mL (5.0-40.0) 02/18/17 05:00 Anti-Mitochondrial Ab 25.7 Units (0.0-20.0) H 02/04/17 06:37 Smooth Muscle IgG Ab 38 Units (0-19) H 02/04/17 06:37 RPR NONREACTIVE (NONREACTIVE) 01/30/17 10:20 Hepatitis A IgM Ab Negative (Negative) 02/14/17 05:30 Hep Bs Antigen Negative (Negative) 02/14/17 05:30 Hep B Core IgM Ab Negative (Negative) 02/14/17 05:30 Hepatitis C Antibody >11.0 s/co ratio (0.0-0.9) H 02/14/17 05:30 Blood Type O POSITIVE 02/10/17 07:16 Antibody Screen NEGATIVE 02/10/17 07:16 Crossmatch See Detail 02/10/17 07:16 - Physical Exam Vitals and I&O: Vital Signs Temp 96.9 F 02/20/17 09:00 Pulse 67 02/20/17 12:00 Resp 18 02/20/17 11:00 BP 60/21 02/20/17 12:00 Pulse Ox 86 02/20/17 12:00 Intake & Output 02/19/17 02/20/17 02/20/17 18:59 06:59 18:59 Intake Total 4238.500 4242.867 1825.734 Output Total 50 50 Balance 4188.500 4192.867 1825.734 Intake: Intake, IV Amount 4238.500 3642.867 1825.734 Meropenem 500 mg In 100 Sodium Chloride 0.9% 100 ml @ 100 mls/hr IV Q12H [facility] Rx#:[id number] Multivitamin Inj 10 ml In 495 Amino Acids 15% 387 ml In Dextrose 70% 387 ml In Intralipids 20% 423 ml @ 50 mls/hr IV .Q24H [facility] Rx#:[id number] Norepinephrine 8 mg In 720.067 502.567 516 Dextrose 5% 250 ml @ 0 MCG/MIN IV TITR PRN Rx#: [id number] Octreotide Acetate 1,250 35.333 246.667 mcg In Sodium Chloride 0. 9% 250 ml @ 10 mls/hr IV .Q24H [facility] Rx#:[id number] Pantoprazole 80 mg In 67.6 78.8 79.067 Sodium Chloride 0.9% 100 ml @ 10 mls/hr IV Q10H [facility] Rx#:[id number] Phenylephrine HCl 10 mg 2720.5 2961.5 984 In Sodium Chloride 0.9% 250 ml @ Per Protocol IV TITR [facility] Rx#:[id number] metroNIDAZOLE 500mg/NS 100 100 100mL 500 mg In 100 ml @ 100 mls/hr IV Q8HR [facility] Rx #:[id number] TPN/PPN 600 Output: Gastric Drainage 50 Urine 50 0 Other: # Bowel Movements 0 Active Medications: Current Medications Acetaminophen (Tylenol) 650 mg PO Q4H PRN PRN Reason: Fever > 100 Stop: 03/31/17 16:47 Last Admin: 02/17/17 21:36 Dose: 650 mg Albuterol/Ipratropium (Duoneb Neb) 3 ml HHN Q8HRT [facility] Stop: 03/31/17 14:59 Last Admin: 02/20/17 07:36 Dose: 3 ml Albuterol/Ipratropium (Duoneb Neb) 3 ml HHN Q4H PRN PRN Reason: Wheezing Stop: 04/08/17 19:25 Ascorbic Acid (Vitamin C) 500 mg PO DAILY [facility] Stop: 04/01/17 19:29 Last Admin: 02/20/17 08:20 Dose: Not Given Budesonide (Pulmicort) 0.5 mg HHN BIDRT [facility] Stop: 04/09/17 06:59 Last Admin: 02/20/17 07:36 Dose: 0.5 mg Chlorhexidine Gluconate (Peridex) 15 ml MM 0800,1999 [facility] Stop: 04/08/17 19:59 Last Admin: 02/19/17 20:50 Dose: 15 ml Docusate Sodium (Colace) 100 mg PO BID [facility] Stop: 04/01/17 19:29 Last Admin: 02/20/17 08:20 Dose: Not Given Ferrous Sulfate (Iron) 325 mg PO DAILY [facility] Stop: 04/02/17 08:59 Last Admin: 02/20/17 08:20 Dose: Not Given Folic Acid (Folate) 1 mg PO DAILY [facility] Stop: 04/01/17 19:29 Last Admin: 02/20/17 08:20 Dose: Not Given Gabapentin (Neurontin) 300 mg PO BID [facility] Stop: 04/02/17 08:59 Last Admin: 02/20/17 08:21 Dose: Not Given Hydromorphone HCl (Dilaudid) 0.5 mg IVP Q4HR PRN PRN Reason: PAIN Stop: 04/15/17 21:10 Last Admin: 02/18/17 04:20 Dose: 0.5 mg Pantoprazole Sodium 80 mg/ (Sodium Chloride) 100 mls @ 10 mls/hr IV Q10H [facility] Stop: 04/09/17 07:59 Last Admin: 02/20/17 09:57 Dose: 8 mls/hr Octreotide Acetate 1,250 mcg/ (Sodium Chloride) 252.5 mls @ 10 mls/hr IV .Q24H [facility] Stop: 04/09/17 07:59 Last Admin: 02/20/17 09:57 Dose: 10 mls/hr Norepinephrine Bitartrate 8 mg (/ Dextrose) 258 mls @ 0 mls/hr IV TITR PRN; Protocol; 0 MCG/MIN PRN Reason: BP MAINTENANCE (PER PROTOCOL) Stop: 04/11/17 13:44 Last Admin: 02/20/17 12:54 Dose: 29.97 mcg/min, 58 mls/hr Metronidazole (Flagyl) 500 mg in 100 mls @ 100 mls/hr IV Q8HR [facility] Stop: 04/16/17 04:59 Last Admin: 02/20/17 04:44 Dose: 100 mls/hr Meropenem 500 mg/ Sodium (Chloride) 100 mls @ 100 mls/hr IV Q12H [facility] Stop: 04/17/17 16:59 Last Admin: 02/20/17 05:46 Dose: 100 mls/hr Multivitamins/Minerals 10 ml/Amino Acids/Electrolytes/Dextrose/ Fat Emulsion Intravenous 1,207 mls @ 50 mls/hr IV .Q24H [facility] Stop: 04/17/17 15:59 Last Admin: 02/19/17 15:39 Dose: 50 mls/hr Phenylephrine HCl 10 mg/ (Sodium Chloride) 250 mls @ 0 mls/hr IV TITR [facility]; Per Protocol PRN Reason: Protocol Stop: 04/18/17 17:59 Last Admin: 02/20/17 11:47 Dose: 180 mcg/min, 270 mls/hr Insulin Aspart (Novolog Insulin Sliding Scale) 0 units SUBQ Q6H [facility] PRN Reason: Protocol Stop: 04/17/17 17:59 Last Admin: 02/20/17 06:30 Dose: Not Given Lactobacillus Rhamnosus (Culturelle) 1 each PO DAILY [facility] Stop: 04/11/17 08:59 Last Admin: 02/20/17 08:21 Dose: Not Given Magnesium Hydroxide (Milk Of Magnesia) 30 ml PO DAILY PRN PRN Reason: Constipation Stop: 04/01/17 19:18 Mirtazapine (Remeron) 22.5 mg PO HS [facility] PRN Reason: Protocol Stop: 04/01/17 20:59 Last Admin: 02/19/17 21:35 Dose: Not Given Miscellaneous (Probiotic Screen) 1 ea PRN PRN PRN Reason: PROTOCOL Stop: 04/10/17 11:08 Miscellaneous (Tpn Per Pharmacy) 1 ea PRN PRN PRN Reason: PROTOCOL Stop: 04/11/17 07:48 Trazodone HCl (Desyrel) 50 mg PO HS [facility] PRN Reason: Protocol Stop: 04/03/17 20:59 Last Admin: 02/19/17 21:35 Dose: Not Given General: Other (comatose) HEENT: Atraumatic, Mucous membr. moist/pink Neck: Supple, +2 carotid pulse wo bruit Cardiovascular: Other (tachy, irregular) Lungs: Other (rhonchi, rales) Abdomen: Other (ascites) Extremities: Edema ((+4) edema) Neurological: Other (comatose) Skin: no Rash - Procedures Procedures: Procedures Procedure Code Date GROUP PSYCHOTHERAPY 19206 01/14/16 GROUP PSYCHOTHERAPY [id number] 01/14/16 INSERT EMERGENCY AIRWAY 08326 01/30/17 INSERTION OF ENDOTRACHEAL AIRWAY INTO TRACHEA, VIA OPENING [id number] 01/30/17 INSERTION OF INFUSION DEV INTO SUP VENA CAVA, PERC APPROACH [id number] 01/30/[address] CATHETER IN VEIN 51690 01/30/17 RESPIRATORY VENTILATION, GREATER THAN 96 CONSECUTIVE HOURS [id number] 01/30/17 TRANSFUSE NONAUT RED BLOOD CELLS IN PERIPH VEIN, PERC [id number] 01/16/17 VENT MGMT INPAT INIT DAY 13797 01/30/17 Assessment/Plan - Problem List Patient Problems: All Active Problems Agitation (Acute) R45.1 Combative behavior (Acute) R46.89 HTN (hypertension) (Acute) I10 Psychosis (Acute) F29 - Assessment Assessment: VIPUL on CKD Acute RF on vent decomp CHF Liver mets Anoxic/met Encph Anemia UGI bleed on cd Severe malnutrition B/L HAP Anasarca/Ascites - Plan Plan: Lab - Result Diagrams 02/12/17 07:00 02/12/17 07:00 Current Medications Acetaminophen (Tylenol) 650 mg PO Q4H PRN PRN Reason: Fever > 100 Stop: 03/31/17 16:47 Last Admin: 02/11/17 20:22 Dose: 650 mg Albuterol/Ipratropium (Duoneb Neb) 3 ml HHN Q8HRT [facility] Stop: 03/31/17 14:59 Last Admin: 02/12/17 07:19 Dose: 3 ml Albuterol/Ipratropium (Duoneb Neb) 3 ml HHN Q4H PRN PRN Reason: Wheezing Stop: 04/08/17 19:25 Ascorbic Acid (Vitamin C) 500 mg PO DAILY [facility] Stop: 04/01/17 19:29 Last Admin: 02/12/17 09:13 Dose: 500 mg Budesonide (Pulmicort) 0.5 mg HHN BIDRT [facility] Stop: 04/09/17 06:59 Last Admin: 02/12/17 07:19 Dose: 0.5 mg Chlorhexidine Gluconate (Peridex) 15 ml MM 0800,1999 [facility] Stop: 04/08/17 19:59 Last Admin: 02/11/17 20:23 Dose: 15 ml Docusate Sodium (Colace) 100 mg PO BID [facility] Stop: 04/01/17 19:29 Last Admin: 02/12/17 09:17 Dose: 100 mg Ferrous Sulfate (Iron) 325 mg PO DAILY [facility] Stop: 04/02/17 08:59 Last Admin: 02/12/17 09:13 Dose: 325 mg Folic Acid (Folate) 1 mg PO DAILY [facility] Stop: 04/01/17 19:29 Last Admin: 02/12/17 09:14 Dose: 1 mg Gabapentin (Neurontin) 300 mg PO BID [facility] Stop: 04/02/17 08:59 Last Admin: 02/12/17 09:18 Dose: 300 mg Heparin Sodium (Porcine) (Heparin) 5,000 units HD UD [facility] Stop: 02/13/17 00:00 Last Admin: 02/12/17 09:14 Dose: 5,000 units Pantoprazole Sodium 80 mg/ (Sodium Chloride) 100 mls @ 10 mls/hr IV Q10H [facility] Stop: 04/09/17 07:59 Last Admin: 02/12/17 12:47 Dose: 10 mls/hr Octreotide Acetate 1,250 mcg/ (Sodium Chloride) 252.5 mls @ 10 mls/hr IV .Q24H [facility] Stop: 04/09/17 07:59 Last Admin: 02/12/17 12:48 Dose: 10 mls/hr Metronidazole (Flagyl) 500 mg in 100 mls @ 100 mls/hr IV Q8HR [facility] Stop: 04/09/17 20:59 Last Admin: 02/12/17 04:33 Dose: 100 mls/hr Multivitamins/Minerals 10 ml/Amino Acids/ Fat Emulsion Intravenous/ Dextrose 1, 680 mls @ 60 mls/hr IV .Q24H [facility] Stop: 04/11/17 15:59 Last Admin: 02/11/17 16:11 Dose: 70 mls/hr Norepinephrine Bitartrate 8 mg (/ Dextrose) 258 mls @ 0 mls/hr IV TITR PRN; Protocol; 0 MCG/MIN PRN Reason: BP MAINTENANCE (PER PROTOCOL) Stop: 04/11/17 13:44 Last Titration: 02/12/17 04:29 Dose: 10 mcg/min, 19.35 mls/hr Furosemide 100 mg/ Sodium (Chloride) 100 mls @ 5 mls/hr IV TITR [facility] Stop: 04/11/17 14:27 Last Admin: 02/12/17 12:44 Dose: 5 mls/hr Meropenem 500 mg/ Sodium (Chloride) 100 mls @ 100 mls/hr IV Q12H [facility] Stop: 04/11/17 15:44 Last Admin: 02/12/17 03:11 Dose: 100 mls/hr Albumin Human (Albuminar 25%) 25 gm in 100 mls @ 50 mls/hr IV 2XW [facility] Stop: 02/13/17 19:00 Last Admin: 02/11/17 17:50 Dose: 50 mls/hr Insulin Aspart (Novolog Insulin Sliding Scale) 0 units SUBQ Q6H [facility] PRN Reason: Protocol Stop: 04/10/17 11:59 Last Admin: 02/12/17 07:36 Dose: 2 units Lactobacillus Rhamnosus (Culturelle) 1 each PO DAILY [facility] Stop: 04/11/17 08:59 Last Admin: 02/12/17 09:13 Dose: 1 each Magnesium Hydroxide (Milk Of Magnesia) 30 ml PO DAILY PRN PRN Reason: Constipation Stop: 04/01/17 19:18 Mirtazapine (Remeron) 22.5 mg PO HS [facility] PRN Reason: Protocol Stop: 04/01/17 20:59 Last Admin: 02/11/17 20:20 Dose: 22.5 mg Miscellaneous (Probiotic Screen) 1 ea MC PRN PRN PRN Reason: PROTOCOL Stop: 04/10/17 11:08 Miscellaneous (Tpn Per Pharmacy) 1 ea PRN PRN PRN Reason: PROTOCOL Stop: 04/11/17 07:48 Miscellaneous (Vancomycin Iv Per Pharmacy) 1 ea MC PRN PRN PRN Reason: PROTOCOL Stop: 04/13/17 11:43 Morphine Sulfate (Morphine) 2 mg IVP Q4HR PRN PRN Reason: Pain (Moderate) Stop: 04/12/17 20:41 Last Admin: 02/12/17 05:31 Dose: 2 mg Temazepam (Restoril) 15 mg PO HS PRN; Protocol PRN Reason: Insomnia Stop: 03/31/17 20:55 Last Admin: 01/30/17 21:43 Dose: 15 mg Tramadol HCl (Ultram) 50 mg PO Q6HR PRN PRN Reason: Pain (Moderate) Stop: 03/31/17 22:01 Last Admin: 02/07/17 07:04 Dose: 50 mg Trazodone HCl (Desyrel) 50 mg PO HS [facility] PRN Reason: Protocol Stop: 04/03/17 20:59 Last Admin: 02/11/17 20:22 overall clinical condition worse cancel HD because pt. too unstable on levo 30, Jose 120 mcg PPN @ 50 discussed w/ family @ bedside w/ very poor prognosis Nutritional Asmnt/Malnutr-PDOC - Dietary Evaluation Malnutrition Findings (Please click <Entered> for more info): Nutritional Asmnt/Malnutrition Start: 02/02/17 13: 54 Text: Status: Complete Freq: Document 02/02/17 13:54 GSUN (Rec: 02/02/17 14:04 [id number] [id number]) Nutritional Asmnt/Malnutrition Patient General Information Nutritional Screening Moderate Risk Screening Diagnosis Pneumonia, sepsis, acute kidney failure Pertinent Medical Hx/Surgical Hx Dementia, possible metastatic cancer to the liver Subjective Information 71 year old male. Pt was just admitted to [facility] on 01/16/17, bedscale 177.9lb on 01/23/17, bedscale 204lb today, likely inaccurate, edema noted. Pt appears overall thin, severe muscle/fat wasting to chest and clavicles. Pt is edentulous on ground diet, no difficulties. Pt was only able to answer simple questions, able to list to RD what he had for breakfast. RD encouraged PO intake due to hypermetabolic state, pt understood. INSTRUMENTATION TECHNOLOGIST at bedside stated pt tolerates Boost Plus . Avg PO itnake 75% of meals, meeting 75% of estimated kcal needs. Current Diet Order/ Nutrition Support Mech soft ground, Bosot Plus TID Pertinent Medications Vitamin C, Colace, Iron, Folate, MOM, Remeron, Vancomycin, D5-0.45ns Pertinent Labs 02/02: Potassium 5.5H, BUN 39H, creatinine 2.2H (declining), glucose 96 Nutritional Hx/Data Height 1.7 m Height (Calculated Centimeters) 170.2 Current Weight (lbs) 79.832 kg Weight (Calculated Kilograms) 79.8 Weight (Calculated Grams) 70371.3 [place] Body Weight 148lb GI Symptoms Skin Integrity/Comment: [place] 14. Bilateral leg and feet 4+ edema, some bruises. Estimated Nutritional Goals Calories/Kcals/Kg IBW 148lb/67.3kg Kcals Calculated 2356kcal (35kcal/kg) Protein g/kg: IBW Protein Calculated 67-101g (1-1.5g/kg, renal insuffieicny vs sepsis/ pneumonia/depletion) Nutritional Problem 2. Problem Problem Impaired nutrient utilization realted to Etiology acute renal failure Signs/Symptoms: progress note, elevated/ declining renal labs: [id number] [employer] 2.2H potassium 5.5H 1. Problem Problem Increased kcal and prot needs related to Etiology hypermetabolic state aeb Signs/Symptoms: sepsis, pneumonia, severe muscle/fat depletion to clavicles and chest, possible metastatic cancer to the liver Malnutrition Alert Body Fat Depletion (Severe) Mod to Severe Depletion Muscle Mass (Severe) Mod to Severe Depletion Fluid Accumulation (Non-Severe) Moderate Mild Fluid Retention Intervention/Recommendation Comments 1. Recommend ground renal diet , dx. acute renal failure, elevated labs: BUN 39H [employer] 2. 2H Potassium 5.5H. 2. Recommend oral supplement change from Bosot Plus TID to Suplena TID, dx. acute renal failure, elevated labs: BUN 39H [employer] 2.2H Potassium 5.5H. Expected Outcomes/Goals Expected Outcomes/Goals 1. PO intake to meet 100% of estimated nutritional needs.
--- NOTE | 2017-02-20 14:55 | ED Physician Chart ---
Chief Complaint/HPI - Patient Information Date Seen:: 02/20/17 Time Seen:: 13:00 Chief Complaint:: code blue History of Present Illness:: 71-year-old male admitted to ICU with acute, severe, CODE BLUE, pulseless. GUMARO KWAN called at 1300. Has associated worsening hypoxemia. He was on the ventilator and unresponsive. History limited by patient's clinical condition History provided by nursing staff Allergies:: Allergies Allergy/AdvReac Type Severity Reaction Status Date / Time No Known Allergies Allergy Verified 01/30/17 10:24 Historian:: Other (nursing) Review:: Nurse's Note Reviewed Review of Systems - Review of Systems Other: Unable to obtain accurate review of systems as patient is unresponsive Past Medical History - Past Medical History Past Medical History: HTN, DM, ESRD, Other (respiratory arrest) Family History: None Social History: Non Smoker, No Alcohol, No Drug Use, Care Facility Surgical History: other Psychiatricy History: Other Medication: Reviewed Family Medical History - Family Member Mother History Unknown: Yes Ethnicity: Living Status: Unknown Hx Family Cancer: No Hx Family Coronary Artery Disease: No Hx Family Congestive Heart Failure: No Hx Family Hypertension: No Hx Family Stroke: No Hx Family Diabetes: No Hx Family Seizures: No Hx Family Dementia: No Hx Family AIDS: No Hx Family HIV: No Hx Family COPD: No Hx Family Hepatitis: No Hx Family Psychiatric Problems: No Hx Family Tuberculosis: No Physical Exam - Physical Examination Other:: VITAL SIGNS: Vital Signs Temp 97.8 F 01/30/17 10:06 HR 60 01/30/17 10:06 RR 16 01/30/17 10:06 BP 98/56 01/30/17 10:06 O2 Sat % 95 01/30/17 10:06 Temp 96.9 F 02/20/17 09:00 HR 67 02/20/17 12:00 RR 18 02/20/17 11:00 BP 60/21 02/20/17 12:00 O2 Sat % 86 02/20/17 12:00 Heart rate was 32 on arrival. GENERAL: Patient is lying on gurney and is unresponsive HEAD: Head is normocephalic. No evidence of trauma. No scalp or facial swelling EYES: Pupils are nonreactive. ENT: Oropharynx and nasopharynx are clear NECK: Supple. No masses RESPIRATORY: Breath sounds equal bilaterally with mechanical ventilation CV: No heart sounds heard. No palpable carotid or femoral pulses ABDOMEN: Soft, non-distended. No masses EXTREMITIES: No deformity. Diffuse anasarca. SKIN: No jaundice. No diaphoresis NEUROLOGIC: Not alert. Unresponsive to external stimuli Labs/Radiology/EKG Results - Lab Results Results: Laboratory Tests 01/30/17 01/30/17 01/30/17 10:20 10:20 10:20 WBC 26.5 H* D RBC 2.30 L Hgb 8.7 L Hct 25.2 L D MCV 109.4 H MCH 37.7 H MCHC Differential 34.5 RDW 25.6 H Plt Count 117 L MPV 6.9 Band Neutrophils % 8 Neutrophils (Manual) 80 Lymphocytes 6 L Monocytes 6 Platelet Estimate DECREASED PLATELETS Platelet Morphology NORMAL Anisocytosis 2+ Macrocytosis 2+ RBC Morph Micro Appear ABNORMAL Sodium 133 L Potassium 4.4 Chloride 104 Carbon Dioxide 23.8 Anion Gap 9.6 BUN 40 H Creatinine 1.7 H Est GFR ( Amer) TNP Est GFR (Non-Af Amer) TNP BUN/Creatinine Ratio 23.5 Glucose 102 Whole Bld Lactic Acid Calcium 9.3 Triglycerides 79 Cholesterol 94 LDL Cholesterol Direct 46 L HDL Cholesterol 19 L TSH Urine Source Urine Color Urine Clarity Urine pH Ur Specific [place] Urine Protein Urine Glucose (UA) Urine Ketones Urine Blood Urine Nitrate Urine Bilirubin Urine Urobilinogen Ur Leukocyte Esterase Urine RBC Urine WBC Ur Epithelial Cells Urine Bacteria Urine Mucus RPR Hepatitis A IgM Ab Negative Hep Bs Antigen Negative Hep B Core IgM Ab Negative Hepatitis C Antibody >11.0 H 01/30/17 01/30/17 01/30/17 10:20 10:20 10:20 WBC RBC Hgb Hct MCV MCH MCHC Differential RDW Plt Count MPV Band Neutrophils % Neutrophils (Manual) Lymphocytes Monocytes Platelet Estimate Platelet Morphology Anisocytosis Macrocytosis RBC Morph Micro Appear Sodium Potassium Chloride Carbon Dioxide Anion Gap BUN Creatinine Est GFR ( Amer) Est GFR (Non-Af Amer) BUN/Creatinine Ratio Glucose Whole Bld Lactic Acid 2.88 H* Calcium Triglycerides Cholesterol LDL Cholesterol Direct HDL Cholesterol TSH 2.90 Urine Source Urine Color Urine Clarity Urine pH Ur Specific [place] Urine Protein Urine Glucose (UA) Urine Ketones Urine Blood Urine Nitrate Urine Bilirubin Urine Urobilinogen Ur Leukocyte Esterase Urine RBC Urine WBC Ur Epithelial Cells Urine Bacteria Urine Mucus RPR NONREACTIVE Hepatitis A IgM Ab Hep Bs Antigen Hep B Core IgM Ab Hepatitis C Antibody 01/30/17 11:05 WBC RBC Hgb Hct MCV MCH MCHC Differential RDW Plt Count MPV Band Neutrophils % Neutrophils (Manual) Lymphocytes Monocytes Platelet Estimate Platelet Morphology Anisocytosis Macrocytosis RBC Morph Micro Appear Sodium Potassium Chloride Carbon Dioxide Anion Gap BUN Creatinine Est GFR ( Amer) Est GFR (Non-Af Amer) BUN/Creatinine Ratio Glucose Whole Bld Lactic Acid Calcium Triglycerides Cholesterol LDL Cholesterol Direct HDL Cholesterol TSH Urine Source CLEAN C Urine Color LOS Urine Clarity CLEAR Urine pH 5.0 Ur Specific [place] 1.020 Urine Protein 30 H Urine Glucose (UA) NEGATIVE Urine Ketones 15 H Urine Blood NEGATIVE Urine Nitrate POSITIVE H Urine Bilirubin SMALL H Urine Urobilinogen 0.2 Ur Leukocyte Esterase NEGATIVE Urine RBC 0-2 H Urine WBC 2-5 H Ur Epithelial Cells OCCASIONAL Urine Bacteria MODERATE Urine Mucus FEW RPR Hepatitis A IgM Ab Hep Bs Antigen Hep B Core IgM Ab Hepatitis C Antibody Assessment - Assessment General Assessment: Critical Care Time: 35 minutes Treatments/Evaluations: Close monitoring and treatment of unstable vital signs, cardiorespiratory, and neurologic status, while maintaining tight balance of fluid, respiratory, and cardiac interventions. This time includes discussing the case with the patient and the patient's family. This time does not include all procedures stated elsewhere in this record. This time also includes reviewing old records, labs and radiological studies. This time includes examining and re-examining the patient. Additionally, this time also includes arranging care with admitting and consulting physicians. CPR Cardiopulmonary Resuscitation by me: See code documentation for specific details. ACLS and BLS were performed with high quality chest compressions and minimal interruptions. Reversible causes were assessed and treated. Excludes all billable procedures: Yes This condition life threatening/high prob of deterioration: Yes ED Septic Shock - . Is Septic Shock (SBP<90, OR Lactate>4 mmol\L) present?: No Reassessment (Disposition) - Reassessment Reassessment:: GUMARO ANIYA was called. I arrived on scene. Patient was on maximum dose of 2 vasopressors and had been intubated many days before and was in full respiratory arrest. Patient showed pulseless electrical activity with monitor showing bradycardia 30s however there was no palpable pulse. Chest compressions were immediately started. Epinephrine was pushed every 3 minutes. Despite our efforts patient was asystolic and pulseless. Patient did receive 1 mg of atropine initially. After 5 rounds of epinephrine and continuous CPR, patient remained in. asystole and unresponsive. Discussed with 2 family members who are outside the room. At this point the patient's progress he was already on 2 vasopressors and was doing very poorly. Patient was officially at 1315. - Diagnosis Diagnosis:: Cardiac arrest - Patient Disposition Discharge/Transfer:: Admitted to:: ICU Time:: 13:15 Condition at Disposition:: ED Discharge Plan - Patient Disposition Admit/Discharge/Transfer: Other Care w/in this hosp Condition at Disposition: Unchanged
--- NOTE | 2017-02-21 02:05 | Progress Notes ---
DATE: 02/20/2017 PULMONARY PROGRESS NOTE PROBLEM LIST: 1. Persistent respiratory failure. 2. Hypotension. 3. Hepatic failure. 4. Bilateral effusion. SYMPTOMS: The patient is quite obtunded, shallow breathing. BP is in 60s and 70s and on currently 100% of oxygen. PHYSICAL EXAMINATION: VITAL SIGNS: The patient is afebrile. Heart rate is in 60s. BP in 60s to 40-41. NECK: Veins not visualized. CHEST: Shows diminished air entry. HEART: Regular. ABDOMEN: Quite distended. EXTREMITIES: Shows bit edematous changes. LABORATORY DATA: Shows white count of 51,000, hemoglobin and the patient's chemistry could not be done. ASSESSMENT: The patient is doing poorly, terminal with multisystem failure. PLANS AND SUGGESTIONS: We will continue supportive care etc., and see how he does and go from there. JOB# [id number]
--- NOTE | 2017-02-21 03:07 | Progress Notes ---
DATE: 02/20/2017 Case was discussed with staff of the patient. The patient reported to be terminal. His family at his bedside that they are waiting for his heart to stop. The patient in septic shock and very weak. He is not expected to survive; however, he is on the medications with no side effect. Thank you very much for allowing me to participate in the care of this most interesting gentleman. JOB# [id number]
== END 2017-02-20 13:15 | disposition expired | DRG 870 ==
LOC: ER 10:06 → TELE 11:40 → UNDODISIN 12:40 → MSI 02-01 22:39 → ICU 02-07 12:00
PROVIDERS: ADMIT Family Medicine; ATTEND Family Medicine
PROC: 5A1955Z Respiratory Ventilation, Greater than 96 Consecutive Hours (ICD-10-PCS; principal; 2017-02-07)
PROC: 0BH17EZ Insertion of Endotracheal Airway into Trachea, Via Natural or Artificial Opening (ICD-10-PCS; 2017-02-07)
PROC: 02HV33Z Insertion of Infusion Device into Superior Vena Cava, Percutaneous Approach (ICD-10-PCS; 2017-02-08)
PROC: 30233N1 Transfusion of Nonautologous Red Blood Cells into Peripheral Vein, Percutaneous Approach (ICD-10-PCS; 2017-02-10)
PROC: 30233K1 Transfusion of Nonautologous Frozen Plasma into Peripheral Vein, Percutaneous Approach (ICD-10-PCS; 2017-02-12)
PROC: 30233L1 Transfusion of Nonautologous Fresh Plasma into Peripheral Vein, Percutaneous Approach (ICD-10-PCS; 2017-02-12)
PROC: 02HV33Z Insertion of Infusion Device into Superior Vena Cava, Percutaneous Approach (ICD-10-PCS; 2017-02-13)
PROC: B548ZZA Ultrasonography of Superior Vena Cava, Guidance (ICD-10-PCS; 2017-02-13)
PROC: 5A1D60Z (ICD-10-PCS; 2017-02-13)
PROC: 5A12012 Performance of Cardiac Output, Single, Manual (ICD-10-PCS; 2017-02-20)
DX: A41.9 Sepsis, unspecified organism (principal); J96.00 Acute respiratory failure, unspecified whether with hypoxia or hypercapnia; E43 Unspecified severe protein-calorie malnutrition; R65.21 Severe sepsis with septic shock; J18.9 Pneumonia, unspecified organism; N17.9 Acute kidney failure, unspecified; G93.41 Metabolic encephalopathy; I11.0 Hypertensive heart disease with heart failure; I50.9 Heart failure, unspecified; C78.7 Secondary malignant neoplasm of liver and intrahepatic bile duct; E87.1 Hypo-osmolality and hyponatremia; D69.6 Thrombocytopenia, unspecified; D64.9 Anemia, unspecified; F03.90 Unspecified dementia, unspecified severity, without behavioral disturbance, psychotic disturbance, mood disturbance, and anxiety; E86.0 Dehydration; F17.210 Nicotine dependence, cigarettes, uncomplicated; M19.90 Unspecified osteoarthritis, unspecified site; F32.9 Major depressive disorder, single episode, unspecified; H40.9 Unspecified glaucoma; F29 Unspecified psychosis not due to a substance or known physiological condition; N18.9 Chronic kidney disease, unspecified; K74.60 Unspecified cirrhosis of liver; E11.42 Type 2 diabetes mellitus with diabetic polyneuropathy; E11.22 Type 2 diabetes mellitus with diabetic chronic kidney disease; Y95 Nosocomial condition; Z86.19 Personal history of other infectious and parasitic diseases; Z68.22 Body mass index [BMI] 22.0-22.9, adult; Z71.6 Tobacco abuse counseling; Z51.5 Encounter for palliative care
CPT/HCPCS: 36415-UA; 36600-90; 71010-TC; 71250-TC; 76700-TC; 76770-TC; 80048-TC; 80053-TC; 80061-TC; 80074-90; 80076-TC; 80202-TC; 81001-TC; 82103-90; 82105-90; 82140-TC; 82248-TC; 82270-TC; 82378-90; 82390-90; 82465-TC; 82728-90; 82803-TC; 82948-90; 83516-90; 83540-90; 83550-90; 83605; 83735-TC; 84100-TC; 84134-90; 84443-TC; 84478-TC; 85007-TC; 85027-TC; 85049-TC; 85379-TC; 85384-TC; 85610-TC; 85730-TC; 86255-90; 86301-90; 86592-TC; 86850-TC; 86900-TC; 86901-TC; 86922-TC; 90784; 90799; 90937; 92950; 93005; 93307-TC; 94002; 94003; 94640; 94760; 96375; C1751; C9113; J0696; J1170; J1265; J1644; J1815; J1885; J1940; J1956; J2060; J2185; J2250; J2270; J2354; J2370; J2405; J2543; J3370; J3430; J3480; J7030; J7040; P9016; P9017; P9046; P9047; X6452; X6598; Z7502; Z7610